=== PATIENT | male | born 1950 | race Two or more races ===

== ENCOUNTER 2023-08-20 10:35 | Outpatient (REF) | payer MEDICARE, SELFPAY | END 2023-08-20 10:36 | disposition home or self-care (01) | LOC: LAB 10:35 | PROVIDERS: PCP Family Medicine; Visit Provider Family Medicine | DX: K52.9 Noninfective gastroenteritis and colitis, unspecified (principal) | CPT/HCPCS: 87045; 87046; 87427; 87493 ==

== ENCOUNTER 2023-08-21 07:53 | Outpatient (RCR) | payer MEDICARE, SELFPAY | END 2023-09-04 13:17 | disposition home or self-care (01) | LOC: PT 07:53 | PROVIDERS: PCP Family Medicine; Visit Provider Family Medicine | DX: M25.569 Pain in unspecified knee (principal) | CPT/HCPCS: 97110; 97161 ==

== ENCOUNTER 2023-09-17 11:03 | Outpatient (OUT) | payer MEDICARE, SELFPAY ==
--- NOTE | 2023-09-17 11:17 | XR_ITS ---
[place] [id number] Patient Name: SEAN GREWAL MRN: [id number] date: 1950 Sex: M Assigned Patient Location: RAD Current Patient Location: RAD Accession/Order Number: [id number] Exam Date: 09/17/2023 11:21 Report Date: 09/17/2023 12:21 At the request of: BARAK ANTHONY Procedure: XR knee LT 3V PROCEDURE: XR knee LT 3V COMPARISON: None. HISTORY: Left Knee Pain M25.562 FINDINGS: BONES:No acute fracture or dislocation. Tricompartmental osteoarthritis with irregularity of the right medial femoral condyle. Chondrocalcinosis. SOFT TISSUES:Negative. No visible soft tissue swelling. EFFUSION:Suprapatellar joint effusion OTHER: Negative. XR/XR knee LT 3V IMPRESSION: Osteoarthritis, moderate to severe in the medial compartment Electronically authenticated by: ERIC PEPPER Date: 09/17/2023 12:21
== END 2023-09-17 11:04 | disposition home or self-care (01) ==
LOC: RAD 11:09
PROVIDERS: PCP Family Medicine; Visit Provider Family Medicine
DX: M25.562 Pain in left knee (principal); M17.12 Unilateral primary osteoarthritis, left knee
CPT/HCPCS: 73562

== ENCOUNTER 2023-10-10 13:18 | Outpatient (OUT) | payer MEDICARE, SELFPAY ==
--- NOTE | 2023-10-10 13:32 | MR_ITS ---
[place] [id number] Patient Name: SEAN GREWAL MRN: [id number] date: 1950 Sex: M Assigned Patient Location: MRI Current Patient Location: MRI Accession/Order Number: [id number] Exam Date: 10/10/2023 14:05 Report Date: 10/10/2023 21:55 At the request of: BARAK ANTHONY Procedure: MR knee LT wo con EXAM: MR knee LT wo con HISTORY: Left knee pain COMPARISON: Knee x-rays 09/17/2023 TECHNIQUE: Multiplanar, multi sequential MRI sequences were performed. FINDINGS: Large knee effusion. Fatty proliferation of the synovium most pronounced within the suprapatella pouch consistent with lipoma arborescens. Chondrocalcinosis pyrophosphate deposition is better visualized on the prior x-ray. Small multiloculated popliteal cyst. Osteophytes are present off all articular surfaces. Degenerative bone marrow edema and subchondral cysts of the medial femoral condyle, medial tibial plateau and the lateral aspect of the patella. The superficial extra-articular subcutaneous soft tissues are free of edema, hematoma, mass or cyst. No discrete muscle edema, hematoma, atrophy or fatty infiltration. Full-thickness cartilage loss of the medial femoral condyle and medial tibial plateau articular surfaces. Underlying subchondral remodeling. Global degenerative tearing of the medial meniscus. The meniscal root ligaments are intact. Multifocal full and partial thickness cartilage irregularities of the lateral femoral condyle and lateral tibial plateau. Global leading edge degenerative tearing of the lateral meniscus. The root ligaments are unremarkable. Full-thickness cartilage loss throughout the lateral patella facet with mild subchondral remodeling. Full and partial thickness cartilage loss of the patella apex, medial patella facet and trochlea. Edema of Hoffa's fat. The patella tendon and visualized extensor mechanism are unremarkable. The anterior cruciate, posterior cruciate, medial collateral and lateral complex ligaments exhibit no acute thickening, tear or edema. MR/MR knee LT wo con IMPRESSION: 1. Lipoma arborescens. 2. 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 3. Degenerative tearing of the medial and lateral menisci. 4. Large knee effusion. 5. Small multiloculated popliteal cyst. Electronically authenticated by: ERIC GOODSON Date: 10/10/2023 21:55
== END 2023-10-10 13:19 | disposition home or self-care (01) ==
LOC: MRI 13:22
PROVIDERS: PCP Family Medicine; Visit Provider Family Medicine
DX: M25.562 Pain in left knee (principal); M25.462 Effusion, left knee; M11.262 Other chondrocalcinosis, left knee; M17.12 Unilateral primary osteoarthritis, left knee; M71.22 Synovial cyst of popliteal space [Baker], left knee
CPT/HCPCS: 73721

== ENCOUNTER 2023-12-14 09:23 | Outpatient (OUT) | payer MEDICARE, SELFPAY ==
--- NOTE | 2023-12-14 | XR_ITS ---
The [address] [address] Patient Name: SEAN GREWAL MRN: [id number] date: 1950 Sex: M Assigned Patient Location: US Current Patient Location: US Accession/Order Number: [id number] Exam Date: 12/14/2023 10:15 Report Date: 12/14/2023 10:55 At the request of: PETEY LUJAN Procedure: XR abdomen 1V EXAM: XR abdomen 1V INDICATION: Left testicular pain. COMPARISON: None. TECHNIQUE: Supine AP view of the abdomen FINDINGS: Nonobstructive bowel gas pattern. Moderate colonic fecal burden. No evidence of free intra-abdominal air in provided supine views. No pneumatosis or portal venous gas. Unremarkable visceral margins. Pelvic phleboliths. No urinary tract stone identified. No acute osseous abnormality. Lumbar spine dextroscoliosis and multilevel degenerative changes. XR/XR abdomen 1V IMPRESSION: No evidence of acute abdominal process. Electronically authenticated by: MARY JANE WALLACE Date: 12/14/2023 10:55
--- NOTE | 2023-12-14 | US_ITS ---
The [address] [address] Patient Name: SEAN GREWAL MRN: [id number] date: 1950 Sex: M Assigned Patient Location: Current Patient Location: US Accession/Order Number: [id number] Exam Date: 12/14/2023 09:40 Report Date: 12/14/2023 10:27 At the request of: PETEY LUJAN Procedure: US renal BI PROCEDURE: US renal BI DATE: 12/14/2023 9:40 AM EST COMPARISONS: None. INDICATION FOR EXAMINATION: 73 years Male n50.819 testicular pain TECHNIQUE: Grayscale and color Doppler technique were utilized to evaluate the retroperitoneum. FINDINGS: KIDNEYS: The right kidney measures 10.8 x 5.9 x 5.8 cm. The left kidney measures 11.3 x 4.9 x 5.7 cm. There is no evidence of hydronephrosis. There is no ultrasonic evidence of solid focal renal masses or other significant renal parenchymal abnormalities. There are some cysts of the right kidney the largest measuring 1.9 x 1.8 x 1.7 cm mid lower, and lateral. The renal cortices show no evidence of thinning. URINARY BLADDER: There is no ultrasonic evidence of urinary bladder abnormalities. Urinary bladder volume is 116 cc of time of this exam. ASSESSMENT: The kidneys and urinary bladder show no ultrasonic evidence of significant abnormalities. Scattered renal cysts of the right kidney. Electronically authenticated by: DYLON OLIVEROS Date: 12/14/2023 10:27
--- NOTE | 2023-12-14 | US_ITS ---
The [address] [address] Patient Name: SEAN GREWAL MRN: [id number] date: 1950 Sex: M Assigned Patient Location: Current Patient Location: US Accession/Order Number: [id number] Exam Date: 12/14/2023 09:40 Report Date: 12/14/2023 10:33 At the request of: PETEY LUJAN Procedure: US scrotum PROCEDURE: US scrotum DATE: 12/14/2023 9:40 AM EST COMPARISONS: None. INDICATION FOR EXAMINATION: 73 years Male n50.819 testicular pain TECHNIQUE: Grayscale and color Doppler technique were utilized to evaluate the scrotum. 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 There is no evidence of intratesticular masses or other significant testicular parenchymal abnormalities. There is symmetric testicular arterial blood flow on color and pulsed wave Doppler imaging. The right testis measures 4.6 x 2.7 x 2.1 cm. The left testis measures 3.9 x 3.2 x 2.0 cm. EPIDIDYMIS: The epididymides are normal in size and show normal vascularity on color Doppler imaging. SCROTUM: There is small right hydrocele bilaterally. There is no ultrasonic evidence of varicocele. ASSESSMENT: There is no ultrasonic evidence of testicular abnormalities. 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 Small hydroceles are present, likely of no clinical significance. Electronically authenticated by: DYLON OLIVEROS Date: 12/14/2023 10:33
--- OUTSIDE RECORDS SUMMARY | 2023-12-14 09:27 | XMS_ITS | CCD ---
Author Name Unknown Address [address] [place] [address] Organization [facility] Care Team Providers Care Repair Operator Name Role Phone Barak Richard Primary Care Physician MD Jose MARCUM Attending Unavailable MD Jose MARCUM Attending Unavailable MD Jose MARCUM Attending Unavailable HOY ., DR CANCINO Admitting Unavailable HOY ., DR CANCINO Attending Unavailable HOY ., DR CANCINO Primary Care Unavailable HOY ., DR CANCINO Consulting Unavailable ZIEBER, DR ANYA Singleton Consulting Unavailable MARCUM ., DR EPSTEIN Admitting Unavailable MARCUM ., DR EPSTEIN Attending Unavailable HOY ., DR CANCINO Primary Care Unavailable MARCUM ., DR EPSTEIN Consulting Unavailable ZIEBER, DR ANYA Singleton Consulting Unavailable MARCUM ., DR EPSTEIN Admitting Unavailable MARCUM ., DR EPSTEIN Attending Unavailable HOY ., DR CANCINO Primary Care Unavailable MARCUM ., DR EPSTEIN Consulting Unavailable WEST, DR ERIC Carrillo Consulting Unavailable HOY ., DR CANCINO Admitting Unavailable HOY ., DR CANCINO Attending Unavailable HOY ., DR CANCINO Primary Care Unavailable MARCUM ., DR EPSTEIN Admitting Unavailable MARCUM ., DR EPSTEIN Attending Unavailable HOY ., DR CANCINO Primary Care Unavailable MARCUM ., DR EPSTEIN Consulting Unavailable HOY ., DR CANCINO Admitting Unavailable HOY ., DR CANCINO Attending Unavailable HOY ., DR CANCINO Primary Care Unavailable HOY ., DR CANCINO Consulting Unavailable EVGENY, DR ERIC Carrillo Consulting Unavailable MD Barak Richard Primary Care Provider [phone] MD Eliezer Venegas Attending Provider Eliezer Venegas Attending Unavailable Eliezer Venegas Admitting Unavailable Barak Richard Primary Care Unavailable Allergies Allergy Classification Reported Allergen(s) Allergy Type Date of Onset Reaction(s) Facility (1 source) No Known Medication Allergies; Translations: [No Known Medication Allergies] Propensity to adverse reactions (disorder) [facility] Repository Medications Current Medications Medication Drug Class(es) Dates Sig (Normalized) Sig (Original) 24 hr alfuzosin hydrochloride 10 mg extended release oral tablet (2 sources) alpha-Adrenergic Pedrito Start: 04-15-2023 take 1 tablet by mouth once daily alfuzosin 10 mg ER Tab 10 mg = 1 tab(s), Oral, Daily, # 90 tab(s), Refills(s) 3, Pharmacy: [facility] Mail [facility], 159, cm, 11/19/22 10:59:00 EST, Height/Length Dosing, 78, kg, 11/19/22 10:59:00 EST, Weight Dosing Start Date: 04/15/23 Status: Ordered Start: 02-12-2022 take 1 tablet by carolann th once daily alfuzosin 10 mg ER Tab 10 mg = 1 tab(s), Oral, Daily, # 90 tab(s), Refills(s) 3, Pharmacy: [facility] Mail [facility], 159, cm, 02/12/22 9:39:00 EDT, Height/Length Dosing, 78, kg, 02/12/22 9:39:00 EDT, Weight Dosing Start Date: 02/12/22 Status: Ordered Amlodipine (2 sources) Dihydropyridine Calcium Channel Pedrito Start: 12-18-2019 amlodipine Oral, Daily, Refills(s) 0 Start Date: 12/18/19 Status: Ordered cefdinir 300 mg oral capsule (1 source) Cephalosporin Antibacterial Start: 11-25-2023 cefdinir 300 mg Cap Refills(s) 0 Start Date: 11/25/23 Status: Ordered doxycycline hyclate 100 mg oral capsule (1 source) Tetracycline-class Drug Start: 11-25-2023 End: 12-16-2023 take 1 capsule by mouth twice daily doxycycline hyclate 100 mg Cap 100 mg = 1 cap(s), Oral, BID, X 3 week(s), # 42 cap(s), Refills(s) 0, Pharmacy: [facility]/pharmacy #[id number], 159, cm, 11/25/23 10:07:00 EST, Height/Length Dosing, 78, kg, 11/25/23 10:07:00 EST, Weight Dosing Start Date: 11/25/23 Stop Date: 12/16/23 Status: Ordered dutasteride 0.5 mg oral capsule (1 source) 5-alpha Reductase Inhibitor Start: 11-25-2023 End: 11-19-2024 take 1 capsule by mouth once daily dutasteride 0.5 mg Cap 0.5 mg = 1 cap(s), Oral, Daily, X 90 day(s), # 90 cap(s), Refills(s) 3, Pharmacy: [facility]/pharmacy #[id number], 159, cm, 11/25/23 10:07:00 EST, Height/Length Dosing, 78, kg, 11/25/23 10:07:00 EST, Weight Dosing Start Date: 11/25/23 Stop Date: 11/19/24 Status: Ordered lisinopril 5 mg oral tablet (2 sources) Angiotensin Converting Enzyme Inhibitor Start: 04-16-2019 take 1 tablet by mouth once daily lisinopril 5 mg Tab 5 mg = 1 tab(s), Oral, Daily Start Date: 04/16/19 Status: Ordered pantoprazole 40 mg delayed release oral tablet (2 sources) Proton Pump Inhibitor Start: 04-16-2019 take 1 tablet by mouth once daily Protonix 40 mg Tab-DR 40 mg = 1 tab(s), Oral, Daily Start Date: 04/16/19 Status: Ordered Completed/Discontinued Medications Medication Drug Class(es) Dates Sig (Normalized) Sig (Original) tadalafil 20 mg oral tablet (2 sources) Phosphodiesterase 5 Inhibitor Start: 04-15-2023 Cialis 20 mg Tab 20 mg = 1 tab(s), Oral, As Directed, Take 1 tab po 60 mins prior to sexual activity. Do not exceed 20mg/24 hrs., # 30 tab(s), Refills(s) 1, Pharmacy: [facility] [id number], 159, cm, 11/19/22 10:59:00 EST, Height/Length Dosing, 78, kg, 11/19/22 10:59:00 EST, Weight Dosing Start Date: 04/15/23 Status: Ordered Start: 05-17-2021 take 1 tablet by carolann th once daily Cialis 20 mg Tab 20 mg = 1 tab(s), Oral, Daily, # 30 tab(s), Refills(s) 1, Pharmacy: [place] [id number], 159, cm, 02/12/21 12:42:00 EST, Height/Length Dosing, 82, kg, 12/23/20 12:42:00 EST, Weight Dosing Start Date: 05/17/21 Status: Ordered Problems Active Problems Problem Classification Problem Date Documented Date Episodic/Chronic Abdominal pain (4 sources) Inguinal pain; Translations: [Pelvic and perineal pain] 04-16-2019 Episodic Disorders of lipid metabolism (2 sources) Hypertriglyceridemia 04-16-2019 Chronic Esophageal disorders (2 sources) Gastroesophageal reflux disease 04-16-2019 Chronic Hyperplasia of prostate (8 sources) Benign prostatic hypertrophy with outflow obstruction; Translations: [Benign prostatic hyperplasia with lower urinary tract symptoms] Onset: 11-17-19 Chronic Inflammatory conditions of male genital organs (6 sources) Epididymitis; Translations: [Epididymitis] Onset: 11-19-19 23 Episodic Osteoarthritis (2 sources) Osteoarthritis 04-16-2019 Chronic Other connective tissue disease (1 source) Abnormal posture; Translations: [ABNORMAL POSTURE] Onset: 03-01-20 Episodic Other diseases of kidney and ureters (1 source) Urinary tract obstruction; Translations: [Other obstructive and reflux uropathy] Onset: 11-19-19 Episodic Other diseases of kidney and ureters (2 sources) Cyst of kidney 10-02-2019 Episodic Other gastrointestinal disorders (2 sources) Scrotal mass 12-23-2020 Episodic Other liver diseases (4 sources) Liver disease, unspecified; Translations: [LIVER DISEASE UNSPECIFIED] Onset: 04-03-20 Chronic Other male genital disorders (2 sources) Male erectile dysfunction, unspecified; Translations: [Erectile dysfunction] Onset: 11-19-19 Chronic Other male genital disorders (2 sources) Impotence 12-23-2020 Chronic Other male genital disorders (2 sources) Cyst of epididymis 12-23-2020 Episodic Other male genital disorders (2 sources) Pain of left testicle 02-12-2022 Episodic Other non-traumatic joint disorders (1 source) Pain in unspecified joint; Translations: [Pain in unspecified joint] Onset: 10-24-20 Episodic Other screening for suspected conditions (not mental disorders or infectious disease) (2 sources) Radiology result abnormal 04-17-2019 Chroni c Residual codes; unclassified (2 sources) Family history of cancer of colon 04-16-2019 Episodic Screening and history of mental health and substance abuse codes (2 sources) Ex-smoker 03-18-2020 Episodic Spondylosis; intervertebral disc disorders; other back problems (5 sources) Other cervical disc degeneration, unspecified cervical region; Translations: [Spondylosis without myelopathy or radiculopathy, cervical region] Onset: 06-20-20 Chronic Spondylosis; intervertebral disc disorders; other back problems (4 sources) Cervicalgia; Translations: [CERVICALGIA] Onset: 02-29-20 23 Episodic Past or Other Problems Problem Classification Problem Date Documented Date Episodic/Chronic Biliary tract disease (1 source) Calculus of gallbladder without cholecystitis without obstruction; Translations: [CALCU GB W/O CHOLECYST W/O OBST] Onset: 04-05-2022 Episodic Other male genital disorders (4 sources) Testicular pain, unspecified; Translations: [TESTICULAR PAIN UNSPECIFIED] Onset: 03-27-2022 Episodic Results Test Name Value Interpretation Reference Range Facility [facility] Antinuclear Antibodieson 10-24-2023 Antinuclear Abs, IFA Negative Normal . [facility] Comment on above: Result Comment: Nega tive <1:80 Borderline 1:80 Positive >1:80 ICAP nomenclature: AC-0 For more information about Hep-2 cell patterns use ANApatterns.org, the official website for the International Consensus on Antinuclear Antibody (KEV) Patterns (ICAP). Performed at: [facility] [place] [id number] Billiard Table Mechanic: Arcenio Ballard PhD, Phone: [phone] PERFORMED BY: [place] [address] PATHOLOGIST ADJUNCT PHYSICAL EDUCATION INSTRUCTOR DANYELLE HERNANDEZ M.D. Performed By: #### U AARON, CBC, ESR, CMP, CRP #### [place] [address] [place] #### KEV #### [facility] , Alanine aminotransferase [En zymatic activity/volume] in Serum or PlasmaOrdered By: Eliezer Venegas on 10-24-2023 ALT [Catalytic activity/Vol] 19 U/L 7-52 [facility] Albumin [Mass/volume] in Ser um or Plasma by Bromocresol green (BCG) dye binding methoOrdered By: Eliezer Venegas on 10-24-2023 Albumin BCG dye [Mass/Vol] 4.5 g/dL 3.5-5.7 [facility] Alkaline phosphatase [Enzyma tic activity/volume] in Serum or PlasmaOrdered By: Eliezer Venegas on 10-24-2023 ALP [Catalytic activity/Vol] 69 U/L 34-104 [facility] Aspartate aminotransferase [ Enzymatic activity/volume] in Serum or PlasmaOrdered By: Eliezer Venegas on 10-24-2023 AST [Catalytic activity/Vol] 18 U/L 13-39 [facility] Basophils Auto (Bld) [#/Vol] Ordered By: Eliezer Venegas on 10-24-2023 Basophils (Bld) [#/Vol] 0.0 10*3/uL 0.0-0.2 [facility] Basophils/100 WBC Auto (Bld) Ordered By: Eliezer Venegas on 10-24-2023 Basophils/100 WBC (Bld) 0.6 % . [facility] Bilirubin.total [Mass/volume ] in Serum or PlasmaOrdered By: Eliezer Venegas on 10-24-2023 Bilirubin [Mass/Vol] 0.6 mg/dL 0.3-1.0 [facility] C reactive protein [Mass/vol ume] in Serum or PlasmaOrdered By: Eliezer Venegas on 10-24-2023 CRP [Mass/Vol] < 0.5 mg/dL 0.0-0.5 [facility] C-Reactive Proteinon 023 CRP [Mass/Vol] mg/L Normal 0.0-0.5 [facility] Comment on above: Result Comment: PERF ORMED BY: [place] [address] PATHOLOGIST ADJUNCT PHYSICAL EDUCATION INSTRUCTOR DANYELLE HERNANDEZ M.D. Performed By: #### U AARON, CBC, ESR, CMP, CRP #### [place] [address] [place] #### KEV #### [facility] , Calcium [Mass/volume] in Ser um or PlasmaOrdered By: Eliezer Venegas on 10-24-2023 Calcium [Mass/Vol] 9.4 mg/dL 8.6-10.3 [facility] Carbon dioxide, total [Moles /volume] in Serum or PlasmaOrdered By: Eliezer Venegas on 10-24-2023 CO2 [Moles/Vol] 27.8 mmol/L 21.0-31.0 [facility] Chloride [Moles/volume] in S precious or PlasmaOrdered By: Eliezer Venegas on 10-24-2023 Chloride [Moles/Vol] 101 mmol/L 98-107 [facility] Complete Blood Count Auto Di ffon 10-24-2023 Basophils (Bld) [#/Vol] 0.0 10*3/uL Normal 0.0-0.2 [facility] Comment on above: Performed By: #### U AARON, CBC, ESR, CMP, CRP #### [facility] [address] [place] [address] [place] #### KEV #### [facility] , Basophils/100 WBC (Bld) 0.6 % Normal . [facility] Comment on above: Performed By: #### U AARON, CBC, ESR, CMP, CRP #### [facility] [address] [place] [address] [place] #### KEV #### [facility] , Eosinophils (Bld) [#/Vol] 0.0 10*3/uL Normal 0.0-0.45 [facility] Comment on above: Performed By: #### U AARON, CBC, ESR, CMP, CRP #### [facility] [address] [place] [address] [place] #### KEV #### [facility] , Eosinophils/100 WBC (Bld) 0.7 % Normal . [facility] Comment on above: Performed By: #### U AARON, CBC, ESR, CMP, CRP #### [place] [address] [place] #### KEV #### [facility] , Erythrocyte distribution width (RBC) [Ratio] 12.4 % Normal 12.0-14.8 [facility] Comment on above: Performed By: #### U AARON, CBC, ESR, CMP, CRP #### [address] #### KEV #### [facility] , Hematocrit (Bld) [Volume fraction] 38.4 % Low 38.8-50.0 [facility] Comment on above: Performed By: #### U AARON, CBC, ESR, CMP, CRP #### [address] #### KEV #### [facility] , Hemoglobin (Bld) [Mass/Vol] 13.9 g/dL Normal 13.0-17.0 [facility] Comment on above: Performed By: #### U AARON, CBC, ESR, CMP, CRP #### [address] #### KEV #### [facility] , Lymphocytes (Bld) [#/Vol] 1.5 10*3/uL Normal 1.00-4.8 [facility] Comment on above: Performed By: #### U AARON, CBC, ESR, CMP, CRP #### [address] #### KEV #### [facility] , Lymphocytes/100 WBC (Bld) 34.3 % Normal . [facility] Comment on above: Performed By: #### U AARON, CBC, ESR, CMP, CRP #### [place] [address] [place] #### KEV #### [facility] , MCH (RBC) [Entitic mass] 36.0 pg High 27.5-35.2 [facility] Comment on above: Performed By: #### U AARON, CBC, ESR, CMP, CRP #### [place] [address] [place] #### KEV #### [facility] , MCV (RBC) [Entitic vol] 99.7 fL Normal 83.5-101 F [facility] Comment on above: Performed By: #### U AARON, CBC, ESR, CMP, CRP #### [facility] [address] [place] [address] #### KEV #### [facility] , Mean Corpuscular HGB Conc 36.1 g/dL High 32.5-35.6 [facility] Comment on above: Performed By: #### U AARON, CBC, ESR, CMP, CRP #### [facility] [address] [place] [address] [place] #### KEV #### [facility] , Monocytes (Bld) [#/Vol] 0.4 10*3/uL Normal 0.0-0.8 [facility] Comment on above: Performed By: #### U AARON, CBC, ESR, CMP, CRP #### [facility] [address] [place] [address] [place] #### KEV #### [facility] , Monocytes/100 WBC (Bld) 10.0 % Normal . [facility] Comment on above: Performed By: #### U AARON, CBC, ESR, CMP, CRP #### [facility] [address] [place] [address] [place] #### KEV #### [facility] , Neutrophils (Bld) [#/Vol] 2.4 10*3/uL Normal 1.8-7.7 [facility] Comment on above: Performed By: #### U AARON, CBC, ESR, CMP, CRP #### [facility] [address] [place] [address] [place] #### KEV #### [facility] , Neutrophils/100 WBC (Bld) 54.4 % Normal . [facility] Comment on above: Performed By: #### U AARON, CBC, ESR, CMP, CRP #### [facility] [address] [place] [address] #### KEV #### [facility] , NRBC% 0.1 /100{WBC} Normal 0-0.5 [facility] Comment on above: Performed By: #### U AARON, CBC, ESR, CMP, CRP #### [facility] [address] [place] [address] #### KEV #### [facility] , Platelet mean volume (Bld) [Entitic vol] 8.0 fL Normal 6.6-10.1 [facility] Comment on above: Performed By: #### U AARON, CBC, ESR, CMP, CRP #### [facility] [address] [place] [address] #### KEV #### [facility] , Platelets (Bld) [#/Vol] 206 10*3/uL Normal 150-450 [facility] Comment on above: Performed By: #### U AARON, CBC, ESR, CMP, CRP #### [address] #### KEV #### [facility] , RBC (Bld) [#/Vol] 3.85 10*6/uL Low 3.90-5.60 [facility] Comment on above: Performed By: #### U AARON, CBC, ESR, CMP, CRP #### [facility] [address] [place] [address] [place] #### KEV #### [facility] , WBC (Bld) [#/Vol] 4.4 10*3/uL Normal 4.1-10.5 [facility] Comment on above: Performed By: #### U AARON, CBC, ESR, CMP, CRP #### [place] [address] [place] #### KEV #### [facility] , Comprehensive Metabolic Pane bebo 10-24-2023 Albumin [Mass/Vol] 4.5 g/dL Normal 3.5-5.7 [facility] Comment on above: Performed By: #### U AARON, CBC, ESR, CMP, CRP #### [facility] [address] [place] [address] [place] #### KEV #### [facility] , Albumin/Globulin [Mass ratio] 1.9 {ratio} Normal [facility] Comment on above: Performed By: #### U AARON, CBC, ESR, CMP, CRP #### [address] #### KEV #### [facility] , ALP [Catalytic activity/Vol] 69 U/L Normal 34-104 [facility] Comment on above: Performed By: #### U AARON, CBC, ESR, CMP, CRP #### [address] #### KEV #### [facility] , ALT [Catalytic activity/Vol] 19 U/L Normal 7-52 [facility] Comment on above: Performed By: #### U AARON, CBC, ESR, CMP, CRP #### [facility] [address] [place] [address] [place] #### KEV #### [facility] , Anion gap [Moles/Vol] 11.8 mmol/L Normal 6.0-15.0 [facility] Comment on above: Performed By: #### U AARON, CBC, ESR, CMP, CRP #### [place] [address] [place] #### KEV #### [facility] , AST [Catalytic activity/Vol] 18 U/L Normal 13-39 [facility] Comment on above: Performed By: #### U AARON, CBC, ESR, CMP, CRP #### [facility] [address] [place] [address] [place] #### KEV #### [facility] , Bilirubin [Mass/Vol] 0.6 mg/dL Normal 0.3-1.0 [facility] Comment on above: Performed By: #### U AARON, CBC, ESR, CMP, CRP #### [facility] [address] [place] [address] [place] #### KEV #### [facility] , Calcium [Mass/Vol] 9.4 mg/dL Normal 8.6-10.3 [facility] Comment on above: Performed By: #### U AARON, CBC, ESR, CMP, CRP #### [facility] [address] [place] [address] #### KEV #### [facility] , Chloride [Moles/Vol] 101 mmol/L Normal 98-107 [facility] Comment on above: Performed By: #### U AARON, CBC, ESR, CMP, CRP #### [facility] [address] [place] [address] [place] #### KEV #### [facility] , CO2 [Moles/Vol] 27.8 mmol/L Normal 21.0-31.0 [facility] Comment on above: Performed By: #### U AARON, CBC, ESR, CMP, CRP #### [facility] [address] [place] [address] #### KEV #### [facility] , Creatinine [Mass/Vol] 0.74 mg/dL Normal 0.70-1.30 [facility] Comment on above: Performed By: #### U AARON, CBC, ESR, CMP, CRP #### [facility] [address] [place] [address] [place] #### KEV #### [facility] , GFR/1.73 sq M.predicted MDRD (S/P/Bld) [Vol rate/Area] mL/min/{1.73_m2} Normal [facility] Comment on above: Performed By: #### U AARON, CBC, ESR, CMP, CRP #### [place] [address] [place] #### KEV #### [facility] , Globulin (S) [Mass/Vol] 2.4 g/dL Normal [facility] Comment on above: Performed By: #### U AARON, CBC, ESR, CMP, CRP #### [place] [address] [place] #### KEV #### [facility] , Glucose [Mass/Vol] 95 mg/dL Normal 70-100 [facility] Comment on above: Result Comment: [facility] Glucose Reference Range is dependent on time and content of last meal. Glucose of more than 200 mg/dL in a nonstressed, ambulatory subject supports the diagnosis of Diabetes Mellitus. ADA recommended reference range Performed By: #### U AARON, CBC, ESR, CMP, CRP #### [address] #### KEV #### [facility] , Potassium [Moles/Vol] 4.6 mmol/L Normal 3.5-5.1 [facility] Comment on above: Performed By: #### U AARON, CBC, ESR, CMP, CRP #### [place] [address] [place] #### KEV #### [facility] , Protein [Mass/Vol] 6.9 g/dL Normal 6.4-8.9 [facility] Comment on above: Performed By: #### U AARON, CBC, ESR, CMP, CRP #### [place] [address] [place] #### KEV #### [facility] , Sodium [Moles/Vol] 136 mmol/L Normal 136-145 [facility] Comment on above: Performed By: #### U AARON, CBC, ESR, CMP, CRP #### [place] [address] [place] #### KEV #### [facility] , Urea nitrogen [Mass/Vol] 21 mg/dL Normal 7-25 [facility] Comment on above: Performed By: #### U AARON, CBC, ESR, CMP, CRP #### [facility] [address] [place] [address] #### KEV #### [facility] , Creatinine [Mass/volume] in Serum or PlasmaOrdered By: Eliezer Venegas on 10-24-2023 Creatinine [Mass/Vol] 0.74 mg/dL 0.70-1.30 [facility] Eosinophils Auto (Bld) [#/Vo l]Ordered By: Eliezer Venegas on 10-24-2023 Eosinophils (Bld) [#/Vol] 0.0 10*3/uL 0.0-0.45 [facility] Eosinophils/100 WBC Auto (Bl d)Ordered By: Eliezer Venegas on 10-24-2023 Eosinophils/100 WBC (Bld) 0.7 % . [facility] Erythrocyte Sedimentation Ra marie 10-24-2023 ESR (Bld) [Velocity] 11 mm/h Normal 0-19 [facility] Comment on above: Result Comment: PERF ORMED BY: [place] [address] PATHOLOGIST ADJUNCT PHYSICAL EDUCATION INSTRUCTOR DANYELLE HERNANDEZ M.D. Performed By: #### U AARON, CBC, ESR, CMP, CRP #### [facility] [address] [place] [address] #### KEV #### [facility] , Erythrocyte distribution wid th Auto (RBC) [Ratio]Ordered By: Eliezer Venegas on 10-24-2023 Erythrocyte distribution width (RBC) [Ratio] 12.4 % 12.0-14.8 [facility] Erythrocyte sedimentation ra te by Photometric methodOrdered By: Eliezer Venegas on 10-24-2023 ESR Photometric method (Bld) [Velocity] 11 mm/hr 0-19 [facility] Globulin Calc (S) [Mass/Vol] Ordered By: Eliezer Venegas on 10-24-2023 Globulin (S) [Mass/Vol] 2.4 g/dL F [facility] Glucose [Mass/volume] in Ser um or PlasmaOrdered By: Eliezer Venegas on 10-24-2023 Glucose [Mass/Vol] 95 mg/dL 70-100 [facility] Comment on above: ADA recommended refe rence rangeRandom Glucose Reference Range is dependent on time and content of last meal. Glucose of more than 200 mg/dL in a nonstressed, ambulatory subject supports the diagnosis of Diabetes Mellitus. Hematocrit Auto (Bld) [Volum e fraction]Ordered By: Eliezer Venegas on 10-24-2023 Hematocrit (Bld) [Volume fraction] 38.4 % 38.8-50.0 [facility] Hemoglobin [Mass/volume] in BloodOrdered By: Eliezer Venegas on 10-24-2023 Hemoglobin (Bld) [Mass/Vol] 13.9 g/dL 13.0-17.0 [facility] Leukocytes [#/volume] correc víctor for nucleated erythrocytes in Blood by Automated counOrdered By: Eliezer Venegas on 10-24-2023 WBC corrected for nucl RBC Auto (Bld) [#/Vol] 4.4 10*3/uL 4.1-10.5 [facility] Lymphocytes Auto (Bld) [#/Vo l]Ordered By: Eliezer Venegas on 10-24-2023 Lymphocytes (Bld) [#/Vol] 1.5 10*3/uL 1.00-4.8 [facility] Lymphocytes/100 WBC Auto (Bl d)Ordered By: Eliezer Venegas on 10-24-2023 Lymphocytes/100 WBC (Bld) 34.3 % . [facility] MCH Auto (RBC) [Entitic mass ]Ordered By: Eliezer Venegas on 10-24-2023 MCH (RBC) [Entitic mass] 36.0 pg 27.5-35.2 [facility] MCHC Auto (RBC) [Mass/Vol]Or dered By: Eliezer Venegas on 10-24-2023 MCHC (RBC) [Mass/Vol] 36.1 g/dL 32.5-35.6 [facility] MCV Auto (RBC) [Entitic vol] Ordered By: Eliezer Venegas on 10-24-2023 MCV (RBC) [Entitic vol] 99.7 fL 83.5-101 F [facility] Monocytes Auto (Bld) [#/Vol] Ordered By: Eliezer Venegas on 10-24-2023 Monocytes (Bld) [#/Vol] 0.4 10*3/uL 0.0-0.8 [facility] Monocytes/100 WBC Auto (Bld) Ordered By: Eliezer Venegas on 10-24-2023 Monocytes/100 WBC (Bld) 10.0 % . F [facility] Neutrophils Auto (Bld) [#/Vo l]Ordered By: Eliezer Venegas on 10-24-2023 Neutrophils (Bld) [#/Vol] 2.4 10*3/uL 1.8-7.7 [facility] Neutrophils/100 WBC Auto (Bl d)Ordered By: Eliezer Venegas on 10-24-2023 Neutrophils/100 WBC (Bld) 54.4 % . [facility] No Panel InformationOrdered By: Eliezer Venegas on 10-24-2023 Estimated GFR (CKD-EPI) > 60.0 mL/Min [facility] Pharmacy Creatinine Clearance (Chem N/A [facility] Nucleated erythrocytes [Pres ence] in Blood by Automated countOrdered By: Eliezer Venegas on 10-24-2023 Nucleated RBC Auto Ql (Bld) 0.1 /100{WBC} 0-0.5 [facility] Platelet mean volume Auto (B ld) [Entitic vol]Ordered By: Eliezer Venegas on 10-24-2023 Platelet mean volume (Bld) [Entitic vol] 8.0 fL 6.6-10.1 [facility] Platelets Auto (Bld) [#/Vol] Ordered By: Eliezer Venegas on 10-24-2023 Platelets (Bld) [#/Vol] 206 10*3/uL 150-450 [facility] Potassium [Moles/volume] in Serum or PlasmaOrdered By: Eliezer Venegas on 10-24-2023 Potassium [Moles/Vol] 4.6 mmol/L 3.5-5.1 [facility] Protein [Mass/volume] in Ser um or PlasmaOrdered By: Eliezer Venegas on 10-24-2023 Protein [Mass/Vol] 6.9 g/dL 6.4-8.9 [facility] RBC Auto (Bld) [#/Vol]Ordere d By: Eliezer Venegas on 10-24-2023 RBC (Bld) [#/Vol] 3.85 10*6/uL 3.90-5.60 [facility] Serum or plasma albumin/glob ulin mass ratioOrdered By: Eliezer Venegas on 10-24-2023 Albumin/Globulin [Mass ratio] 1.9 {ratio} [facility] Serum or plasma anion gap de terminationOrdered By: Eliezer Venegas on 10-24-2023 Anion gap [Moles/Vol] 11.8 mmol/L 6.0-15.0 [facility] Sodium [Moles/volume] in Ser um or PlasmaOrdered By: Eliezer Venegas on 10-24-2023 Sodium [Moles/Vol] 136 mmol/L 136-145 [facility] Urate [Mass/volume] in Serum or PlasmaOrdered By: Eliezer Venegas on 10-24-2023 Urate [Mass/Vol] 4.3 mg/dL 4.4-7.6 [facility] Urea nitrogen [Mass/volume] in Serum or PlasmaOrdered By: Eliezer Venegas on 10-24-2023 Urea nitrogen [Mass/Vol] 21 mg/dL 7-25 [facility] Uric Acidon 10-24-2023 Urate [Mass/Vol] 4.3 mg/dL Low 4.4-7.6 [facility] Comment on above: Performed By: #### U AARON, CBC, ESR, CMP, CRP #### [facility] [address] [place] [address] #### KEV #### [facility] , WBC Auto (Bld) [#/Vol]Ordere d By: Eliezer Venegas on 10-24-2023 WBC (Bld) [#/Vol] 4.4 10*3/uL 4.1-10.5 [facility] Lab Reportson 11-26-2022 Lab Reports [id number] 0CD:127 Normal [facility] Screenson 11-20-2022 Screens [id number] 0CD:127 [facility] Ambulatory Visit Summaryon 0 11-19-2022 Ambulatory Visit Summary YURIY GREWAL :1950 Visit Date:11/19/2022 Ambulatory Visit Instructions Your Diagnosis BPH with urinary obstruction Erectile dysfunction Epididymitis Other obstructive and reflux uropathy Tests Performed Urnls Dip Stick Auto w/o Microscopy POC 19179 Your Care Team Attending Physician - Jose MARCUM MD Primary Care Physician - Barak Richard MD This Is Your Medications List Contact prescribing physician if questions or concerns alfuzosin (alfuzosin 10 mg ER Tab) amlodipine lisinopril (lisinopril 5 mg Tab) pantoprazole (Protonix 40 mg Tab-DR) tadalafil (Cialis 20 mg Tab) Procedures Performed Colonoscopy (2011), Colonoscopy, flexible; diagnostic, including collection of specimen(s) by brushing or washing, when performed (separate procedure) (2008), Cataract surgery, Hernia repair. Discharge Vitals Heart Rate (Peripheral) 68 Respiratory Rate 16 Blood Pressure 132/70 Height 159 cm Height 63 in Weight 78 kg Weight 171.6 lb BMI 30.85 What to do next Scheduled Follow-Up Appointments Saturday 9:45 AM EST With: KITTY GLASS, Jose Singleton Where: [facility] Patient Educationon 11-19-19 23 Patient Education Urology Benign Prostatic Hyperplasia Benign prostatic hyperplasia (BPH) is an enlarged prostate gland that is caused by the normal aging process and not by cancer. The prostate is a walnut-sized gland that is involved in the production of semen. It is located in front of the rectum and below the bladder. The bladder stores urine and the urethra is the tube that carries the urine out of the body. The prostate may get bigger as a man gets older. An enlarged prostate can press on the urethra. This can make it harder to pass urine. The build-up of urine in the bladder can cause infection. Back pressure and infection may progress to bladder damage and kidney (renal) failure. What are the causes? This condition is part of a normal aging process. However, not all men develop problems from this condition. If the prostate enlarges away from the urethra, urine flow will not be blocked. If it enlarges toward the urethra and compresses it, there will be problems passing urine. What increases the risk? This condition is more likely to develop in men over the age of 50 years. What are the signs or symptoms? Symptoms of this condition include: ? Getting up often during the night to urinate. ? Needing to urinate frequently during the day. ? Difficulty starting urine flow. ? Decrease in size and strength of your urine stream. ? Leaking (dribbling) after urinating. ? Inability to pass urine. This needs immediate treatment. ? Inability to completely empty your bladder. ? Pain when you pass urine. This is more common if there is also an infection. ? Urinary tract infection (UTI). How is this diagnosed? This condition is diagnosed based on your medical history, a physical exam, and your symptoms. Tests will also be done, such as: ? A post-void bladder scan. This measures any amount of urine that may remain in your bladder after you finish urinating. ? A digital rectal exam. In a rectal exam, your health care provider checks your prostate by putting a lubricated, gloved finger into your rectum to feel the back of your prostate gland. This exam detects the size of your gland and any abnormal lumps or growths. ? An exam of your urine (urinalysis). ? A prostate specific antigen (PSA) screening. This is a blood test used to screen for prostate cancer. ? An ultrasound. This test uses sound waves to electronically produce a picture of your prostate gland. Your health care provider may refer you to a specialist in kidney and prostate diseases (urologist). How is this treated? Once symptoms begin, your health care provider will monitor your condition (active surveillance or watchful waiting). Treatment for this condition will depend on the severity of your condition. Treatment may include: ? Observation and yearly exams. This may be the only treatment needed if your condition and symptoms are mild. ? Medicines to relieve your symptoms, including: ? Medicines to shrink the prostate. ? Medicines to relax the muscle of the prostate. ? Surgery in severe cases. Surgery may include: ? Prostatectomy. In this procedure, the prostate tissue is removed completely through an open incision or with a laparoscope or robotics. ? Transurethral resection of the prostate (TURP). In this procedure, a tool is inserted through the opening at the tip of the penis (urethra). It is used to cut away tissue of the inner core of the prostate. The pieces are removed through the same opening of the penis. This removes the blockage. ? Transurethral incision (TUIP). In this procedure, small cuts are made in the prostate. This lessens the prostate's pressure on the urethra. ? Transurethral microwave thermotherapy (TUMT). This procedure uses microwaves to create heat. The heat destroys and removes a small amount of prostate tissue. ? Transurethral needle ablation (TUNA). This procedure uses radio frequencies to destroy and remove a small amount of prostate tissue. ? Interstitial laser coagulation (ILC). This procedure uses a laser to destroy and remove a small amount of prostate tissue. ? Transurethral electrovaporization (TUVP). This procedure uses electrodes to destroy and remove a small amount of prostate tissue. ? Prostatic urethral lift. This procedure inserts an implant to push the lobes of the prostate away from the urethra. Follow these instructions at home: ? Take zuyl-tdb-bvjybke and prescription medicines only as told by your health care provider. ? Monitor your symptoms for any changes. Contact your health care provider with any changes. ? Avoid drinking large amounts of liquid before going to bed or out in public. ? Avoid or reduce how much caffeine or alcohol you drink. ? Give yourself time when you urinate. ? Keep all follow-up visits as told by your health care provider. This is important. Contact a health care provider if: ? You have unexplained back pain. ? Your symptoms do not get better with treatment. ? You d (more content not included)... Normal [facility] Office/Clinic Noteon 11-19-2022 Urology Office/Clinic Note Chief Complaint 9m PSA HPI Staff 9m w/PSA. DX: BPH, ED & Epididymitis. *Alfuzosin 10mg & Cialis 20mg PRN therapy. PSA done 11/17/22- 0.50 Scrotal US done 03/07/22 due to Lt testicular pain... based on those results CT (stone protocol) was ordered, done 03/27/22. Lt testicular pain did come back in October. Received Cipro therapy from his PCP, took for 10 days. did not clear up, was given another 10 day supply. Is currently still taking, discomfort has slightly improved. Frequency during day and night (q2hrs), attributes to increased water intake. Denies any urinary complaints. History of Present Illness Tests reviewed: reviewed UA I have reviewed the previous health record information and history for this patient from Dr. Marcum. I have reviewed and verified the staff HPI to be accurate for this encounter. There have been no associated fever, chills, flank pain, or blood in the urine. Denies any urinary infections since last encounter. Review of Systems PHQ Score Initial Depression Screen Score: 0 ROS - Provider Constitutional: denies weight loss, denies hot flashes. Eyes: denies eye problems. Gastrointestinal: denies nausea, denies vomiting. Cardiovascular: denies chest pain or angina. Integumentary: no dryness Musculoskeletal: denies musculoskeletal symptoms. ENMT: denies otolaryngeal symptoms. Respiratory: no shortness of breath. Heme/Lymph: denies easy bleeding tendency, denies easy bruising tendency. Psychiatric: no confusion, no anxiety. Genitourinary: denies dysuria, denies hematuria, denies discharge, denies urinary frequency, denies urinary hesitancy, denies nocturia, denies incontinence, denies genital sores, denies decreased libido, and denies erectile dysfunction. Physical Exam Vitals & Measurements HR: 68(Peripheral) RR: 16 BP: 132/70 HT: 63 in HT: 159 cm WT: 78 kg WT: 171.6 lb BMI: 30.85 General Appearance: alert, no distress, well nourished, well developed male. Genitourinary: normal scrotum, normal testes, normal urethra, normal epididymis, normal vas deferens/spermatic cord. Flank Pain: none. Bladder: nonpalpable. Assessment/Plan 1. BPH with urinary obstruction (N40.1: Benign prostatic hyperplasia with lower urinary tract symptoms) Good stream. Most recent PSA 0.50 done 11/17/2022, previous PSA 0.72 done 07/05/21. Pt to continue Alfuzosin ER 10mg therapy. Pt states he drinks a lot of water and voids every 2hrs. Pt states Alfuzosin has helped w/ sxs. Pt will call for refills. Overall pt is voiding well. All questions/concerns were discussed. Pt to call our office if he encounters any issues prior. Pt understands and acknowledges. 2. Erectile dysfunction (N52.9: Male erectile dysfunction, unspecified) Cialis 20mg prn therapy. Continue medication as needed. 3. Epididymitis (N45.1: Epididymitis) CT AP done 03/27/2022 showed several rounded benign hypodensities within the right kidney. Scrotal US done 03/07/2022 showed no acute abnormality. Pt states discomfort in his left testicle began in October. Pt currently taking Cipro from PCP. his sxs are improving quite a bit. UA today is negative for blood and infection. Encouraged pt to wait for some time after void to ensure he is completely emptying. Will continue to monitor. Other obstructive and reflux uropathy (N13.8: Other obstructive and reflux uropathy) Follow-up With When Contact Information KITTY GLASS, Jose Singleton, ROSLYN In 1 year [facility] [address], [place] [address]- [phone] Additional Instructions: Patient Education Benign Prostatic Hyperplasia I, Tonya Calero, personally scribed for Dr. Marcum on 11/19/2022 11:39:22. . Documentation recorded by the scribe, Tonya Calero, accurately reflects the services(s) I performed and decisions made by me. Authenticated by Dr. Marcum on 11/19/2022 11:41:48. Problem List/Past Medical History Ongoing Abnormal findings on diagnostic imaging of other abdominal regions, including retroperitoneum BPH with urinary obstruction Cyst of kidney, acquired Epididymal cyst Epididymitis Erectile dysfunction Family history of colon cancer Former smoker GERD (gastroesophageal reflux disease) Hyperglyceridemia Left epididymitis Left inguinal pain Left testicular pain Osteoarthritis Pelvic and perineal pain Scrotal mass Historical No qualifying data Procedure/Surgical History Colonoscopy (2011), Colonoscopy, flexible; diagnostic, including collection of specimen(s) by brushing or washing, when performed (separate procedure) (2008), Cataract surgery, Hernia repair. Medications alfuzosin 10 mg ER Tab, 10 mg= 1 tab(s), Oral, Daily, 3 refills amlodipine, Oral, Daily Cialis 20 mg Tab, 20 mg= 1 tab(s), Oral, Daily, 1 refills lisinopril 5 mg Tab, 5 mg= 1 tab(s), Oral, Daily Protonix 40 mg Tab-DR, 40 mg= 1 tab(s), Oral, Daily Allergies No Known Medication Allergies Social History Alco (more content not included)... Normal [facility] Comment on above: Result Comment: Elec tronically Signed By: Jose MARCUM MD\.br\Date and Time Signed: 11/19/22 11:41 EST\.br\Electronically Co-Signed By: Tonya Calero\.br\Date and Time Co-Signed: 11/19/22 11:39 EST XR CSPINE MIN 4 VIEWSon 06-11 XR CSPINE MIN 4 VIEWS EXAMINATION: XR CS PINE MIN 4 VIEWS HISTORY: Degeneration of cervical intervertebral disc COMPARISON: No relevant comparison available. FINDINGS: BONES: Reversal of normal cervical lordosis. 1 mm anterolisthesis of C3 on C4. 2 mm retrolisthesis of C4 on C5 and C5 on C6. Mild to moderate degenerative spondylosis. Lyxg-ib-pvboryrg facet osteoarthropathy. DISC SPACES: Mild to severe disc space narrowing most significant at C4-C7 PARASPINOUS: Negative. No paraspinous abnormality is seen. OTHER: Negative. IMPRESSION: Moderate degenerative changes with reversal cervical lordosis Electronically authenticated by: REIC PEPPER Date: 2022-06-20 15:07 Normal [facility] RAD - CT Reporton 04-05-2022 RAD - CT Report [id number] 0CD:127 Normal [facility] CREATININEon 04-03-2022 Creatinine [Mass/Vol] 0.85 mg/dL Normal 0.70-1.30 [facility] Comment on above: Performed By: #### C IRENE #### [facility] [address] [place] [address] Dr. Charo Fuentes EGFR-AF TRINIDADIAN >60 Normal >=60 [facility] Comment on above: Performed By: #### C IRENE #### [facility] [address] [address] [address] Charo Fuentes EGFR-NON AF TRINIDADIAN >60 Normal >=60 [facility] Comment on above: Performed By: #### C IRENE #### [facility] [address] ABDOMEN WO/W CONon 2021 CT ABDOMEN WO/W CON EXAMINATION: CT ABDOMEN WO/W CON HISTORY: Lesion of liver , follow-up COMPARISON: CT abdomen pelvis without contrast 03/27/2022, CT abdomen with contrast 04/25/2019 TECHNIQUE: Axial, Coronal, and Sagittal images were created without and with non-ionic intravenous contrast material. Dose reduction techniques were achieved by using automated exposure control and/or adjustment of mA and/or kV according to patient size and/or use of iterative reconstruction technique. FINDINGS: LUNG BASES: No visible pulmonary or pleural disease. LIVER: Several heterogeneous hypodense areas within liver which demonstrate early peripheral enhancement and slow filling in of contrast most consistent with hemangiomas. BILIARY: Multiple tiny stones within the noninflamed gallbladder. PANCREAS: No lesion, fluid collection, ductal dilatation, or atrophy. SPLEEN: No enlargement or focal lesion. ADRENALS: No mass or enlargement. KIDNEYS: Stable benign-appearing right renal cysts. No mass, obstruction, or calcification. BOWEL/MESENTERY: No visible mass, obstruction, or bowel wall thickening. AORTA/VASCULAR: No aneurysm or dissection. RETROPERITONEUM: No mass or adenopathy. ABDOMINAL WALL: No mass or hernia. BONES: No bony lesion or fracture. OTHER: Negative. IMPRESSION: 1. Hepatic lesions are most consistent with benign hemangiomas. No additional follow-up recommended at this time. 2. Stable renal cysts favoring benign etiology. 3. Cholelithiasis. Electronically authenticated by: ANYA NUÑEZ Date: 2022-04-03 11:34 Normal [facility] CT ABD/PELVIS WO CONon 03-27 CT ABD/PELVIS WO CON EXAMINATION: CT ABD/PELVIS WO CON HISTORY: Pain in testicle ; left testicular pain for 4 weeks COMPARISON: Ultrasound scrotum 03/07/2022, CT abdomen 04/25/2019 TECHNIQUE: Axial, Coronal, and Sagittal images were created without IV contrast. Dose reduction techniques were achieved by using automated exposure control and/or adjustment of mA and/or kV according to patient size and/or use of iterative reconstruction technique. FINDINGS: LUNG BASES: No visible pulmonary or pleural disease. LIVER: Areas of hyperdensity and hypodensity within liver which appear to correspond to hemangiomas seen on prior CT study. BILIARY: Small stones within the noninflamed gallbladder. PANCREAS: No lesion, fluid collection, ductal dilatation, or atrophy. SPLEEN: No enlargement or focal lesion. ADRENALS: No mass or enlargement. KIDNEYS: Several rounded hypodensities within right kidney favoring benign cysts. Unremarkable left kidney and bilateral ureters. BOWEL/MESENTERY: Numerous diverticula throughout length of colon; no acute inflammatory changes. No visible mass, obstruction, or focal bowel wall thickening. AORTA/VASCULAR: No aneurysm or dissection. RETROPERITONEUM: No mass or adenopathy. LYMPH NODES: No adenopathy. URINARY BLADDER: No visible focal wall thickening, lesion, or calculus. PELVIC ORGANS: No visible mass. Pelvic organs appropriate for patient age. ABDOMINAL WALL: No mass or hernia. BONES: Multilevel moderate marked degenerative disc disease of the lumbar spine. OTHER: Negative. IMPRESSION: 1. No suspicious findings to account for patient's left testicular pain. 2. Several liver lesions suspected to correspond to previously seen hemangiomas. Consider follow-up multiphase CT imaging of the liver without and with IV contrast to exclude malignancy. 3. Cholelithiasis. 4. Colonic diverticulosis. 5. Multilevel moderate marked degenerative disc disease of the lumbar spine. Electronically authenticated by: ANYA NUÑEZ Date: 2022-03-27 10:06 Normal [facility] Reminderson 03-23-2022 Reminders - From: Toby Funes MA ([facility] - Clinical) To: EU - Clinical; Sent: 03/23/2022 11:52:30 EDT Show up: 03/26/2022 11:52:00 EDT Subject: CT Reminder/Recall Addendum by Mary Jean-Baptiste MA on March 15, 2022 10:24:43 EDT Spoke to pt. Order faxed to [facility]. Addendum by Jose MARCUM MD on March 14, 2022 17:24:30 EDT From: Jose MARCUM MD To: EU - Clinical; Lucinda Haque; Sent: 03/14/2022 17:24:30 EDT Subject: RE: Lt. epididymitis please get a ct stone protocol pw. Addendum by PETEY LUJAN PA-C on March 08, 2022 13:30:33 EDT Pt. saw you on 02/12/22 and was given Doxy 100mg bid x3wks for left epididymitis. Pt finished abx and called complaining of ongoing left sided testicular pain. Pain scale 7-8/10. He is currently taking Ibuprofen 600mg q5hrs. No other sxs. You recommended scrotal US. It is normal. Please advise. [place] Addendum by Mary Jean-Baptiste MA on March 08, 2022 11:29:36 EDT From: Mary Jean-Baptiste MA (EU - Clinical) To: Jose MARCUM MD; Sent: 03/08/2022 11:29:36 EDT Subject: RE: Lt. epididymitis Please review scrotal us in chart. Addendum by Mary Jean-Baptiste MA on March 06, 2022 10:47:20 EDT Pt scheduled for 03/07/22 @ 11:00am. Order faxed. Please show PRW results. Addendum by Mary Jean-Baptiste MA on March 06, 2022 10:21:55 EDT Pt. would like [facility]. [facility] with central scheduling to get that scheduled. Addendum by Jose MARCUM MD on March 05, 2022 16:54:34 EDT From: Jose MARCUM MD To: [facility] Clinical; Sent: 03/05/2022 16:54:34 EDT Subject: RE: Lt. epididymitis Addendum by Jose MARCUM MD on March 05, 2022 16:54:26 EDT Patient needs a scrotal US misael.pw Addendum by PETEY LUJAN PA-C on March 05, 2022 13:24:23 EDT From: PETEY LUJAN PA-C To: KITTY GLASS, Jose Singleton; Sent: 03/05/2022 13:24:23 EDT ! Subject: FW: Lt. epididymitis From: Jerilyn MIRANDA, Mary Beverly To: PETEY LUJAN PA-C; Sent: 03/05/2022 08:14:22 EDT Subject: Lt. epididymitis Pt. saw Dr. Marcum on 02/12/22 and was given Doxy 100mg bid x3wks for left epididymitis. Last abx taken yesterday. Pt. called complaining of ongoing left sided testicular pain. Pain scale 7-8/10. He is currently taking Ibuprofen 600mg q5hrs. No other sxs. Please advise. Pt's # [phone]. Normal [facility] Pre-Certification Formon Pre-Certification Form [id number] 0CD:127 Normal [facility] RAD - Ultrasound Reporton RAD - Ultrasound Report [id number] 0CD:127 Normal [facility] US SCROTUMon 03-07-2022 US SCROTUM EXAMINATION: US SCROTUM HISTORY: Pain in testicle COMPARISON: 08/18/2020 TECHNIQUE: High-resolution sonographic imaging of the scrotum and contents was performed. FINDINGS: The right testicle is normal in size, contour and homogeneous echotexture measuring 4.3 x 3.3 x 2.3 cm. 2 mm area of anechoic echogenicity possibly a intratesticular cyst. Normal color and Doppler flow. Incidentally prominent rete testes, bilaterally symmetric The right epididymis is heterogeneous in echotexture containing a 7 mm area of anechoic echogenicity, cyst versus spermatocele. The left testicle is normal in size, contour and homogeneous echotexture with no focal intratesticular mass. The testicle measures 4.0 x 3.2 x 2.4 cm. Normal color and Doppler flow. Incidentally prominent rete testes, bilaterally symmetric The left epididymis is heterogeneous in echotexture with no focal mass. No hydrocele or varicocele IMPRESSION: No acute abnormality to explain the patient's testicular pain Electronically authenticated by: ERIC PEPPER Date: 2022-03-07 11:34 Normal [facility] Ambulatory Visit Summaryon 0 02-12-2022 Ambulatory Visit Summary YURIY GREWAL :1950 Visit Date:02/12/2022 Ambulatory Visit Instructions Your Diagnosis BPH with urinary obstruction Erectile dysfunction Epididymitis Tests Performed Urnls Dip Stick Auto w/o Microscopy POC [id number] Your Care Team Attending Physician - Jose MARCUM MD Primary Care Physician - Barak Richard MD This Is Your Medications List alfuzosin (alfuzosin 10 mg ER Tab) doxycycline (doxycycline hyclate 100 mg Cap) tadalafil (Cialis 20 mg Tab) Contact prescribing physician if questions or concerns amlodipine lisinopril (lisinopril 5 mg Tab) pantoprazole (Protonix 40 mg Tab-DR) Procedures Performed Colonoscopy (2011), Colonoscopy, flexible; diagnostic, including collection of specimen(s) by brushing or washing, when performed (separate procedure) (2008), Cataract surgery, Hernia repair. Discharge Vitals Heart Rate (Peripheral) 77 Blood Pressure 134/82 Height 159 cm Height 159.0 cm Weight 78 kg Weight 78.0 kg BMI 30.85 What to do next Scheduled Follow-Up Appointments Saturday 11:15 AM EDT With: KITTY GLASS, Jose Singleton Where: [facility] Patient Educationon 02-13-20 Patient Education Urology Erectile Dysfunction Erectile dysfunction (ED) is the inability to get or keep an erection in order to have sexual intercourse. Erectile dysfunction may include: ? Inability to get an erection. ? Lack of enough hardness of the erection to allow penetration. ? Loss of the erection before sex is finished. What are the causes? This condition may be caused by: ? Certain medicines, such as: ? Pain relievers. ? Antihistamines. ? Antidepressants. ? Blood pressure medicines. ? Water pills (diuretics). ? Ulcer medicines. ? Muscle relaxants. ? Drugs. ? Excessive drinking. ? Psychological causes, such as: ? Anxiety. ? Depression. ? Sadness. ? Exhaustion. ? Performance fear. ? Stress. ? Physical causes, such as: ? Artery problems. This may include diabetes, smoking, liver disease, or atherosclerosis. ? High blood pressure. ? Hormonal problems, such as low testosterone. ? Obesity. ? Nerve problems. This may include back or pelvic injuries, diabetes mellitus, multiple sclerosis, or Parkinson disease. What are the signs or symptoms? Symptoms of this condition include: ? Inability to get an erection. ? Lack of enough hardness of the erection to allow penetration. ? Loss of the erection before sex is finished. ? Normal erections at some times, but with frequent unsatisfactory episodes. ? Low sexual satisfaction in either partner due to erection problems. ? A curved penis occurring with erection. The curve may cause pain or the penis may be too curved to allow for intercourse. ? Never having nighttime erections. How is this diagnosed? This condition is often diagnosed by: ? Performing a physical exam to find other diseases or specific problems with the penis. ? Asking you detailed questions about the problem. ? Performing blood tests to check for diabetes mellitus or to measure hormone levels. ? Performing other tests to check for underlying health conditions. ? Performing an ultrasound exam to check for scarring. ? Performing a test to check blood flow to the penis. ? Doing a sleep study at home to measure nighttime erections. How is this treated? This condition may be treated by: ? Medicine taken by mouth to help you achieve an erection (oral medicine). ? Hormone replacement therapy to replace low testosterone levels. ? Medicine that is injected into the penis. Your health care provider may instruct you how to give yourself these injections at home. ? Vacuum pump. This is a pump with a ring on it. The pump and ring are placed on the penis and used to create pressure that helps the penis become erect. ? Penile implant surgery. In this procedure, you may receive: ? An inflatable implant. This consists of cylinders, a pump, and a reservoir. The cylinders can be inflated with a fluid that helps to create an erection, and they can be deflated after intercourse. ? A semi-rigid implant. This consists of two silicone rubber rods. The rods provide some rigidity. They are also flexible, so the penis can both curve downward in its normal position and become straight for sexual intercourse. ? Blood vessel surgery, to improve blood flow to the penis. During this procedure, a blood vessel from a different part of the body is placed into the penis to allow blood to flow around (bypass) damaged or blocked blood vessels. ? Lifestyle changes, such as exercising more, losing weight, and quitting smoking. Follow these instructions at home: Medicines ? Take zswr-ubg-sddgnid and prescription medicines only as told by your health care provider. Do not increase the dosage without first discussing it with your health care provider. ? If you are using self-injections, perform injections as directed by your health care provider. Make sure to avoid any veins that are on the surface of the penis. After giving an injection, apply pressure to the injection site for 5 minutes. General instructions ? Exercise regularly, as directed by your health care provider. Work with your health care provider to lose weight, if needed. ? Do not use any products that contain nicotine or tobacco, such as cigarettes and e-cigarettes. If you need help quitting, ask your health care provider. ? Before using a vacuum pump, read the instructions that come with the pump and discuss any questions with your health care provider. ? Keep all follow-up visits as told by your health care provider. This is important. Contact a health care provider if: ? You feel nauseous. ? You vomit. Get help right away if: ? You are taking oral or injectable medicines and you have an erection that lasts longer than 4 hours. If your health care provider is unavailable, go to the nearest emergency room for evaluation. An erection that lasts much longer than 4 hours can result in permanent damage to your penis. ? You have severe pain in your groin or abdomen. ? You develop redness or severe swelling of your (more content not included)... Normal [facility] Urology Office/Clinic Noteon 02-12-2022 Urology Office/Clinic Note Chief Complaint Pt is here for left testicle pain HPI Staff uYriy is a 71 y.o. male here for 7 month follow up. Previous Dx: BPH w/ urinary obstruction, cyst of kidney, epididymal cyst, ED, left epididymitis, scrotal mass. No urological procedures. Pt states last Saturday his left testicle began to give him discomfort, he went to Dr. Richard and he prescribed levofloxacin 750mg qd. Refill Alfuzosin to [facility] pharmacy mail service. Dysuria: denies Incomplete bladder emptying: denies Hematuria: denies Frequency: Yes every 2 hours w/ water intake Urgency: denies Nocturia: every 2 hours Stream: steady stream Leaking: denies Post void dripping: denies Wearing pads/ Depends: denies Urge incontinence: denies Stress incontinence: denies Incontinence without Sensory Awareness: denies Abdominal pain: denies Flank pain: denies Sexual complaints: Left testicle pain dull History of Present Illness I have reviewed and verified the staff HPI to be accurate for this encounter. Review of Systems PHQ Score Initial Depression Screen Score: 0 ROS - Provider Constitutional: denies weight loss, denies hot flashes. Eyes: denies eye problems. Gastrointestinal: denies nausea, denies vomiting. Cardiovascular: denies chest pain or angina. Integumentary: no dryness Musculoskeletal: denies musculoskeletal symptoms. ENMT: denies otolaryngeal symptoms. Respiratory: no shortness of breath. Heme/Lymph: denies easy bleeding tendency, denies easy bruising tendency. Psychiatric: no confusion, no anxiety. Genitourinary: denies dysuria, denies hematuria, denies discharge, denies urinary frequency, denies urinary hesitancy, denies nocturia, denies incontinence, denies genital sores, denies decreased libido, and denies erectile dysfunction. Physical Exam Vitals & Measurements HR: 77(Peripheral) BP: 134/82 HT: 159 cm HT: 159.0 cm WT: 78 kg WT: 78.0 kg BMI: 30.85 General Appearance: alert, no distress, well nourished, well developed male. Genitourinary: normal scrotum, normal testes, normal urethra, abnormal L epididymis slightly hard and enlarged and tender, normal vas deferens/spermatic cord. Flank Pain: none. Bladder: nonpalpable. Assessment/Plan 1. BPH with urinary obstruction (N40.1: Benign prostatic hyperplasia with lower urinary tract symptoms) Good stream, Alfuzosin ER 10mg therapy.PSA was done 07/05/21 0.72. Patient to continue medication as prescribed. Overall pt states he has no urinary issues to complain of. Pt states he voids every 2 hours. If pt has any concerns before he sees us again he will call our office. Pt understands and acknowledges. 2. Erectile dysfunction (N52.9: Male erectile dysfunction, unspecified) Cialis 20mg prn therapy. Continue medication as needed. 3. Epididymitis (N45.1: Epididymitis) Pt states last Saturday his left testicle began to give him discomfort, he went to Dr. Richard and he prescribed levofloxacin 750mg qd. Overall pt states the pain has gotten better since starting the ABX, but he went for a walk and then started to have left testicular pain. Pt states it is an ache but the ache does not radiate anywhere. On today's exam epididymis is slightly hard and enlarged. Will send Doxy 100mg BID for 3 weeks. Pt will stop Levofloxacin to his fear of tendonitis. Pt understands and acknowledges. Follow-up With When Contact Information KITTY GLASS, Jose Singleton, ROSLYN In 6 months 08/14/2022 EDT [facility] [address], [place] [address] [phone] Additional Instructions: Patient Education Erectile Dysfunction I, Rosy New _, personally scribed for Dr. Marcum on 02/12/2022 09:59:55. . Documentation recorded by the scribe, Rosy New, accurately reflects the services(s) I performed and decisions made by me. Problem List/Past Medical History Ongoing Abnormal findings on diagnostic imaging of other abdominal regions, including retroperitoneum BPH with urinary obstruction Cyst of kidney, acquired Epididymal cyst Epididymitis Erectile dysfunction Family history of colon cancer Former smoker GERD (gastroesophageal reflux disease) Hyperglyceridemia Left epididymitis Left inguinal pain Left testicular pain Osteoarthritis Pelvic and perineal pain Scrotal mass Historical No qualifying data Procedure/Surgical History Colonoscopy (2011), Colonoscopy, flexible; diagnostic, including collection of specimen(s) by brushing or washing, when performed (separate procedure) (2008), Cataract surgery, Hernia repair. Medications alfuzosin 10 mg ER Tab, 10 mg= 1 tab(s), Oral, Daily, 3 refills amlodipine, Oral, Daily Cialis 20 mg Tab, 20 mg= 1 tab(s), Oral, Daily, 1 refills lisinopril 5 mg Tab, 5 mg= 1 tab(s), Oral, Daily Protonix 40 mg Tab-DR, 40 mg= 1 tab(s), Oral, Daily Allergies No Known Medication Allergies Social History Alcohol - Denies Alcohol Use, 04/16/2019 Substance Abuse (more content not included)... Normal [facility] Comment on above: Result Comment: Elec tronically Signed By: Jose MARCUM MD\.br\Date and Time Signed: 02/12/22 10:01 EDT\.br\Electronically Co-Signed By: Rosy New MA\.br\Date and Time Co-Signed: 02/12/22 10:00 EDT Vital Signs Date Time Vital Sign Value Performing Clinician Faci litbrai 11-25-2023 10:05-0500 Blood Pressure Location Jose MARCUM [facility] 11-25-2023 10:05-0500 Diastolic blood pressure 82 mm[Hg] Jose MARCUM [facility] 11-25-2023 10:05-0500 Systolic blood pressure 138 mm[Hg] Jose MARCUM [facility] 11-19-2022 10:58-0500 Blood Pressure Location Jose MARCUM [facility] 11-19-2022 10:58-0500 Diastolic blood pressure 70 mm[Hg] Jose MARCUM [facility] 11-19-2022 10:58-0500 Heart rate 68 /min Jose MARCUM [facility] 11-19-2022 10:58-0500 Respiratory rate 16 /min Jose MARCUM [facility] 11-19-2022 10:58-0500 Systolic blood pressure 132 mm[Hg] Jose MARCUM [facility] Encounters Encounter Date Encounter Type Care Provider Facility Start: 11-25-2023 ambulatory MD Jose MARCUM Fac ility:[facility] Start: 11-25-2023 End: 11-25-2023 Patient encounter procedure Jose MARCUM [facility] Start: 10-24-2023 End: 10-24-2023 ambulatory Eliezer Venegas Facility:[facility] Start: 10-24-2023 End: 10-24-2023 ambulatory MD Barak Richard Work Phone: [facility] Work Phone: Start: 10-24-2023 End: 10-24-2023 Patient encounter procedure MD Barak Richard Work Phone: [facility] [address] Work Phone: Start: 02-28-[address] BARAK RICHARD . Facili ty:[facility] Start: 11-19-2022 End: 11-20-2022 ambulatory MD Jose MARCUM Facility:[facility] Start: 11-19-2022 End: 11-19-2022 Patient encounter procedure Jose MARCUM [facility] Start: 11-17-2022 End: 11-18-[address] JOSE MARCUM . Facility:[facility] Start: 06-20-2022 End: 06-21-[address] BARAK RICHARD . Facility:[facility] Start: 04-03-2022 End: 04-04-[address] BARAK RICHARD . Facility:[facility] Start: 03-27-2022 End: 03-28-[address] JOSE MARCUM . Facility:[facility] Start: 03-07-2022 End: 03-08-[address] JOSE MARCUM . Facility:[facility] Start: 02-12-2022 End: 02-13-2022 ambulatory MD Jose MARCUM Facility:[facility] Procedures Date Procedure Procedure Detail Performing Clinician Start: 11-17-[address] BRANDON RICHARD . Comment on above: Performed By: #### P SAD #### [facility] [address] [address] [address] Charo Fuentes Start: 11-11-2011 Colonoscopy Jose YU Cataract surgery Jose COOK Hernia repair Jose MARCUM Plan of Treatment Date Care Activity Detail Author Start: 10-24-2023 [facility] Homogenous nuclear A b pattern [Titer] in Serum [facility] Nuclear Ab [Titer] in Serum [facility] Immunizations Immunization Date Immunization Notes Care Provider Fa husseinty 09-11-2023 influenza virus vacc ine, unspecified formulation Jose MARCUM [facility] 08-31-2022 SARS-CoV-2 (COVID-19 ) [id number] Jose MARCUM [facility] 08-27-2022 influenza virus vacc ine, unspecified formulation Jose MARCUM [facility] 04-21-2022 SARS-CoV-2 mRNA (fxjezeeagua-ehbg-kkzete e) vaccine Jose MARCUM [facility] 09-11-2021 influenza virus vacc ine, unspecified formulation Jose MARCUM [facility] 09-04-2021 SARS-CoV-2 (COVID-19 ) mRNA BNT-162b2 vax Jose MARCUM [facility] 08-11-2021 SARS-CoV-2 (COVID-19 ) Ad26 vaccine, recombinant Jose MARCUM [facility] 02-20-2021 SARS-CoV-2 (COVID-19 ) mRNA BNT-162b2 vax [facility] [facility] 02-09-2021 SARS-CoV-2 (COVID-19 ) Ad26 vaccine, recombinant [facility]arent [facility] 12-23-2020 SARS-CoV-2 (COVID-19 ) mRNA BNT-162b2 vax [facility] Comment on above: Result Comment: 2022: [id number] 12-12-2020 SARS-CoV-2 (COVID-19 ) Ad26 vaccine, recombinant [facility] 12-01-2020 zoster vaccine recombinant [facility] 09-29-2020 zoster vaccine recombinant [facility] 08-18-2020 influenza virus vacc ine, unspecified formulation [facility]arent [facility] 07-12-2019 influenza virus vacc ine, live, attenuated, for intranasal use [facility] 08-28-2017 influenza virus vacc ine, unspecified formulation [facility] 08-21-2017 pneumococcal conjuga te vaccine, 13 valent [facility] 08-30-2015 pneumococcal polysaccharide vaccine, 23 valent [employer] [facility] Payers Date Payer Category Payer Self-pay 1959 Private Health Insurance [id number] 1950 Unknown [id number] 1950 Unknown [id number] 1950 Unknown [id number] 1950 Unknown [id number] 1950 Unknown [id number] 1950 Unknown [id number] 1949 Unknown [id number] 1949 Unknown [id number] 1950 Unknown [id number] Unknown [employer] / [id number] Unknown [id number] Social History Date Type Detail Facility Start: 11-19-2022 End: 11-25-2023 Tobacco smoking status Ex-smoker (finding) [facility] Sex Assigned At Male [facility] Start: 1950 Sex Assigned At Male [facility] Functional Status Date Assessment Result Facility 11-25-2023 Functional Status N/A [facility] 11-19-2022 Functional Status N/A [facility] Hospital Discharge instructions 11-25-2023 Note Date & Type Note Facility 11-25-2023 Hospital Discharge instructions Patient Education 11/25/2023 10:50:43 Epididymitis Epididymitis Epididymitis is inflammation or swelling of the epididymis. This is caused by an infection. The epididymis is a cord-like structure that is located along the top and back part of the testicle. It collects and stores sperm from the testicle. This condition can also cause pain and swelling of the testicle and scrotum. Symptoms usually start suddenly (acute epididymitis). Sometimes epididymitis starts gradually and lasts for a while (chronic epididymitis). Chronic epididymitis may be harder to treat. What are the causes? In men ages 20 40, this condition is usually caused by a bacterial infection or a sexually transmitted infection (STI), such as gonorrhea or chlamydia. In men 40 and older, this condition is usually caused by bacteria from a urinary blockage or from abnormalities in the urinary system. These can result from: Having a tube placed into the bladder (urinary catheter). Having an enlarged or inflamed prostate gland. Having recently had urinary tract surgery. Having a problem with a backward flow of urine (retrograde). In men who have a condition that weakens the body's defense system (immune system), such as human immunodeficiency virus (HIV), this condition can be caused by: Other bacteria, including tuberculosis and syphilis. Viruses. Fungi. Sometimes this condition occurs without infection. This may happen because of trauma or repetitive activities such as sports. What increases the risk? You are more likely to develop this condition if you have: Unprotected sex with more than one partner. Anal sex. Had recent surgery. A urinary catheter. Urinary problems. A suppressed immune system. What are the signs or symptoms? This condition usually begins suddenly with chills, fever, and pain behind the scrotum and in the testicle. Other symptoms include: Swelling of the scrotum, testicle, or both. Pain when ejaculating or urinating. Pain in the back or abdomen. Nausea. Itching and discharge from the penis. A frequent need to pass urine. Redness, increased warmth, and tenderness of the scrotum. How is this diagnosed? Your health care provider can diagnose this condition based on your symptoms and medical history. Your health care provider will also do a physical exam to check your scrotum and testicle for swelling, pain, and redness. You may also have other tests, including: Testing of discharge from the penis. Testing your urine for infections, such as STIs. Ultrasound to check for blood flow and inflammation. Your health care provider may test you for other STIs, including HIV. How is this treated? Treatment for this condition depends on the cause. If your condition is caused by a bacterial infection, oral antibiotic medicine may be prescribed. If the bacterial infection has spread to your blood, you may need to receive IV antibiotics. For both bacterial and nonbacterial epididymitis, you may be treated with: Rest. Elevation of the scrotum. Pain medicines. Anti-inflammatory medicines. Surgery may be needed if: You have pus buildup in the scrotum (abscess). You have epididymitis that has not responded to other treatments. Follow these instructions at home: Medicines Take uadl-rmz-ggjjwgy and prescription medicines only as told by your health care provider. If you were prescribed an antibiotic medicine, take it as told by your health care provider. Do not stop taking the antibiotic even if your condition improves. Sexual activity If your epididymitis was caused by an STI, avoid sexual activity until your treatment is complete. Inform your sexual partner or partners if you test positive for an STI. They may need to be treated. Do not engage in sexual activity with your partner or partners until their treatment is completed. Managing pain and swelling If directed, raise (elevate) your scrotum and apply ice. To do this: ?Put ice in a plastic bag. ?Place a small towel or pillow between your legs. ?Rest your scrotum on the pillow or towel. ?Place another towel between your skin and the plastic bag. ?Leave the ice on for 20 minutes, 2 3 times a day. ?Remove the ice if your skin turns bright red. This is very important. If you cannot feel pain, heat, or cold, you have a greater risk of damage to the area. Keep your scrotum elevated and supported while resting. Ask your health care provider if you should wear a scrotal support, such as a jockstrap. Wear it as told by your health care provider. Try taking a sitz bath to help with discomfort. This is a warm water bath that is taken while you are sitting down. The water should come up to your hips and should cover your buttocks. Do this 3 4 times per day or as told by your health care provider. General instructions Drink enough fluid to keep your urine pale yellow. Return to your normal activities as told by your health care provider. Ask your health care provider what activities are safe for you. Keep all follow-up visits. This is important. Contact a health care provider if: You have a fever. Your pain medicine is not helping. Your pain is getting worse. Your symptoms do not improve within 3 days. Summary Epididymitis is inflammation or swelling of the epididymis. This is caused by an infection. This condition can also cause pain and swelling of the testicle and scrotum. Treatment for this condition depends on the cause. If your condition is caused by a bacterial infection, oral antibiotic medicine may be prescribed. Inform your sexual partner or partners if you test positive for an STI. They may need to be treated. Do not engage in sexual activity with your partner or partners until their treatment is completed. Contact a health care provider if your symptoms do not improve within 3 days. This information is not intended to replace advice given to you by your health care provider. Make sure you discuss any questions you have with your health care provider. Document Revised: 06/06/2022 Document Reviewed: 06/06/2022 [employer] Patient Education 2022 [employer]. Follow Up Care 11/19/2022 11:41:10 With:KITTY GLASS, Jose Singleton, URL Address: [facility] [address] [place] [address] [phone] When: Unknown Comments:4 mos (new med) [facility] Hospital Discharge instructions 11-19-2022 Note Date & Type Note Facility 11-19-2022 Hospital Discharge instructions Patient Education 11/19/2022 11:32:30 Benign Prostatic Hyperplasia Benign Prostatic Hyperplasia Benign prostatic hyperplasia (BPH) is an enlarged prostate gland that is caused by the normal aging process and not by cancer. The prostate is a walnut-sized gland that is involved in the production of semen. It is located in front of the rectum and below the bladder. The bladder stores urine and the urethra is the tube that carries the urine out of the body. The prostate may get bigger as a man gets older. An enlarged prostate can press on the urethra. This can make it harder to pass urine. The build-up of urine in the bladder can cause infection. Back pressure and infection may progress to bladder damage and kidney (renal) failure. What are the causes? This condition is part of a normal aging process. However, not all men develop problems from this condition. If the prostate enlarges away from the urethra, urine flow will not be blocked. If it enlarges toward the urethra and compresses it, there will be problems passing urine. What increases the risk? This condition is more likely to develop in men over the age of 50 years. What are the signs or symptoms? Symptoms of this condition include: Getting up often during the night to urinate. Needing to urinate frequently during the day. Difficulty starting urine flow. Decrease in size and strength of your urine stream. Leaking (dribbling) after urinating. Inability to pass urine. This needs immediate treatment. Inability to completely empty your bladder. Pain when you pass urine. This is more common if there is also an infection. Urinary tract infection (UTI). How is this diagnosed? This condition is diagnosed based on your medical history, a physical exam, and your symptoms. Tests will also be done, such as: A post-void bladder scan. This measures any amount of urine that may remain in your bladder after you finish urinating. A digital rectal exam. In a rectal exam, your health care provider checks your prostate by putting a lubricated, gloved finger into your rectum to feel the back of your prostate gland. This exam detects the size of your gland and any abnormal lumps or growths. An exam of your urine (urinalysis). A prostate specific antigen (PSA) screening. This is a blood test used to screen for prostate cancer. An ultrasound. This test uses sound waves to electronically produce a picture of your prostate gland. Your health care provider may refer you to a specialist in kidney and prostate diseases (urologist). How is this treated? Once symptoms begin, your health care provider will monitor your condition (active surveillance or watchful waiting). Treatment for this condition will depend on the severity of your condition. Treatment may include: Observation and yearly exams. This may be the only treatment needed if your condition and symptoms are mild. Medicines to relieve your symptoms, including: ?Medicines to shrink the prostate. ?Medicines to relax the muscle of the prostate. Surgery in severe cases. Surgery may include: ?Prostatectomy. In this procedure, the prostate tissue is removed completely through an open incision or with a laparoscope or robotics. ?Transurethral resection of the prostate (TURP). In this procedure, a tool is inserted through the opening at the tip of the penis (urethra). It is used to cut away tissue of the inner core of the prostate. The pieces are removed through the same opening of the penis. This removes the blockage. ?Transurethral incision (TUIP). In this procedure, small cuts are made in the prostate. This lessens the prostate's pressure on the urethra. ?Transurethral microwave thermotherapy (TUMT). This procedure uses microwaves to create heat. The heat destroys and removes a small amount of prostate tissue. ?Transurethral needle ablation (TUNA). This procedure uses radio frequencies to destroy and remove a small amount of prostate tissue. ?Interstitial laser coagulation (ILC). This procedure uses a laser to destroy and remove a small amount of prostate tissue. ?Transurethral electrovaporization (TUVP). This procedure uses electrodes to destroy and remove a small amount of prostate tissue. ?Prostatic urethral lift. This procedure inserts an implant to push the lobes of the prostate away from the urethra. Follow these instructions at home: Take [id number] and prescription medicines only as told by your health care provider. Monitor your symptoms for any changes. Contact your health care provider with any changes. Avoid drinking large amounts of liquid before going to bed or out in public. Avoid or reduce how much caffeine or alcohol you drink. Give yourself time when you urinate. Keep all follow-up visits as told by your health care provider. This is important. Contact a health care provider if: You have unexplained back pain. Your symptoms do not get better with treatment. You develop side effects from the medicine you are taking. Your urine becomes very dark or has a bad smell. Your lower abdomen becomes distended and you have trouble passing your urine. Get help right away if: You have a fever or chills. You suddenly cannot urinate. You feel lightheaded, or very dizzy, or you faint. There are large amounts of blood or clots in the urine. Your urinary problems become hard to manage. You develop moderate to severe low back or flank pain. The flank is the side of your body between the ribs and the hip. These symptoms may represent a serious problem that is an emergency. Do not wait to see if the symptoms will go away. Get medical help right away. Call your local emergency services (911 in the [place] Do not drive yourself to the hospital. Summary Benign prostatic hyperplasia (BPH) is an enlarged prostate that is caused by the normal aging process and not by cancer. An enlarged prostate can press on the urethra. This can make it hard to pass urine. This condition is part of a normal aging process and is more likely to develop in men over the age of 50 years. Get help right away if you suddenly cannot urinate. This information is not intended to replace advice given to you by your health care provider. Make sure you discuss any questions you have with your health care provider. Document Released: 10/28/2006 Document Revised: 09/22/2019 Document Reviewed: 12/02/2017 [employer] Patient Education 2020 [employer]. Follow Up Care 02/12/2022 10:03:54 With:Jose MARCUM MD, URL Address: [facility] [address] [place] [phone] When:Within 1 Year(s) [facility] Evaluation + Plan note Note Date & Type Note Facility Evaluation + Plan note Future Appointments Appointment Date:11/25/2023 09:45:00 AM Scheduled Provider:Jose MARCUM MD Location:[facility] Appointment Type:URO Office Visit [facility] Evaluation + Plan note Note Date & Type Note Facility Evaluation + Plan note Future Appointments Appointment Date:03/30/2024 09:45:00 AM Scheduled Provider:Jose MARCUM MD Location:[facility] Appointment Type:URO Office Visit [facility] Evaluation note Note Date & Type Note Facility Evaluation note No assessment information availa [facility] Work Phone: Hospital course Narrative Note Date & Type Note Facility Hospital course Narrative No data available for this section [facility] Progress note Note Date & Type Note Facility Progress note No data available for this section [facility] Summary Purpose Family History No Family History Records FoundNo Family History Records FoundNo Family History Records Found No data available for this section Advance Directives No Advanced Directives Records FoundNo Advanced Directives Records FoundNo Advanced Directives Records Found Additional Source Comments Patient Care team informatio n (unrecognized section and content) Personnel Name: Barak Richard MD Address: Address: [address] [place] [address] Team Status: Active Member Role Status Dates Barak Richard MD Primary Care Provider Active Team Status: Inactive Member Role Status Dates Barak Richard MD Primary Care Provider Active Eliezer Venegas MD Attending Provider Active (unrecognized sect ion and content) No Status Records FoundNo Status Records FoundNo Status Records Found INFORMATION SOURCE (unrecogn ized section and content) DATE CREATED AUTHOR 11/25/2022 [facility] DATE CREATED AUTHOR AUTHOR'S ORGANIZ ATION 03/02/2023 [facility] DATE CREATED AUTHOR AUTHOR'S ORGANIZ ATION 11/22/2023 [facility] Goals (unrecognized section and content) Goals may be documented in a n alternate section FOR RECORDS PERTAINING TO PATIENTS WHO ARE OR HAVE BEEN ENROLLED IN A CHEMICAL DEPENDENCY/SUBSTANCEABUSE PROGRAM, SOME INFORMATION MAY BE OMITTED. This clinical summary was aggregated from multiple sources. Caution should be exercised in using it in the provision of clinical care. This summary normalizes information from multiple sources, and as a consequence, information in this document may materially change the coding, format and clinical context of patient data. In addition, data may be omitted in some cases. CLINICAL DECISIONS SHOULD BE BASED ON THE PRIMARY CLINICAL RECORDS. [facility] provides no warranty or guarantee of the accuracy or completeness of information in this document.
== END 2023-12-14 09:24 | disposition home or self-care (01) ==
LOC: US 09:25
PROVIDERS: PCP Family Medicine; Visit Provider Physician Assistant
DX: N45.1 Epididymitis (principal); N50.819 Testicular pain, unspecified; N43.3 Hydrocele, unspecified; Q61.02 Congenital multiple renal cysts
CPT/HCPCS: 74018; 76775; 76870

== ENCOUNTER 2024-01-20 09:54 | Outpatient (RCR) | payer MEDICARE, SELFPAY | END 2024-01-21 15:28 | disposition home or self-care (01) | LOC: PT 09:54 | PROVIDERS: PCP Family Medicine; Visit Provider Orthopaedic Surgery | DX: Z01.818 Encounter for other preprocedural examination (principal) ==

== ENCOUNTER 2024-01-29 13:36 | Outpatient (RCR) | payer MEDICARE, SELFPAY | END 2024-03-26 12:23 | disposition home or self-care (01) | LOC: PT 13:36 | PROVIDERS: PCP Family Medicine; Visit Provider Orthopaedic Surgery | DX: Z96.652 Presence of left artificial knee joint (principal); M25.562 Pain in left knee; R26.89 Other abnormalities of gait and mobility; R26.9 Unspecified abnormalities of gait and mobility | CPT/HCPCS: 97110; 97140; 97161; 97530 ==

== ENCOUNTER 2024-07-07 11:21 | Outpatient (OUT) | payer MEDICARE, SELFPAY ==
--- OUTSIDE RECORDS SUMMARY | 2024-07-07 11:27 | XMS_ITS | CCD ---
Author Organization [facility] CliniSyms Care Team Providers Care Senior Director Name Role Phone Barak Richard Primary Care Physician RAJ ., DR CANCINO Admitting Unavailable HOY ., DR CANCINO Attending Unavailable HOY ., DR CANCINO Primary Care Unavailable HOY ., DR CANCINO Consulting Unavailable ZIEBER, DR JAUN Snigleton Consulting Unavailable MARCUM ., DR EPSTEIN Admitting Unavailable MARCUM ., DR EPSTEIN Attending Unavailable HOY ., DR CANCINO Primary Care Unavailable MARCUM ., DR EPSTEIN Consulting Unavailable ZIEBER, DR JAUN Singleton Consulting Unavailable MARCUM ., DR EPSTEIN [...] Unavailable HOY ., DR CANCINO Consulting Unavailable WEST, DR ERIC Carrillo Consulting Unavailable MD Barak Richard Primary Care Provider MD Eliezer Venegas Attending Provider Eliezer Veengas Attending Unavailable Eliezer Venegas Admitting Unavailable Barak Richard Primary Care Unavailable Unavailable Primary Care Provider Barak Hernandez MD Primary Care Provider ELBA DOWD Admitting Unavailable ELBA DOWD E Attending Unavailable ELBA DOWD Admitting Unavailable RAGHUELBA CLEVELAND Attending Unavailable MARISELA BOND Consulting Unavailable BARAK RICHARD Primary Care Unavailable Jose MARCUM Attending Unavailable Jose MARCUM Attending Unavailable Jose MARCUM Attending Unavailable TOMÁS BOWDEN Attending Unavailable Allergies Allergy Classification Reported Allergen(s) Allergy Type Date of Onset Reaction(s) Facility (1 source) No Known Medication Allergies; Translations: [No Known Medication Allergies] Propensity to adverse reactions (disorder) [facility] Repository Medications Current Medications Medication Drug Class(es) Dates Sig (Normalized) Sig (Original) acetaminophen 325 mg / HYDROcodone bitartrate 5 mg oral tablet (3 sources) Opioid Agonist Start: 01-27-2024 End: 02-04-2024 HYDROcodone-acetam inophen (NORCO) 5-325 MG per tablet Indications: S/P TKR (total knee replacement) using cement, left Take 1-2 tablets by mouth every 6 hours as needed for Pain for up to 7 days. Max Daily Amount: 8 tablets 30 tablet 0 01/28/2024 02/04/2024 Active Start: 01-27-2024 take 1 tablet by carolann th every six hours as needed 1 tablet, Oral, EVERY 6 HOURS PRN, Starting on 01/27/24 at 1710, Until Discontinued, Pain Mild (1-3) Maximum dose of acetaminophen is 4000 mg from all sources in 24 hours. 24 hr alfuzosin hydrochloride 10 mg extended release oral tablet (4 sources) alpha-Adrenergic Pedrito Start: 02-12-2022 take 1 tablet by mouth once daily alfuzosin 10 mg ER Tab 10 mg = 1 tab(s), Oral, Daily, # 90 tab(s), Refills(s) 3, Pharmacy: [facility], 159, cm, 11/19/22 10:59:00 EST, Height/Length Dosing, 78, kg, 11/19/22 10:59:00 EST, Weight Dosing Start Date: 04/15/23 Status: Ordered Boswellia-Glucosam ine-Vit D (OSTEO BI-FLEX ONE PER DAY) TABS (1 source) Boswellia-Glucos a mine-Vit D (OSTEO BI-FLEX ONE PER DAY) TABS Take by mouth daily 0 Active cefdinir 300 mg oral capsule (1 source) Cephalosporin Antibacterial Start: 01-15-2024 cefdinir 300 mg Cap Refills(s) 0 Start Date: 11/25/23 Status: Ordered doxycycline hyclate 100 mg oral capsule (1 source) Tetracycline-class Drug Start: 11-25-2023 End: 12-16-2023 take 1 capsule by mouth twice daily doxycycline hyclate 100 mg Cap 100 mg = 1 cap(s), Oral, BID, X 3 week(s), # 42 cap(s), Refills(s) 0, Pharmacy: [facility]/pharmacy #[id number], 159, cm, 11/25/23 10:07:00 EST, Height/Length Dosing, 78, kg, 11/25/23 10:07:00 EST, Weight Dosing Start Date: 11/25/23 Stop Date: 12/16/23 Status: Ordered dutasteride 0.5 mg oral capsule (3 sources) 5-alpha Reductase Inhibitor Start: 11-25-2023 End: 01-23-2025 take 1 capsule by mouth once daily dutasteride 0.5 mg Cap 0.5 mg = 1 cap(s), Oral, Daily, X 90 day(s), # 90 cap(s), Refills(s) 3, Pharmacy: [facility], 159, cm, 11/25/23 10:07:00 EST, Height/Length Dosing, 78, kg, 11/25/23 10:07:00 EST, Weight Dosing Start Date: 01/29/24 Stop Date: 01/23/25 Status: Ordered 0.5 ml HYDROmorphone hydrochloride 1 mg/ml prefilled syringe (1 source) Opioid Agonist Start: 01-27-2024 take 0.5 mg by mouth every three hours as needed 0.5 mg, IntraVENous, EVERY 3 HOURS PRN, Starting on Sat01/27/24 at 1710, Until Discontinued, Pain Severe (7-10) If oral and IV narcotics ordered, use oral first and only use IV if oral is ineffective or cannot take oral. Do Not give oral and IV within 1 hour of each other unless specifically ordered. Post-op ibuprofen 200 mg oral tablet (1 source) Nonsteroidal Anti-inflammatory Drug take 3 tablets by mouth every six hours as needed for pain ibuprofen (ADVIL;MOTRIN) 200 MG tablet Take 3 tablets by mouth every 6 hours as needed for Pain 0 Active rivaroxaban 10 mg oral tablet (1 source) Factor Xa Inhibitor Start: 01-28-2024 take 1 tablet by mouth once daily at breakfast rivaroxaban (XARELTO) 10 MG TABS tablet Take 1 tablet by mouth daily (with breakfast) 12 tablet 0 01/28/2024 Active Completed/Discontinued Medications Medication Drug Class(es) Dates Sig (Normalized) Sig (Original) acetaminophen 325 mg oral tablet (4 sources) Start: 01-27-2024 End: 01-27-2024 take 650 mg by mouth every six hours, then take 4000 mg by mouth every twenty-four hours 650 mg, Oral, EVERY 6 HOURS, First dose on Sat01/27/24 at 1730, Until Discontinued Maximum dose of acetaminophen is 4000 mg from all sources in 24 hours. Post-op take 1 tablet by carolann th every six hours as needed for pain acetaminophen (TYLENOL) 500 MG tablet Ta ke 1 tablet by mouth every 6 hours as needed for Pain 0 Active amLODIPine 5 mg oral tablet (5 sources) Dihydropyridine Calcium Channel Pedrito Start: 01-27-2024 take 5 mg by mouth once daily 5 mg, Oral, DAILY, First dose on Sat01/27/24 at 1800, Until Discontinued Start: 12-18-2019 amlodipine Ora l, Daily, Refills(s) 0 Start Date: 12/18/19 Status: Ordered take 1 tablet by carolann th once daily amLODIPine (NORVASC) 5 MG tablet Take 1 tablet by mouth daily 0 Active calcium chloride 0.0014 meq/ ml / potassium chloride 0.004 meq/ml / sodium chloride 0.103 meq/ml / sodium lactate 0.028 meq/ml injectable solution (2 sources) Start: 01-27-2024 End: 01-28-2024 IntraVENous, at 80 mL/hr, CONTINUOUS, Starting on Sat01/27/24 at 1730 [place]plock when taking fluids well Post-op Start: 01-27-2024 End: 01-27-2024 lactated ringers IV soln inf usion ceFAZolin 2000 mg injection (2 sources) Cephalosporin Antibacterial Start: 01-27-2024 End: 01-28-2024 2,000 mg, IntraVENous, EVERY 8 HOURS, 2 doses, First dose on Sat01/27/24 at 2100, Last dose on Sat01/28/24 at 0500 Antimicrobial Indications: Surgical Prophylaxis Post-op Start: 01-27-2024 End: 01-28-2024 ceFAZolin (ANCEF) 2000 mg in 0.9% sodium chloride 100 mL IVPB celecoxib 200 mg oral capsule (1 source) Nonsteroidal Anti-inflammatory Drug Start: 01-27-2024 End: 01-27-2024 celecoxib (CELEBREX) capsule 400 mg dimenhyDRINATE 50 mg oral tablet (1 source) Start: 01-27-2024 End: 01-27-2024 dimenhyDRINATE (DRAMAMINE) tablet 50 mg 0.3 ml enoxaparin sodium 100 mg/ml prefilled syringe (1 source) Low Molecular Weight Heparin Start: 01-28-2024 inject 30 mg by subcutaneous injection twice daily 30 mg, SubCUTAneous, 2 TIMES DAILY, First dose on Sat01/28/24 at 0900, Until Discontinued Indication of Use: Prophylaxis-DVT/P E, Other Other Enoxaparin Indication: post-op Administer by deep subCUTAneous injection with pt lying down. Alternate injection sites on abdominal wall. Do not rub site after injection. Check with provider prior to any invasive procedure. Post-op finasteride 5 mg oral tablet (1 source) 5-alpha Reductase Inhibitor Start: 01-27-2024 take 5 mg by mouth once daily 5 mg, Oral, DAILY, First dose on Sat01/27/24 at 1800, Until Discontinued Substituted for Dutasteride (AVODART). lisinopril 20 mg oral tablet (5 sources) Angiotensin Converting Enzyme Inhibitor Start: 01-27-2024 take 40 mg by mouth once daily 40 mg, Oral, DAILY, First dose on Sat01/27/24 at 1800, Until Discontinued Start: 04-16-2019 take 1 tablet by carolann th once daily lisinopril 5 mg Tab 5 mg = 1 tab(s), Oral, Daily Start Date: 04/16/19 Status: Ordered take 1 tablet by carolann th once daily lisinopril (PRINIVIL;ZESTRIL) 40 MG tablet Take 1 tablet by mouth daily 0 Active pantoprazole 40 mg delayed release oral tablet (5 sources) Proton Pump Inhibitor Start: 04-16-2019 take 40 mg by mouth once daily 40 mg, Oral, DAILY, First dose on Sat01/27/24 at 1800, Until Discontinued Do not crush or break. 5 ml sodium chloride 9 mg/ml injection (3 sources) Start: 01-27-2024 take 1 dose intravenously twice daily 5-40 mL, IntraVENous, EVERY 12 HOURS SCHEDULED (2 times per day), First dose on Sat01/27/24 at 2100, Until Discontinued For Line Patency: Peripheral IV = 5 mL; Midline or Central Line = 10 mL/lumen.&nbs p; If following IV push medication, administer flush at same rate as the IV push. Flush volume is determined by type of infusion therapy being given. &nbsp ;For non-viscous solutions use: Periphe ral IV = 5 mL Midline or Central Line = 10 mL/lumen &nb sp;For viscous solutions (i.e. blood components, parenteral nutrition, contrast media, or after obtaining blood sample) use: Periphe ral IV = 10 mL Midline or Central Line = 20 mL/lumen Post-op Start: 01-27-2024 IntraVENous, a t 5-250 mL/hr, PRN, if patient receiving piggyback infusions and maintenance fluids are not ordered OR KVO fluids to protect IV site / prevent frequent line interruptions/ long duration, Starting on Sat01/27/24 at 1710 For piggyback infusion, administer at same rate as piggyback for a total of 25 mL. Enter 25 mL into dose field and piggyback rate into rate field of order. If piggyback is infusing at a rate less than 100 mL/hr, enter 25 mL into dose field and 100 mL/hr into rate field of order. For KVO fluids, enter rate of 20 mL/hr or less into rate field of order. Post-op Start: 01-27-2024 take 5-40 mL intrave nously once as needed 5-40 mL, IntraVENous, PRN, Starting on Sat01/27/24 at 1710, Until Discontinued, Line Care, After every IV line use For Line Patency: Peripheral IV = 5 mL; Midline or Central Line = 10 mL/lumen. If following IV push medication, administer flush at same rate as the IV push. Flush volume is determined by type of infusion therapy being given. For non-viscous solutions use: Peripheral IV = 5 mL Midline or Central Line = 10 mL/lumen For viscous solutions (i.e. blood components, parenteral nutrition, contrast media, or after obtaining blood sample) use: Peripheral IV = 10 mL Midline or Central Line = 20 mL/lumen Post-op tadalafil 20 mg oral tablet (3 sources) Phosphodiesterase 5 Inhibitor Start: 03-30-2024 Cialis 20 mg Tab 20 mg = 1 tab(s), Oral, As Directed, Take 1 tab po 60 mins prior to sexual activity. Do not exceed 20mg/24 hrs., # 30 tab(s), Refills(s) 3, Pharmacy: [facility] [id number], 159, cm, 03/30/24 10:03:00 EDT, Height/Length Dosing, 76.2, kg, 03/30/24 10:03:00 EDT, Weight Dosing Start Date: 03/30/24 Status: Ordered Start: 04-15-2023 Cialis 20 mg T ab 20 mg = 1 tab(s), Oral, As Directed, Take 1 tab po 60 mins prior to sexual activity. Do not exceed 20mg/24 hrs., # 30 tab(s), Refills(s) 1, Pharmacy: [facility] [id number], 159, cm, 11/19/22 10:59:00 EST, Height/Length Dosing, 78, kg, 11/19/22 10:59:00 EST, Weight Dosing Start Date: 04/15/23 Status: Ordered Start: 05-17-2021 take 1 tablet by carolann th once daily Cialis 20 mg Tab 20 mg = 1 tab(s), Oral, Daily, # 30 tab(s), Refills(s) 1, Pharmacy: [id number], 159, cm, 12/23/20 12:42:00 EST, Height/Length Dosing, 82, kg, 12/23/20 12:42:00 EST, Weight Dosing Start Date: 05/17/21 Status: Ordered tamsulosin hydrochloride 0.4 mg oral capsule (1 source) alpha-Adrenergic Pedrito Start: 01-27-2024 take 0.4 mg by mouth once daily 0.4 mg, Oral, DAILY, First dose on 01/27/24 at 1800, Until Discontinued Do not crush or chew. Substituted for Alfuzosin ER (UROXATRAL). tranexamic acid 650 mg oral tablet (3 sources) Antifibrinolytic Agent Start: 01-27-2024 End: 01-27-2024 take 1 dose by mouth once 1,300 mg, Oral, ONCE, 1 dose, On Sat01/27/24 at 1730 Do not crush or break. Give dose 6 hours after initial pre-op dose Start: 01-27-2024 End: 01-27-2024 tranexamic acid (LYSTEDA) ta blet 1,300 mg Problems Active Problems Problem Classification Problem Date Documented Date Episodic/Chronic Abdominal pain (6 sources) Inguinal pain; Translations: [Pelvic and perineal pain] 04-16-2019 Episodic Disorders of lipid metabolism (3 sources) Hypertriglyceridemia 04-16-2019 Chronic Esophageal disorders (3 sources) Gastroesophageal reflux disease 04-16-2019 Chronic Essential hypertension (2 sources) Hypertensive disorder; Translations: [Essential (primary) hypertension] Onset: 01-27-2001-27-2024 Chronic Hyperplasia of prostate (10 sources) Benign prostatic hypertrophy with outflow obstruction; Translations: [Benign prostatic hyperplasia with lower urinary tract symptoms] Onset: 11-17-19 Chronic Inflammatory conditions of male genital organs (9 sources) Epididymitis; Translations: [Epididymitis] Onset: 11-19-19 Episodic Osteoarthritis (3 sources) Osteoarthritis 04-16-2019 Chronic Other connective tissue disease (3 sources) History of total knee arthroplasty; Translations: [Presence of left artificial knee joint] Onset: 01-27-2001-28-2024 Chronic Other connective tissue disease (1 source) Presence of left artificial knee joint; Translations: [Presence of left artificial knee joint] Onset: 01-27-20 Chronic Other connective tissue disease (1 source) Abnormal posture; Translations: [ABNORMAL POSTURE] Onset: 03-01-20 Episodic Other diseases of kidney and ureters (1 source) Urinary tract obstruction; Translations: [Other obstructive and reflux uropathy] Onset: 11-19-19 Episodic Other diseases of kidney and ureters (4 sources) Cyst of kidney 10-02-2019 Episodic Other diseases of kidney and ureters (1 source) Acquired renal cyst without neoplastic change; Translations: [Cyst of kidney, acquired] Onset: 03-30-20 Episodic Other gastrointestinal disorders (3 sources) Scrotal mass 12-23-2020 Episodic Other liver diseases (4 sources) Liver disease, unspecified; Translations: [LIVER DISEASE UNSPECIFIED] Onset: 04-03-20 Chronic Other male genital disorders (3 sources) Male erectile dysfunction, unspecified; Translations: [Erectile dysfunction] Onset: 11-19-19 Chronic Other male genital disorders (3 sources) Impotence 12-23-2020 Chronic Other male genital disorders (3 sources) Cyst of epididymis 12-23-2020 Episodic Other male genital disorders (3 sources) Pain of left testicle 02-12-2022 Episodic Other non-traumatic joint disorders (1 source) Pain in unspecified joint; Translations: [Pain in unspecified joint] Onset: 10-24-20 Episodic Other screening for suspected conditions (not mental disorders or infectious disease) (3 sources) Radiology result abnormal 04-17-2019 Chroni c Residual codes; unclassified (3 sources) Family history of cancer of colon 04-16-2019 Episodic Screening and history of mental health and substance abuse codes (3 sources) Ex-smoker 03-18-2020 Episodic Spondylosis; intervertebral disc disorders; other back problems (5 sources) Other cervical disc degeneration, unspecified cervical region; Translations: [Spondylosis without myelopathy or radiculopathy, cervical region] Onset: 06-20-20 Chronic Spondylosis; intervertebral disc disorders; other back problems (4 sources) Cervicalgia; Translations: [CERVICALGIA] Onset: 02-29-20 Episodic Past or Other Problems Problem Classification Problem Date Documented Date Episodic/Chronic Biliary tract disease (1 source) Calculus of gallbladder without cholecystitis without obstruction; Translations: [CALCU GB W/O CHOLECYST W/O OBST] Onset: 04-05-2022 Episodic Other male genital disorders (4 sources) Testicular pain, unspecified; Translations: [TESTICULAR PAIN UNSPECIFIED] Onset: 03-27-2022 Episodic Results Test Name Value Interpretation Reference Range Facility Ambulatory Visit Summaryon 0 03-30-2024 Ambulatory Visit Summary YURIY GREWAL :1950 Visit Date:03/30/2024 Ambulatory Visit Instructions Your Diagnosis Epididymitis BPH with urinary obstruction Erectile dysfunction Renal cyst Your Care Team Attending Physician - Jose MARCUM MD Primary Care Physician - Barak Richard MD This Is Your Medications List alfuzosin (alfuzosin 10 mg ER Tab) dutasteride (dutasteride 0.5 mg Cap) tadalafil (Cialis 20 mg Tab) Contact prescribing physician if questions or concerns amlodipine lisinopril (lisinopril 5 mg Tab) pantoprazole (Protonix 40 mg Tab-DR) Procedures Performed Arthroplasty of knee (2023), Colonoscopy (2011), Colonoscopy, flexible; diagnostic, including collection of specimen(s) by brushing or washing, when performed (separate procedure) (2008), Cataract surgery, Hernia repair. Discharge Vitals Temperature (Temporal Artery) 37 ?C Heart Rate (Peripheral) 96 Respiratory Rate 16 Blood Pressure 123/74 Height 159 cm Height 63 in Weight 76.2 kg Weight 167.64 lb BMI 30.14 What to do next You Need to Schedule the Following Appointments Follow Up with KITTY GLASS, Jose Singleton, URL When: Where: [facility] [address], [place] [phone]- [phone] Medications What How Much When Instructions Unchanged alfuzosin (alfuzosin 10 mg ER Tab) 1 Tablets By Mouth Every day Unchanged dutasteride (dutasteride 0.5 mg Cap) 1 Capsules By Mouth Every day Duration: 90 Days Unchanged tadalafil (Cialis 20 mg Tab) 1 Tablets By Mouth As Directed Take 1 tab po 60 mins prior to sexual activity. Do not exceed 20mg/ 24 hrs. Pickup at [facility] [id number] Unchanged amlodipine By Mouth Every day Contact prescribing physician if questions or concerns Unchanged lisinopril (lisinopril 5 mg Tab) 1 Tablets By Mouth Every day Contact prescribing physician if questions or concerns Unchanged pantoprazole (Protonix 40 mg Tab-DR) 1 Tablets By Mouth Every day Contact prescribing physician if questions or concerns Pharmacy Information [facility] [id number]: [address] [place], [place] [id number] [phone] Allergies No Known Medication Allergies Problems Ongoing - Any problem that you are currently receiving treatment for. Abnormal findings on diagnostic imaging of other abdominal regions, including retroperitoneum BPH with urinary obstruction Cyst of kidney, acquired Epididymal cyst Epididymitis Erectile dysfunction Family history of colon cancer Former smoker GERD (gastroesophageal reflux disease) Hyperglyceridemia Left epididymitis Left inguinal pain Left testicular pain Osteoarthritis Pelvic and perineal pain Renal cyst Scrotal mass Patient Survey You may receive a survey via text or e-mail asking about your office visit. Please share your experience with us by completing your survey. We appreciate your feedback and thank you for choosing us for your care. Normal [facility] Patient Educationon 03-30-20 Patient Education Urology Epididymitis Epididymitis is inflammation or swelling of [...] What are the causes? In men ages 20?40, this condition is usually caused by a bacterial infection or a sexually transmitted infection (STI), such as gonorrhea or chlamydia. In men 40 and older, this condition is usually caused by bacteria from a urinary blockage or from abnormalities in the urinary system. These can result from: ? Having a tube placed into the bladder (urinary catheter). ? Having an enlarged or inflamed prostate gland. ? Having recently had urinary tract surgery. ? Having a problem with a backward flow of urine (retrograde). In men who have a condition that weakens the body's defense system (immune system), such as human immunodeficiency virus (HIV), this condition can be caused by: ? Other bacteria, including tuberculosis and syphilis. ? Viruses. ? Fungi. Sometimes this condition occurs without infection. This may happen because of trauma or repetitive activities such as sports. What increases the risk? You are more likely to develop this condition if you have: ? Unprotected sex with more than one partner. ? Anal sex. ? Had recent surgery. ? A urinary catheter. ? Urinary problems. ? A suppressed immune system. What are the signs or symptoms? This condition usually begins suddenly with chills, fever, and pain behind the scrotum and in the testicle. Other symptoms include: ? Swelling of the scrotum, testicle, or both. ? Pain when ejaculating or urinating. ? Pain in the back or abdomen. ? Nausea. ? Itching and discharge from the penis. ? A frequent need to pass urine. ? Redness, increased warmth, and tenderness of the scrotum. How is this diagnosed? Your health care provider can diagnose this condition based on your symptoms and medical history. Your health care provider will also do a physical exam to check your scrotum and testicle for swelling, pain, and redness. You may also have other tests, including: ? Testing of discharge from the penis. ? Testing your urine for infections, such as STIs. ? Ultrasound to check for blood flow and [...] nonbacterial epididymitis, you may be treated with: ? Rest. ? Elevation of the scrotum. ? Pain medicines. ? Anti-inflammatory medicines. Surgery may be needed if: ? You have pus buildup in the scrotum (abscess). ? You have epididymitis that has not responded to other treatments. Follow these instructions at home: Medicines ? Take [id number] and prescription medicines only as told by your health care provider. ? If you were prescribed an antibiotic medicine, take it as told by your health care provider. Do not stop taking the antibiotic even if your condition improves. Sexual activity ? If your epididymitis was caused by an STI, avoid sexual activity until your treatment is complete. ? Inform your sexual partner or partners if you test positive for an STI. They may need to be treated. Do not engage in sexual activity with your partner or partners until their treatment is completed. Managing pain and swelling ? If directed, raise (elevate) your scrotum and apply ice. To do this: ? Put ice in a plastic bag. ? Place a small towel or pillow between your legs. ? Rest your scrotum on the pillow or towel. ? Place another towel between your skin and the plastic bag. ? Leave the ice on for 20 minutes, 2?3 times a day. ? Remove the ice if your skin turns bright red. This is very important. If you cannot feel pain, heat, or cold, you have a greater risk of damage to the area. ? Keep your scrotum elevated and supported while resting. Ask your health care provider if you should wear a scrotal support, such as a jockstrap. Wear it as told by your health care provider. ? Try taking a sitz bath to help with discomfort. This is a warm water bath that is taken while you are sitting down. The water should come up to your hips and should cover your buttocks. Do this 3?4 times per day or as told by your health care provider. General instructions ? Drink enough fluid to keep your urine pale yell (more content not included)... Normal [facility] Office/Clinic Noteon 03-30-2024 Urology Office/Clinic Note Chief Complaint BPH with urinary obstruction HPI Staff 4 month f/u Dx: BPH with urinary obstruction, epididymitis and ED PSA 07/05/21 - 0.72 11/17/22 - 0.50 Alfuzosin ER 10mg qd, Cialis 20mg prn and Dutasteride 0.5mg qd Dysuria: no Incomplete bladder emptying: no Hematuria: no Frequency: no Urgency: no Nocturia: 3x ongoing for a while Stream: no straining or hesitation Leaking: no Post void dripping: no Wearing pads/ Depends: no Urge incontinence: no Stress incontinence: no Incontinence without Sensory Awareness: no Abdominal pain: no Flank pain: no Sexual complaints: no History of Present Illness Tests reviewed: reviewed UA, scrotal US, KUB, ANNA I have reviewed the previous health record information and history for this patient from Dr. Marcum. I have reviewed and verified the staff HPI to be accurate for this encounter. Review of Systems PHQ Score Initial Depression Screen Score: 0 SCORE ROS - Provider Constitutional: denies weight loss, denies hot flashes. Eyes: denies eye problems. Gastrointestinal: denies nausea, denies vomiting. Cardiovascular: denies chest pain or angina. Integumentary: no dryness Musculoskeletal: denies musculoskeletal symptoms. ENMT: denies otolaryngeal symptoms. Respiratory: no shortness of breath. Heme/Lymph: denies easy bleeding tendency, denies easy bruising tendency. Psychiatric: no confusion, no anxiety. Genitourinary: See HPI. Physical Exam Vitals & Measurements T: 37 ?C(Temporal Artery) HR: 96(Peripheral) RR: 16 BP: 123/74 HT: 63 in HT: 159 cm WT: 76.2 kg WT: 167.64 lb BMI: 30.14 General Appearance: alert, no distress, well nourished, well developed male. Genitourinary: normal scrotum, normal testes, normal urethra, normal epididymis, normal vas deferens/spermatic cord. Flank Pain: none. Bladder: nonpalpable. Assessment/Plan 1. Epididymitis (N45.1: Epididymitis) CT AP 03/27/22 - several rounded benign hypodensities within the right kidney. Scrotal US 03/07/22 - no acute abnormality. ANNA 12/14/23 [facility] - no stones or hydro. Abd XR 12/14/23 [facility] - no acute abd process. 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 Small R hydrocele. Likely of no clinical significance. No evidence of testicular abnormalities. Took Cipro per PCP. Then cefdinir x10 days. Had 50% improvement. However pt had upcoming knee surgery at last encounter so wanted to ensure he was not infected. Was rx'd doxycycline 100mg bid x3 wks. Pt called our office 12/10/23 c/o burning with urination and L testicular tenderness. Was switched from doxycycline to Levaquin x21 days. Denies any bothersome sxs. [place] abx helped. UA today negative for blood and infection. 2. BPH with urinary obstruction (N40.1: Benign prostatic hyperplasia with lower urinary tract symptoms) Taking Alfuzosin ER 10mg qd. Started on Dutasteride 0.5mg qd at prior OV. Stream is stronger. Feels he empties well. Gets up to void 3x/night, ongoing. PSA 07/05/21 - 0.72 11/17/22 - 0.50 -Cont Alfuzosin and Dutasteride. Pt to call for refills. -PSA this Fall 3. Erectile dysfunction (N52.9: Male erectile dysfunction, unspecified) Cialis 20mg prn. No concerns. Refills sent to [facility]. 4. Renal cyst (N28.1: Cyst of kidney, acquired) ANNA 12/14/23 [facility] - Some R renal cysts, largest measuring 1.9 x 1.8 x 1.7 cm mid lower and lateral. -Simple cysts do not require monitoring Follow-up With When Contact Information KITTY GLASS, Jose Singleton, URL [facility] [address], [place] [phone] [phone] Additional Instructions: f/u this Fall w/ PSA Patient Education Epididymitis I, Tonya Calero, personally scribed for Dr. Marcum on 03/30/2024 10:35:33. . Documentation recorded by the scribe, Tonya Calero, accurately reflects the services(s) I performed and decisions made by me. Authenticated by Dr. Marcum on 03/30/2024 10:36:58. Problem List/Past Medical History Ongoing Abnormal findings on diagnostic imaging of other abdominal regions, including retroperitoneum BPH with urinary obstruction Cyst of kidney, acquired Epididymal cyst Epididymitis Erectile dysfunction Family history of colon cancer Former smoker GERD (gastroesophageal reflux disease) Hyperglyceridemia Left epididymitis Left inguinal pain Left testicular pain Osteoarthritis Pelvic and perineal pain Renal cyst Scrotal mass Historical No qualifying data Procedure/Surgical History Arthroplasty of knee (2023), Colonoscopy (2011), Colonoscopy, flexible; diagnostic, including collection of specimen(s) by brushing or washing, when performed (separate procedure) (2008), Cataract surgery, Hernia repair. Medications alfuzosin 10 mg ER Tab, 10 mg= 1 tab(s), Oral, Daily, 3 refills amlodipine, Oral, Daily Cialis 20 mg Tab, 20 mg= 1 tab(s), Oral, As Directed, 3 refills dutasteride 0.5 mg Cap, 0.5 mg= 1 cap( (more content not included)... Normal [facility] Comment on above: Result Comment: Elec tronically Signed By: Jose MARCUM MD\.br\Date and Time Signed: 03/30/24 10:37 EDT\.br\Electronically Co-Signed By: Tonya Calero\.br\Date and Time Co-Signed: 03/30/24 10:35 EDT Hemoglobin and hematocrit, michelle warren 01-28-2024 Hematocrit (Bld) [Volume fraction] 26.3 % Low 40.7 - 50.3 % [facility] Hemoglobin (Bld) [Mass/Vol] 9.4 g/dL Low 13.0 - 17.0 g/dL [facility] Interpretation and review of laboratory results Abnormal [facility] Hgb/Hcton 01-28-2024 Hematocrit (Bld) [Volume fraction] 26.3 % Low 40.7-50.3 [facility] Comment on above: Performed By: #### H H #### [facility] [address] [place], [place] [id number] Monitor Car Operator: Eric Clancy MD Hemoglobin (Bld) [Mass/Vol] 9.4 g/dL Low 13.0-17.0 [facility] Comment on above: Performed By: #### H H #### [facility] [address] [place], [place] [id number] Monitor Car Operator: Eric Clancy MD Comp Metabolic Profon 8 Albumin [Mass/Vol] 4.2 g/dL Normal 3.5-5.2 [facility] Comment on above: Performed By: #### C P #### [facility] [address] [place], [place] [id number] Monitor Car Operator: Eric Clancy MD Albumin/Glob Ratio 1.6 Normal 1.0-2.5 [facility] Comment on above: Performed By: #### C P #### [facility] [address] [place], [place] [id number] Monitor Car Operator: Eric Clancy MD Alkaline Phos 77 U/L Normal 40-129 [facility] Comment on above: Performed By: #### C P #### [facility] [address] [place], [place] [id number] Monitor Car Operator: Eric Clancy MD ALT [Catalytic activity/Vol] 17 U/L Normal 5-41 [facility] Comment on above: Performed By: #### C P #### [facility] [address] [place], [place] [id number] Monitor Car Operator: Eric Clancy MD Anion gap [Moles/Vol] 12 mmol/L Normal 9-17 [facility] Comment on above: Performed By: #### C P #### [facility] [address] [place], [place] [id number] Monitor Car Operator: Eric Clancy MD AST [Catalytic activity/Vol] 17 U/L Normal <40 [facility] Comment on above: Performed By: #### C P #### [facility] [address] [place], [place] [id number] Monitor Car Operator: Eric Clancy MD Bilirubin [Mass/Vol] 0.4 mg/dL Normal 0.3-1.2 [facility] Comment on above: Performed By: #### C P #### [facility] [address] [place], [place] [id number] Monitor Car Operator: Eric Clancy MD BUN/CRE Ratio 21 High 9-20 [facility] Comment on above: Performed By: #### C P #### [facility] [address] [place], [place] [id number] Monitor Car Operator: Eric Clancy MD Calcium [Mass/Vol] 9.0 mg/dL Normal 8.6-10.4 [facility] Comment on above: Performed By: #### C P #### [facility] [address] [place], [place] [id number] Monitor Car Operator: Eric Clancy MD Chloride [Moles/Vol] 101 mmol/L Normal 98-107 [facility] Comment on above: Performed By: #### C P #### [facility] [address] [place], [place] [id number] Monitor Car Operator: Eric Clancy MD CO2 [Moles/Vol] 22 mmol/L Normal 20-31 [facility] Comment on above: Performed By: #### C P #### [facility] [address] [place] [address] Monitor Car Operator: Eric Clancy MD Creatinine [Mass/Vol] 0.7 mg/dL Normal 0.7-1.2 [facility] Comment on above: Performed By: #### C P #### [facility] [address] [place] [address] Monitor Car Operator: Eric Clancy MD GFR/1.73 sq M.predicted among non-blacks MDRD (S/P/Bld) [Vol rate/Area] mL/min/{1.73_m2} Normal >60 [facility] Comment on above: Result Comment: These results are not intended for use in patients <18 years of age. eGFR results are calculated without a race factor using the 2020 CKD-EPI equation. Careful clinical correlation is recommended, particularly when comparing to results calculated using previous equations. The CKD-EPI equation is less accurate in patients with extremes of muscle mass, extra-renal metabolism of creatine, excessive creatine ingestion, or following therapy that affects renal tubular secretion. Performed By: #### C P #### [facility] [address] [place] [address] Monitor Car Operator: Eric Clancy MD Glucose [Mass/Vol] 119 mg/dL High 70-99 [facility] Comment on above: Performed By: #### C P #### [facility] [address] [place] [address] Monitor Car Operator: Eric Clancy MD Potassium [Moles/Vol] 4.2 mmol/L Normal 3.7-5.3 [facility] Comment on above: Performed By: #### C P #### [facility] [address] [place] [address] Monitor Car Operator: Eric Clancy MD Protein [Mass/Vol] 6.9 g/dL Normal 6.4-8.3 [facility] Comment on above: Performed By: #### C P #### [facility] [address] [place], [place] [id number] Monitor Car Operator: Eric Clancy MD Sodium [Moles/Vol] 135 mmol/L Normal 135-144 [facility] Comment on above: Performed By: #### C P #### [facility] [address] [place] [address] Monitor Car Operator: Eric Clancy MD Urea nitrogen [Mass/Vol] 15 mg/dL Normal 8-23 [facility] Comment on above: Performed By: #### C P #### [facility] [address] [place] [address] Monitor Car Operator: Eric Clancy MD Comprehensive Metabolic Pane [facility] 01-27-2024 Albumin [Mass/Vol] 4.2 g/dL 3.5 - 5.2 g/dL [facility] Albumin/Globulin [Mass ratio] 1.6 {ratio} 1.0 - 2.5 [facility] ALP [Catalytic activity/Vol] 77 U/L 40 - 129 U/L [facility] ALT [Catalytic activity/Vol] 17 U/L 5 - 41 U/L [facility] Anion gap [Moles/Vol] 12 mmol/L 9 - 17 mmol/L [facility] AST [Catalytic activity/Vol] 17 U/L NINF - 40 U/L [facility] Bilirubin [Mass/Vol] 0.4 mg/dL 0.3 - 1 .2 mg/dL [facility] Calcium [Mass/Vol] 9.0 mg/dL 8.6 - 10. 4 mg/dL [facility] Chloride [Moles/Vol] 101 mmol/L 98 - 10 7 mmol/L [facility] CO2 [Moles/Vol] 22 mmol/L 20 - 31 mmol/L [facility] Creatinine [Mass/Vol] 0.7 mg/dL 0.7 - 1.2 mg/dL [facility] GFR/1.73 sq M.predicted MDRD (S/P/Bld) [Vol rate/Area] - PINF [facility] Comment on above: These results are not intended for use in patients <18 years of age. eGFR results are calculated without a race factor using the 2020 CKD-EPI equation. Careful clinical correlation is recommended, particularly when comparing to results calculated using previous equations. The CKD-EPI equation is less accurate in patients with extremes of muscle mass, extra-renal metabolism of creatine, excessive creatine ingestion, or following therapy that affects renal tubular secretion. Glucose [Mass/Vol] 119 mg/dL High 70 - 99 mg/dL [facility] [id number] Interpretation and review of laboratory results Abnormal [facility] Potassium [Moles/Vol] 4.2 mmol/L 3.7 - 5.3 mmol/L [facility] Protein [Mass/Vol] 6.9 g/dL 6.4 - 8.3 g/dL [facility] [id number] Sodium [Moles/Vol] 135 mmol/L 135 - 144 mmol/L [facility] Urea nitrogen [Mass/Vol] 15 mg/dL 8 - 23 mg/d L [facility] Urea nitrogen/Creatinine [Mass ratio] 21 mg/mg High 9 - 20 [facility] E[facility] 12 LeadOrdered By: Inocente Freed on 01-07-2024 Atrial Rate 86 BPM [employer] Work Phone: P [place] 35 degrees [employer] Work Phone: P-R Interval 158 ms [employer] Work Phone: Q-T Interval 330 ms [facility] Work Phone: QRS Duration 88 ms [facility] Work Phone: QTc Calculation (Bazett) 394 ms [facility] Work Phone: R [place] 14 degrees [employer] Work Phone: T [place] 13 degrees [facility] Work Phone: Ventricular Rate 86 BPM [employer] Work Phone: [facility] Work Phone: EKG 12 Leadon 01-07-2024 Normal sinus rhythm Normal ECG No previous ECGs available Confirmed by JAUN FREED ([id number]) on 01/07/2024 5:29:49 PM [facility] Jaun Freed MD - 01/07/2024 Normal sinus rhythm Normal ECG No previous ECGs available Confirmed by JAUN FREED ([id number]) on 01/07/2024 5:29:49 PM [facility] MRSA DNA Probe, Nasalon 12-13 MRSA, DNA, Nasal Negative NEGATIVE [facility] Comment on above: NEGATIVE: MRSA DNA n ot detected by nucleic acid amplification. Results should be used as an adjunct to nosocomial control efforts to identify patients needing enhanced precautions. The test is not intended to identify patients with staphylococcal infections. Results should not be used to guide or monitor treatment for MRSA infections. Specimen Description .NASAL SWAB [facility] MRSA, DNA, Nasalon MRSA, DNA, Nasal Negative Normal [facility] Comment on above: Result Comment: NEGA TI: MRSA DNA not detected by nucleic acid amplification. Results should be used as an adjunct to nosocomial control efforts to identify patients needing enhanced precautions. The test is not intended to identify patients with staphylococcal infections. Results should not be used to guide or monitor treatment for MRSA infections. Performed By: #### M RSA #### [facility] [address] [place] [address] Monitor Car Operator: Jose Willett MD [facility] [address] [place] [address] [employer] Car Operator: Eric Clancy MD Basic Metabolic Panelon 12-13 Anion gap [Moles/Vol] 11 mmol/L 9 - 17 mmol/L [facility] Calcium [Mass/Vol] 8.7 mg/dL 8.6 - 10. 4 mg/dL [facility] Chloride [Moles/Vol] 89 mmol/L Low 98 - 10 7 mmol/L [facility] CO2 [Moles/Vol] 20 mmol/L 20 - 31 mmol/L [facility] Creatinine [Mass/Vol] 0.7 mg/dL 0.7 - 1.2 mg/dL [facility] GFR/1.73 sq M.predicted MDRD (S/P/Bld) [Vol rate/Area] - PINF [facility] Comment on above: These results are not intended for use in patients <18 years of age. eGFR results are calculated without a race factor using the 2020 CKD-EPI equation. Careful clinical correlation is recommended, particularly when comparing to results calculated using previous equations. The CKD-EPI equation is less accurate in patients with extremes of muscle mass, extra-renal metabolism of creatine, excessive creatine ingestion, or following therapy that affects renal tubular secretion. Glucose [Mass/Vol] 89 mg/dL 70 - 99 mg/dL [facility] Interpretation and review of laboratory results Abnormal [facility] Potassium [Moles/Vol] 4.8 mmol/L 3.7 - 5.3 mmol/L [facility] Sodium [Moles/Vol] 120 mmol/L Low 135 - 144 mmol/L [facility] Urea nitrogen [Mass/Vol] 14 mg/dL 8 - 23 mg/d L [facility] Urea nitrogen/Creatinine [Mass ratio] 20 mg/mg 9 - 20 [facility] Basic Metabolic Profon 01-06 Anion gap [Moles/Vol] 11 mmol/L Normal 9-17 [facility] Comment on above: Performed By: #### C DP, BMP #### [facility] [address] [place] [address] Monitor Car Operator: Eric Clancy MD BUN/CRE Ratio 20 Normal 9-20 [facility] Comment on above: Performed By: #### C DP, BMP #### [facility] [address] [place] [address] Monitor Car Operator: Eric Clancy MD Calcium [Mass/Vol] 8.7 mg/dL Normal 8.6-10.4 [facility] Comment on above: Performed By: #### C DP, BMP #### [facility] [address] [place], [place] [id number] Monitor Car Operator: Eric Clancy MD Chloride [Moles/Vol] 89 mmol/L Low 98-107 [facility] Comment on above: Performed By: #### C DP, BMP #### [facility] [address] [place], [place] [id number] Monitor Car Operator: Eric Clancy MD CO2 [Moles/Vol] 20 mmol/L Normal 20-31 [facility] Comment on above: Performed By: #### C DP, BMP #### [facility] [address] [place] [address] Monitor Car Operator: Eric Clancy MD Creatinine [Mass/Vol] 0.7 mg/dL Normal 0.7-1.2 [facility] Comment on above: Performed By: #### C DP, BMP #### [facility] [address] [place] [address] Monitor Car Operator: Eric Clancy MD GFR/1.73 sq M.predicted among non-blacks MDRD (S/P/Bld) [Vol rate/Area] mL/min/{1.73_m2} Normal >60 [facility] Comment on above: Result Comment: These results are not intended for use in patients <18 years of age. eGFR results are calculated without a race factor using the 2020 CKD-EPI equation. Careful clinical correlation is recommended, particularly when comparing to results calculated using previous equations. The CKD-EPI equation is less accurate in patients with extremes of muscle mass, extra-renal metabolism of creatine, excessive creatine ingestion, or following therapy that affects renal tubular secretion. Performed By: #### C DP, BMP #### [facility] [address] [place] [address] Monitor Car Operator: Eric Clancy MD Glucose [Mass/Vol] 89 mg/dL Normal 70-99 [facility] Comment on above: Performed By: #### C DP, BMP #### [facility] [address] [place], [place] [id number] Monitor Car Operator: Eric Clancy MD Potassium [Moles/Vol] 4.8 mmol/L Normal 3.7-5.3 [facility] Comment on above: Performed By: #### C DP, BMP #### [facility] [address] [place], [place] [id number] Monitor Car Operator: Eric Clancy MD Sodium [Moles/Vol] 120 mmol/L Low 135-144 [facility] Comment on above: Performed By: #### C DP, BMP #### [facility] [address] [place] [address] Monitor Car Operator: Eric Clancy MD Urea nitrogen [Mass/Vol] 14 mg/dL Normal 8-23 [facility] Comment on above: Performed By: #### C DP, BMP #### [facility] [address] [place] [id number] Monitor Car Operator: Eric Clancy MD CBC with Auto Differentialon 01-06-2024 Basophils (Bld) [#/Vol] 0.03 10*3/uL [facility] Basophils/100 WBC (Bld) 1 % 0 - 2 % [facility] Eosinophils (Bld) [#/Vol] [facility] Eosinophils/100 WBC (Bld) 0 % Low 1 - 4 % [facility] Erythrocyte distribution width (RBC) [Ratio] 11.4 % Low 11.8 - 14.4 % [facility] Hematocrit (Bld) [Volume fraction] 32.1 % Low 40.7 - 50.3 % [facility] Hemoglobin (Bld) [Mass/Vol] 12.0 g/dL Low 13.0 - 17.0 g/dL [facility] Immature granulocytes (Bld) [#/Vol] 0.03 10*3/uL [facility] Immature granulocytes/100 WBC (Bld) 1 % High 0 [facility] Interpretation and review of laboratory results Abnormal [facility] Lymphocytes/100 WBC (Bld) 23 % Low 24 - 43 % [facility] Lymphocytes/100 WBC (Bld) 1.29 % [facility] MCH (RBC) [Entitic mass] 35.9 pg High 25. 2 - 33.5 pg [facility] MCHC (RBC) [Mass/Vol] 37.4 g/dL High 28.4 - 34.8 g/dL [facility] MCV (RBC) [Entitic vol] 96.1 fL 82.6 - 102.9 fL [facility] Monocytes/100 WBC (Bld) 11 % 3 - 12 % [facility] Monocytes/100 WBC (Bld) 0.60 % [facility] Neutrophils/100 WBC (Bld) 64 % 36 - 65 % [facility] Nucleated RBC/100 WBC (Bld) [Ratio] 0.0 % 0.0 per 100 WBC [facility] Platelet mean volume (Bld) [Entitic vol] 8.6 fL 8.1 - 13.5 fL [facility] Platelets (Bld) [#/Vol] 222 10*3/uL [facility] RBC (Bld) [#/Vol] 3.34 10*6/uL Low 4.21 - 5.7 7 m/uL [facility] Segmented neutrophils/100 WBC (Bld) 3.65 % [facility] WBC other (Bld) [#/Vol] 5.6 [facility] CBC with Diffon 01-06-2024 Abs. Basophil 0.03 k/uL Normal 0.00-0.20 [facility] Comment on above: Performed By: #### C DP, BMP #### [facility] [address] [place] [address] Monitor Car Operator: Eric Clancy MD Abs. Eosinophil <0.03 Normal 0.00-0.44 [facility] Comment on above: Performed By: #### C DP, BMP #### [facility] [address] [place] [address] Monitor Car Operator: Eric Clancy MD Abs.Imm.Granulocyte 0.03 k/uL Normal 0.00-0.30 [facility] Comment on above: Performed By: #### C DP, BMP #### [address] [place], [facility] Monitor Car Operator: Eric Clancy MD Abs.Neutrophil (Seg) 3.65 k/uL Normal 1.50-8.10 [facility] Comment on above: Performed By: #### C DP, BMP #### [address] [place], [facility] Monitor Car Operator: Eric Clancy MD Basophils/100 WBC (Bld) 1 % Normal 0-2 [facility] Comment on above: Performed By: #### C DP, BMP #### [address] [place], [place] [address] Monitor Car Operator: Eric Clancy MD Eosinophils/100 WBC (Bld) 0 % Low 1-4 [facility] Comment on above: Performed By: #### C DP, BMP #### [address] [place], [facility] Monitor Car Operator: Eric Clancy MD Erythrocyte distribution width (RBC) [Ratio] 11.4 % Low 11.8-14.4 [facility] Comment on above: Performed By: #### C DP, BMP #### [address] [place], [facility] Monitor Car Operator: Eric Clancy MD Hematocrit (Bld) [Volume fraction] 32.1 % Low 40.7-50.3 [facility] Comment on above: Performed By: #### C DP, BMP #### [address] [place], [facility] Monitor Car Operator: Eric Clancy MD Hemoglobin (Bld) [Mass/Vol] 12.0 g/dL Low 13.0-17.0 [facility] Comment on above: Performed By: #### C DP, BMP #### [facility] [address] [place], [place] [id number] Monitor Car Operator: Eric Clancy MD Immature granulocytes/100 WBC (Bld) 1 % High 0 [facility] Comment on above: Performed By: #### C DP, BMP #### [facility] [address] [place], [place] [id number] Monitor Car Operator: Eric Clancy MD Lymphocytes (Bld) [#/Vol] 1.29 10*3/uL Normal 1.10-3.70 [facility] Comment on above: Performed By: #### C DP, BMP #### [address] [place], [place] [id number] Monitor Car Operator: Eric Clancy MD Lymphocytes/100 WBC (Bld) 23 % Low 24-43 [facility] Comment on above: Performed By: #### C DP, BMP #### [address] [place], [place] [id number] Monitor Car Operator: Eric Clancy MD MCH (RBC) [Entitic mass] 35.9 pg High 25.2-33.5 [facility] Comment on above: Performed By: #### C DP, BMP #### [address] [place], [place] [id number] Monitor Car Operator: Eric Clancy MD MCHC (RBC) [Mass/Vol] 37.4 g/dL High 28.4-34.8 [facility] Comment on above: Performed By: #### C DP, BMP #### [address] [place], [place] [id number] Monitor Car Operator: Eric Clancy MD MCV (RBC) [Entitic vol] 96.1 fL Normal 82.6-102.9 M [facility] Comment on above: Performed By: #### C DP, BMP #### [address] [place], [place] [id number] Monitor Car Operator: Eric Clancy MD Monocytes (Bld) [#/Vol] 0.60 10*3/uL Normal 0.10-1.20 [facility] Comment on above: Performed By: #### C DP, BMP #### [facility] [address] [place] [address] Monitor Car Operator: Eric Clancy MD Monocytes/100 WBC (Bld) 11 % Normal 3-12 M [facility] Comment on above: Performed By: #### C DP, BMP #### [facility] [address] [place], [facility] Monitor [employer] Operator: Eric Clancy MD Neutrophil (Seg) 64 % Normal 36-65 [facility] Comment on above: Performed By: #### C DP, BMP #### [facility] [address] [place], [place] [address] Monitor [employer] Operator: Eric Clancy MD NRBC Automated 0.0 per 100 WBC Normal 0.0 [facility] Comment on above: Performed By: #### C DP, BMP #### [address] [place] [address] Monitor Car Operator: Eric Clancy MD Platelet mean volume (Bld) [Entitic vol] 8.6 fL Normal 8.1-13.5 [facility] Comment on above: Performed By: #### C DP, BMP #### [facility] [address] [place], [facility] Monitor Car Operator: Eric Clancy MD Platelets (Bld) [#/Vol] 222 10*3/uL Normal 138-453 [facility] Comment on above: Performed By: #### C DP, BMP #### [facility] [address] [place] [address] Monitor Car Operator: Eric Clancy MD RBC (Bld) [#/Vol] 3.34 10*6/uL Low 4.21-5.77 [facility] Comment on above: Performed By: #### C DP, BMP #### [facility] [address] [place] [address] Monitor Car Operator: Eric Clancy MD WBC (Bld) [#/Vol] 5.6 10*3/uL Normal 3.5-11.3 [facility] Comment on above: Performed By: #### C DP, BMP #### [facility] [address] [place], [place] [id number] Monitor Car Operator: Eric Clancy MD MRSA, DNA, Nasalon Specimen Description .NASAL SWAB Normal [facility] Comment on above: Performed By: #### M RSANO #### [facility] [address] [place], [place] [id number] Monitor Car Operator: Jose Willett MD [address] [place], [place] [id number] Monitor Car Operator: Eric Clancy MD TYPE AND SCREENon 01-06-2024 ABO and Rh group Nom (Bld) Blood group O Rh(D) positive [facility] Arm Band Number [id number] [facility] Blood Bank Sample Expiration 01/30/2024,2359 [facility] Blood group antibodies identified Nom Negative [facility] Type + Screenon 01-06-2024 Type + Screen Sample Expiration 01/30/2024,2359 Arm Band Number [id number] ABO/Rh(D) O POSITIVE Antibody Screen NEGATIVE Normal [facility] Comment on above: Performed By: #### T YS #### [facility] [address] [place] [address] Monitor Car Operator: Eric Clancy MD RAD - MISCon 12-17-2023 RAD - MISC [id number] #1.00TIFF Normal [facility] RAD - Ultrasound Reporton RAD - Ultrasound Report [id number] 2402 [id number] 3#1.00TIFF Normal [facility] RAD - Ultrasound Report [id number] 2402 [id number] 0#1.00TIFF [facility] Patient Letter FTon 2023 Patient Letter [facility] December 06, 2023 YURIY GREWAL [address] [place] [address] : [address] Dowd, Yuriy Grewal is a current patient of [facility], who was seen recently on 11/25/23. He was evaluated and is cleared from a urology stand point for his total knee replacement surgery. Please feel free to reach out to me with any questions or concerns. Sincerely, Jose Marcum M.D., F.A.C.S. [facility] Formson 11-29-2023 Forms [id number] #1.00TIFF [facility] Ambulatory Visit Summaryon 0 11-25-2023 Ambulatory Visit Summary YURIY GREWAL :1950 Visit Date:11/25/2023 Ambulatory Visit Instructions Your Diagnosis BPH with urinary obstruction Epididymitis Erectile dysfunction Tests Performed Urnls Dip Stick Auto w/o Microscopy POC 09137 Your Care Team Attending Physician - KITTY GLASS, Jose Singleton Primary Care Physician - Barak Richard MD This Is Your Medications List doxycycline (doxycycline hyclate 100 mg Cap) dutasteride (dutasteride 0.5 mg Cap) tadalafil (Cialis 20 mg Tab) Contact prescribing physician if questions or concerns alfuzosin (alfuzosin 10 mg ER Tab) amlodipine cefdinir (cefdinir 300 mg Cap) lisinopril (lisinopril 5 mg Tab) pantoprazole (Protonix 40 mg Tab-DR) Procedures Performed Colonoscopy (2011), Colonoscopy, flexible; diagnostic, including collection of specimen(s) by brushing or washing, when performed (separate procedure) (2008), Cataract surgery, Hernia repair. Discharge Vitals Blood Pressure 138/82 Height 159 cm Height 63 in Weight 78 kg Weight 171.6 lb BMI 30.85 What to do next Scheduled Follow-Up Appointments Saturday. 2023 9:45 AM EDT With: KITTY GLASS, Jose Singleton Where: [facility] Renetta Cuello [facility] Patient Educationon 11-25-19 24 Patient Education Urology Epididymitis Epididymitis is inflammation or swelling of [...] What are the causes? In men ages 20?40, this condition is usually caused by a bacterial infection or a sexually transmitted infection (STI), such as gonorrhea or chlamydia. In men 40 and older, this condition is usually caused by bacteria from a urinary blockage or from abnormalities in the urinary system. These can result from: ? Having a tube placed into the bladder (urinary catheter). ? Having an enlarged or inflamed prostate gland. ? Having recently had urinary tract surgery. ? Having a problem with a backward flow of urine (retrograde). In men who have a condition that weakens the body's defense system (immune system), such as human immunodeficiency virus (HIV), this condition can be caused by: ? Other bacteria, including tuberculosis and syphilis. ? Viruses. ? Fungi. Sometimes this condition occurs without infection. This may happen because of trauma or repetitive activities such as sports. What increases the risk? You are more likely to develop this condition if you have: ? Unprotected sex with more than one partner. ? Anal sex. ? Had recent surgery. ? A urinary catheter. ? Urinary problems. ? A suppressed immune system. What are the signs or symptoms? This condition usually begins suddenly with chills, fever, and pain behind the scrotum and in the testicle. Other symptoms include: ? Swelling of the scrotum, testicle, or both. ? Pain when ejaculating or urinating. ? Pain in the back or abdomen. ? Nausea. ? Itching and discharge from the penis. ? A frequent need to pass urine. ? Redness, increased warmth, and tenderness of the scrotum. How is this diagnosed? Your health care provider can diagnose this condition based on your symptoms and medical history. Your health care provider will also do a physical exam to check your scrotum and testicle for swelling, pain, and redness. You may also have other tests, including: ? Testing of discharge from the penis. ? Testing your urine for infections, such as STIs. ? Ultrasound to check for blood flow and [...] nonbacterial epididymitis, you may be treated with: ? Rest. ? Elevation of the scrotum. ? Pain medicines. ? Anti-inflammatory medicines. Surgery may be needed if: ? You have pus buildup in the scrotum (abscess). ? You have epididymitis that has not responded to other treatments. Follow these instructions at home: Medicines ? Take prhn-hgl-embkoyn and prescription medicines only as told by your health care provider. ? If you were prescribed an antibiotic medicine, take it as told by your health care provider. Do not stop taking the antibiotic even if your condition improves. Sexual activity ? If your epididymitis was caused by an STI, avoid sexual activity until your treatment is complete. ? Inform your sexual partner or partners if you test positive for an STI. They may need to be treated. Do not engage in sexual activity with your partner or partners until their treatment is completed. Managing pain and swelling ? If directed, raise (elevate) your scrotum and apply ice. To do this: ? Put ice in a plastic bag. ? Place a small towel or pillow between your legs. ? Rest your scrotum on the pillow or towel. ? Place another towel between your skin and the plastic bag. ? Leave the ice on for 20 minutes, 2?3 times a day. ? Remove the ice if your skin turns bright red. This is very important. If you cannot feel pain, heat, or cold, you have a greater risk of damage to the area. ? Keep your scrotum elevated and supported while resting. Ask your health care provider if you should wear a scrotal support, such as a jockstrap. Wear it as told by your health care provider. ? Try taking a sitz bath to help with discomfort. This is a warm water bath that is taken while you are sitting down. The water should come up to your hips and should cover your buttocks. Do this 3?4 times per day or as told by your health care provider. General instructions ? Drink enough fluid to keep your urine pale yell (more content not included)... Normal [facility] Urology Office/Clinic Noteon 11-25-2023 Urology Office/Clinic Note Chief Complaint 1 year F/U HPI Staff 73 yo male here for 1 yr f/u. Previous Dx: BPH with obstruction, ED, epididymis. Taking Alfuzosin ER 10mg and Cialis 20mg prn. Is taking, no issues with these Most recent PSA 11/17/22 - 0.50. PVR 79 Dysuria: _denies Incomplete bladder emptying: he thinks he is Hematuria: denies visible blood Frequency: 3x daily Urgency: _denies Nocturia: 3x nightly Stream: denies hesitation, normal stream Leaking: denies Post void dripping: denies Wearing pads/ Depends: denies Urge incontinence: denies Stress incontinence: denies Incontinence without Sensory Awareness: denies Abdominal pain: denies Flank pain: denies Sexual complaints: denies History of Present Illness Tests reviewed: reviewed UA I have reviewed the previous health record information and history for this patient from Dr. Marcum. I have reviewed and verified the staff HPI to be accurate for this encounter. Review of Systems PHQ Score Initial Depression Screen Score: 0 SCORE ROS - Provider Constitutional: denies weight loss, denies hot flashes. Eyes: denies eye problems. Gastrointestinal: denies nausea, denies vomiting. Cardiovascular: denies chest pain or angina. Integumentary: no dryness Musculoskeletal: denies musculoskeletal symptoms. ENMT: denies otolaryngeal symptoms. Respiratory: no shortness of breath. Heme/Lymph: denies easy bleeding tendency, denies easy bruising tendency. Psychiatric: no confusion, no anxiety. Genitourinary: See HPI. Physical Exam Vitals & Measurements BP: 138/82 HT: 63 in HT: 159 cm WT: 78 kg WT: 171.6 lb BMI: 30.85 General Appearance: alert, no distress, well nourished, well developed male. Genitourinary: normal scrotum, normal testes, normal urethra, abnormal- indurated and tender on left epididymis, normal vas deferens/spermatic cord. Flank Pain: none. Bladder: nonpalpable. Assessment/Plan 1. BPH with urinary obstruction (N40.1: Benign prostatic hyperplasia with lower urinary tract symptoms) Taking Alfuzosin ER 10mg qd. PVR today 79cc. Reports he has a slow stream occasionally. Gets up to void 3x/night. States he has low volume voids after he wakes up but feels he empties. Denies any burning with urination. Denies ever seeing any visible blood. Discussed adding Dutasteride to help minimize infections and improve urinary stream. Pt would like to try this. PSA 07/05/21 - 0.72 11/17/22 - 0.50 -Begin Dutasteride 0.5mg qd. Discussed the medication side effects, and the patient will monitor closely for these, as well as for symptom improvement. If severe side effects occur, the medication should be stopped and the office notified. -Cont Alfuzosin wo changes 2. Epididymitis (N45.1: Epididymitis) CT AP 03/27/22 - several rounded benign hypodensities within the right kidney. Scrotal US 03/07/22 - no acute abnormality. Took Cipro per PCP. Was recommended to perform double void maneuvers. States he had some discomfort in his testicle recently. PCP gave him cefdinir x10 days, has 2 days left. [place] this has improved sxs 50%. States he has an upcoming surgery and wants to ensure he is not infected prior. UA today negative for blood and infection. PE: L epididymis indurated and tender -Take doxycycline 100mg bid x3wks. 3. Erectile dysfunction (N52.9: Male erectile dysfunction, unspecified) Cialis 20mg prn. Follow-up With When Contact Information KITTY GLASS, Jose Singleton, URL [facility] [address], [place] [phone] [phone] Additional Instructions: 4 mos (new med) Patient Education Epididymitis I, Tonya Calero, personally scribed for Dr. Marcum on 11/25/2023 10:51:03. . Documentation recorded by the scribe, Tonya Calero, accurately reflects the services(s) I performed and decisions made by me. Authenticated by Dr. Marcum on 11/25/2023 10:52:54. Problem List/Past Medical History Ongoing Abnormal findings [...] Oral, Daily, 3 refills amlodipine, Oral, Daily cefdinir 300 mg Cap Cialis 20 mg Tab, 20 mg= 1 tab(s), Oral, As Directed, 1 refills lisinopril 5 mg Tab, 5 mg= 1 tab(s), Oral, Daily Protonix 40 mg Tab-DR, 40 mg= 1 tab(s), Oral, Daily Allergies (more content not included)... Normal [facility] Comment on above: Result Comment: Elec tronically Signed By: Jose MARCUM MD\.br\Date and Time Signed: 11/25/23 10:53 EST\.br\Electronically Co-Signed By: Tonya Calero\.br\Date and Time Co-Signed: 11/25/23 10:51 EST K[facility] Antinuclear Antibodieson 10-24-2023 Antinuclear Abs, IFA Negative Normal . [facility] Comment on above: Result Comment: Nega tive <1:80 Borderline 1:80 Positive >1:80 ICAP nomenclature: AC-[id number] For more information about Hep-2 cell patterns use ANApatterns.org, the official website for the International Consensus on Antinuclear Antibody (KEV) Patterns (ICAP). Performed at: - [facility] [address], [place], [place] [id number] Monitor Car Operator: Arcenio Ballard PhD, Phone: [phone] PERFORMED BY: [place] [address] PATHOLOGIST [employer] DANYELLE HERNANDEZ M.D. Performed By: #### U AARON, CBC, ESR, CMP, CRP #### [address] #### KEV #### [facility] , Alanine aminotransferase [En zymatic activity/volume] in Serum or PlasmaOrdered By: Eliezer Venegas on 10-24-2023 ALT [Catalytic activity/Vol] 19 U/L 7-52 [facility] Albumin [Mass/volume] in Ser um or Plasma by Bromocresol green (BCG) dye binding methoOrdered By: Eliezer Venegas on 10-24-2023 Albumin BCG dye [Mass/Vol] 4.5 g/dL 3.5-5.7 [facility] Alkaline phosphatase [Enzyma tic activity/volume] in Serum or PlasmaOrdered By: Eliezer Venegas on 10-24-2023 ALP [Catalytic activity/Vol] 69 U/L 34-104 [facility] Aspartate aminotransferase [ Enzymatic activity/volume] in Serum or PlasmaOrdered By: Eliezer Venegas on 10-24-2023 AST [Catalytic activity/Vol] 18 U/L 13-39 [facility] Basophils Auto (Bld) [#/Vol] Ordered By: Eliezer Venegas on 10-24-2023 Basophils (Bld) [#/Vol] 0.0 10*3/uL 0.0-0.2 [facility] Basophils/100 WBC Auto (Bld) Ordered By: Eliezer Venegas on 10-24-2023 Basophils/100 WBC (Bld) 0.6 % . F [facility] Bilirubin.total [Mass/volume ] in Serum or PlasmaOrdered By: Eliezer Venegas on 10-24-2023 Bilirubin [Mass/Vol] 0.6 mg/dL 0.3-1.0 [facility] C reactive protein [Mass/vol ume] in Serum or PlasmaOrdered By: Eliezer Venegas on 10-24-2023 CRP [Mass/Vol] < 0.5 mg/dL 0.0-0.5 [facility] C-Reactive Proteinon 023 CRP [Mass/Vol] mg/L Normal 0.0-0.5 [facility] Comment on above: Result Comment: PERF ORMED BY: [place] [address] PATHOLOGIST [employer] INS[employer] AND P[employer] DANYELLE HERNANDEZ M.D. Performed By: #### U AARON, CBC, ESR, CMP, CRP #### [facility] [address] [place] [address] #### KEV #### [facility] , Calcium [Mass/volume] in Ser um or PlasmaOrdered By: Eliezer Venegas on 10-24-2023 Calcium [Mass/Vol] 9.4 mg/dL 8.6-10.3 [facility] Carbon dioxide, total [Moles /volume] in Serum or PlasmaOrdered By: Eliezer Venegas on 10-24-2023 CO2 [Moles/Vol] 27.8 mmol/L 21.0-31.0 [facility] Chloride [Moles/volume] in S precious or PlasmaOrdered By: Eliezer Venegas on 10-24-2023 Chloride [Moles/Vol] 101 mmol/L 98-107 [facility] Complete Blood Count Auto Di ffon 10-24-2023 Basophils (Bld) [#/Vol] 0.0 10*3/uL Normal 0.0-0.2 [facility] Comment on above: Performed By: #### U AARON, CBC, ESR, CMP, CRP #### [facility] [address] [place] [address] [place] #### KEV #### [facility] , Basophils/100 WBC (Bld) 0.6 % Normal . [facility] Comment on above: Performed By: #### U AARON, CBC, ESR, CMP, CRP #### [address] #### KEV #### [facility] , Eosinophils (Bld) [#/Vol] 0.0 10*3/uL Normal 0.0-0.45 [facility] Comment on above: Performed By: #### U AARON, CBC, ESR, CMP, CRP #### [address] #### KEV #### [facility] , Eosinophils/100 WBC (Bld) 0.7 % Normal . [facility] Comment on above: Performed By: #### U AARON, CBC, ESR, CMP, CRP #### [address] #### KEV #### [facility] , Erythrocyte distribution width (RBC) [Ratio] 12.4 % Normal 12.0-14.8 [facility] Comment on above: Performed By: #### U AARON, CBC, ESR, CMP, CRP #### [address] #### KEV #### [facility] , Hematocrit (Bld) [Volume fraction] 38.4 % Low 38.8-50.0 [facility] Comment on above: Performed By: #### U AARON, CBC, ESR, CMP, CRP #### [place] [address] [place] #### KEV #### [facility] , Hemoglobin (Bld) [Mass/Vol] 13.9 g/dL Normal 13.0-17.0 [facility] Comment on above: Performed By: #### U AARON, CBC, ESR, CMP, CRP #### [place] [address] [place] #### KEV #### [facility] , Lymphocytes (Bld) [#/Vol] 1.5 10*3/uL Normal 1.00-4.8 [facility] Comment on above: Performed By: #### U AARON, CBC, ESR, CMP, CRP #### [facility] [address] [place] [address] [place] #### KEV #### [facility] , Lymphocytes/100 WBC (Bld) 34.3 % Normal . [facility] Comment on above: Performed By: #### U AARON, CBC, ESR, CMP, CRP #### [facility] [address] [place] [address] [place] #### KEV #### [facility] , MCH (RBC) [Entitic mass] 36.0 pg High 27.5-35.2 [facility] Comment on above: Performed By: #### U AARON, CBC, ESR, CMP, CRP #### [address] #### KEV #### [facility] , MCV (RBC) [Entitic vol] 99.7 fL Normal 83.5-101 F [facility] Comment on above: Performed By: #### U AARON, CBC, ESR, CMP, CRP #### [address] #### KEV #### [facility] , Mean Corpuscular HGB Conc 36.1 g/dL High 32.5-35.6 [facility] Comment on above: Performed By: #### U AARON, CBC, ESR, CMP, CRP #### [place] [address] [place] #### KEV #### [facility] , Monocytes (Bld) [#/Vol] 0.4 10*3/uL Normal 0.0-0.8 [facility] Comment on above: Performed By: #### U AARON, CBC, ESR, CMP, CRP #### [place] [address] [place] #### KEV #### [facility] , Monocytes/100 WBC (Bld) 10.0 % Normal . F [facility] Comment on above: Performed By: #### U AARON, CBC, ESR, CMP, CRP #### [facility] [address] [place] [address] [place] #### KEV #### [facility] , Neutrophils (Bld) [#/Vol] 2.4 10*3/uL Normal 1.8-7.7 [facility] Comment on above: Performed By: #### U AARON, CBC, ESR, CMP, CRP #### [address] #### KEV #### [facility] , Neutrophils/100 WBC (Bld) 54.4 % Normal . [facility] Comment on above: Performed By: #### U AARON, CBC, ESR, CMP, CRP #### [place] [address] [place] #### KEV #### [facility] , NRBC% 0.1 /100{WBC} Normal 0-0.5 [facility] Comment on above: Performed By: #### U AARON, CBC, ESR, CMP, CRP #### [facility] [address] [place] [address] [place] #### KEV #### [facility] , Platelet mean volume (Bld) [Entitic vol] 8.0 fL Normal 6.6-10.1 [facility] Comment on above: Performed By: #### U AARON, CBC, ESR, CMP, CRP #### [facility] [address] [place] [address] [place] #### KEV #### [facility] , Platelets (Bld) [#/Vol] 206 10*3/uL Normal 150-450 [facility] Comment on above: Performed By: #### U AARON, CBC, ESR, CMP, CRP #### [facility] [address] [place] [address] [place] #### KEV #### [facility] , RBC (Bld) [#/Vol] 3.85 10*6/uL Low 3.90-5.60 [facility] Comment on above: Performed By: #### U AARON, CBC, ESR, CMP, CRP #### [facility] [address] [place] [address] #### KEV #### [facility] , WBC (Bld) [#/Vol] 4.4 10*3/uL Normal 4.1-10.5 [facility] Comment on above: Performed By: #### U AARON, CBC, ESR, CMP, CRP #### [facility] [address] [place] [address] #### KEV #### [facility] , Comprehensive Metabolic Pane bebo 10-24-2023 Albumin [Mass/Vol] 4.5 g/dL Normal 3.5-5.7 [facility] Comment on above: Performed By: #### U AARON, CBC, ESR, CMP, CRP #### [facility] [address] [place] [address] #### KEV #### [facility] , Albumin/Globulin [Mass ratio] 1.9 {ratio} Normal [facility] Comment on above: Performed By: #### U AARON, CBC, ESR, CMP, CRP #### [facility] [address] [place] [address] [place] #### KEV #### [facility] , ALP [Catalytic activity/Vol] 69 U/L Normal 34-104 [facility] Comment on above: Performed By: #### U AARON, CBC, ESR, CMP, CRP #### [facility] [address] [place] [address] [place] #### KEV #### [facility] , ALT [Catalytic activity/Vol] 19 U/L Normal 7-52 [facility] Comment on above: Performed By: #### U AARON, CBC, ESR, CMP, CRP #### [address] [place] [address] [place] #### KEV #### [facility] , Anion gap [Moles/Vol] 11.8 mmol/L Normal 6.0-15.0 [facility] Comment on above: Performed By: #### U AARON, CBC, ESR, CMP, CRP #### [facility] [address] [place] [address] #### KEV #### [facility] , AST [Catalytic activity/Vol] 18 U/L Normal 13-39 [facility] Comment on above: Performed By: #### U AARON, CBC, ESR, CMP, CRP #### [facility] [address] [place] [address] #### KEV #### [facility] , Bilirubin [Mass/Vol] 0.6 mg/dL Normal 0.3-1.0 [facility] Comment on above: Performed By: #### U AARON, CBC, ESR, CMP, CRP #### [facility] [address] [place] [address] #### KEV #### [facility] , Calcium [Mass/Vol] 9.4 mg/dL Normal 8.6-10.3 [facility] Comment on above: Performed By: #### U AARON, CBC, ESR, CMP, CRP #### [facility] [address] [place] [address] [place] #### KEV #### [facility] , Chloride [Moles/Vol] 101 mmol/L Normal 98-107 [facility] Comment on above: Performed By: #### U AARON, CBC, ESR, CMP, CRP #### [facility] [address] [place] [address] [place] #### KEV #### [facility] , CO2 [Moles/Vol] 27.8 mmol/L Normal 21.0-31.0 [facility] Comment on above: Performed By: #### U AARON, CBC, ESR, CMP, CRP #### [facility] [address] [place] [address] [place] #### KEV #### [facility] , Creatinine [Mass/Vol] 0.74 mg/dL Normal 0.70-1.[address] [facility] Comment on above: Performed By: #### U AARON, CBC, ESR, CMP, CRP #### [facility] [address] [place] [address] [place] #### KEV #### [facility] , GFR/1.73 sq M.predicted MDRD (S/P/Bld) [Vol rate/Area] mL/min/{1.73_m2} [facility] Comment on above: Performed By: #### U AARON, CBC, ESR, CMP, CRP #### [address] #### KEV #### [facility] , Globulin (S) [Mass/Vol] 2.4 g/dL Normal [facility] Comment on above: Performed By: #### U AARON, CBC, ESR, CMP, CRP #### [facility] [address] [place] [address] [place] #### KEV #### [facility] , Glucose [Mass/Vol] 95 mg/dL Normal 70-100 [facility] Comment on above: Result Comment: [facility] Glucose Reference Range is dependent on time and content of last meal. Glucose of more than 200 mg/dL in a nonstressed, ambulatory subject supports the diagnosis of Diabetes Mellitus. ADA recommended reference range Performed By: #### U AARON, CBC, ESR, CMP, CRP #### [facility] [address] [place] [address] [place] #### KEV #### [facility] , Potassium [Moles/Vol] 4.6 mmol/L Normal 3.5-5.[address] [facility] Comment on above: Performed By: #### U AARON, CBC, ESR, CMP, CRP #### [facility] [address] [place] [address] [place] #### KEV #### [facility] , Protein [Mass/Vol] 6.9 g/dL Normal 6.4-8.9 [facility] Comment on above: Performed By: #### U AARON, CBC, ESR, CMP, CRP #### [facility] [address] [place] [address] [place] #### KEV #### [facility] , Sodium [Moles/Vol] 136 mmol/L Normal 136-145 [facility] Comment on above: Performed By: #### U AARON, CBC, ESR, CMP, CRP #### [facility] [address] [place] [address] [place] #### KEV #### [facility] , Urea nitrogen [Mass/Vol] 21 mg/dL Normal 7-25 [facility] Comment on above: Performed By: #### U AARON, CBC, ESR, CMP, CRP #### [facility] [address] [place] [address] [place] #### KEV #### [facility] , Creatinine [Mass/volume] in Serum or PlasmaOrdered By: Eliezer Venegas on 10-24-2023 Creatinine [Mass/Vol] 0.74 mg/dL 0.70-1.[address] [facility] Eosinophils Auto (Bld) [#/Vo l]Ordered By: Eliezer Venegas on 10-24-2023 Eosinophils (Bld) [#/Vol] 0.0 10*3/uL 0.0-0.45 [facility] Eosinophils/100 WBC Auto (Bl d)Ordered By: Eliezer Venegas on 10-24-2023 Eosinophils/100 WBC (Bld) 0.7 % . [facility] Erythrocyte Sedimentation Ra marie 10-24-2023 ESR (Bld) [Velocity] 11 mm/h Normal 0-19 [facility] Comment on above: Result Comment: PERF ORMED BY: [place] [address] PATHOLOGIST [employer] DANYELLE HERNANDEZ M.D. Performed By: #### U AARON, CBC, ESR, CMP, CRP #### [facility] [address] #### KEV #### [facility] , Erythrocyte distribution wid th Auto (RBC) [Ratio]Ordered By: Eliezer Venegas on 10-24-2023 Erythrocyte distribution width (RBC) [Ratio] 12.4 % 12.0-14.8 [facility] Erythrocyte sedimentation ra te by Photometric methodOrdered By: Eliezer Venegas on 10-24-2023 ESR Photometric method (Bld) [Velocity] 11 mm/hr 0-19 [facility] Globulin Calc (S) [Mass/Vol] Ordered By: Eliezer Venegas on 10-24-2023 Globulin (S) [Mass/Vol] 2.4 g/dL F [facility] Glucose [Mass/volume] in Ser um or PlasmaOrdered By: Eliezer Venegas on 10-24-2023 Glucose [Mass/Vol] 95 mg/dL 70-100 [facility] Comment on above: ADA recommended refe rence rangeRandom Glucose Reference Range is dependent on time and content of last meal. Glucose of more than 200 mg/dL in a nonstressed, ambulatory subject supports the diagnosis of Diabetes Mellitus. Hematocrit Auto (Bld) [Volum e fraction]Ordered By: Eliezer Venegas on 10-24-2023 Hematocrit (Bld) [Volume fraction] 38.4 % 38.8-50.0 [facility] Hemoglobin [Mass/volume] in BloodOrdered By: Eliezer Venegas on 10-24-2023 Hemoglobin (Bld) [Mass/Vol] 13.9 g/dL 13.0-17.0 [facility] Leukocytes [#/volume] correc víctor for nucleated erythrocytes in Blood by Automated counOrdered By: Eliezer Venegas on 10-24-2023 WBC corrected for nucl RBC Auto (Bld) [#/Vol] 4.4 10*3/uL 4.1-10.5 [facility] Lymphocytes Auto (Bld) [#/Vo l]Ordered By: Eliezer Venegas on 10-24-2023 Lymphocytes (Bld) [#/Vol] 1.5 10*3/uL 1.00-4.8 [facility] Lymphocytes/100 WBC Auto (Bl d)Ordered By: Eliezer Venegas on 10-24-2023 Lymphocytes/100 WBC (Bld) 34.3 % . [facility] MCH Auto (RBC) [Entitic mass ]Ordered By: Eliezer Venegas on 10-24-2023 MCH (RBC) [Entitic mass] 36.0 pg 27.5-35.2 [facility] MCHC Auto (RBC) [Mass/Vol]Or dered By: Eliezer Venegas on 10-24-2023 MCHC (RBC) [Mass/Vol] 36.1 g/dL 32.5-35.[address] [facility] MCV Auto (RBC) [Entitic vol] Ordered By: Eliezer Venegas on 10-24-2023 MCV (RBC) [Entitic vol] 99.7 fL 83.5-101 F [facility] Monocytes Auto (Bld) [#/Vol] Ordered By: Eliezer Venegas on 10-24-2023 Monocytes (Bld) [#/Vol] 0.4 10*3/uL 0.0-0.8 [facility] Monocytes/100 WBC Auto (Bld) Ordered By: Eliezer Venegas on 10-24-2023 Monocytes/100 WBC (Bld) 10.0 % . F [facility] Neutrophils Auto (Bld) [#/Vo l]Ordered By: Eliezer Venegas on 10-24-2023 Neutrophils (Bld) [#/Vol] 2.4 10*3/uL 1.8-7.7 [facility] Neutrophils/100 WBC Auto (Bl d)Ordered By: Eliezer Venegas on 10-24-2023 Neutrophils/100 WBC (Bld) 54.4 % . [facility] No Panel InformationOrdered By: Eliezer Venegas on 10-24-2023 Estimated GFR (CKD-EPI) > 60.0 mL/Min [facility] Creatinine Clearance (Chem N/A [facility] Nucleated erythrocytes [Pres ence] in Blood by Automated countOrdered By: Eliezer Venegas on 10-24-2023 Nucleated RBC Auto Ql (Bld) 0.1 /100{WBC} 0-0.5 [facility] Platelet mean volume Auto (B ld) [Entitic vol]Ordered By: Eliezer Venegas on 10-24-2023 Platelet mean volume (Bld) [Entitic vol] 8.0 fL 6.6-10.1 [facility] Platelets Auto (Bld) [#/Vol] Ordered By: Eliezer Venegas on 10-24-2023 Platelets (Bld) [#/Vol] 206 10*3/uL 150-450 [facility] Potassium [Moles/volume] in Serum or PlasmaOrdered By: Eliezer Venegas on 10-24-2023 Potassium [Moles/Vol] 4.6 mmol/L 3.5-5.[address] [facility] Protein [Mass/volume] in Ser um or PlasmaOrdered By: Eliezer Venegas on 10-24-2023 Protein [Mass/Vol] 6.9 g/dL 6.4-8.9 [facility] RBC Auto (Bld) [#/Vol]Ordere d By: Eliezer Venegas on 10-24-2023 RBC (Bld) [#/Vol] 3.85 10*6/uL 3.90-5.60 [facility] Serum or plasma albumin/glob ulin mass ratioOrdered By: Eliezer Venegas on 10-24-2023 Albumin/Globulin [Mass ratio] 1.9 {ratio} [facility] Serum or plasma anion gap de terminationOrdered By: Eliezer Venegas on 10-24-2023 Anion gap [Moles/Vol] 11.8 mmol/L 6.0-15.0 [facility] Sodium [Moles/volume] in Ser um or PlasmaOrdered By: Eliezer Venegas on 10-24-2023 Sodium [Moles/Vol] 136 mmol/L 136-145 [facility] Urate [Mass/volume] in Serum or PlasmaOrdered By: Eliezer Venegas on 10-24-2023 Urate [Mass/Vol] 4.3 mg/dL 4.4-7.6 [facility] Urea nitrogen [Mass/volume] in Serum or PlasmaOrdered By: Eliezer Blumy on 10-24-2023 Urea nitrogen [Mass/Vol] 21 mg/dL 7 [facility] Uric Acidon 10-24-2023 Urate [Mass/Vol] 4.3 mg/dL Low 4.4-7.6 [facility] Comment on above: Performed By: #### U AARON, CBC, ESR, CMP,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 Complexity REQUIRES OT FOLLOW-UP: Yes Plan Occupational Therapy Plan Times Per Day: Once a day Days Per Week: 7 Days Current Treatment Recommendations: Strengthening, Functional mobility training, Balance training, Endurance training, Patient/Caregiver education & training, Safety education & training, Equipment evaluation, education, & procurement, Self-Care / ADL Restrictions Restrictions/Precautions Restrictions/Precautions: General Precautions, Fall Risk, Weight Bearing Lower Extremity Weight Bearing Restrictions Left Lower Extremity Weight Bearing: Weight Bearing As Tolerated Subjective Subjective Subjective: Patient states pain is minimal. Patient agreeable to OT evaluation. Social/Functional History Social/Functional History Lives With: Spouse Type of Home: House Home Layout: One level Home Access: Stairs to enter without rails Entrance Stairs - Number of Steps: 1+1 Bathroom Shower/Tub: Walk-in shower Bathroom Toilet: Handicap height Bathroom Equipment: Shower chair Home Equipment: Walker, rolling ADL Assistance: Independent Homemaking Assistance: Independent Ambulation Assistance: Independent Transfer Assistance: Independent Objective Safety Devices Type of Devices: All fall risk precautions in place;Call light within reach;Chair alarm in place;Nurse notified;Left in chair AROM: Within functional limits PROM: Within functional limits Strength: Generally decreased, functional Coordination: Generally decreased, functional Tone: Normal Sensation: Intact ADL Feeding: Independent Grooming: Stand by assistance Grooming Skilled Clinical Factors: seated UE Bathing: Stand by assistance UE Bathing Skilled Clinical Factors: seated LE Bathing: Moderate assistance UE Dressing: Stand by assistance LE Dressing: Moderate assistance Toileting: Minimal assistance Functional Mobility: Contact guard assistance Functional Mobility Skilled Clinical Factors: FWW Additional Comments: CGA ADL transfers Vision Vision: Impaired Vision Exceptions: Wears glasses at all times Hearing Hearing: Within functional limits Cognition Overall Cognitive Status: WFL Orientation Overall Orientation Status: Within Functional Limits Education Given To: Patient Education Provided: Role of Therapy;Plan of Care;Transfer Training Education Method: Verbal Barriers to Learning: None Education Outcome: Verbalized understanding;Demonstrated understanding [facility] - ADL [facility] Daily Activity - Inpatient How much help is needed for putting on and taking off regular lower body clothing?: A Little How much help is needed for bathing (which includes washing, rinsing, drying)?: A Little How much help is needed for toileting (which includes using toilet, bedpan, or urinal)?: A Little How much help is needed for putting on and taking off regular upper body clothing?: A Little How much help is needed for taking care of personal grooming?: A Little How much help for eating meals?: None [facility] Inpatient Daily Activity Raw Score: 19 AM-[facility] Inpatient ADL T-Scale Score : 40.22 ADL Inpatient CMS 0-100% Score: 42.8 ADL Inpatient [facility] G-Code Modifier : CK Goals Short Term Goals Time Frame for Short Term Goals: 21 visits Short Term Goal 1: Patient to be educated on d/c folder, AE/DME and home safety to ensure safe and indep return home. Short Term Goal 2: Patient to complete ADL routine c mod I c use of AE/DME as needed to ensure safe return home. Short Term Goal 3: Patient to engage in 15 minutes of ther ex/ther act to improve strength and activity tolerance for I/ADL upon return home. Therapy Time Individual Concurrent Group Co-treatment Time In 1720 Time Out 1733 Minutes 13 Palmira Bender OTR/L Iliana JESUS made aware of pt's admission for Dr. Bond. Pt arrived from surgery to [facility] room 330 at this time. Report received from CREMATOR at bedside. Pt is A&Ox4. Pt denies any pain. Admission assessment and vital signs completed at this time, see flow sheets for details. Left lower extremities has surgery dressing clean, dry and intact with drain present and open to gravity. Admission navigator completed with pt at this time. Pt updated on plan of care and oriented to use of call light. Pt denies further needs at this time. Call light in reach, Care ongoing. Discharge Criteria Inpatients must meet Criteria 1 through 7. All other patients are either YES or N/A. If a NO is chosen then Anesthesia or Surgeon must be notified. 1. Minimum 30 minutes after last dose of sedative medication. Yes 2. Systolic BP between 90 - 160. Diastolic BP between 60 - 90. Yes 3. Pulse between 60 - 120 Yes 4. Respirations between 8 - 25. Yes 5. SpO2 92% - 100%. Yes 6. Able to cough and swallow or return to baseline function. Yes 7. Alert and oriented or return to baseline mental status. Yes 8. Demonstrates controlled, coordinated movements, ambulates with steady gait, or return to baseline activity function. N/A 9. Minimal or no pain or nausea, or at a level tolerable and acceptable to patient. N/A 10. Takes and retains oral fluids as allowed. N/A 11. Procedural / perioperative site stable. Minimal or no bleeding. N/A 12. If GI endoscopy procedure, minimal or no abdominal distention or passing flatus. N/A 13. Written discharge instructions and emergency telephone number provided. N/A 14. Accompanied by a responsible adult. N/A ELVIN Tabares was ok with pt having clear liquids until 1100, pt made NPO at this time. Updated by Dr. Dowd that he is in route from [place] currently, planning to be here for a 1300 start time, updated pt and . Na level resulted at 135, notified ELVIN Tabares. documented in this encounter [facility] 01-28-2024 Hospital Discharge instructions Jadyn Saleh RN - 01/28/2024 12:53 PM EDT Report the following signs or any questions regarding your physical condition to your surgeon immediately: Dr. Dowd: [phone] Excessive swelling of, or around the wound area. Redness. Temperature of 100 degrees (F) or above. Excessive pain. May use Tylenol for mild pain. Do not exceed 4000 mg in 24 hour period. You currently are @ 3,250 mg as of 12:04 PM today May shower with use of CHG soap if waterproof dressing is intact. Do not remove dressing until follow up appointment with Dr. Dowd on 02/11/24 @ 11:00 AM Continue to wear víctor hose during the day. Remove víctor hose at night. Hand wash and towel dry. Hang to dry and place back on first thing in A.M. Jadyn Saleh RN - 01/28/2024 12:53 PM EDT As tolerated with use of walker as instructed per Physical Therapy No driving till cleared by Dr. Aranda's Jadyn Saleh RN - 01/28/2024 12:53 PM EDT Good nutrition is important when healing from an illness, injury, or surgery. Follow any nutrition recommendations given to you during your hospital stay. If you were given an oral nutrition supplement while in the hospital, continue to take this supplement at home. You can take it with meals, in-between meals, and/or before bedtime. These supplements can be purchased at most local grocery stores, pharmacies, and [employer]-stores. If you have any questions about your diet or nutrition, call the hospital and ask for the dietitian. Regular The following attachments cannot be sent through Care Everywhere.Surgical Site Infections: Prevention: General Info (Algerian)TKR (Total Knee Replacement): Post-op (Algerian)documented in this encounter [facility] 01-06-2024 History of Present illness Narrative Patient instructed on the pre-operative, intra-operative, and post-operative process. Patient instructed on NPO status. Medication instructions and pre operative instruction sheet reviewed with the patient. CHG skin prep instructions reviewed with patient. [facility] Preadmission Testing Name: Yuriy Grewal : 1950 Patient (home) Procedure LEFT TKA Date of Procedure: 01/27/24 Surgeon: Elba Dowd MD Ht: 157.5 cm (5' 2 ) Wt: 74.8 kg (165 lb) Wt method: Actual Allergies: No Known Allergies Peanut allergy: No Vitals: 01/06/24 1019 BP: 113/67 Pulse: (!) 103 Resp: 20 Temp: 97.5 F (36.4 C) SpO2: 96% No LMP for male patient. Do you take blood thinners? [x] Yes [] No Instructed to stop blood thinners prior to procedure? [x] Yes [] No [] N/A Do you have sleep apnea? [] Yes [x] No Instructed to bring CPAP machine? [] Yes [] No [x] N/A Do you have acid reflux ? [x] Yes [] No Do you have hiatal hernia? [] Yes [x] No Do you ever experience motion sickness? [] Yes [x] No Have you had a respiratory infection or sore throat in last 4 weeks before surgery? [] Yes [x] No Do you have poorly controlled asthma or COPD? [] Yes [x] No Do you have a history of angina in the last month or symptomatic arrhythmia? [] Yes [x] No Do you have significant central nervous system disease? [] Yes [x] No Have you had an EKG, labs, or chest xray in last 12 months? If yes provide copies to anesthesia [] Yes [x] No [] Lab [] EKG [] CXR Have you had a stress test? [x] Yes [] No When/where: DR. RICHARD > 10 YEARS AGO Was it normal? [x] Yes [] No Do you or your family have a history of Malignant Hyperthermia? [] Yes [x] No Patient instructed on: [x] NPO Status [x] Meds to Take Day of Surgery [x] Ride Home [x]No Jewelry/Contact Lenses/Dentures day of surgery [x] Chlorhexidene PAT Call/Visit Questions Person Interviewed: Yuriy Relationship to Patient: Patient Surgery Time Verified: Yes Surgery Location Verified: Yes NPO Status Reinforced: Yes Ride and Caregiver Arranged: Yes Ride Caregiver Provider: Kristine IVAN Bottle/Wipes provided with instructions for use: Yes Patient instructed on the pre-operative, intra-operative, and post-operative process? Yes Medication instructions reviewed with patient? Yes Pre operative instruction sheet reviewed and given to patient in PAT? Yes Labs and EKG faxed to Dr. Richard for review and medical clearance. documented in this encounter [facility] 11-25-2023 Hospital Discharge instructions Patient Education 11/25/2023 [...] Follow these instructions at home: Medicines Take [id number] and prescription medicines only as told by [...] provider. Document Revised: 06/06/2022 Document Reviewed: 06/06/2022 [employer] Patient Education 2022 [employer] Follow Up Care 11/19/2022 11:41:10 With:KITTY GLASS, Jose Singleton, URL Address: [facility] [address] [place] [address]- [phone] When: Unknown Comments:4 mos (new med) [facility] [place] 11-19-2022 Hospital Discharge instructions Patient Education 11/19/2022 [...] urethra. Follow these instructions at home: Take [id number] and prescription medicines only as told by [...] 10/28/2006 Document Revised: 09/22/2019 Document Reviewed: 12/02/2017 [employer] Patient Education 2020 [employer] Follow Up Care 02/12/2022 10:03:54 With:Jose MARCUM MD, URL Address: [facility] [address], [place] [address]- [phone] When:Within 1 Year(s) [facility] Evaluation + Plan note Future Appointments Appointment Date:11/25/2023 09:45:00 AM Scheduled Provider:Jose MARCUM MD Location:[facility] Appointment Type:URO Office Visit [facility] Evaluation + Plan note Future Appointments Appointment Date:03/30/2024 09:45:00 AM Scheduled Provider:Jose MARCUM MD Location:[facility] Appointment Type:URO Office Visit [facility] Evaluation + Plan note Future Appointments Appointment Date:07/20/2024 09:45:00 AM Scheduled Provider:Jose MARCUM MD Location:[facility] Appointment Type:URO Office Visit Diagnostic Tests PendingPSA Total 03/30/24 [facility] Evaluation note No assessment inform ation available [facility] Work Phone: Evaluation note Diagnosis S/P TKR (total knee replacement) using cement, left- Primary S/P TKR (total knee replacement) using cement, left Hypertension Unspecified essential hypertension documented in this encounter [facility] course Narrative No data available for this section [facility] progress note No data available for this section [facility] Summary Purpose Family History No Family History Records FoundNo Family History Records Found No data available for this section No Family History Records Found No data available for this section No Family History Records FoundNo Family History Records Found Advance Directives No Advanced Directives Records FoundLatest Code Status on File Code Status Date Activated Date Inactivated Comments Full Code 01/27/2024 5:10 PM Healthcare Agents on File Name Relationship Healthcare Agent Relationshi p Communication Hansa Grewal Spouse Primary Decision Maker Additional Source Comments Patient Care team informatio n (unrecognized section and content) Team Status: Active Member Role Status Dates Barak Richard MD Primary Care Provider Active Team Status: Inactive Member Role Status Dates Barak Richard MD Primary Care Provider Active Eliezer Venegas MD Attending Provider Active Senior Director Relationship Specialty Start Date End Date Barak Richard MD [address] [place] [address] PCP - General Family Medicine 01/28/24 (unrecognized sect ion and content) No Status Records FoundNo Status Records FoundNo Status Records FoundNo Status Records FoundNo Status Records Found INFORMATION SOURCE (unrecogn ized section and content) DATE CREATED AUTHOR 03/02/2023 [facility] DATE CREATED AUTHOR AUTHOR'S ORGANIZ ATION 11/22/2023 [facility] DATE CREATED AUTHOR AUTHOR'S ORGANIZ ATION 02/11/2024 [facility] DATE CREATED AUTHOR AUTHOR'S ORGANIZ ATION 04/02/2024 [facility] DATE CREATED AUTHOR AUTHOR'S ORGANIZ ATION 05/01/2024 [facility] d[facility] Specialists EPIC Goals (unrecognized section and content) Goals may be documented in a n alternate section Reason for Visit (unrecogniz ed section and content) Specialty Diagnoses / Procedures Referred By Contac t Referred To Contact Diagnoses Primary osteoarthritis of left knee Primary osteoarthritis of left knee [M17.12] Procedures [place] ARTHRP KNE CONDYLE&PLATU MEDIAL&LAT COMPARTMENTS KNEE TOTAL ARTHROPLASTY Elba Dowd MD [address] [place] [address] [facility] [address] [place] [address] Referral ID Status Reason Start Date Expiration Date Visits Re quested Visits Authorized [id number] 1 1 Ordered Prescriptions (unrec ognized section and content) Prescription Sig Dispensed Refills Start Date End Da te rivaroxaban (XARELTO) 10 MG TABS tablet Take 1 tablet by mouth daily (with breakfast) 12 tablet 0 01/28/2024 HYDROcodone-acetaminophe n (NORCO) 5-325 MG per tabletIndications:S/P TKR (total knee replacement) using cement, left Take 1-2 tablets by mouth every 6 hours as needed for Pain for up to 7 days. Max Daily Amount: 8 tablets 30 tablet 0 01/28/2024 02/04/2024 Scheduled Active and Recently Administ ered Medications (unrecognized section and content) Medication Order 01/26/2024 01/27/2024 01/28/2024 acetaminophen (TYLENOL) tablet 650 mg (COMPLETED) 650 mg, Oral, ONCE, 1 dose, On Sat01/27/24 at 0645, Maximum dose of acetaminophen is 4000 mg from all sources in 24 hours. 2 hours prior to surgery, Pre-op (day of surgery) 1204 (Given - Provider: Jennifer Mak RN) acetaminophen (TYLENOL) tablet 650 mg 650 mg, Oral, EVERY 6 HOURS, First dose on Sat01/27/24 at 1730, Until Discontinued, Maximum dose of acetaminophen is 4000 mg from all sources in 24 hours., Post-op 1750 (Given - Provider: Kenia Zaman RN)2316 (Given - Provider: Malorie Arroyo RN) 0504 (Given - Provider: Malorie Arroyo, TOÑA)1121 (Given - Provider: Conchis Bailon, TOÑA)1730 (Due)2330 (Due) amLODIPine (NORVASC) tablet 5 mg 5 mg, Oral, DAILY, First dose on Sat01/27/24 at 1800, Until Discontinued 1745 (Not Given - Provider: Kenia Zaman RN - Reason: Patient took at home) 0755 (Given - Provider: Conchis Bailon, TOÑA) ceFAZolin (ANCEF) 1,000 mg in sodium chloride 0.9 % 50 mL IVPB ([id number]) (COMPLETED) 1,000 mg, IntraVENous, ONCE, 1 dose, On Sat01/27/24 at 0645, Antimicrobial Indications: Surgical Prophylaxis, Send to OR, Pre-op (day of surgery) 1522 (New Bag - Provider: Ranjan Santos APRN - DATA EXAMINATION CLERK) 1259 (Stopped - Provider: Conchis Bailon, TOÑA) ceFAZolin (ANCEF) 2000 mg in 0.9% sodium chloride 100 mL IVPB (COMPLETED) 2,000 mg, IntraVENous, ONCE, 1 dose, On Sat01/27/24 at 0645, Antimicrobial Indications: Surgical Prophylaxis, Pre-op (day of surgery) 1251 (New Bag - Provider: Moni Dubois RN) 1300 (Stopped - Provider: Conchis Bailon RN) ceFAZolin (ANCEF) 2000 mg in 0.9% sodium chloride 100 mL IVPB (COMPLETED) 2,000 mg, IntraVENous, EVERY 8 HOURS, 2 doses, First dose on Sat01/27/24 at 2100, Last dose on Sat01/28/24 at 0500, Antimicrobial Indications: Surgical Prophylaxis, Post-op 2104 (New Bag - Provider: Malorie Arroyo RN)2134 (Stopped - Provider: Malorie Arroyo RN) 0506 (New Bag - Provider: Malorie Arroyo RN)0536 (Stopped - Provider: Malorie Arroyo RN)1301 (Stopped - Provider: Conchis Bailon RN) celecoxib (CELEBREX) capsule 400 mg (COMPLETED) 400 mg, Oral, ONCE, 1 dose, On Sat01/27/24 at 0645, 2 hours prior to surgery, Pre-op (day of surgery) 1205 (Given - Provider: Jennifer Mak RN) dimenhyDRINATE (DRAMAMINE) tablet 50 mg (COMPLETED) 50 mg, Oral, ONCE, 1 dose, On Sat01/27/24 at 0645, Pre-op (day of surgery) 1205 (Given - Provider: Jennifer Mak RN) enoxaparin Sodium (LOVENOX) injection 30 mg 30 mg, SubCUTAneous, 2 TIMES DAILY, First dose on Sat01/28/24 at 0900, Until Discontinued, Indication of Use: Prophylaxis-DVT/PE, Other, Other Enoxaparin Indication: post-op, Administer by deep subCUTAneous injection with pt lying down. Alternate injection sites on abdominal wall. Do not rub site after injection. Check with provider prior to any invasive procedure., Post-op 0755 (Given - Provid er: Conchis Bailon RN)2099 (Due) finasteride (PROSCAR) tablet 5 mg 5 mg, Oral, DAILY, First dose on Sat01/27/24 at 1800, Until Discontinued, Substituted for Dutasteride (AVODART). 175 (Given - Provider: Kenia Zaman RN) 075 (Given - Provider: Conchis Bailon RN) lisinopril (PRINIVIL;ZESTRIL) tablet 40 mg 40 mg, Oral, DAILY, First dose on Sat01/27/24 at 1800, Until Discontinued 1744 (Not Given - Provider: Kenia Zaman RN - Reason: Patient took at home) 075 (Given - Provider: Conchis Bailon RN) pantoprazole (PROTONIX) tablet 40 mg 40 mg, Oral, DAILY, First dose on Sat01/27/24 at 1800, Until Discontinued, Do not crush or break. 175 (Given - Provider: Kenia Zaman RN) 075 (Given - Provider: Conchis Bailon RN) sodium chloride flush 0.9 % injection 5-40 mL 5-40 mL, IntraVENous, EVERY 12 HOURS SCHEDULED (2 times per day), First dose on Sat01/27/24 at 2100, Until Discontinued, For Line Patency: Peripheral IV = 5 mL; Midline or Central Line = 10 mL/lumen. If following IV push medication, administer flush at same rate as the IV push. Flush volume is determined by type of infusion therapy being given. For non-viscous solutions use: Peripheral IV = 5 mL Midline or Central Line = 10 mL/lumen For viscous solutions (i.e. blood components, parenteral nutrition, contrast media, or after obtaining blood sample) use: Peripheral IV = 10 mL Midline or Central Line = 20 mL/lumen, Post-op 2053 (Not Given - Provider: Malorie Arroyo RN - Reason: IV Fluid Infusing) 075 (Given - Provider: Conchsi Bailon RN)2099 (Due) tamsulosin (FLOMAX) capsule 0.4 mg 0.4 mg, Oral, DAILY, First dose on Sat01/27/24 at 1800, Until Discontinued, Do not crush or chew. Substituted for Alfuzosin ER (UROXATRAL). 1750 (Given - Provider: Kenia Zaman RN) 0755 (Given - Provider: Conchis Bailon, TOÑA) tranexamic acid (LYSTEDA) tablet 1,300 mg (COMPLETED) 1,300 mg, Oral, ONCE, 1 dose, On Sat01/27/24 at 0645, Do not crush or break. Give 2 hours prior to surgery, Pre-op (day of surgery) 1205 (Given - Provider: Jennifer Mak RN) tranexamic acid (LYSTEDA) tablet 1,300 mg (COMPLETED) 1,300 mg, Oral, ONCE, 1 dose, On Sat01/27/24 at 1730, Do not crush or break. to be given 12 hours after initial pre-op dose 1750 (Given - Provider: Kenia Zaman RN) tranexamic acid (LYSTEDA) tablet 1,300 mg (COMPLETED) 1,300 mg, Oral, ONCE, 1 dose, On Sat01/27/24 at 1730, Do not crush or break. Give dose 6 hours after initial pre-op dose 2102 (Given - Provider: Malorie Arroyo RN) Continuous Medication Order 01/26/2024 01/27/2024 01/28/2024 lactated ringers IV soln infusion (CANCELED) IntraVENous, at 100 mL/hr, CONTINUOUS, Starting on Sat01/27/24 at 0645, Pre-op (day of surgery) 0732 (New Bag - Provider: Jennifer Mak RN)1256 (NoRateChange - Provider: FORTUNATO Pedroza CRNA)1256 (Paused - Provider: FORTUNATO Pedroza CRNA - Comment: Switch to gravity)1257 (Restarted - Provider: FORTUNATO Pedroza CRNA)1350 (New Bag - Provider: FORTUNATO Pedroza CRNA)1548 (Anesthesia Volume Adjustment - Provider: FORTUNATO Pedroza CRNA) 0753 (Stopped - Provider: Conchis Bailon RN) lactated ringers IV soln infusion (CANCELED) IntraVENous, at 80 mL/hr, CONTINUOUS, Starting on Sat01/27/24 at 1730, Heplock when taking fluids well, Post-op 1742 (New Bag - Provider: Kenia Zaman RN) 0753 (Stopped - Provider: Conchis Bailon RN) PRN Medication Order 01/26/2024 01/27/2024 01/28/2024 0.9 % sodium chloride infusion IntraVENous, at 5-250 mL/hr, PRN, if patient receiving piggyback infusions and maintenance fluids are not ordered OR KVO fluids to protect IV site / prevent frequent line interruptions/ long duration, Starting on Sat01/27/24 at 1710, For piggyback infusion, administer at same rate as piggyback for a total of 25 mL. Enter 25 mL into dose field and piggyback rate into rate field of order. If piggyback is infusing at a rate less than 100 mL/hr, enter 25 mL into dose field and 100 mL/hr into rate field of order. For KVO fluids, enter rate of 20 mL/hr or less into rate field of order., Post-op acetaminophen (TYLENOL) tablet 650 mg 650 mg, Oral, EVERY 6 HOURS PRN, Starting on Sat01/27/24 at 1710, Until Discontinued, Pain Mild (1-3), Maximum dose of acetaminophen is 4000 mg from all sources in 24 hours. HYDROcodone-acetaminophen (NORCO) 5-325 MG per tablet 1 tablet 1 tablet, Oral, EVERY 6 HOURS PRN, Starting on Sat01/27/24 at 1710, Until Discontinued, Pain Mild (1-3), Maximum dose of acetaminophen is 4000 mg from all sources in 24 hours. HYDROcodone-acetaminophen (NORCO) 5-325 MG per tablet 2 tablet 2 tablet, Oral, EVERY 6 HOURS PRN, Starting on Sat01/27/24 at 1710, Until Discontinued, Pain Moderate (4-6), Maximum dose of acetaminophen is 4000 mg from all sources in 24 hours. HYDROmorphone HCl PF (DILAUDID) injection 0.5 mg 0.5 mg, IntraVENous, EVERY 3 HOURS PRN, Starting on Sat01/27/24 at 1710, Until Discontinued, Pain Severe (7-10), If oral and IV narcotics ordered, use oral first and only use IV if oral is ineffective or cannot take oral. Do Not give oral and IV within 1 hour of each other unless specifically ordered., Post-op [id number] 60-150-60 MG/50ML injection (CANCELED) PRN, Starting on Sat01/27/24 at 1333, Until Sat01/27/24 at 1554, Intra-op 1333 (Given - Provider: Cyril Dowd MD - Comment: mixed with normal saline 50 ml) sod chloride IRR soln 0.9 % 1,000 mL with gentamicin (GARAMYCIN) 80 mg (CANCELED) PRN, Starting on Sat01/27/24 at 1518, Intra-op 1518 (Given - Provider: Cyril Dowd MD) sod chloride IRR soln 0.9 % 3,000 mL with gentamicin (GARAMYCIN) 80 mg (CANCELED) PRN, Starting on Sat01/27/24 at 1333, Intra-op 1333 (Given - Provider: Cyril Dowd MD) sodium chloride flush 0.9 % injection 5-40 mL 5-40 mL, IntraVENous, PRN, Starting on Sat01/27/24 at 1710, Until Discontinued, Line Care, After every IV line use, For Line Patency: Peripheral IV = 5 mL; Midline or Central Line = 10 mL/lumen. If following IV push medication, administer flush at same rate as the IV push. Flush volume is determined by type of infusion therapy being given. For non-viscous solutions use: Peripheral IV = 5 mL Midline or Central Line = 10 mL/lumen For viscous solutions (i.e. blood components, parenteral nutrition, contrast media, or after obtaining blood sample) use: Peripheral IV = 10 mL Midline or Central Line = 20 mL/lumen, Post-op vancomycin (VANCOCIN) injection (CANCELED) PRN, Starting on Sat01/27/24 at 1334, Until Sat01/27/24 at 1554, Intra-op 1334 (Given - Provider: Cyril Dowd MD) FOR RECORDS PERTAINING TO PATIENTS WHO ARE [...] BE BASED ON THE PRIMARY CLINICAL RECORDS. [employer] provides no warranty or guarantee of the accuracy or completeness of information in this document.
[2024-07-07 12:22] LABS: Prostate Specific Antigen Dx 0.28 ng/mL (<=4.00)
== END 2024-07-07 11:22 | disposition home or self-care (01) ==
LOC: LAB 11:21
PROVIDERS: PCP Family Medicine; Visit Provider Urology
DX: N40.1 Benign prostatic hyperplasia with lower urinary tract symptoms (principal)
CPT/HCPCS: 36415; 84153

== ENCOUNTER 2024-07-07 11:29 | Outpatient (OUT) | payer MEDICARE, SELFPAY ==
--- OUTSIDE RECORDS SUMMARY | 2024-07-07 11:37 | XMS_ITS | CCD ---
Author Organization [facility] [employer]ini[employer] Care Team Providers Care Contract Administration Coordinator Name Role Phone Barak Richard Primary Care Physician RAJ ., DR CANCINO Admitting Unavailable HOY ., DR CANCINO Attending Unavailable HOY ., DR CANCINO Primary Care Unavailable HOY ., DR CANCINO Consulting Unavailable ZIEBER, DR JAUN Singleton Consulting [...] DR CANCINO Admitting Unavailable HOY ., DR CANCION Attending Unavailable HOY ., DR CANCINO Primary [...] Provider MD Eliezer Venegas Attending Provider Eliezer Venegas [...] Medication Allergies] Propensity to adverse reactions (disorder) [facility] Repository Medications Current Medications Medication Drug Class(es) [...] Daily, # 90 tab(s), Refills(s) 3, Pharmacy: [facility], 159, cm, 11/19/22 10:59:00 [...] week(s), # 42 cap(s), Refills(s) 0, Pharmacy: [facility]/pharmacy #[id number], 159, cm, 11/25/23 10:07:00 EST, [...] day(s), # 90 cap(s), Refills(s) 3, Pharmacy: [facility], 159, cm, 11/25/23 10:07:00 [...] hrs., # 30 tab(s), Refills(s) 3, Pharmacy: [facility] [id number], 159, cm, 03/30/24 10:03:00 EDT, Height/Length Dosing, 76.2, kg, 03/30/24 10:03:00 EDT, Weight Dosing Start Date: 03/30/24 Status: Ordered Start: 04-15-2023 Cialis 20 mg T ab 20 mg = 1 tab(s), Oral, As Directed, Take 1 tab po 60 mins prior to sexual activity. Do not exceed 20mg/24 hrs., # 30 tab(s), Refills(s) 1, Pharmacy: [facility] [id number], 159, cm, 11/19/22 10:59:00 EST, Height/Length Dosing, 78, kg, 11/19/22 10:59:00 EST, Weight Dosing Start Date: 04/15/23 Status: Ordered Start: 05-17-2021 take 1 tablet by carolann th once daily Cialis 20 mg Tab 20 mg = 1 tab(s), Oral, Daily, # 30 tab(s), Refills(s) 1, Pharmacy: [facility] [id number], 159, cm, 12/23/20 12:42:00 EST, Height/Length [...] When: Where: [facility] [address], [place] [address] [phone] Medications What How Much When Instructions Unchanged [...] not exceed 20mg/ 24 hrs. Pickup at [facility] [id number] Unchanged amlodipine By Mouth Every day Contact prescribing physician if questions or concerns Unchanged lisinopril (lisinopril 5 mg Tab) 1 Tablets By Mouth Every day Contact prescribing physician if questions or concerns Unchanged pantoprazole (Protonix 40 mg Tab-DR) 1 Tablets By Mouth Every day Contact prescribing physician if questions or concerns Pharmacy Information [facility] [id number]: [address], [place] [id number] [phone] Allergies No Known Medication Allergies Problems Ongoing [...] choosing us for your care. Normal Lal [facility] Patient Educationon 03-30-20 Patient Education Urology [...] these instructions at home: Medicines ? Take uvrv-wol-exghauk and prescription medicines only as told by [...] pale yell (more content not included)... Normal [facility] Urology Office/Clinic Noteon 03-30-2024 Urology Office/Clinic Note [...] Levaquin x21 days. Denies any bothersome sxs. Walker abx helped. UA today negative for blood [...] Urology [address], [place] [address] [phone] Additional Instructions: f/u this Fall w/ PSA [...] 1 cap( (more content not included)... Normal [facility] Comment on above: Result Comment: Elec tronically Signed By: Jose MARCUM MD\.br\Date and Time Signed: 03/30/24 10:37 EDT\.br\Electronically Co-Signed By: Tonya Calero\.br\Date and Time Co-Signed: 03/30/24 10:35 EDT Hemoglobin and hematocrit, michelle warren 01-28-2024 Hematocrit (Bld) [Volume fraction] 26.3 % Low 40.7 - 50.3 % [facility] Hemoglobin (Bld) [Mass/Vol] 9.4 g/dL Low 13.0 - 17.0 g/dL [facility] Interpretation and review of laboratory results Abnormal [facility] Hgb/Hcton 01-28-2024 Hematocrit (Bld) [Volume fraction] 26.3 % Low 40.7-50.3 [facility] Comment on above: Performed By: #### H H #### [facility] [address] [place], [place] [id number] [employer]: Eric Clancy MD Hemoglobin (Bld) [Mass/Vol] 9.4 g/dL Low 13.0-17.0 [facility] Comment on above: Performed By: #### H H #### [facility] [address] [place], [place] [id number] [employer]: Eric Clancy MD Comp Metabolic Profon 5 Albumin [Mass/Vol] 4.2 g/dL Normal 3.5-5.2 [facility] Comment on above: Performed By: #### C P #### [facility] [address] [place], [place] [id number] [employer]: Eric Clancy MD Albumin/Glob Ratio 1.6 Normal 1.0-2.5 [facility] Comment on above: Performed By: #### C P #### [facility] [address] [place], [place] [id number] [employer]: Eric Clancy MD Alkaline Phos 77 U/L Normal 40-129 [facility] Comment on above: Performed By: #### C P #### [facility] [address] [place], [place] [id number] [employer]: Eric Clancy MD ALT [Catalytic activity/Vol] 17 U/L Normal 5-41 [facility] Comment on above: Performed By: #### C P #### [facility] [address] [place], [place] [id number] [employer]: Eric Clancy MD Anion gap [Moles/Vol] 12 mmol/L Normal 9-17 [facility] Comment on above: Performed By: #### C P #### [facility] [address] [place], [place] [phone] [employer]: Eric Clancy MD AST [Catalytic activity/Vol] 17 U/L Normal <40 [facility] Comment on above: Performed By: #### C P #### [facility] [address] [place], [place] [address] [employer]: Eric Clancy MD Bilirubin [Mass/Vol] 0.4 mg/dL Normal 0.3-1.2 [facility] Comment on above: Performed By: #### C P #### [facility] [address] [place], [place] [id number] [employer]: Eric Clancy MD BUN/CRE Ratio 21 High 9-20 [facility] Comment on above: Performed By: #### C P #### [facility] [address] [place], [place] [id number] [employer]: Eric Clancy MD Calcium [Mass/Vol] 9.0 mg/dL Normal 8.6-10.4 [facility] Comment on above: Performed By: #### C P #### [facility] [address] [place], [place] [phone] [employer]: Eric Clancy MD Chloride [Moles/Vol] 101 mmol/L Normal 98-107 [facility] Comment on above: Performed By: #### C P #### [facility] [address] [place], [place] [phone] [employer]: Eric Clancy MD CO2 [Moles/Vol] 22 mmol/L Normal 20-31 [facility] Comment on above: Performed By: #### C P #### [facility] [address] [place] [address] [employer]: Eric Clancy MD Creatinine [Mass/Vol] 0.7 mg/dL Normal 0.7-1.2 [facility] Comment on above: Performed By: #### C P #### [facility] [address] [place] [address] [employer]: Eric Clancy MD GFR/1.73 sq M.predicted among non-blacks MDRD (S/P/Bld) [Vol rate/Area] mL/min/{1.73_m2} Normal >60 [facility] Comment on above: Result Comment: These [...] secretion. Performed By: #### C P #### [facility] [address] [place] [address] [employer]: Eric Clancy MD Glucose [Mass/Vol] 119 mg/dL High 70-99 [facility] Comment on above: Performed By: #### C P #### [facility] [address] [place] [address] [employer]: Eric Clancy MD Potassium [Moles/Vol] 4.2 mmol/L Normal 3.7-5.3 [facility] Comment on above: Performed By: #### C P #### [facility] [address] [place] [address] [employer]: Eric Clancy MD Protein [Mass/Vol] 6.9 g/dL Normal 6.4-8.3 [facility] Comment on above: Performed By: #### C P #### [facility] [address] [place], [place] [phone] [employer]: Eric Clancy MD Sodium [Moles/Vol] 135 mmol/L Normal 135-144 [facility] Comment on above: Performed By: #### C P #### [facility] [address] [place] [address] [employer]: Eric Clancy MD Urea nitrogen [Mass/Vol] 15 mg/dL Normal 8-23 [facility] Comment on above: Performed By: #### C P #### [facility] [address] [place] [address] [employer]: Eric Clancy MD Comprehensive Metabolic Pane [facility] 01-27-2024 Albumin [Mass/Vol] 4.2 g/dL 3.5 - 5.2 g/dL [facility] Albumin/Globulin [Mass ratio] 1.6 {ratio} 1.0 - 2.5 [facility] ALP [Catalytic activity/Vol] 77 U/L 40 - 129 U/L [facility] ALT [Catalytic activity/Vol] 17 U/L 5 - 41 U/L [facility] Anion gap [Moles/Vol] 12 mmol/L 9 - 17 mmol/L [facility] AST [Catalytic activity/Vol] 17 U/L NINF - 40 U/L [facility] Bilirubin [Mass/Vol] 0.4 mg/dL 0.3 - 1 .2 mg/dL [facility] Calcium [Mass/Vol] 9.0 mg/dL 8.6 - 10. 4 mg/dL [facility] Chloride [Moles/Vol] 101 mmol/L 98 - 10 7 mmol/L [facility] CO2 [Moles/Vol] 22 mmol/L 20 - 31 mmol/L [facility] Creatinine [Mass/Vol] 0.7 mg/dL 0.7 - 1.2 mg/dL [facility] GFR/1.73 sq M.predicted MDRD (S/P/Bld) [Vol rate/Area] - PINF [facility] Comment on above: These results are [...] mg/dL High 70 - 99 mg/dL [facility] Interpretation and review of laboratory results Abnormal [employer] [facility] Potassium [Moles/Vol] 4.2 mmol/L 3.7 - 5.3 mmol/L [facility] Protein [Mass/Vol] 6.9 g/dL 6.4 - 8.3 g/dL [facility] Sodium [Moles/Vol] 135 mmol/L 135 - 144 mmol/L [facility] Urea nitrogen [Mass/Vol] 15 mg/dL 8 - 23 mg/d L [facility] Urea nitrogen/Creatinine [Mass ratio] 21 mg/mg High 9 - 20 [facility] EKG 12 LeadOrdered By: Inocente Freed on 01-07-2024 Atrial Rate 86 BPM [employer] Work Phone: P Orange 35 degrees [employer] Work Phone: P-R Interval 158 ms [employer] [facility] Work Phone: Q-T Interval 330 ms [employer] [facility] Work Phone: QRS Duration 88 ms [employer] [facility] Work Phone: QTc Calculation (Bazett) 394 ms [employer] [facility] Work Phone: R Orange 14 degrees [employer] [facility] Work Phone: T Orange 13 degrees [employer] [facility] Work Phone: Ventricular Rate 86 BPM [employer] Work Phone: [employer] [facility] Work Phone: EKG 12 Leadon 01-07-2024 Normal sinus rhythm Normal ECG No previous ECGs available Confirmed by JAUN FREED ([id number]) on 01/07/2024 5:29:49 PM [facility] Jaun Freed MD - 01/07/2024 Normal sinus rhythm Normal ECG No previous ECGs available Confirmed by JAUN FREED ([id number]) on 01/07/2024 5:29:49 PM [facility] MRSA DNA Probe, Nasalon 12-13 MRSA, DNA, Nasal Negative [facility] Comment on above: NEGATIVE: MRSA DNA n ot detected by nucleic acid amplification. Results should be used as an adjunct to nosocomial control efforts to identify patients needing enhanced precautions. The test is not intended to identify patients with staphylococcal infections. Results should not be used to guide or monitor treatment for MRSA infections. Specimen Description .NASAL SWAB [facility] MRSA, DNA, Nasalon MRSA, DNA, Nasal Negative Normal [facility] Comment on above: Result Comment: NEGA TI: MRSA DNA not detected by nucleic acid amplification. Results should be used as an adjunct to nosocomial control efforts to identify patients needing enhanced precautions. The test is not intended to identify patients with staphylococcal infections. Results should not be used to guide or monitor treatment for MRSA infections. Performed By: #### M RSA #### [facility] [address] [place] [address] [employer]: Jose Willett MD [facility] [address] [place] [address] [employer]: Eric Clancy MD Basic Metabolic Panelon 12-13 Anion gap [Moles/Vol] 11 mmol/L 9 - 17 mmol/L [facility] Calcium [Mass/Vol] 8.7 mg/dL 8.6 - 10. 4 mg/dL [facility] Chloride [Moles/Vol] 89 mmol/L Low 98 - 10 7 mmol/L [facility] CO2 [Moles/Vol] 20 mmol/L 20 - 31 mmol/L [facility] Creatinine [Mass/Vol] 0.7 mg/dL 0.7 - 1.2 mg/dL [facility] GFR/1.73 sq M.predicted MDRD (S/P/Bld) [Vol rate/Area] - PINF [facility] Comment on above: These results are [...] [Mass/Vol] 89 mg/dL 70 - 99 mg/dL [facility] Interpretation and review of laboratory results Abnormal [facility] Potassium [Moles/Vol] 4.8 mmol/L 3.7 - 5.3 mmol/L [facility] Sodium [Moles/Vol] 120 mmol/L Low 135 - 144 mmol/L [facility] Urea nitrogen [Mass/Vol] 14 mg/dL 8 - 23 mg/d L [facility] Urea nitrogen/Creatinine [Mass ratio] 20 mg/mg 9 - 20 [facility] Basic Metabolic Profon 01-06 Anion gap [Moles/Vol] 11 mmol/L Normal 9-17 [facility] Comment on above: Performed By: #### C DP, BMP #### [facility] [address] [place] [address] [employer]: Eric Clancy MD BUN/CRE Ratio 20 Normal 9-20 [facility] Comment on above: Performed By: #### C DP, BMP #### [facility] [address] [place] [address] [employer]: Eric Clancy MD Calcium [Mass/Vol] 8.7 mg/dL Normal 8.6-10.4 [facility] Comment on above: Performed By: #### C DP, BMP #### [facility] [address] [place], [place] [phone] [employer]: Eric Clancy MD Chloride [Moles/Vol] 89 mmol/L Low 98-107 [facility] Comment on above: Performed By: #### C DP, BMP #### [facility] [address] [place], [place] [phone] [employer]: Eric Clancy MD CO2 [Moles/Vol] 20 mmol/L Normal 20-31 [facility] Comment on above: Performed By: #### C DP, BMP #### [facility] [address] [place] [address] [employer]: Eric Clancy MD Creatinine [Mass/Vol] 0.7 mg/dL Normal 0.7-1.2 [facility] Comment on above: Performed By: #### C DP, BMP #### [facility] [address] [place] [address] [employer]: Eric Clancy MD GFR/1.73 sq M.predicted among non-blacks MDRD (S/P/Bld) [Vol rate/Area] mL/min/{1.73_m2} Normal >60 [facility] Comment on above: Result Comment: These [...] Performed By: #### C DP, BMP #### [facility] [address] [place] [address] [employer]: Eric Clancy MD Glucose [Mass/Vol] 89 mg/dL Normal 70-99 [facility] Comment on above: Performed By: #### C DP, BMP #### [facility] [address] [place], [place] [phone] [employer]: Eric Clancy MD Potassium [Moles/Vol] 4.8 mmol/L Normal 3.7-5.3 [facility] Comment on above: Performed By: #### C DP, BMP #### [facility] [address] [place], [place] [phone] [employer]: Eric Clancy MD Sodium [Moles/Vol] 120 mmol/L Low 135-144 [facility] Comment on above: Performed By: #### C DP, BMP #### [facility] [address] [place] [address] [employer]: Eric Clancy MD Urea nitrogen [Mass/Vol] 14 mg/dL Normal 8-23 [facility] Comment on above: Performed By: #### C DP, BMP #### [facility] [address] [place] [phone] [employer]: Eric Clancy MD CBC with Auto Differentialon 01-06-2024 Basophils (Bld) [#/Vol] 0.03 10*3/uL [facility] Basophils/100 WBC (Bld) 1 % 0 - 2 % B ON [facility] Eosinophils (Bld) [#/Vol] [facility] Eosinophils/100 WBC (Bld) 0 % Low 1 - 4 % [facility] Erythrocyte distribution width (RBC) [Ratio] 11.4 % Low 11.8 - 14.4 % [facility] Hematocrit (Bld) [Volume fraction] 32.1 % Low 40.7 - 50.3 % [facility] Hemoglobin (Bld) [Mass/Vol] 12.0 g/dL Low 13.0 - 17.0 g/dL [facility] Immature granulocytes (Bld) [#/Vol] 0.03 10*3/uL [facility] Immature granulocytes/100 WBC (Bld) 1 % High 0 [facility] Interpretation and review of laboratory results Abnormal [facility] Lymphocytes/100 WBC (Bld) 23 % Low 24 - 43 % [facility] Lymphocytes/100 WBC (Bld) 1.29 % [facility] MCH (RBC) [Entitic mass] 35.9 pg High 25. 2 - 33.5 pg [facility] MCHC (RBC) [Mass/Vol] 37.4 g/dL High 28.4 - 34.8 g/dL [facility] MCV (RBC) [Entitic vol] 96.1 fL 82.6 - 102.9 fL [facility] Monocytes/100 WBC (Bld) 11 % 3 - 12 % B ON [facility] Monocytes/100 WBC (Bld) 0.60 % B ON [facility] Neutrophils/100 WBC (Bld) 64 % 36 - 65 % [facility] Nucleated RBC/100 WBC (Bld) [Ratio] 0.0 % 0.0 per 100 WBC [facility] Platelet mean volume (Bld) [Entitic vol] 8.6 fL 8.1 - 13.5 fL [facility] Platelets (Bld) [#/Vol] 222 10*3/uL [facility] RBC (Bld) [#/Vol] 3.34 10*6/uL Low 4.21 - 5.7 7 m/uL [facility] Segmented neutrophils/100 WBC (Bld) 3.65 % [facility] WBC other (Bld) [#/Vol] 5.6 B ON [facility] CBC with Diffon 01-06-2024 Abs. Basophil 0.03 k/uL Normal 0.00-0.20 [facility] Comment on above: Performed By: #### C DP, BMP #### [facility] [address] [place] [address] [employer]: Eric Clancy MD Abs. Eosinophil <0.03 Normal 0.00-0.44 [facility] Comment on above: Performed By: #### C DP, BMP #### [facility] [address] [place] [address] [employer]: Eric Clancy MD Abs.Imm.Granulocyte 0.03 k/uL Normal 0.00-0.30 [facility] Comment on above: Performed By: #### C DP, BMP #### [address] [place], [facility]83 [employer]: Eric Clancy MD Abs.Neutrophil (Seg) 3.65 k/uL Normal 1.50-8.10 [facility] Comment on above: Performed By: #### C DP, BMP #### [address] [place], [facility]83 [employer]: Eric Clancy MD Basophils/100 WBC (Bld) 1 % Normal 0-2 [facility] Comment on above: Performed By: #### C DP, BMP #### [address] [place], [place] [address] [employer]: Eric Clancy MD Eosinophils/100 WBC (Bld) 0 % Low 1-4 [facility] Comment on above: Performed By: #### C DP, BMP #### [address] [place], [facility]83 [employer]: Eric Clancy MD Erythrocyte distribution width (RBC) [Ratio] 11.4 % Low 11.8-14.4 [facility] Comment on above: Performed By: #### C DP, BMP #### [address] [place], [facility]83 [employer]: Eric Clancy MD Hematocrit (Bld) [Volume fraction] 32.1 % Low 40.7-50.3 [facility] Comment on above: Performed By: #### C DP, BMP #### [address] [place], [facility]83 [employer]: Eric Clancy MD Hemoglobin (Bld) [Mass/Vol] 12.0 g/dL Low 13.0-17.0 [facility] Comment on above: Performed By: #### C DP, BMP #### [facility] [address] [place], [place] [phone] [employer]: Eric lCancy MD Immature granulocytes/100 WBC (Bld) 1 % High 0 [facility] Comment on above: Performed By: #### C DP, BMP #### [facility] [address] [place], [place] [phone] [employer]: Eric Clancy MD Lymphocytes (Bld) [#/Vol] 1.29 10*3/uL Normal 1.10-3.70 [facility] Comment on above: Performed By: #### C DP, BMP #### [address] [place], [place] [phone] [employer]: Eric Clancy MD Lymphocytes/100 WBC (Bld) 23 % Low 24-43 [facility] Comment on above: Performed By: #### C DP, BMP #### [address] [place], [place] [phone] [employer]: Eric Clancy MD MCH (RBC) [Entitic mass] 35.9 pg High 25.2-33.5 [facility] Comment on above: Performed By: #### C DP, BMP #### [address] [place], [place] [phone] [employer]: Eric Clancy MD MCHC (RBC) [Mass/Vol] 37.4 g/dL High 28.4-34.8 [facility] Comment on above: Performed By: #### C DP, BMP #### [address] [place], [place] [phone] [employer]: Eric Clancy MD MCV (RBC) [Entitic vol] 96.1 fL Normal 82.6-102.9 [facility] Comment on above: Performed By: #### C DP, BMP #### [address] [place], [place] [address] [employer]: Eric Clancy MD Monocytes (Bld) [#/Vol] 0.60 10*3/uL Normal 0.10-1.20 [facility] Comment on above: Performed By: #### C DP, BMP #### [facility] [address] [place] [address] [employer]: Eric Clancy MD Monocytes/100 WBC (Bld) 11 % Normal 3-12 [facility] Comment on above: Performed By: #### C DP, BMP #### [facility] [address] [place], [facility]83 [employer]: Eric Clancy MD Neutrophil (Seg) 64 % Normal 36-65 [facility] Comment on above: Performed By: #### C DP, BMP #### [facility] [address] [place], [place] [address] [employer]: Eric Clancy MD NRBC Automated 0.0 per 100 WBC Normal 0.0 [facility] Comment on above: Performed By: #### C DP, BMP #### [address] [place] [address] [employer]: Eric Clancy MD Platelet mean volume (Bld) [Entitic vol] 8.6 fL Normal 8.1-13.5 [facility] Comment on above: Performed By: #### C DP, BMP #### [facility] [address] [place], [facility]83 [employer]: Eric Clancy MD Platelets (Bld) [#/Vol] 222 10*3/uL Normal 138-453 [facility] Comment on above: Performed By: #### C DP, BMP #### [facility] [address] [place] [address] [employer]: Eric Clancy MD RBC (Bld) [#/Vol] 3.34 10*6/uL Low 4.21-5.77 [facility] Comment on above: Performed By: #### C DP, BMP #### [facility] [address] [place] [address] [employer]: Eric Clancy MD WBC (Bld) [#/Vol] 5.6 10*3/uL Normal 3.5-11.3 [facility] Comment on above: Performed By: #### C DP, BMP #### [facility] [address] [place], [place] [phone] [employer]: Eric Clancy MD MRSA, DNA, Nasalon Specimen Description .NASAL SWAB Normal [facility] Comment on above: Performed By: #### M RSANO #### [facility] [address] [place], [place] [phone] [employer]: Jose Willett MD [address] [place], [place] [phone] [employer]: Eric Clancy MD TYPE AND SCREENon 01-06-2024 ABO and Rh group Nom (Bld) Blood group O Rh(D) positive [facility] Arm Band Number [id number] [facility] Blood Bank Sample Expiration 01/30/2024,2359 [facility] Blood group antibodies identified Nom Negative [facility] Type + Screenon 01-06-2024 Type + Screen Sample Expiration 01/30/2024,2359 Arm Band Number [id number] ABO/Rh(D) O POSITIVE Antibody Screen NEGATIVE Normal [facility] Comment on above: Performed By: #### T YS #### [facility] [address] [place] [address] Manager Food Beverage: Eric Clancy MD RAD - MISCon 12-17-2023 RAD - MISC [id number] #1.00TIFF Normal [facility] RAD - Ultrasound Reporton RAD - Ultrasound Report [id number] 3#1.00TIFF Normal [facility] RAD - Ultrasound Report [id number] [id number] 0#1.00TIFF [facility] Patient Letter FTon 2023 Patient [place] [facility] 06, 2023 YURIY GREWAL [address] [place] [address] : [address] Dowd, Yuriy Grewal is a current patient of [facility], who was seen recently on 11/25/23. He was evaluated and is cleared from a urology stand point for his total knee replacement surgery. Please feel free to reach out to me with any questions or concerns. Sincerely, Jose Marcum M.D., F.A.C.S. [facility] Formson 11-29-2023 Forms [id number] #1.00TIFF [facility] Ambulatory Visit Summaryon 0 11-25-2023 Ambulatory Visit Summary YURIY GREWAL :1950 Visit Date:11/25/2023 Ambulatory Visit Instructions Your Diagnosis BPH with urinary obstruction Epididymitis Erectile dysfunction Tests Performed Urnls Dip Stick Auto w/o Microscopy POC 59642 Your Care Team Attending Physician - KITTY [...] GLASS, Jose Singleton Where: [facility] Renetta Cuello [facility] Patient Educationon 11-25-19 24 Patient Education Urology [...] these instructions at home: Medicines ? Take [id number] and prescription medicines only as told by [...] pale yell (more content not included)... Normal [facility] Urology Office/Clinic Noteon 11-25-2023 Urology Office/Clinic Note [...] cefdinir x10 days, has 2 days left. Walker this has improved sxs 50%. States he [...] [facility] [address], [place] [phone] Additional Instructions: 4 mos (new med) Patient [...] Daily Allergies (more content not included)... Normal [facility] Comment on above: Result Comment: Elec tronically Signed By: Jose MARCUM MD\.br\Date and Time Signed: 11/25/23 10:53 EST\.br\Electronically Co-Signed By: Tonya Calero\.br\Date and Time Co-Signed: 11/25/23 10:51 EST KEV Antinuclear Antibodieson 10-24-2023 Antinuclear Abs, IFA Negative Normal . [facility] Comment on above: Result Comment: Nega tive <1:80 Borderline 1:80 Positive >1:80 ICAP nomenclature: AC-0 For more information about Hep-2 cell patterns use ANApatterns.org, the official website for the International Consensus on Antinuclear Antibody (KEV) Patterns (ICAP). Performed at: - [facility] [address], [place], [place] [id number] Manager Food Beverage: Arcenio Ballard PhD, Phone: [phone] PERFORMED BY: [place] [address] PATHOLOGIST CHANNEL OPENER DANYELLE HERNANDEZ M.D. Performed By: #### U AARON, CBC, ESR, CMP, CRP #### [address] #### KEV #### [facility] , Alanine aminotransferase [En zymatic activity/volume] in Serum or PlasmaOrdered By: Eliezer Venegas on 10-24-2023 ALT [Catalytic activity/Vol] 19 U/L 7-52 [facility] Albumin [Mass/volume] in Ser um or Plasma by Bromocresol green (BCG) dye binding methoOrdered By: Eliezer Venegas on 10-24-2023 Albumin BCG dye [Mass/Vol] 4.5 g/dL 3.5-5.7 [facility] Alkaline phosphatase [Enzyma tic activity/volume] in Serum or PlasmaOrdered By: Eliezer Venegas on 10-24-2023 ALP [Catalytic activity/Vol] 69 U/L 34-104 [facility] Aspartate aminotransferase [ Enzymatic activity/volume] in Serum or PlasmaOrdered By: Eliezer Venegas on 10-24-2023 AST [Catalytic activity/Vol] 18 U/L 13-39 [facility] Basophils Auto (Bld) [#/Vol] Ordered By: Eliezer Venegas on 10-24-2023 Basophils (Bld) [#/Vol] 0.0 10*3/uL 0.0-0.2 [facility] Basophils/100 WBC Auto (Bld) Ordered By: Eliezer Venegas on 10-24-2023 Basophils/100 WBC (Bld) 0.6 % . [facility] Bilirubin.total [Mass/volume ] in Serum or PlasmaOrdered By: Eliezer Venegas on 10-24-2023 Bilirubin [Mass/Vol] 0.6 mg/dL 0.3-1.0 [facility] C reactive protein [Mass/vol ume] in Serum or PlasmaOrdered By: Eliezer Venegas on 10-24-2023 CRP [Mass/Vol] < 0.5 mg/dL 0.0-0.5 [facility] C-Reactive Proteinon 023 CRP [Mass/Vol] mg/L Normal 0.0-0.5 [facility] Comment on above: Result Comment: PERF ORMED BY: [place] [address] PATHOLOGIST CHANNEL OPENER DANYELLE HERNANDEZ M.D. Performed By: #### U AARON, CBC, ESR, CMP, CRP #### [facility] [address] [place] [address] #### KEV #### [facility] , Calcium [Mass/volume] in Ser um or PlasmaOrdered By: Eliezer Venegas on 10-24-2023 Calcium [Mass/Vol] 9.4 mg/dL 8.6-10.3 [facility] Carbon dioxide, total [Moles /volume] in Serum or PlasmaOrdered By: Eliezer Venegas on 10-24-2023 CO2 [Moles/Vol] 27.8 mmol/L 21.0-31.0 [facility] Chloride [Moles/volume] in S precious or PlasmaOrdered By: Eliezer Venegas on 10-24-2023 Chloride [Moles/Vol] 101 mmol/L 98-107 [facility] Complete Blood Count Auto Di ffon 10-24-2023 Basophils (Bld) [#/Vol] 0.0 10*3/uL Normal 0.0-0.2 [facility] Comment on above: Performed By: #### U AARON, CBC, ESR, CMP, CRP #### [facility] [address] [place] [address] [place] #### KEV #### [facility] , Basophils/100 WBC (Bld) 0.6 % Normal . [facility] Comment on above: Performed By: #### U AARON, CBC, ESR, CMP, CRP #### [address] #### KEV #### [facility] , Eosinophils (Bld) [#/Vol] 0.0 10*3/uL Normal 0.0-0.45 [facility] Comment on above: Performed By: #### U AARON, CBC, ESR, CMP, CRP #### [address] #### KEV #### [facility] , Eosinophils/100 WBC (Bld) 0.7 % Normal . [facility] Comment on above: Performed By: #### U AARON, CBC, ESR, CMP, CRP #### [address] #### KEV #### [facility] , Erythrocyte distribution width (RBC) [Ratio] 12.4 % Normal 12.0-14.8 [facility] Comment on above: Performed By: #### U AARON, CBC, ESR, CMP, CRP #### [address] #### KEV #### [facility] , Hematocrit (Bld) [Volume fraction] 38.4 % Low 38.8-50.0 [facility] Comment on above: Performed By: #### U AARON, CBC, ESR, CMP, CRP #### [place] [address] [place] #### KEV #### [facility] , Hemoglobin (Bld) [Mass/Vol] 13.9 g/dL Normal 13.0-17.0 [facility] Comment on above: Performed By: #### U AARON, CBC, ESR, CMP, CRP #### [place] [address] [place] #### KEV #### [facility] , Lymphocytes (Bld) [#/Vol] 1.5 10*3/uL Normal 1.00-4.8 [facility] Comment on above: Performed By: #### U AARON, CBC, ESR, CMP, CRP #### [facility] [address] [place] [address] [place] #### KEV #### [facility] , Lymphocytes/100 WBC (Bld) 34.3 % Normal . [facility] Comment on above: Performed By: #### U AARON, CBC, ESR, CMP, CRP #### [facility] [address] [place] [address] [place] #### KEV #### [facility] , MCH (RBC) [Entitic mass] 36.0 pg High 27.5-35.2 [facility] Comment on above: Performed By: #### U AARON, CBC, ESR, CMP, CRP #### [address] #### KEV #### [facility] , MCV (RBC) [Entitic vol] 99.7 fL Normal 83.5-101 [facility] Comment on above: Performed By: #### U AARON, CBC, ESR, CMP, CRP #### [address] #### KEV #### [facility] , Mean Corpuscular HGB Conc 36.1 g/dL High 32.5-35.6 [facility] Comment on above: Performed By: #### U AARON, CBC, ESR, CMP, CRP #### [place] [address] [place] #### KEV #### [facility] , Monocytes (Bld) [#/Vol] 0.4 10*3/uL Normal 0.0-0.8 [facility] Comment on above: Performed By: #### U AARON, CBC, ESR, CMP, CRP #### [place] [address] [place] #### KEV #### [facility] , Monocytes/100 WBC (Bld) 10.0 % Normal . [facility] Comment on above: Performed By: #### U AARON, CBC, ESR, CMP, CRP #### [facility] [address] [place] [address] [place] #### KEV #### [facility] , Neutrophils (Bld) [#/Vol] 2.4 10*3/uL Normal 1.8-7.7 [facility] Comment on above: Performed By: #### U AARON, CBC, ESR, CMP, CRP #### [address] #### KEV #### [facility] , Neutrophils/100 WBC (Bld) 54.4 % Normal . [facility] Comment on above: Performed By: #### U AARON, CBC, ESR, CMP, CRP #### [place] [address] [place] #### KEV #### [facility] , NRBC% 0.1 /100{WBC} Normal 0-0.5 [facility] Comment on above: Performed By: #### U AARON, CBC, ESR, CMP, CRP #### [facility] [address] [place] [address] [place] #### KEV #### [facility] , Platelet mean volume (Bld) [Entitic vol] 8.0 fL Normal 6.6-10.1 [facility] Comment on above: Performed By: #### U AARON, CBC, ESR, CMP, CRP #### [facility] [address] [place] [address] [place] #### KEV #### [facility] , Platelets (Bld) [#/Vol] 206 10*3/uL Normal 150-450 [facility] Comment on above: Performed By: #### U AARON, CBC, ESR, CMP, CRP #### [facility] [address] [place] [address] [place] #### KEV #### [facility] , RBC (Bld) [#/Vol] 3.85 10*6/uL Low 3.90-5.60 [facility] Comment on above: Performed By: #### U AARON, CBC, ESR, CMP, CRP #### [facility] [address] [place] [address] #### KEV #### [facility] , WBC (Bld) [#/Vol] 4.4 10*3/uL Normal 4.1-10.5 [facility] Comment on above: Performed By: #### U AARON, CBC, ESR, CMP, CRP #### [facility] [address] [place] [address] #### KEV #### [facility] , Comprehensive Metabolic Pane bebo 10-24-2023 Albumin [Mass/Vol] 4.5 g/dL Normal 3.5-5.7 [facility] Comment on above: Performed By: #### U AARON, CBC, ESR, CMP, CRP #### [facility] [address] [place] [address] #### KEV #### [facility] , Albumin/Globulin [Mass ratio] 1.9 {ratio} Normal [facility] Comment on above: Performed By: #### U AARON, CBC, ESR, CMP, CRP #### [facility] [address] [place] [address] [place] #### KEV #### [facility] , ALP [Catalytic activity/Vol] 69 U/L Normal 34-104 [facility] Comment on above: Performed By: #### U AARON, CBC, ESR, CMP, CRP #### [facility] [address] [place] [address] [place] #### KEV #### [facility] , ALT [Catalytic activity/Vol] 19 U/L Normal 7-52 [facility] Comment on above: Performed By: #### U AARON, CBC, ESR, CMP, CRP #### [address] [place] [address] [place] #### KEV #### [facility] , Anion gap [Moles/Vol] 11.8 mmol/L Normal 6.0-15.0 [facility] Comment on above: Performed By: #### U AARON, CBC, ESR, CMP, CRP #### [facility] [address] [place] [address] #### KEV #### [facility] , AST [Catalytic activity/Vol] 18 U/L Normal 13-39 [facility] Comment on above: Performed By: #### U AARON, CBC, ESR, CMP, CRP #### [facility] [address] [place] [address] #### KEV #### [facility] , Bilirubin [Mass/Vol] 0.6 mg/dL Normal 0.3-1.0 [facility] Comment on above: Performed By: #### U AARON, CBC, ESR, CMP, CRP #### [facility] [address] [place] [address] #### KEV #### [facility] , Calcium [Mass/Vol] 9.4 mg/dL Normal 8.6-10.3 [facility] Comment on above: Performed By: #### U AARON, CBC, ESR, CMP, CRP #### [facility] [address] [place] [address] [place] #### KEV #### [facility] , Chloride [Moles/Vol] 101 mmol/L Normal 98-107 [facility] Comment on above: Performed By: #### U AARON, CBC, ESR, CMP, CRP #### [facility] [address] [place] [address] [place] #### KEV #### [facility] , CO2 [Moles/Vol] 27.8 mmol/L Normal 21.0-31.0 [facility] Comment on above: Performed By: #### U AARON, CBC, ESR, CMP, CRP #### [facility] [address] [place] [address] [place] #### KEV #### [facility] , Creatinine [Mass/Vol] 0.74 mg/dL Normal 0.70-1.30 [facility] Comment on above: Performed By: #### U AARON, CBC, ESR, CMP, CRP #### [facility] [address] [place] [address] [place] #### KEV #### [facility] , GFR/1.73 sq M.predicted MDRD (S/P/Bld) [Vol rate/Area] mL/min/{1.73_m2} [facility] Comment on above: Performed By: #### U AARON, CBC, ESR, CMP, CRP #### [address] #### KEV #### [facility] , Globulin (S) [Mass/Vol] 2.4 g/dL Normal [facility] Comment on above: Performed By: #### U AARON, CBC, ESR, CMP, CRP #### [facility] [address] [place] [address] [place] #### KEV #### [facility] , Glucose [Mass/Vol] 95 mg/dL Normal 70-100 [facility] Comment on above: Result Comment: Dodge Glucose Reference Range is dependent on time and content of last meal. Glucose of more than 200 mg/dL in a nonstressed, ambulatory subject supports the diagnosis of Diabetes Mellitus. ADA recommended reference range Performed By: #### U AARON, CBC, ESR, CMP, CRP #### [facility] [address] [place] [address] [place] #### KEV #### [facility] , Potassium [Moles/Vol] 4.6 mmol/L Normal 3.5-5.1 [facility] Comment on above: Performed By: #### U AARON, CBC, ESR, CMP, CRP #### [facility] [address] [place] [address] [place] #### KEV #### [facility] , Protein [Mass/Vol] 6.9 g/dL Normal 6.4-8.9 [facility] Comment on above: Performed By: #### U AARON, CBC, ESR, CMP, CRP #### [facility] [address] [place] [address] [place] #### KEV #### [facility] , Sodium [Moles/Vol] 136 mmol/L Normal 136-145 [facility] Comment on above: Performed By: #### U AARON, CBC, ESR, CMP, CRP #### [facility] [address] [place] [address] [place] #### KEV #### [facility] , Urea nitrogen [Mass/Vol] 21 mg/dL Normal 7-25 [facility] Comment on above: Performed By: #### U AARON, CBC, ESR, CMP, CRP #### [facility] [address] [place] [address] [place] #### KEV #### [facility] , Creatinine [Mass/volume] in Serum or PlasmaOrdered By: Eliezer Venegas on 10-24-2023 Creatinine [Mass/Vol] 0.74 mg/dL 0.70-1.30 [facility] Eosinophils Auto (Bld) [#/Vo l]Ordered By: Eliezer Venegas on 10-24-2023 Eosinophils (Bld) [#/Vol] 0.0 10*3/uL 0.0-0.45 [facility] Eosinophils/100 WBC Auto (Bl d)Ordered By: Eliezer Venegas on 10-24-2023 Eosinophils/100 WBC (Bld) 0.7 % . [facility] Erythrocyte Sedimentation Ra marie 10-24-2023 ESR (Bld) [Velocity] 11 mm/h Normal 0-19 [facility] Comment on above: Result Comment: PERF ORMED BY: [place] [address] PATHOLOGIST CHANNEL OPENER DANYELLE HERNANDEZ M.D. Performed By: #### U AARON, CBC, ESR, CMP, CRP #### [facility] [address] #### KEV #### [facility] , Erythrocyte distribution wid th Auto (RBC) [Ratio]Ordered By: Eliezer Venegas on 10-24-2023 Erythrocyte distribution width (RBC) [Ratio] 12.4 % 12.0-14.8 [facility] Erythrocyte sedimentation ra te by Photometric methodOrdered By: Eliezer Venegas on 10-24-2023 ESR Photometric method (Bld) [Velocity] 11 mm/hr 0-19 [facility] Globulin Calc (S) [Mass/Vol] Ordered By: Eliezer Venegas on 10-24-2023 Globulin (S) [Mass/Vol] 2.4 g/dL [facility] Glucose [Mass/volume] in Ser um or PlasmaOrdered By: Eliezer Venegas on 10-24-2023 Glucose [Mass/Vol] 95 mg/dL 70-100 [facility] Comment on above: ADA recommended refe rence rangeRandom Glucose Reference Range is dependent on time and content of last meal. Glucose of more than 200 mg/dL in a nonstressed, ambulatory subject supports the diagnosis of Diabetes Mellitus. Hematocrit Auto (Bld) [Volum e fraction]Ordered By: Eliezer Venegas on 10-24-2023 Hematocrit (Bld) [Volume fraction] 38.4 % 38.8-50.0 [facility] Hemoglobin [Mass/volume] in BloodOrdered By: Eliezer Venegas on 10-24-2023 Hemoglobin (Bld) [Mass/Vol] 13.9 g/dL 13.0-17.0 [facility] Leukocytes [#/volume] correc víctor for nucleated erythrocytes in Blood by Automated counOrdered By: Eliezer Venegas on 10-24-2023 WBC corrected for nucl RBC Auto (Bld) [#/Vol] 4.4 10*3/uL 4.1-10.5 [facility] Lymphocytes Auto (Bld) [#/Vo l]Ordered By: Eliezer Venegas on 10-24-2023 Lymphocytes (Bld) [#/Vol] 1.5 10*3/uL 1.00-4.8 [facility] Lymphocytes/100 WBC Auto (Bl d)Ordered By: Eliezer Venegas on 10-24-2023 Lymphocytes/100 WBC (Bld) 34.3 % . [facility] MCH Auto (RBC) [Entitic mass ]Ordered By: Eliezer Venegas on 10-24-2023 MCH (RBC) [Entitic mass] 36.0 pg 27.5-35.2 [facility] MCHC Auto (RBC) [Mass/Vol]Or dered By: Eliezer Venegas on 10-24-2023 MCHC (RBC) [Mass/Vol] 36.1 g/dL 32.5-35.6 [facility] MCV Auto (RBC) [Entitic vol] Ordered By: Eliezer Venegas on 10-24-2023 MCV (RBC) [Entitic vol] 99.7 fL 83.5-101 [facility] Monocytes Auto (Bld) [#/Vol] Ordered By: Eliezer Venegas on 10-24-2023 Monocytes (Bld) [#/Vol] 0.4 10*3/uL 0.0-0.8 [facility] Monocytes/100 WBC Auto (Bld) Ordered By: Eliezer Venegas on 10-24-2023 Monocytes/100 WBC (Bld) 10.0 % . [facility] Neutrophils Auto (Bld) [#/Vo l]Ordered By: Eliezer Venegas on 10-24-2023 Neutrophils (Bld) [#/Vol] 2.4 10*3/uL 1.8-7.7 [facility] Neutrophils/100 WBC Auto (Bl d)Ordered By: Eliezer Venegas on 10-24-2023 Neutrophils/100 WBC (Bld) 54.4 % . [facility] No Panel InformationOrdered By: Eliezer Venegas on 10-24-2023 Estimated GFR (CKD-EPI) > 60.0 mL/Min [facility] Pharmacy Creatinine Clearance (Chem N/A [facility] Nucleated erythrocytes [Pres ence] in Blood by Automated countOrdered By: Eliezer Venegas on 10-24-2023 Nucleated RBC Auto Ql (Bld) 0.1 /100{WBC} 0-0.5 [facility] Platelet mean volume Auto (B ld) [Entitic vol]Ordered By: Eliezer Venegas on 10-24-2023 Platelet mean volume (Bld) [Entitic vol] 8.0 fL 6.6-10.1 [facility] Platelets Auto (Bld) [#/Vol] Ordered By: Eliezer Venegas on 10-24-2023 Platelets (Bld) [#/Vol] 206 10*3/uL 150-450 [facility] Potassium [Moles/volume] in Serum or PlasmaOrdered By: Eliezer Venegas on 10-24-2023 Potassium [Moles/Vol] 4.6 mmol/L 3.5-5.1 [facility] Protein [Mass/volume] in Ser um or PlasmaOrdered By: Eliezer Venegas on 10-24-2023 Protein [Mass/Vol] 6.9 g/dL 6.4-8.9 [facility] RBC Auto (Bld) [#/Vol]Ordere d By: Eliezer Venegas on 10-24-2023 RBC (Bld) [#/Vol] 3.85 10*6/uL 3.90-5.60 [facility] Serum or plasma albumin/glob ulin mass ratioOrdered By: Eliezer Venegas on 10-24-2023 Albumin/Globulin [Mass ratio] 1.9 {ratio} [facility] Serum or plasma anion gap de terminationOrdered By: Eliezer Venegas on 10-24-2023 Anion gap [Moles/Vol] 11.8 mmol/L 6.0-15.0 [facility] Sodium [Moles/volume] in Ser um or PlasmaOrdered By: Eliezer Venegas on 10-24-2023 Sodium [Moles/Vol] 136 mmol/L 136-145 [facility] Urate [Mass/volume] in Serum or PlasmaOrdered By: Eliezer Venegas on 10-24-2023 Urate [Mass/Vol] 4.3 mg/dL 4.4-7.6 [facility] Urea nitrogen [Mass/volume] in Serum or PlasmaOrdered By: Eliezer Blumy on 10-24-2023 Urea nitrogen [Mass/Vol] 21 mg/dL 7 [facility] Uric Acidon 10-24-2023 Urate [Mass/Vol] 4.3 mg/dL Low 4.4-7.6 [facility] Comment on above: Performed By: #### U AARON, CBC, ESR, CMP, CRP #### [facility] [address] #### KEV #### [facility] , WBC Auto (Bld) [#/Vol]Ordere d By: Eliezer Saxenapaulette on 10-24-2023 WBC (Bld) [#/Vol] 4.4 10*3/uL 4.1-10.5 [facility] XR CSPINE MIN 4 VIEWSon 06-11 XR CSPINE MIN 4 VIEWS EXAMINATION: XR CSPINE MIN 4 VIEWS HISTORY: Degeneration of cervical intervertebral disc COMPARISON: No relevant comparison available. FINDINGS: BONES: Reversal of normal cervical lordosis. 1 mm anterolisthesis of C3 on C4. 2 mm retrolisthesis of C4 on C5 and C5 on C6. Mild to moderate degenerative spondylosis. Ctqh-[id number]-efibcnqh facet osteoarthropathy. DISC SPACES: Mild to severe disc space narrowing most significant at C4-C7 PARASPINOUS: Negative. No paraspinous abnormality is seen. OTHER: Negative. IMPRESSION: Moderate degenerative changes with reversal cervical lordosis Electronically authenticated by: ERIC PEPPER Date: 2022-06-20 15:07 Normal [facility] CREATININEon 04-03-2022 Creatinine [Mass/Vol] 0.85 mg/dL Normal 0.70-1.30 [facility] Comment on above: Performed By: #### C IRENE #### [facility] [address] [address] [address] Charo Fuentes EGFR-AF SINGAPOREAN >60 Normal >=60 [facility] Comment on above: Performed By: #### C IRENE #### [facility] [address] [address] [address] Charo Fuentes EGFR-NON AF SINGAPOREAN >60 Normal >=60 [facility] Comment on above: Performed By: #### C IRENE #### [facility] [address] ABDOMEN WO/W CONon [...] JAUN NUÑEZ Date: 2022-04-03 11:34 Normal [facility] CT ABD/PELVIS WO CONon 03-27 CT ABD/PELVIS [...] by: JAUN NUÑEZ Date: 2022-03-27 10:06 Normal [facility] US SCROTUMon 03-07-2022 US SCROTUM EXAMINATION: US [...] by: ERIC PEPPER Date: 2022-03-07 11:34 Normal [facility] Vital Signs Date Time Vital Sign Value Performing Clinician Facility 03-30-2024 09:45-0400 Blood Pressure Location Jose MARCUM [facility] 03-30-2024 09:45-0400 Body temperature 98.6 [degF] Jose MARCUM [facility] 03-30-2024 09:45-0400 Diastolic blood pressure 74 mm[Hg] Joseshefali MARCUM [facility] 03-30-2024 09:45-0400 Heart rate 96 /min Joseshefali MARCUM [facility] 03-30-2024 09:45-0400 Respiratory rate 16 /min Jose MARCUM [facility] 03-30-2024 09:45-0400 Systolic blood pressure 123 mm[Hg] Jose MARCUM [facility] 01-28-2024 07:30-0400 Body temperature 97.81 [degF] Elba Dowd MD Work Phone: [facility] 01-28-2024 07:30-0400 Diastolic blood pressure 61 mm[Hg] Elba Dowd MD Work Phone: [facility] 01-28-2024 07:30-0400 Heart rate 72 /min Elba Dowd MD Work Phone: [facility] 01-28-2024 07:30-0400 Respiratory rate 18 /min Elba Dowd MD Work Phone: [facility] 01-28-2024 07:30-0400 SaO2% (BldA) [Mass fraction] 97 % Elba Dowd MD Work Phone: [employer] 01-28-2024 07:30-0400 Systolic blood pressure 123 mm[Hg] Elba Dowd MD Work Phone: [employer] 01-28-2024 05:00-0400 Body mass index (BMI) [Ratio] 29.89 kg/m2 Elba Dowd MD Work Phone: [facility] 01-28-2024 05:00-0400 Body weight 74.12 kg Elba Dowd MD Work Phone: [employer] Comment on above: bed was re-zeroed 01-27-2024 06:38-0400 Body height 157.5 cm Elba Dowd MD Work Phone: [facility] 01-06-2024 10:19-0500 Body height 157.5 cm Elba Dowd MD Work Phone: [facility] 01-06-2024 10:19-0500 Body mass index (BMI) [Ratio] 30.18 kg/m2 Elba Dowd MD Work Phone: [facility] 01-06-2024 10:19-0500 Body temperature 97.5 [degF] Elba Dowd MD Work Phone: [facility] 01-06-2024 10:19-0500 Body weight 74.84 kg Elba Dowd MD Work Phone: [facility] 01-06-2024 10:19-0500 Diastolic blood pressure 67 mm[Hg] Elba Dowd MD Work Phone: [facility] 01-06-2024 10:19-0500 Heart rate 103 /min Elba Dowd MD Work Phone: [employer] 01-06-2024 10:19-0500 Respiratory rate 20 /min Elba Dowd MD Work Phone: [facility] 01-06-2024 10:19-0500 SaO2% (BldA) [Mass fraction] 96 % Elba Dowd MD Work Phone: [facility] 01-06-2024 10:19-0500 Systolic blood pressure 113 mm[Hg] Elba Dowd MD Work Phone: [facility] 11-25-2023 10:05-0500 Blood Pressure Location Jose MARCUM [facility] 11-25-2023 10:05-0500 Diastolic blood pressure 82 mm[Hg] Jose MARCUM [facility] 11-25-2023 10:05-0500 Systolic blood pressure 138 mm[Hg] Jose MARCUM [facility] 11-19-2022 10:58-0500 Blood Pressure Location Jose MARCUM [facility] 11-19-2022 10:58-0500 Diastolic blood pressure 70 mm[Hg] Jose MARCUM [facility] 11-19-2022 10:58-0500 Heart rate 68 /min Jose MARCUM [facility] 11-19-2022 10:58-0500 Respiratory rate 16 /min Jose MARCUM [facility] 11-19-2022 10:58-0500 Systolic blood pressure 132 mm[Hg] Jose MARCUM [facility] Encounters Encounter Date Encounter Type Care Provider Facility Start: 07-20-2024 ambulatory Jose Maoi ty:[facility] Start: 04-30-2024 End: 04-30-2024 ambulatory TOMÁS BOWDEN Not Available Start: 03-30-2024 End: 03-31-2024 ambulatory Jose R KITTY Facility:[facility] Start: 03-30-2024 End: 03-30-2024 Patient encounter procedure Jose R KITTY [facility] Start: 01-27-2024 End: 01-28-2024 ambulatory ELBA Hyatt RAGHU [facility] Start: 01-27-2024 End: 01-28-2024 Subsequent hospital visit by physician Elba Dowd MD Work Phone: [email or web address] Comment on above: S/P TKR (total knee replacement) using cement, left (Primary Dx) Start: 01-06-2024 End: 01-11-2024 ambulatory ELBA DOWD [facility] Start: 01-06-2024 End: 01-10-2024 Subsequent hospital visit by physician Elba Dowd MD Work Phone: [facility] Start: 11-25-2023 End: 11-26-2023 ambulatory Jose R KITTY Facility:[facility] Start: 11-25-2023 End: 11-25-2023 Patient encounter procedure Jose Singleton KITTY [facility] Start: 10-24-2023 End: 10-24-2023 ambulatory Eliezer Venegas Facility:[facility] Start: 10-24-2023 End: 10-24-2023 ambulatory MD Barak Richard Work Phone: [facility] Work Phone: Start: 10-24-2023 End: 10-24-2023 Patient encounter procedure MD Barak Richard Work Phone: [facility] [address] Work Phone: Start: 02-28-[address] BARAK RICHARD . Facili ty:[facility] Start: 11-19-2022 End: 11-19-2022 Patient encounter procedure Jose MARCUM [facility] Start: 11-17-2022 End: 11-18-[address] JOSE MARCUM . Facility:[facility] Start: 06-20-2022 End: 06-21-[address] BARAK RICHARD . Facility:[facility] Start: 04-03-2022 End: 04-04-[address] BARAK RICHARD . Facility:[facility] Start: 03-27-2022 End: 03-28-[address] JOSE MARCUM . Facility:[facility] Start: 03-07-2022 End: 03-08-[address] JOSE MARUCM . Facility: Procedures Date Procedure Procedure Detail [...] above: Performed By: #### P SAD #### [facility] [address] [address] [address] Charo Fuentes Start: 11-11-2011 Colonoscopy Jose YU Cataract surgery Jose ZOE COOK Hernia repair Jose MARCUM Plan of Treatment Date Care Activity Detail Author Start: 01-27-2024 End: 01-27-2024 Admission to same day surgery center 01/27/2024 1:00 PM EDT - 01/27/2024 4:00 PM EDT Surgery [facility] [address] [place] [address] Elba Dowd MD [address] [place] [address] KNEE TOTAL ARTHROPLASTY [facility] Comment on above: KNEE TOTAL ARTHROPLA [facility] Start: 01-27-2024 End: 01-27-2024 Arthrp kne condyle&platu medial&lat compartments KNEE TOTAL ARTHROPLASTY Primary osteoarthritis of left knee 01/27/2024 1:00 PM EDT [facility] Start: 01-27-2024 Subsequent hospital visit by physician 01/27/2024 1:00 PM EDT Hospital Encounter [facility] [address] [place] [address] Elba Dowd MD [address] [place] [address] [facility] Start: 10-24-2023 [facility] Start: 07-12-2023 COVID-19 Vaccine ( season) COVID-19 Vaccine ( season) [facility] Start: 2014 Abdominal aortic aneurysm screening AAA screen [facility] Start: 2009 Respiratory Syncytia l Virus (RSV) or age 60 yrs+ (1 - 1-dose 60+ series) Respiratory Syncytial Virus (RSV) or age 60 yrs+ (1 - 1-dose 60+ series) [facility] Start: 1994 Screening for malign ant neoplasm of colon [facility] Start: 1989 Lipid panel Lipids [facility] Start: 1968 DTaP/Tdap/Td vaccine (1 - Tdap) DTaP/Tdap/Td vaccine (1 - Tdap) [facility] Start: 1967 Hepatitis C screening Hepatitis C sc reen [facility] Start: 1961 Depression Screen Depression Screen [facility] Homogenous nuclear A b pattern [Titer] in Serum [facility] Nuclear Ab [Titer] i n Serum [facility] Oxygen therapy [[facility] Data Set] Initiate Oxygen Therapy Protocol Respiratory Care Routine As Needed until discontinued starting 01/27/2024 [facility] Comment on above: As Needed until disc ontinued starting 01/27/2024 Immunizations Immunization Date Immunization Notes Care Provider [employer] cristina 09-11-2023 influenza virus vacc ine, unspecified formulation Jose MARCUM [facility] 08-31-2022 SARS-CoV-2 (COVID-19 ) [id number] Jose MARCUM [facility] 08-27-2022 influenza virus vacc ine, unspecified formulation Jose MARCUM [facility] 04-21-2022 SARS-CoV-2 mRNA (fgujivehkgq-phiq-gepqlf e) vaccine Jose MARCUM [facility] 09-11-2021 influenza virus vacc ine, unspecified formulation Jose MARCUM [facility] 09-04-2021 SARS-CoV-2 (COVID-19 ) mRNA BNT-162b2 vax Jose MARCUM [facility] 08-11-2021 SARS-CoV-2 (COVID-19 ) Ad26 vaccine, recombinant Jose MARCUM [facility] 02-20-2021 SARS-CoV-2 (COVID-19 ) mRNA BNT-162b2 vax [employer] [facility] 02-09-2021 SARS-CoV-2 (COVID-19 ) Ad26 vaccine, recombinant [employer] [facility] 12-23-2020 SARS-CoV-2 (COVID-19 ) mRNA BNT-162b2 vax [employer] [facility] Comment on above: Result Comment: 2022: [id number] 12-12-2020 SARS-CoV-2 (COVID-19 ) Ad26 vaccine, recombinant [employer] [facility] 12-01-2020 zoster vaccine recombinant [employer] [facility] 09-29-2020 zoster vaccine recombinant [employer] [facility] 08-18-2020 influenza virus vacc ine, unspecified formulation [employer] [facility] 07-12-2019 influenza virus vacc ine, live, attenuated, for intranasal use [employer] [facility] 08-28-2017 influenza virus vacc ine, unspecified formulation [employer] [facility] 08-21-2017 pneumococcal conjuga te vaccine, 13 valent Jose MARCUM [facility] 08-30-2015 pneumococcal polysaccharide vaccine, 23 valent Jose MARCUM [facility] Payers Date Payer Category Payer Self-pay 1960 Medicare [id number] 1950 Unknown [id number] 2.16.84 [id number] 1950 Unknown [id number] 2.16.84 [id number] 1950 Unknown [id number] 2.16.84 [id number] 1950 Unknown [id number] 2.16.84 [id number] 1950 Unknown [id number] 2.16.84 0.1.590125.3.579.2.593 1950 Unknown [id number] 2.16.84 0.1.482237.3.579.2.593 1950 Unknown [id number] 2.16.8 40.1.747287.3.579.2.173 1950 Unknown [id number] 2.16.8 40.1.436766.3.579.2.173 1950 Unknown [id number] 2.16.8 40.1.945768.3.579.2.727 1950 Unknown [id number] 2.16.8 40.1.461511.3.579.2.727 1950 Unknown [id number] 2.16.8 40.1.949407.3.579.2.727 1950 Unknown [id number] 2.16.84 [id number] Unknown [employer] 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 Start: 1950 Sex Assigned At Male [facility] Tobacco smoking stat NHIS Tobacco smoking consumption unknown [employer] Start: 1950 Sex Assigned At Not on file [employer] History of tobacco use Current smoker [employer] History of tobacco use Cigarette Smoker B ON [facility] Start: 01-27-2024 Tobacco use and exposure Smokeless tobacco non-user [employer] Start: 01-28-2024 Alcohol intake Current drinker of alcohol (finding) [employer] Start: 01-27-2024 End: 01-28-2024 Alcohol intake [employer] Has the fl3ur, [employer], or water [employer] threatened to shut off services in your home in past 12Mo No [employer] (I/We) worried [facility] (my/our) food would run out before (I/we) got money to buy more. Never true [employer] In the past 12 month s, has lack of transportation kept you from medical appointments or from getting medications? No [employer] Start: 01-27-2024 Alcohol Comment occasional beer [employer] Medical Equipment Procedure Code Equipment Code Equipment Origin al Text Equipment Identifier Dates Impl Knee Psn Fe m Cr Cmt Ccr Std Sz8 L - [id number] Start: 01-27-2024 Cement Bne 40gm Hi Visc Radpq For Rev Surg - [id number] Start: 01-27-2024 Component Pat Di a35mm Thk9mm Knee Poly Ángel Conventional - [id number] Start: 01-27-2024 Psn Tib Stm 5 De g Sz F L - [id number] Start: 01-27-2024 Psn Mc Ve Asf L 14mm 8-11 Ef - [id number] Start: 01-27-2024 Functional Status Date Assessment Result Facility 03-30-2024 Functional Status N/A [facility] 11-25-2023 Functional Status N/A [facility] 11-19-2022 Functional Status N/A [facility] Clinical Notes 11-19-2022 to 03-30-2024 Conchis [...] Follow these instructions at home: Medicines Take rfnm-coe-xrbbndu and prescription medicines only as told by [...] provider. Document Revised: 06/06/2022 Document Reviewed: 06/06/2022 [employer] Patient Education 2022 [employer] ([employer] Follow Up Care 11/25/2023 10:54:02 With:KITTY GLASS, Jose Singleton, URL Address: [facility] [address] , [place] [address]- [phone] When: Unknown [facility] History of Present illness Narrative Pt taken down to personal vehicle at this time. Reviewed discharge instructions with patient and spouse. 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 Reviewed new medications and side effects [...] is a little nervous about showering despite web content writer reassurance. in room when leaving, she will assist him to get dressed and Park DING will do D/C instructions with them both. [place] script in chart Progress Note Subjective: Post-Operative [...] 4: Continue Pain Control Physical Therapy Facility/Department: [facility] Physical Therapy Initial [...] Ambulation Assistance: Independent Transfer Assistance: Independent Active Cylinder Devalver: Yes Mode of Transportation: Car Vision/Hearing Vision [...] will perform transfers and bed mobility with CO. Short Term Goal 3: Patient will tolerate [...] light in reach, will continue to monitor. Nurse Quality assisted pt into the bathroom and then into the bed. The patient was not able to void at this time. Pt will try again later, will continue to monitor. Pt sitting up in the chair when web content writer entered the room. Pt is A&O x4. Vitals and assessment as charted. Pt denies pain. LLE MARCO A wrap noted. 2+ pedal pulses. Pt denies tingling but is still having numbness. Pt denies any further needs at this time. Call light within reach. Occupational Therapy Facility/Department: [facility] Occupational Therapy Initial [...] Learning: None Education Outcome: Verbalized understanding;Demonstrated understanding [facility] - ADL [facility] Daily Activity - Inpatient How much [...] How much help for eating meals?: None [facility] Inpatient Daily Activity Raw Score: 19 [facility] Inpatient ADL T-Scale Score : 40.22 ADL Inpatient CMS 0-100% Score: 42.8 ADL Inpatient [facility] G-Code Modifier : CK Goals Short Term [...] 330 at this time. Report received from MOTION PICTURE CRITIC at bedside. Pt is A&Ox4. Pt denies [...] Dowd that he is in route from [place] currently, planning to be here for a 1300 start time, updated pt and . Na level resulted at 135, notified ELVIN Tabares. documented in this encounter [facility] 01-28-2024 Hospital Discharge instructions Jadyn Saleh RN - 01/28/2024 12:53 PM EDT Report the following signs or any questions regarding your physical condition to your surgeon immediately: Dr. Dowd: [phone] Excessive swelling of, or around the wound [...] at most local grocery stores, pharmacies, and Myze-stores. If you have any questions about your diet or nutrition, call the hospital and ask for the dietitian. Regular The following attachments cannot be sent through Care Everywhere.Surgical Site Infections: Prevention: General Info (Palauan)TKR (Total Knee Replacement): Post-op (Palauan)documented in this encounter [facility] 01-06-2024 History of Present illness Narrative Patient instructed on the pre-operative, intra-operative, and post-operative process. Patient instructed on NPO status. Medication instructions and pre operative instruction sheet reviewed with the patient. CHG skin prep instructions reviewed with patient. [facility] Preadmission Testing Name: Yuriy Grewal : [...] and medical clearance. documented in this encounter [facility] 11-25-2023 Hospital Discharge instructions Patient Education [...] Follow these instructions at home: Medicines Take ljyf-mbo-puofgpx and prescription medicines only as told by [...] provider. Document Revised: 06/06/2022 Document Reviewed: 06/06/2022 [employer] (?) Patient Education 2022 [employer]. Follow Up Care 11/19/2022 11:41:10 With:KITTY GLASS, Jose Singleton, URL Address: [facility] [address] , [place] [address]- [phone] When: Unknown Comments:4 mos (new med) [facility] [place] 11-19-2022 Hospital Discharge instructions [...] urethra. Follow these instructions at home: Take jauw-mct-riwvilj and prescription medicines only as told by [...] 10/28/2006 Document Revised: 09/22/2019 Document Reviewed: 12/02/2017 [employer] (?) Patient Education 2020 [employer] (?) Inc[employer] Follow Up Care 02/12/2022 10:03:54 With:Jose MARCUM MD, URL Address: [facility] [address], [place] [phone] When:Within 1 Year(s) [facility] Evaluation + Plan note Future Appointments Appointment Date:11/25/2023 09:45:00 AM Scheduled Provider:Jose MARCUM MD Location:[facility] Appointment Type:URO Office Visit [facility] Evaluation + Plan note Future Appointments Appointment Date:03/30/2024 09:45:00 AM Scheduled Provider:Jose MARCUM MD Location:[facility] Appointment Type:URO Office Visit [facility] Evaluation + Plan note Future Appointments Appointment Date:07/20/2024 09:45:00 AM Scheduled Provider:Jose MARCUM MD Location:[facility] Appointment Type:URO Office Visit Diagnostic Tests PendingPSA Total 03/30/24 [facility] Evaluation note No assessment inform ation available [facility] Work Phone: Evaluation note Diagnosis S/P TKR (total knee replacement) using cement, left- Primary S/P TKR (total knee replacement) using cement, left Hypertension Unspecified essential hypertension documented in this encounter [facility] course Narrative No data available for this section [facility] progress note No data available for this section [facility] Summary Purpose Family History No [...] Active Eliezer Venegas MD Attending Provider Active Contract Administration Coordinator Relationship Specialty Start Date End Date Barak Richard MD [address] [place] [address] PCP - General Family Medicine 01/28/24 (unrecognized sect ion and content) No Status Records FoundNo Status Records FoundNo Status Records FoundNo Status Records FoundNo Status Records Found INFORMATION SOURCE (unrecogn ized section and content) DATE CREATED AUTHOR 03/02/2023 [facility] [place] [facility] DATE CREATED AUTHOR AUTHOR'S ORGANIZ ATION 11/22/2023 [facility] DATE CREATED AUTHOR AUTHOR'S ORGANIZ ATION 02/11/2024 [facility] DATE CREATED AUTHOR AUTHOR'S ORGANIZ ATION 04/02/2024 [facility] DATE CREATED AUTHOR AUTHOR'S ORGANIZ ATION 05/01/2024 [facility] Special[facility] EPIC Goals (unrecognized section and content) Goals may be documented in a n alternate section Reason for Visit (unrecogniz ed section and content) Specialty Diagnoses / Procedures Referred By Contac t Referred To Contact Diagnoses Primary osteoarthritis of left knee Primary osteoarthritis of left knee [M17.12] Procedures TX ARTHRP KNE CONDYLE&PLATU MEDIAL&LAT COMPARTMENTS KNEE TOTAL ARTHROPLASTY Elba Dowd MD [address] [place] [address] [facility] [address] [place] [address] Referral ID Status Reason Start Date Expiration Date Visits Re quested Visits Authorized [id number] 1 1 Ordered Prescriptions (unrec ognized section [...] sodium chloride 0.9 % 50 mL IVPB ([id number]) (COMPLETED) 1,000 mg, IntraVENous, ONCE, 1 dose, On Sat01/27/24 at 0645, Antimicrobial Indications: Surgical Prophylaxis, Send to OR, Pre-op (day of surgery) 1522 (New Bag - Provider: Ranjan Santos APRN - CARDIOPULMONARY TECHNICIAN AND EEG TECH) 1259 (Stopped - Provider: Conchis Bailon, TOÑA) [...] IV Fluid Infusing) 075 (Given - Provider: Conchis Bailon RN)2099 (Due) tamsulosin (FLOMAX) capsule 0.4 [...] of each other unless specifically ordered., Post-op ihmsmcese-OOYquwgljhd-hhybnfnl 60-150-60 MG/50ML injection (CANCELED) PRN, Starting on [...] BE BASED ON THE PRIMARY CLINICAL RECORDS. [employer] provides no warranty or guarantee of the accuracy or completeness of information in this document.
--- NOTE | 2024-07-07 11:52 | XR_ITS ---
The [address] [address] Patient Name: SEAN GREWAL MRN: [id number] date: 1950 Sex: M Assigned Patient Location: [facility] Current Patient Location: Accession/Order Number: [id number] Exam Date: 07/07/2024 11:45 Report Date: 07/08/2024 06:55 At the request of: BARAK ANTHONY Procedure: XR hip RT 2V w/ pelvis PROCEDURE: XR hip RT 2V w/ pelvis HISTORY: Right Hip Pain COMPARISON: None. FINDINGS: BONES:Moderate narrowing of the hip joint spaces bilaterally, left greater than right. Small periarticular degenerative osteophytes. No fracture, dislocation, bone lesion. Unremarkable sacroiliac joints. 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 SOFT TISSUES:No visible soft tissue swelling. EFFUSION:None visible. OTHER: Negative. XR/XR hip RT 2V w/ pelvis IMPRESSION: 1. No acute bone abnormality. 2. Moderate degenerative changes of the hip joints. Electronically authenticated by: ANYA NUÑEZ Date: 07/08/2024 06:55
== END 2024-07-07 11:30 | disposition home or self-care (01) ==
LOC: RAD 11:30
PROVIDERS: PCP Family Medicine; Visit Provider Family Medicine
DX: M25.551 Pain in right hip (principal)
CPT/HCPCS: 73502

== ENCOUNTER 2024-08-04 11:49 | Emergency (ER) | payer MEDICARE, SELFPAY ==
[2024-08-04] VITALS (95 sets, daily range): BP systolic 63–148; BP diastolic 40–87; PULSE 91–116; TEMP 36.6; O2SAT 62–100
--- NOTE | 2024-08-04 12:00 | ECG_ITS ---
The [facility] Test Date: 2024-08-04 Pat Name: SEAN GREWAL Department: Room: - Gender: Male Surgical Attendant: : 1950 Requested By: BARAK ANTHONY Order Number: [id number] Reading MD: DARWIN STEWART Measurements Intervals Morris Rate: 106 P: 58 ME: 164 QRS: 36 QRSD: 84 T: 34 QT: 328 QTc: 390 Interpretive Statements 1120 Sinus tachycardia 9140 abnormal rhythm ECG Compared to ECG 11/10/2021 16:34:24 Myocardial infarct finding no longer present Electronically Signed On 08-04-2024 22:34:06 EDT by DARWIN STEWART
--- NOTE | 2024-08-04 12:01 | XR_ITS ---
The [address] [address] Patient Name: SEAN GREWAL MRN: [id number] date: 1950 Sex: M Assigned Patient Location: ER Current Patient Location: ER Accession/Order Number: [id number] Exam Date: 08/04/2024 12:35 Report Date: 08/04/2024 13:00 At the request of: MARVIN GUTIERREZ Procedure: XR chest 1V EXAMINATION: XR chest 1V HISTORY: sob COMPARISON: XR chest 12/27/2021 FINDINGS: LUNGS: No significant pulmonary parenchymal abnormalities. VASCULATURE: No increased pulmonary vasculature. PLEURA: No pneumothorax, effusion, or pleural thickening. CARDIAC: No cardiomegaly or cardiac silhouette abnormality. MEDIASTINUM: No visible mass or adenopathy. BONES: No fracture or visible bone lesion. OTHER: Negative. XR/XR chest 1V IMPRESSION: 1. Low lung volume examination. 2. No acute cardiopulmonary process. Electronically authenticated by: ANYA NUÑEZ Date: 08/04/2024 13:00
--- NOTE | 2024-08-04 12:08 | ED.SOB1 ---
HPI - SOB/Dyspnea General Chief Complaint: Shortness of Breath/Dyspnea Stated Complaint: DIFFICULTY BREATHING Time Seen by Provider: 08/04/24 12:00 Source: patient Mode of arrival: walk-in History of Present Illness HPI Narrative: The patient is coming to us with a generalized weakness as main complaints as well as cough, decreased her intake over the last few days as well, the patient was seen by his primary care doctor and started on Augmentin Upon arrival the patient was sleepy he had low pulse ox as well as the low blood pressure He denies any chest pain any dizziness any abdominal pain History was obtained from the as well that she mentioned that he has been feeling weak and tired for the last few days, sleepy and not eating not drinking The patient did not have any abdominal pain at any time did not have any chest pain at any time Related Data Home Medications ?Medication ?Instructions ?Recorded ?Confirmed alfuzosin 10 mg tablet,extended 10 mg PO DAILY 08/04/24 08/04/24 release 24 hr amlodipine 5 mg tablet 5 mg PO DAILY 08/04/24 08/04/24 amoxicillin 875 mg-potassium 1 tab PO BID 08/04/24 08/04/24 clavulanate 125 mg tablet diclofenac sodium 75 mg 75 mg PO BID PRN pain 08/04/24 08/04/24 tablet,delayed release dutasteride 0.5 mg capsule 0.5 mg PO DAILY 08/04/24 08/04/24 lisinopril 40 mg tablet 40 mg PO DAILY 08/04/24 08/04/24 pantoprazole 40 mg tablet,delayed 40 mg PO DAILY 08/04/24 08/04/24 release Allergies Allergy/AdvReac Type Severity Reaction Status Date / Time No Known Drug Allergies Allergy Verified 08/04/24 12:00 Review of Systems ROS Status of ROS 10 or more systems reviewed and unremarkable except as noted in history and below PFSH PFSH Social History Little interest or pleasure in doing things: not at all Feeling down, depressed, or hopeless: not at all Exam Narrative Exam Narrative: Nurses notes and vital signs reviewed and patient is not hypoxic. General: Well-appearing and in no apparent distress. Skin: Dry skin in addition to jaundice No rash. Head: Normocephalic, atraumatic. Neck: Supple, non-tender. Eye: Pupils are equal, round and jaundiced Ears, Nose, Mouth, and Throat: TM are clear, no nasal mucosal hypertrophy. Oral mucosa is moist, no posterior oropharynx erythema, uvula is mid-line Cardiovascular: Regular Rate and Rhythm without murmur, gallop or rub. Respiratory: No accessory muscle use or respiratory distress. Lungs rhonchi heard in both lung damon Chest Wall: no tenderness Back: No midline thoracic or lumbar vertebral tenderness. No CVA tenderness Musculoskeletal: normal ROM, no calf or popliteal tenderness, no lower extremity edema/swelling GI: Abdomen is soft, distended. Normal bowel sounds. No masses appreciated. No tenderness to palpation. No rebound, guarding, or rigidity noted. Neurological: A&O x4. No cranial nerve dysfunction observed. No truncal ataxia. Moves all extremities. Sensation intact. Psychiatric: Cooperative and interactive. Normal mood and affect. Constitutional Vital Signs, click to edit/add: Last Vital Signs Temp 97.8 F 08/04/24 12:00 Pulse 97 H 08/04/24 19:20 Resp 20 08/04/24 16:51 BP 105/61 08/04/24 19:20 Pulse Ox 96 08/04/24 19:20 O2 Del Method Room Air 08/04/24 12:00 O2 Flow Rate 2 08/04/24 16:51 Course Vital Signs Vital signs: Vital Signs Pulse Rate 106 H 08/04/24 11:55 Respiratory Rate 17 08/04/24 11:55 Blood Pressure 64/46 L 08/04/24 11:55 Temperature 97.8 F 08/04/24 12:00 Pulse Rate 97 H 08/04/24 19:20 Respiratory Rate 20 08/04/24 16:51 Blood Pressure 105/61 08/04/24 19:20 Pulse Oximetry 96 08/04/24 19:20 Oxygen Delivery Method Room Air 08/04/24 12:00 Oxygen Delivery Flow Rate 2 08/04/24 16:51 MDM - SOB/Dyspnea MDM Narrative Medical decision making narrative: EKG shows sinus rhythm with a heart rate of [address] elevation or depression The patient was in septic shock he was started on Levophed after starting minute flow with upon presentation he received at least 3 L of fluid in the ER with the start of the fourth liter after that The patient also was covered after getting a blood culture with levofloxacin as well as ceftriaxone The patient case was discussed with the [facility] initially for possible transfer but because possibility of acute cholangitis and the patient had to be transferred to a tertiary center CT of the chest confirm a small infiltrate and a CT of the head showed no acute pathology Ultrasound of the biliary shows no acute cholecystitis signs and the patient CT abdomen pelvis obtained after the transfer was started was pending initially I spoke with the [facility] critical care doctor and Dr. Noguera accepted the patient at ICU The patient CAT scan result was transferred Lab Data Labs: Lab Results 08/04/24 08/04/24 08/04/24 Range/Units 12:00 12:10 12:15 WBC 9.6 (4.0-11.0) 10^3/uL RBC 2.86 L (4.70-6.10) 10^6/uL Hgb 8.8 L (14.0-18.0) g/dL Hct 25.2 L (42.0-54.0) % MCV 88.1 (80.0-94.0) fL MCH 30.8 (25.9-34.0) pg MCHC 34.9 (29.9-35.2) g/dL RDW 13.7 (11.0-15.0) % Plt Count 103 L (150-450) 10^3/uL MPV 10.7 (9.5-13.5) fL Seg Neuts % (Manual) 62.0 (43.0-75.0) Band Neutrophils % 8.0 H (0-5) % Lymphocytes % (Manual) 11.0 L (20.5-60.0) % Monocytes % (Manual) 18.0 H (1.7-12.0) % Eosinophils % (Manual) 0.0 L (0.9-7.0) % Basophils % (Manual) 0.0 L (0.2-2.0) % Metamyelocytes % 1.0 Neutrophils # (Manual) 5.95 (1.4-6.5) 10^3/uL Band Neutrophils # 0.8 H (0.0-0.3) 10^3/uL Lymphocytes # (Manual) 1.05 L (1.20-3.80) 10^3/uL Monocytes # (Manual) 1.72 H (0.30-0.80) 10^3/uL Eosinophils # (Manual) 0.00 (0.00-0.70) 10^3/uL Basophils # (Manual) 0.00 (0.00-0.10) 10^3/uL Metamyelocytes # 0.09 Poikilocytosis 1+ [place] Cells 1+ PT 16.2 H (9.0-11.6) sec INR 1.60 Puncture Site Lr ABG pH 7.398 (7.350-7.450) ABG pCO2 24.4 L (35.0-45.0) mmHg ABG pO2 154.0 H (80.0-100.0) mmHg ABG HCO3 15.1 L (22.0-26.0) mmol/L ABG O2 Saturation 99.4 % ABG Base Excess -9.8 L (-2.0-2.0) mmol/L Vasu Test Positive (POSITIVE) O2 Liters/Min 10l Sodium 120 L* (136-145) mmol/L Potassium 3.5 (3.5-5.1) mmol/L Chloride 89 L (98-107) mmol/L Carbon Dioxide 17.0 L (21.0-32.0) mmol/L Anion Gap 17.5 BUN 20.0 H (7.0-18.0) mg/dL Creatinine 2.62 H (0.70-1.30) mg/dL Est GFR ( Amer) 29 L (>=60) Est GFR (Non-Af Amer) 24 L (>=60) BUN/Creatinine Ratio 7.6 Glucose 91 (74-106) mg/dL Lactate 6.0 H* (0.4-2.0) mmol/L Calcium 7.1 L (8.5-10.1) mg/dL Total Bilirubin 4.6 H (0.2-1.0) mg/dL AST 305 H (15-37) U/L ALT 289 H (16-63) U/L Alkaline Phosphatase 154 H (46-116) U/L Ammonia (11-32) umol/L Troponin I High Sens 72.8 (4.0-76.1) pg/mL Total Protein 4.9 L (6.4-8.2) g/dL Albumin 2.1 L (3.4-5.0) g/dL Globulin 2.8 g/dL Albumin/Globulin Ratio 0.8 Lipase (16.0-77.0) U/L Urine Color (YELLOW) Urine Clarity (CLEAR) Urine pH (5.0-9.0) Ur Specific [place] (1.005-1.025) Urine Protein (NEG/TRACE) mg/dL Urine Glucose (UA) (NEGATIVE) mg/dL Urine Ketones (NEGATIVE) mg/dL Urine Occult Blood (NEGATIVE) Urine Nitrite (NEGATIVE) Urine Bilirubin (NEGATIVE) Urine Urobilinogen (0.2-1.0) EU/dL Ur Leukocyte Esterase (NEGATIVE) Urine RBC (0-2) #/HPF Urine WBC (NONE SEEN) #/HPF Ur Squamous Epith Cells (NONE/RARE) #/LPF Urine Crystals (None Seen) #/HPF Urine Bacteria (NONE SEEN) #/HPF Urine Casts (NONE SEEN) #/LPF Urine Mucus (NONE SEEN) Ur Culture Indicated? Ethanol Quant <3 mg/dL Influenza Type A Ag Negative Influenza Type B Ag Negative SARS-CoV-2 Ag (CV2AG) Negative (NEGATIVE) Blood Type O Positive Antibody Screen Negative 08/04/24 08/04/24 08/04/24 Range/Units 12:22 13:06 15:10 WBC (4.0-11.0) 10^3/uL RBC (4.70-6.10) 10^6/uL Hgb (14.0-18.0) g/dL Hct (42.0-54.0) % MCV (80.0-94.0) fL MCH (25.9-34.0) pg MCHC (29.9-35.2) g/dL RDW (11.0-15.0) % Plt Count (150-450) 10^3/uL MPV (9.5-13.5) fL Seg Neuts % (Manual) (43.0-75.0) Band Neutrophils % (0-5) % Lymphocytes % (Manual) (20.5-60.0) % Monocytes % (Manual) (1.7-12.0) % Eosinophils % (Manual) (0.9-7.0) % Basophils % (Manual) (0.2-2.0) % Metamyelocytes % Neutrophils # (Manual) (1.4-6.5) 10^3/uL Band Neutrophils # (0.0-0.3) 10^3/uL Lymphocytes # (Manual) (1.20-3.80) 10^3/uL Monocytes # (Manual) (0.30-0.80) 10^3/uL Eosinophils # (Manual) (0.00-0.70) 10^3/uL Basophils # (Manual) (0.00-0.10) 10^3/uL Metamyelocytes # Poikilocytosis [place] Cells PT (9.0-11.6) sec INR Puncture Site ABG pH (7.350-7.450) ABG pCO2 (35.0-45.0) mmHg ABG pO2 (80.0-100.0) mmHg ABG HCO3 (22.0-26.0) mmol/L ABG O2 Saturation % ABG Base Excess (-2.0-2.0) mmol/L Vasu Test (POSITIVE) O2 Liters/Min Sodium 121 L* (136-145) mmol/L Potassium 3.7 (3.5-5.1) mmol/L Chloride 91 L (98-107) mmol/L Carbon Dioxide 15.9 L (21.0-32.0) mmol/L Anion Gap 17.8 BUN 20.0 H (7.0-18.0) mg/dL Creatinine 2.41 H (0.70-1.30) mg/dL Est GFR ( Amer) 32 L (>=60) Est GFR (Non-Af Amer) 26 L (>=60) BUN/Creatinine Ratio 8.3 Glucose 145 H (74-106) mg/dL Lactate 5.0 H* (0.4-2.0) mmol/L Calcium 6.7 L (8.5-10.1) mg/dL Total Bilirubin (0.2-1.0) mg/dL AST (15-37) U/L ALT (16-63) U/L Alkaline Phosphatase (46-116) U/L Ammonia 17 (11-32) umol/L Troponin I High Sens 65.4 60.6 (4.0-76.1) pg/mL Total Protein (6.4-8.2) g/dL Albumin (3.4-5.0) g/dL Globulin g/dL Albumin/Globulin Ratio Lipase 876.0 H (16.0-77.0) U/L Urine Color (YELLOW) Urine Clarity (CLEAR) Urine pH (5.0-9.0) Ur Specific Byron (1.005-1.025) Urine Protein (NEG/TRACE) mg/dL Urine Glucose (UA) (NEGATIVE) mg/dL Urine Ketones (NEGATIVE) mg/dL Urine Occult Blood (NEGATIVE) Urine Nitrite (NEGATIVE) Urine Bilirubin (NEGATIVE) Urine Urobilinogen (0.2-1.0) EU/dL Ur Leukocyte Esterase (NEGATIVE) Urine RBC (0-2) #/HPF Urine WBC (NONE SEEN) #/HPF Ur Squamous Epith Cells (NONE/RARE) #/LPF Urine Crystals (None Seen) #/HPF Urine Bacteria (NONE SEEN) #/HPF Urine Casts (NONE SEEN) #/LPF Urine Mucus (NONE SEEN) Ur Culture Indicated? Ethanol Quant mg/dL Influenza Type A Ag Influenza Type B Ag SARS-CoV-2 Ag (CV2AG) (NEGATIVE) Blood Type Antibody Screen 08/04/24 Range/Units 16:13 WBC (4.0-11.0) 10^3/uL RBC (4.70-6.10) 10^6/uL Hgb (14.0-18.0) g/dL Hct (42.0-54.0) % MCV (80.0-94.0) fL MCH (25.9-34.0) pg MCHC (29.9-35.2) g/dL RDW (11.0-15.0) % Plt Count (150-450) 10^3/uL MPV (9.5-13.5) fL Seg Neuts % (Manual) (43.0-75.0) Band Neutrophils % (0-5) % Lymphocytes % (Manual) (20.5-60.0) % Monocytes % (Manual) (1.7-12.0) % Eosinophils % (Manual) (0.9-7.0) % Basophils % (Manual) (0.2-2.0) % Metamyelocytes % Neutrophils # (Manual) (1.4-6.5) 10^3/uL Band Neutrophils # (0.0-0.3) 10^3/uL Lymphocytes # (Manual) (1.20-3.80) 10^3/uL Monocytes # (Manual) (0.30-0.80) 10^3/uL Eosinophils # (Manual) (0.00-0.70) 10^3/uL Basophils # (Manual) (0.00-0.10) 10^3/uL Metamyelocytes # Poikilocytosis [place] Cells PT (9.0-11.6) sec INR Puncture Site ABG pH (7.350-7.450) ABG pCO2 (35.0-45.0) mmHg ABG pO2 (80.0-100.0) mmHg ABG HCO3 (22.0-26.0) mmol/L ABG O2 Saturation % ABG Base Excess (-2.0-2.0) mmol/L Vasu Test (POSITIVE) O2 Liters/Min Sodium (136-145) mmol/L Potassium (3.5-5.1) mmol/L Chloride (98-107) mmol/L Carbon Dioxide (21.0-32.0) mmol/L Anion Gap BUN (7.0-18.0) mg/dL Creatinine (0.70-1.30) mg/dL Est GFR ( Amer) (>=60) Est GFR (Non-Af Amer) (>=60) BUN/Creatinine Ratio Glucose (74-106) mg/dL Lactate (0.4-2.0) mmol/L Calcium (8.5-10.1) mg/dL Total Bilirubin (0.2-1.0) mg/dL AST (15-37) U/L ALT (16-63) U/L Alkaline Phosphatase (46-116) U/L Ammonia (11-32) umol/L Troponin I High Sens (4.0-76.1) pg/mL Total Protein (6.4-8.2) g/dL Albumin (3.4-5.0) g/dL Globulin g/dL Albumin/Globulin Ratio Lipase (16.0-77.0) U/L Urine Color Dk. yellow (YELLOW) Urine Clarity Clear (CLEAR) Urine pH 6.0 (5.0-9.0) Ur Specific Byron 1.015 (1.005-1.025) Urine Protein 30 A (NEG/TRACE) mg/dL Urine Glucose (UA) Negative (NEGATIVE) mg/dL Urine Ketones Negative (NEGATIVE) mg/dL Urine Occult Blood Large A (NEGATIVE) Urine Nitrite Negative (NEGATIVE) Urine Bilirubin Moderate A (NEGATIVE) Urine Urobilinogen 1.0 (0.2-1.0) EU/dL Ur Leukocyte Esterase Negative (NEGATIVE) Urine RBC 5-10 A (0-2) #/HPF Urine WBC None seen (NONE SEEN) #/HPF Ur Squamous Epith Cells Rare (NONE/RARE) #/LPF Urine Crystals None seen (None Seen) #/HPF Urine Bacteria Trace A (NONE SEEN) #/HPF Urine Casts None seen (NONE SEEN) #/LPF Urine Mucus Trace A (NONE SEEN) Ur Culture Indicated? No Ethanol Quant mg/dL Influenza Type A Ag Influenza Type B Ag SARS-CoV-2 Ag (CV2AG) (NEGATIVE) Blood Type Antibody Screen Discharge Plan Discharge Chief Complaint: Shortness of Breath/Dyspnea Clinical Impression: Septic shock, JULIANNA (acute kidney injury), Acute pancreatitis Patient Disposition: [facility] Time of Disposition Decision: 19:55 Discharge location: [facility]
[2024-08-04] MEDS: 0.9 % SODIUM CHLORIDE 1,000 ML 1000 ML IV ×3 (12:16→16:45)
[2024-08-04] MEDS: NOREPINEPHRINE BITARTRATE/D5W 4 MG/250 ML PREMIX 30 MG IV (12:17)
[2024-08-04 12:22] LABS: pH ABG 7.398 (7.350-7.450)
[2024-08-04 12:23] LABS: ABG PCO2 24.4 mmHg (35.0-45.0); Base Excess ABG -9.8 mmol/L (-2.0-2.0); HCO3 ABG 15.1 mmol/L (22.0-26.0)
[2024-08-04 12:24] LABS: Allen Test POSITIVE (POSITIVE); Liters per Minute 10L; Oxygen Saturation ABG 99.4 %
[2024-08-04 12:25] LABS: Puncture Site LR
[2024-08-04 12:34] LABS: Hematocrit 25.2 % (42.0-54.0); Hemoglobin 8.8 g/dL (14.0-18.0); Mean Corpuscular HGB Conc 34.9 g/dL (29.9-35.2); Mean Corpuscular Hemoglobin 30.8 pg (25.9-34.0); Mean Corpuscular Volume 88.1 fL (80.0-94.0); Mean Platelet Volume 10.7 fL (9.5-13.5); Platelet Count 103 10^3/uL (150-450); Red Blood Count 2.86 10^6/uL (4.70-6.10); Red Cell Distribution Width 13.7 % (11.0-15.0); White Blood Count 9.6 10^3/uL (4.0-11.0)
[2024-08-04 12:48] LABS: Influenza Virus A Antigen Negative; Influenza Virus B Antigen Negative; Internal Control Within Normal Limits; SARS-CoV-2 Ag NEGATIVE (NEGATIVE)
[2024-08-04 12:48] LABS: Ammonia 17 umol/L (11-32)
--- NOTE | 2024-08-04 12:54 | ECG_ITS ---
The [facility] Test Date: 2024-08-04 Pat Name: SEAN GREWAL Department: Room: - Gender: Male Neurourologist: : 1950 Requested By: BARAK ANTHONY Order Number: [id number] Reading MD: DARWIN STEWART Measurements Intervals [place] Rate: 108 P: 58 MD: 164 QRS: 16 QRSD: 88 T: 41 QT: 330 QTc: 393 Interpretive Statements 1120 Sinus tachycardia 9140 abnormal rhythm ECG Electronically Signed On 08-04-2024 22:34:38 EDT by DARWIN STEWART
[2024-08-04 12:55] LABS: Alanine Aminotransferase 289 U/L (16-63); Albumin Globulin Ratio 0.8; Albumin Level 2.1 g/dL (3.4-5.0); Alkaline Phosphatase 154 U/L (46-116); Anion Gap 17.5; Aspartate Amino Transferase 305 U/L (15-37); BUN Creatinine Ratio 7.6; Bilirubin Total 4.6 mg/dL (0.2-1.0); Calcium 7.1 mg/dL (8.5-10.1); Chloride 89 mmol/L (98-107); Estimated GFR (African America 29 (>=60); Estimated GFR (Non-African Ame 24 (>=60); Globulin 2.8 g/dL; Glucose 91 mg/dL (74-106); Potassium 3.5 mmol/L (3.5-5.1); Total Protein 4.9 g/dL (6.4-8.2); Troponin I High Sensitivity 72.8 pg/mL (4.0-76.1)
[2024-08-04] MEDS: IPRATROPIUM/ALBUTEROL SULFATE 3 ML AMPUL.NEB IH ×2 (12:58→13:05)
[2024-08-04 13:00] LABS: Prothrombin Time 16.2 sec (9.0-11.6)
[2024-08-04 13:02] LABS: Band Neutrophils Absolute 0.8 10^3/uL (0.0-0.3); Lymphocytes Absolute Manual 1.05 10^3/uL (1.20-3.80); Monocytes Absolute Manual 1.72 10^3/uL (0.30-0.80); Segmented Neut Absolute Manual 5.95 10^3/uL (1.4-6.5)
[2024-08-04 13:03] LABS: Burr Cells 1+; Metamyelocytes Absolute Manual 0.09; Poikilocytosis 1+
[2024-08-04 13:14] LABS: Sodium 120 mmol/L (136-145)
[2024-08-04 13:17] LABS: Ethanol <3 mg/dL
[2024-08-04 13:31] LABS: Troponin I High Sensitivity 65.4 pg/mL (4.0-76.1)
[2024-08-04] MEDS: CEFTRIAXONE 2,000 MG in 0.9 % SODIUM CHLORIDE 100 ML 200 MG IV (13:47)
--- NOTE | 2024-08-04 14:45 | CT_ITS ---
The [place] [id number] Patient Name: SEAN GREWAL MRN: [id number] date: 1950 Sex: M Assigned Patient Location: ER Current Patient Location: ER Accession/Order Number: [id number] Exam Date: 08/04/2024 14:26 Report Date: 08/04/2024 15:36 At the request of: MARVIN GUTIERREZ Procedure: CT chest wo con EXAMINATION: CT chest wo con, 08/04/2024 2:26 PM EDT HISTORY: infection COMPARISON: XR chest 1V Study Date: 08/04/2024 TECHNIQUE: CT scan of the chest was performed without IV contrast. CT dose reduction technique was used, including Automated Exposure Control. FINDINGS: Mild cardiomegaly is seen. There is no evidence for pericardial effusion. Mild coronary arterial calcification is seen. The thoracic aorta is normal in course and caliber. There is no evidence for thoracic aortic aneurysm. Mild thoracic aortic calcification is seen. No significant pleural effusion is seen. There is no evidence for pneumothorax. Mild peribronchial thickening is seen in the bilateral lower lobes, suggestive of mild bronchitic changes. Small right basilar infiltrate is seen. Multiple paratracheal and prevascular space lymph nodes, as well as likely bilateral axillary lymph nodes are seen measuring up to 1 cm in short axis. Although the lymph nodes are not significantly enlarged by CT size criteria, the increased number of lymph nodes is significant. The visualized chest wall appears unremarkable. No acute abnormality seen in the visualized upper abdomen. Mild multilevel degenerative changes of the thoracic spine is seen. CT/CT chest wo con IMPRESSION: Small right lung base infiltrate. Multiple mediastinal or axillary lymph nodes. Mild peribronchial thickening is seen in the bilateral lower lobes, suggestive of mild bronchitic changes. Electronically authenticated by: NELSON PEREZ Date: 08/04/2024 15:36
--- NOTE | 2024-08-04 14:45 | CT_ITS ---
The [address] [address] Patient Name: SEAN GREWAL MRN: [id number] date: 1950 Sex: M Assigned Patient Location: ER Current Patient Location: ER Accession/Order Number: [id number] Exam Date: 08/04/2024 14:26 Report Date: 08/04/2024 15:10 At the request of: MARVIN GUTIERREZ Procedure: CT head/brain wo con EXAM: CT head/brain wo con HISTORY: Shortness of breath and generalized weakness x2 days, ams COMPARISON: None. TECHNIQUE: Axial noncontrast CT imaging of the brain was performed with coronal and sagittal reformats. This CT exam was performed using one or more of the following dose reduction techniques: Automated exposure control, adjustment of the MA and/or kV according to patient size, or use of iterative reconstruction technique. FINDINGS: Calvarium/skull base: No evidence of acute fracture or destructive lesion. Bilateral [place] ocular lens replacements. Mastoid air cells are well aerated. Paranasal sinuses: No air fluid levels. Brain: No acute intracranial hemorrhage. No acute large vascular territory infarct. No mass lesion or mass effect. No hydrocephalus. CT/CT head/brain wo con IMPRESSION: No acute intracranial process. Electronically authenticated by: JULI FERREIRA Date: 08/04/2024 15:10
--- NOTE | 2024-08-04 14:55 | US_ITS ---
The [address] [address] Patient Name: SEAN GREWAL MRN: [id number] date: 1950 Sex: M Assigned Patient Location: ER Current Patient Location: ER Accession/Order Number: [id number] Exam Date: 08/04/2024 15:30 Report Date: 08/04/2024 16:22 At the request of: MARVIN GUTIERREZ Procedure: US right upper quadrant EXAMINATION: US right upper quadrant HISTORY: Rule out cholangitis COMPARISON: CT abdomen pelvis 04/03/2022, 04/25/2019 TECHNIQUE: Transabdominal evaluation of the right upper quadrant. FINDINGS: LIVER: Several small hyperechoic areas which correspond to findings on prior CT study and favor hemangiomas. PORTAL VEIN: Duplex Doppler demonstrates normal hepatopetal flow pattern with flow velocity averaging 33 cm/s. GALLBLADDER: Several 6 mm stones within gallbladder. Gallbladder wall thickness is upper limits of normal, 3 mm. No free fluid. Negative sonographic Phelps's sign. BILIARY: Common bile duct was not imaged. PANCREAS: No visible mass, abnormal atrophy, or duct dilation. KIDNEY: 1.9 cm benign-appearing cyst. No stones or hydronephrosis. Size: 11.2 x 5.6 x 5.0 cm US/US right upper quadrant IMPRESSION: 1. Cholelithiasis and wall thickness at upper limits of normal. Negative sonographic Phelps's sign during imaging. Electronically authenticated by: ANYA NUÑEZ Date: 08/04/2024 16:22
[2024-08-04] MEDS: LEVOFLOXACIN IN DEXTROSE 5 % 750 MG/150 ML PREMIX 100 MG IV (15:04)
[2024-08-04 15:35] LABS: Anion Gap 17.8; BUN Creatinine Ratio 8.3; Calcium 6.7 mg/dL (8.5-10.1); Carbon Dioxide 15.9 mmol/L (21.0-32.0); Chloride 91 mmol/L (98-107); Estimated GFR (African America 32 (>=60); Estimated GFR (Non-African Ame 26 (>=60); Glucose 145 mg/dL (74-106); Potassium 3.7 mmol/L (3.5-5.1)
[2024-08-04 15:37] LABS: Troponin I High Sensitivity 60.6 pg/mL (4.0-76.1)
[2024-08-04 15:39] LABS: Sodium 121 mmol/L (136-145)
[2024-08-04] MEDS: NOREPINEPHRINE BITARTRATE/D5W 4 MG/250 ML PREMIX 45 MG IV (16:48)
[2024-08-04 16:52] LABS: Bilirubin Urine MODERATE (NEGATIVE); Blood Urine LARGE (NEGATIVE); Clarity Urine CLEAR (CLEAR); Color Urine DK. YELLOW (YELLOW); Glucose Urine UA NEGATIVE (NEGATIVE); Ketones Urine NEGATIVE (NEGATIVE); Leukocyte Esterase Urine NEGATIVE (NEGATIVE); Nitrite Urine NEGATIVE (NEGATIVE); Protein Urine 30 mg/dL (NEG/TRACE); Specific Gravity Urine 1.015 (1.005-1.025)
[2024-08-04 16:58] LABS: Urine Microscopic Indicated YES
[2024-08-04 17:11] LABS: Bacteria Urine TRACE #/HPF (NONE SEEN); Cast Seen? NONE SEEN #/LPF (NONE SEEN); Crystals Seen? None Seen #/HPF (None Seen); Mucus Urine TRACE (NONE SEEN); Squamous Epithelial Cell Urine RARE #/LPF (NONE/RARE); Urine Culture Indicated NO; WBC Urine NONE SEEN #/HPF (NONE SEEN)
--- NOTE | 2024-08-04 17:44 | CT_ITS ---
The [place] [id number] Patient Name: SEAN GREWAL MRN: [id number] date: 1950 Sex: M Assigned Patient Location: ER Current Patient Location: ER Accession/Order Number: [id number] Exam Date: 08/04/2024 17:38 Report Date: 08/04/2024 18:33 At the request of: MARVIN GUTIERREZ Procedure: CT abdomen pelvis wo con EXAM: CT scan of the abdomen and pelvis without contrast. Dose reduction technique used: Automated exposure control and/or adjustment of the mA and/or kV according to patient size and/or use of iterative reconstruction technique. REASON FOR EXAM: elevated liver enzymes and sepsis COMPARISON: CT scan dated 04/03/2022 FINDINGS: Cholelithiasis including a stone at the gallbladder neck mild retroperitoneal fat stranding/fat stranding along the pancreatic tail. Moderate gallbladder distention. Hay[place] catheter in the bladder. Small right renal cysts. Colonic diverticulosis. Hepatomegaly measuring up to 22.1 cm. Mild lumbar scoliosis. Tiny bilateral pleural effusions. No renal, ureteral or bladder calculi. No hydronephrosis. Normal appendix. No free fluid in the abdomen or pelvis. No free intraperitoneal air. No dilated or thickened loops of small bowel or colon. Liver, pancreas, spleen, bilateral kidneys, and bilateral adrenal glands are otherwise unremarkable within the limitations of noncontrast CT. No lymphadenopathy in the abdomen or pelvis. Remainder unremarkable. CT/CT abdomen pelvis wo con IMPRESSION: 1. Findings could be due to acute interstitial pancreatitis and/or acute calculus cholecystitis. 2. Hepatomegaly. Electronically authenticated by: VIRGINIA BERRY Date: 08/04/2024 18:33
[2024-08-04] MEDS: ONDANSETRON PF 4 MG/2 ML VIAL IV (20:53)
[2024-08-05 02:00] LABS: A. calcoaceticus-baumannii Cpx NOT DETECTED (NOT DETECTE); Bacteroides fragilis NOT DETECTED (NOT DETECTE); Candida albicans NOT DETECTED (NOT DETECTE); Candida auris NOT DETECTED (NOT DETECTE); Candida glabrata NOT DETECTED (NOT DETECTE); Candida krusei NOT DETECTED (NOT DETECTE); Candida parapsilosis NOT DETECTED (NOT DETECTE); Candida tropicalis NOT DETECTED (NOT DETECTE); Cryptococcus neoformans/gattii NOT DETECTED (NOT DETECTE); Enterobacter cloacae complex NOT DETECTED (NOT DETECTE); Enterococcus faecalis NOT DETECTED (NOT DETECTE); Enterococcus faecium NOT DETECTED (NOT DETECTE); Haemophilus influenzae NOT DETECTED (NOT DETECTE); Klebsiella aerogenes NOT DETECTED (NOT DETECTE); Klebsiella pneumoniae group NOT DETECTED (NOT DETECTE); Listeria monocytogenes NOT DETECTED (NOT DETECTE); Neisseria meningitidis NOT DETECTED (NOT DETECTE); Proteus spp. NOT DETECTED (NOT DETECTE); Pseudomonas aeruginosa NOT DETECTED (NOT DETECTE); Salmonella spp. NOT DETECTED (NOT DETECTE); Serratia marcescens NOT DETECTED (NOT DETECTE); Staphylococcus epidermidis NOT DETECTED (NOT DETECTE); Staphylococcus lugdunensis NOT DETECTED (NOT DETECTE); Staphylococcus spp. NOT DETECTED (NOT DETECTE); Stenotrophomonas maltophilia NOT DETECTED (NOT DETECTE); Streptococcus agalactiae NOT DETECTED (NOT DETECTE); Streptococcus pneumoniae NOT DETECTED (NOT DETECTE); Streptococcus pyogenes NOT DETECTED (NOT DETECTE); Streptococcus spp. NOT DETECTED (NOT DETECTE)
[2024-08-05 03:18] LABS: CTX-M NOT DETECTED (NOT DETECTE); IMP NOT DETECTED (NOT DETECTE); KPC NOT DETECTED (NOT DETECTE); NDM NOT DETECTED (NOT DETECTE); OXA-48-like NOT DETECTED (NOT DETECTE); Source BLOOD; VIM NOT DETECTED (NOT DETECTE); mcr-1 NOT DETECTED (NOT DETECTE)
[2024-08-05 03:20] LABS: Enterobacterales DETECTED (NOT DETECTE)
== END 2024-08-04 23:22 | disposition short-term general hospital (02) ==
PROVIDERS: Emergency Provider Emergency Medicine; PCP Family Medicine
DX: A41.9 Sepsis, unspecified organism (principal); R65.21 Severe sepsis with septic shock; N17.9 Acute kidney failure, unspecified; K85.90 Acute pancreatitis without necrosis or infection, unspecified; Z20.822 Contact with and (suspected) exposure to COVID-19
CPT/HCPCS: 36415; 36600; 51702; 70450; 71045; 71250; 74176; 76705; 80048; 80053; 80320; 81001; 82140; 82805; 83605; 83690; 84484; 85007; 85027; 85610; 86850; 86900; 86901; 87040; 87150; 87804; 87811; 93005; 94640; 96365; 96366; 96368; 96375; 99285; J0696; J2405

== ENCOUNTER 2024-11-24 09:29 | Outpatient (OUT) | payer MEDICARE, SELFPAY | END 2024-11-24 09:30 | disposition home or self-care (01) | LOC: LAB 09:33 | PROVIDERS: PCP Family Medicine; Visit Provider Family Medicine | DX: E61.1 Iron deficiency (principal) | CPT/HCPCS: 36415; 83540 ==

== ENCOUNTER 2025-06-30 09:44 | Outpatient (OUT) | payer MEDICARE, SELFPAY ==
--- OUTSIDE RECORDS SUMMARY | 2025-06-30 09:49 | XMS_ITS | Clinical Summary ---
Author Organization [facility] Address [address] [place] [address] Care Team Providers Care Technical Internship Name Role Phone Nilson Richard MD Primary Care Provider [phone] Social History Tobacco Use Types Packs/Day Years Used Date Smoking Tobacco: Never Assessed Sex and Gender Information Value Date Recorded Sex Assigned at Not on file Legal Sex Male 7:07 PM EDT Gender Identity Not on file Sexual Orientation Not on file Last Filed Vital Signs Vital Sign Reading Time Taken Comments Blood Pressure 155/86 03/24/2019 12:00 PM EDT Pulse - - Temperature - - Respiratory Rate - - Oxygen Saturation - - Inhaled Oxygen Concentration - - Weight 74.8 kg (165 lb) 03/24/2019 12:00 PM EDT Height 165.1 cm (5' 5 ) 03/24/2019 12:00 PM EDT Body Mass Index 27.46 03/24/2019 12:00 PM EDT Plan of Treatment Health Maintenance Due Date Last Done Comments Influenza Vaccine (#1) 2025 3, 08/27/2022, 08/18/2020, Additional history exists Pneumococcal Vaccine: 65+ Years Completed 7, 08/30/2015 Insurance [facility] MEDICARE ADVANTAGE Care Teams Technical Internship Relationship Specialty Start Date End Date Nilson Richard MD PCP - General Family Medicine 04/30/24
--- OUTSIDE RECORDS SUMMARY | 2025-06-30 09:49 | XMS_ITS | Clinical Summary ---
Author Organization [facility] tem Address [facility] [id number] [address] [place] [address] Care Team Providers Care Handkerchief Cutter Name Role Phone Nilson Richard MD Primary Care Provider [phone] Allergies No known active allergies Medications amLODIPine (NORVASC) 5 mg tablet Take 1 tablet (5 mg total) by mouth in the morning. Active dutasteride (AVODART) 0.5 mg capsule Take 1 capsule (0.5 mg total) by mouth in the morning. Active lisinopriL (PRINIVIL,ZESTR IL) 40 mg tablet Take 1 tablet (40 mg total) by mouth in the morning. Active pantoprazole (PROTONIX) 40 mg EC tablet Take 1 tablet (40 mg total) by mouth in the morning. Active alfuzosin (UROXATRAL) 10 mg 24 hr tablet Take 1 tablet (10 mg total) by mouth in the morning. Active glucosamine/cho ndr oneal A sod (OSTEO BI-FLEX ORAL) Take 1 tablet by mouth in the morning. Active acetaminophen (TYLENOL EXTRA STRENGTH) 500 mg tablet Take 2 tablets (1,000 mg total) by mouth every 6 (six) hours as needed for pain. 30 tablet 4 Active sennosides-docu sate sodium (SENOKOT-S) 8.6-50 mg Take 2 tablets by mouth in the morning. Take as instructed until you have a bowel movement. 20 tablet 4 Active Active Problems Problem Noted Date Diagnosed Date Bacteremia 08/08/2024 Cholangitis due to bile duct calculus with obstr uction 08/08/2024 Acute biliary pancreatitis without infection or necrosis 08/08/2024 Pneumonia of right lower lobe due to infectious organism 08/08/2024 Acute kidney injury 08/08/2024 Septic shock 08/05/2024 Immunizations Immunization Administration Dates Next Due COVID-19, mRNA, LNP-S, PF, 30mcg/0.3mL Dose 08/12,02/20/2021,12/23/2020 Covid-19, Mrna, Lnp-s, Bival ent, Pf, 30mcg/0.3 ml 08/31/2022 Covid-19, Mrna, Lnp-s, Pf, 3 0 Mcg/0.3 Ml Dose, Vic-sucrose 04/21/2022 Influenza, High-dose, Quadrivalent 09/11/2023, Influenza, Injectable, quadrivalent (PF) 017 Influenza, Trivalent, Adjuvanted 08/18/2020 Pneumococcal Conjugate 13-Valent 08/21/2017 Pneumococcal Polysaccharide 08/30/2015 Unknown Vaccine Or Immune Globulin 08/29/2021 Zoster Vaccine Recombinant 12/01/2020,09/29/2020 Family History Medical History Relation Name Comments Hypertension Father Diabetes Mother Hypertension Mother Relation Name Status Comments Father Mother Social History Tobacco Use Types Packs/Day Years Used Date Smoking Tobacco: Former Cigars Smokeless Tobacco: Never Tobacco Cessation:Counseling Given: Not Answered Alcohol Use Standard Drinks/Week Comments Yes 0 (1 standard drink = 0.6 oz pur e alcohol) [employer] Answer Date Recorded In the past 12 months has [employer], [employer], oil, or water [employer] threatened to shut off services in your home? No 08/05/2024 AUDIT-C Answer Date Recorded Q1: How often do you have a drink containing alc ohol? 2-4 times a month 08/05/2024 Q2: How many drinks containi ng alcohol do you have on a typical day when you are drinking? 1 or 2 08/05/2024 Q3: How often do you have si x or more drinks on one occasion? Less than monthly 08/05/2024 PHQ-2 Answer Date Recorded Total Score 1 08/05/2024 PRAPARE - Transportation Answer Date Re corded In the past 12 months, has l ack of transportation kept you from medical appointments or from getting medications? No 07/13 In the past 12 months, has l ack of transportation kept you from meetings, work, or from getting things needed for daily living? No 08/05/2024 Housing Instability Answer Date Recorde d Are you worried or concerned that in the next two months you may not have stable housing that you own, rent or stay in as a part of a household? No 08/05/2024 Hunger Screening Answer Date Recorded Within the past 12 months we worried whether our food would run out before we got money to buy more. Never True 08/05/2024 Within the past 12 months th e food we bought just didn't last and we didn't have money to get more. Never True 08/05/2024 Sex and Gender Information Value Date Recorded Sex Assigned at Not on file Legal Sex Male 5:34 PM EDT Gender Identity Not on file Sexual Orientation Not on file Last Filed Vital Signs Vital Sign Reading Time Taken Comments Blood Pressure 147/69 08/09/2024 11:21 AM EDT Pulse 81 08/09/2024 11:21 AM EDT Temperature 36.8 C (98.2 F) 08/09/2024 11:21 AM EDT Respiratory Rate 19 08/09/2024 11:21 AM EDT Oxygen Saturation 97% 08/09/2024 11:21 AM EDT Inhaled Oxygen Concentration - - Weight 84.8 kg (187 lb) 08/19/2024 2:08 PM EDT Height 154.9 cm (5' 1 ) 08/19/2024 2:08 PM EDT Body Mass Index 35.33 08/19/2024 2:08 PM EDT Plan of Treatment Health Maintenance Due Date Last Done Comments DTaP,Tdap and Td Vaccines (1 - Tdap) 1968 Fall Risk Screening 2014 COVID-19 Vaccine (2023-2 5 season) 2024 08/31/2022, 04/21/2022, 09/04/2021, Additional history exists Influenza Vaccine 07/12/2025 09/11/2023, , 08/18/2020, Additional history exists Depression Screening 08/05/2025 08/05/2024 Tobacco Screening 08/19/2025 08/19/2024 Zoster (Shingles) Vaccine Completed 12/01/2020, Goals Goal Patient Goal Type Associated Problems Recent Progress Patient-Stated? 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
--- NOTE | 2025-06-30 09:53 | US_ITS ---
[facility] [place] [id number] Patient Name: SEAN GREWAL MRN: [id number] date: 1950 Sex: M Assigned Patient Location: US Current Patient Location: US Accession/Order Number: [id number] Exam Date: 06/30/2025 13:17 Report Date: 06/30/2025 13:25 At the request of: BARAK ANTHONY MD Procedure: US scrotum Scrotal ultrasound HISTORY: Intermittent left scrotal pain for years COMPARISON: None RIGHT testicle measures 4.4 x 2.0 x 3.0 cm. LEFT testicle measures 4.4 x 2.0 x 3.2 cm. Scattered microlithiasis of both testicles. Multiple tubular regions of left testicles redemonstrated. Normal color flow of both testicles identified. RIGHT epididymal head measures 1.2 cm.. LEFT epididymal head measures 0.6 cm.. . No hydroceles identified. No scrotal wall abnormality identified. US/US scrotum IMPRESSION: Unremarkable testicles with tubular ectasia of the left testes and similar scattered benign bilateral microcalcifications. No new findings. The right and left epididymis unchanged. Impression dictated by: Olvin Infante M.D. 06/30/2025 1:25 PM Dictation Location: [place] [address] Electronically authenticated by: [id number] Y Date: 06/30/2025 13:25
== END 2025-06-30 09:45 | disposition home or self-care (01) ==
LOC: US 09:47
PROVIDERS: PCP Family Medicine; Visit Provider Family Medicine
DX: N45.1 Epididymitis (principal)
CPT/HCPCS: 76870

== ENCOUNTER 2025-07-08 09:30 | Outpatient (OUT) | payer MEDICARE, SELFPAY ==
--- OUTSIDE RECORDS SUMMARY | 2025-07-08 09:32 | XMS_ITS | Clinical Summary ---
Author Organization [employer] tem Address [id number] [address] [place] [address] Care Team Providers Care Radiocommunications Technician Name Role Phone Nilson Richadr MD Primary Care Provider [phone] Allergies No known active allergies Medications amLODIPine [...] drink = 0.6 oz pur e alcohol) [employer] Answer Date Recorded In the past 12 months has [employer], [employer], oil, or water [employer] threatened to shut off services in your [...] Documents on File Type Date Recorded Patient Councilman Expl anation DNR Physician Order 08/18/2024 7:10 AM * DNR Comfort Care Arrest (DNR-CCA) [place] (Latest Code Status on File) Date Activated Date Inactivated Comments 08/05/2024 1:27 AM 08/09/2024 6:30 PM Care Teams Radiocommunications Technician Relationship Specialty Start Date End Date Nilson Richard MD [address] [place] [address] PCP - General Family Medicine 08/05/24
--- OUTSIDE RECORDS SUMMARY | 2025-07-08 09:32 | XMS_ITS | Clinical Summary ---
Author Organization [facility] Address [address] [place] [address] Care Team Providers Care Burn Crew Member Name Role Phone Nilson Richard MD Primary Care Provider [phone] Social History Tobacco Use Types Packs/Day Years [...] Years Completed 7, 08/30/[address] [facility] MEDICARE ADVANTAGE Care Teams Burn Crew Member Relationship Specialty Start Date End Date Nilson Richard MD PCP - General Family Medicine 04/30/24
--- OUTSIDE RECORDS SUMMARY | 2025-07-08 09:32 | XMS_ITS | Clinical Summary ---
Author Organization [facility] Address [address], [address] [place] [address] Care Team Providers Care Security Ambassador Name Role Phone Nilson Richard MD Primary Care Provider [phone] Allergies No known active allergies Medications amLODIPine (NORVASC) 5 MG tablet Take 1 tablet by mouth daily Active lisinopril (PRINIVIL;ZESTR IL) 40 MG tablet Take 1 tablet by mouth daily Active pantoprazole (PROTONIX) 40 MG tablet Take 1 tablet by mouth daily Active alfuzosin (UROXATRAL) 10 MG extended release tablet Take 1 tablet by mouth nightly Active Boswellia-Gluco samine-Vit D (OSTEO BI-FLEX ONE PER DAY) TABS Take by mouth daily Active dutasteride (AVODART) 0.5 MG capsule Take 1 capsule by mouth daily Active acetaminophen (TYLENOL) 500 MG tablet Take 1 tablet by mouth every 6 hours as needed for Pain Active rivaroxaban (XARELTO) 10 MG TABS tablet Take 1 tablet by mouth daily (with breakfast) 12 tablet 01/28/2024 Active Active Problems Problem Noted Date Diagnosed Date S/P TKR (total knee replacement) using cement, l eft 01/27/2024 Hypertension 01/27/2024 Social History Tobacco Use Types Packs/Day Years Used Date Smoking Tobacco: Former Cigarettes Smokeless Tobacco: Never Alcohol Use Standard Drinks/Week Comments Yes 2 (1 standard drink = 0.6 oz pur e alcohol) occasional beer [employer] Util[employer] Answer Date Recorded In the past 12 months has [employer], [employer], oil, or water [employer] threatened to shut off services in your home? No 01/27/2024 Hunger Vital Sign Answer Date Recorded Within the past 12 months, y ou worried that your food would run out before you got the money to buy more. Never true 01/27/20 24 Within the past 12 months, t he food you bought just didn't last and you didn't have money to get more. Never true 01/27/2024 PRAPARE - Transportation Answer Date Re corded In the past 12 months, has l ack of transportation kept you from medical appointments or from getting medications? No 01/09 In the past 12 months, has l ack of transportation kept you from meetings, work, or from getting things needed for daily living? No 01/27/2024 Housing Stability Vital Sign Answer Nicholas e Recorded In the last 12 months, was t here a time when you were not able to pay the mortgage or rent on time? No 01/27/2024 In the last 12 months, how many places have you lived? 1 01/27/2024 In the last 12 months, was t here a time when you did not have a steady place to sleep or slept in a penitentiary (including now)? No 01/27/2024 Interpersonal Safety ([facility] HRSN) Answer Date Recorded How often does anyone, tom hewitt family and friends, physically hurt you? Never 01/27/2024 How often does anyone, tom hewitt family and friends, scream or curse at you? Not on file 01/27/2024 How often does anyone, tom hewitt family and friends, insult or talk down to you? Not on file 01/27/2024 How often does anyone, tom hewitt family and friends, threaten you with harm? Not on file 01/27/2024 Food Insecurity Answer Date Recorded Within the past 12 months, y ou worried that your food would run out before you got the money to buy more. 1 01/27/2024 Within the past 12 months, t he food you bought just didn't last and you didn't have money to get more. 1 01/27/2024 Interpersonal Safety Domain Source: IP Abuse Scr eening Answer Date Recorded Read-Only, Retired: Physical Abuse Denies 01/27/2024 Read-Only, Retired: Verbal Abuse Denies 01/27/2024 Read-Only, Retired: Emotional abuse Denies 01/27/2024 Read-Only, Retired: Financial Abuse Denies 01/27/2024 Read-Only, Retired: Sexual abuse Denies 01/27/2024 Sex and Gender Information Value Date Recorded Sex Assigned at Not on file Legal Sex Male 9:59 AM EST Gender Identity Not on file Sexual Orientation Not on file Last Filed Vital Signs Vital Sign Reading Time Taken Comments Blood Pressure 123/61 01/28/2024 7:30 AM EDT Pulse 72 01/28/2024 7:30 AM EDT Temperature 36.6 C (97.8 F) 01/28/2024 7:30 AM EDT Respiratory Rate 18 01/28/2024 7:30 AM EDT Oxygen Saturation 97% 01/28/2024 7:3 0 AM EDT Inhaled Oxygen Concentration - - Weight 74.1 kg (163 lb 6.4 oz) 01/28/2024 5:00 AM EDT bed was re-zeroed Height 157.5 cm (5' 2 ) 01/27/2024 6:38 AM EDT Body Mass Index 29.89 01/27/2024 6:38 AM EDT Plan of Treatment Health Maintenance Due Date Last Done Comments Depression Screen 1961 Hepatitis C screen 1967 DTaP/Tdap/Td vaccine (1 - Tdap) 1968 Respiratory Syncytial Virus (RSV) or age 60 yrs+ (1 - 1-dose 75+ series) 2024 COVID-19 Vaccine ( season) 2024 08/31/2022, 04/21/2022, 09/04/2021, Additional history exists Annual Wellness Visit (Medicare Advantage) 11/11/2024 Flu vaccine (#1) 06/11/2025 09/11/2023, , 08/18/2020, Additional history exists Pneumococcal 50+ years Vaccine Completed 08/21/2017, 08/30/2015 Shingles vaccine Completed 12/01/2020, 09/29/2020 Hepatitis A vaccine Aged Out No longe r eligible based on patient's age to complete this topic Hepatitis B vaccine Aged Out No longe r eligible based on patient's age to complete this topic Hib vaccine Aged Out No longer eligi ble based on patient's age to complete this topic Meningococcal (ACWY) vaccine Aged Out No longer eligible based on patient's age to complete this topic Meningococcal B vaccine Aged Out No l onger eligible based on patient's age to complete this topic Polio vaccine Aged Out No longer elig ible based on patient's age to complete this topic Medical Devices Implanted Type Area Hydraulic Dredge Operator Device Identifier Shelf Expiration Date Model / Serial / Lot Impl Knee Psn Fem Cr Cmt Ccr Std Sz8 L - [id number] Implanted:Qty: 1 on 01/27/2024 by Kalin Dowd MD at [facility] Knee Left: Knee [employer]-PMM 09/22/2033 [id number] / / [id number] Cement Bne 40gm Hi Visc Radpq For Rev Surg - [id number] Implanted:Qty: 2 on 01/27/2024 by Kalin Dowd MD at [facility] Left: Knee [employer]- 06/10/2026 [id number] / / [id number] Component Pat Bdy14un Thk9mm Knee Poly Ángel Conventional - [id number] Implanted:Qty: 1 on 01/27/2024 by Kalin Dowd MD at [facility] Left: Knee [employer]- 07/24/2028 [id number] / / [id number] Psn Tib Stm 5 Deg Sz F L - [id number] Implanted:Qty: 1 on 01/27/2024 by Kalin Dowd MD at [facility] Left: Knee [employer]- 09/25/2033 [id number] / / [id number] Psn Mc Ve Asf L 14mm 8-11 Ef - [id number] Implanted:Qty: 1 on 01/27/2024 by Kalin Dowd MD at [facility] Left: Knee [employer]- 10/03/2025 [id number] / / [id number] Explanted Type Area Hydraulic Dredge Operator Device Identifier Shelf Expiration Date Model / Serial / Lot Screw Bne L48mm Constrn Cndyl Knee Hex Hd Stem For Leg Nxgn - [id number] Explanted:Qty : 1 on 01/27/2024 by Kailn Dowd MD at [facility] Left: Knee [employer]-WD 09/15/2033 [id number] / / [id number] Screw Bne L48mm Constrn Cndyl Knee Hex Hd Stem For Leg Nxgn - [id number] Explanted:Qty : 1 on 01/27/2024 by Kalin Dowd MD at [facility] Left: Knee [employer]-WD 12/07/2032 [id number] / / [id number] Insurance HUMANA [facility] MEDICARE Advance Directives * Full Code (Latest Code Status on File) Date Activated Date Inactivated Comments 01/27/2024 5:10 PM 01/28/2024 4:26 PM Healthcare Agents on File Name Relationship Healthcare Agent Relationshi p Communication Hansa Post Spouse Primary Decision Maker Care Teams Security Ambassador Relationship Specialty Start Date End Date Nilson Richard MD [address] [place] [address] PCP - General Family Medicine 3/19/24
--- OUTSIDE RECORDS SUMMARY | 2025-07-08 09:32 | XMS_ITS | Encounter Summary ---
Author Organization [employer] [facility] Address [id number] [address] [place] [address] Care Team Providers Care White Washer Name Role Phone Nilson Richard MD Primary Care Provider [phone] Encounter Details Date Type Department Care Team (Late st Contact Info) Description 08/05/2024 Orders Only [facility] External Film Storage [facility] [place] [address] Transcribe, Orders Support User Pain (Primary Dx) Social History Tobacco Use Types Packs/Day Years Used Date Smoking Tobacco: Former Cigars Smokeless Tobacco: Never Alcohol Use Standard Drinks/Week Comments Yes 0 (1 standard drink = 0.6 oz pur e alcohol) [facility] Utilities Answer Date Recorded In the past 12 months has e electric, gas, oil, or water company threatened to shut off services in your [...] on file Sexual Orientation Not on file documented as of this encounter Functional Status * Question Answer Date of Assessment Author Functional Status Independent 08/06/2024 1:08 PM EDT Irena Mead RN * Audit-C Score Answer Date of Assessment Author 3 08/05/2024 11:06 AM EDT Romelia Emmanuel RN * Question Answer Date of Assessment Author Q1: How often do you have a drink containing alcohol? 2-4 times a month 08/05/2024 11:06 AM [place]BLE[facility] Joni Emmanuel RN Q2: How many drinks containing alcohol do you have on a typical day when you are drinking? 1 or 2 08/05/2024 11:06 AM Joni Maravilla RN Q3: How often do you have six or more drinks on one occasion? Less than monthly 08/05/2024 11:06 AM [place]BLE[place] Joni Emmanuel RN documented as of this encounter Plan of Treatment Not on file documented as of this encounter Goals Goal Patient Goal Type Associated Problems Recent Progress Patient-Stated? Author home General Yes Irena Mead RN Note: Evaluation of progress towards goal: patient anticipates discharge home with self care documented as of this encounter Results * Ultrasound abdomen limited with duplex (08/04/2024 3:40 PM EDT) us Scanning Provider External IMG US ORDERABLES Fin al Result documented in this encounter Visit Diagnoses Diagnosis Pain- Primary Generalized pain documented in this encounter Additional Health Concerns Assessment Noted Time PHQ-9 Depression Total Score: 1 08/05/20 11:09 AM EDT documented as of this encounter Care Teams White Washer Relationship Specialty Start Date End Date Nilson iRchard MD [address] [place] [address] PCP - General Family Medicine 08/05/24 documented as of this encounter
--- OUTSIDE RECORDS SUMMARY | 2025-07-08 09:40 | XMS_ITS | CCD ---
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 Name Role Phone Barak Richard Primary [...] Unavailable MD Barak Richard Primary Care Provider [phone] MD Eliezer Venegas Attending Provider Eliezer Venegas Attending Unavailable Eliezer Venegas Admitting Unavailable Barak Richard Primary Care Unavailable Unavailable Primary Care Provider Barak Hernandez MD Primary Care Provider [phone] MATTHEW DOWDIP E Admitting Unavailable RAGHU, KALIN E Attending Unavailable KALIN DOWD Admitting Unavailable RAGHU, KALIN E Attending Unavailable MARISELA BOND Consulting Unavailable BARAK RICHARD Primary Care Unavailable TOMÁS BOWDEN Attending Unavailable Barak Richard MD Primary Care Provider [phone] Tete MARCUM Attending Unavailable Tete MARCUM Attending Unavailable William CAST Attending Unavailable Allergies Allergy Classification Reported Allergen(s) Allergy Type Date of Onset Reaction(s) Facility (1 source) No Known Medication Allergies; Translations: [No Known Medication Allergies] Propensity to adverse reactions (disorder) [facility] Repository Medications Current Medications Medication Drug Class(es) Dates Sig (Normalized) Sig (Original) acetaminophen 500 mg oral tablet (5 sources) Start: 08-09-2024 take 2 tablets by mouth every six hours as needed for pain acetaminophen (TYLENOL EXTRA STRENGTH) 500 mg tablet Take 2 tablets (1,000 mg total) by mouth every 6 (six) hours as needed for pain. 30 tablet 08/09/2024 Active Start: 01-27-2024 End: 01-27-2024 take 650 mg [...] for pain acetaminophen (TYLENOL) 500 MG tablet Take 1 tablet by mouth every 6 hours as needed for Pain 0 Active acetaminophen 325 mg / HYDROcodone bitartrate 5 mg oral tablet (3 sources) Opioid Agonist Start: 01-27-2024 End: 02-04-2024 HYDROcodone-acetaminophen (NORCO) 5-325 MG per tablet Indications: S/P [...] Sat01/27/24 at 1710, Until Discontinued, Pain Mild (1-3) Maximum dose of acetaminophen is 4000 mg from all sources in 24 hours. 24 hr alfuzosin hydrochloride 10 mg extended release oral tablet (6 sources) alpha-Adrenergic Pedrito Start: 06-01-2024 take 1 tablet by mouth once daily alfuzosin 10 mg ER Tab 10 mg = 1 tab(s), Oral, Daily, # 90 tab(s), Refills(s) 3, Pharmacy: [facility], 159, cm, 03/30/24 10:03:00 EDT, Height/Length Dosing, 76.2, kg, 03/30/24 10:03:00 EDT, Weight Dosing Start Date: 06/01/24 Status: Ordered Start: 02-12-2022 take 1 tablet by carolann th once daily alfuzosin 10 mg ER Tab 10 mg = 1 tab(s), Oral, Daily, # 90 tab(s), Refills(s) 3, Pharmacy: [facility], 159, cm, 11/19/22 10:59:00 EST, Height/Length Dosing, 78, kg, 11/19/22 10:59:00 EST, Weight Dosing Start Date: 04/15/23 Status: Ordered take 1 tablet by carolann th every twenty-four hours in the morning alfuzosin (UROXATRAL) 10 mg 24 hr tablet Take 1 tablet (10 mg total) by mouth in the morning. Active Zsprkkmaz-Shakrflabzr-Ati D (OSTEO BI-FLEX ONE PER DAY) TABS (1 source) Boswellia-Glucos amine-Vit D (OSTEO BI-FLEX ONE PER DAY) TABS Take by mouth daily 0 Active cefdinir 300 mg oral capsule (1 source) Cephalosporin Antibacterial Sta rt: 4 cefdinir 300 mg Cap Refills(s) 0 Start Date: 11/25/23 Status: Ordered docusate sodium 50 mg / sennosides, correction 8.6 mg oral tablet (1 source) Sta rt: 4 take 2 tablets by mouth in the morning sennosides-docusate sodium (SENOKOT-S) 8.6-50 mg Take 2 tablets by mouth in the morning. Take as instructed until you have a bowel movement. 20 tablet 08/10/2024 Active doxycycline hyclate 100 mg oral capsule (1 source) Tetracycline-cla ss Drug Sta rt: 4 End : 4 take 1 capsule by mouth twice daily doxycycline hyclate 100 mg Cap 100 mg = 1 cap(s), Oral, BID, X 3 week(s), # 42 cap(s), Refills(s) 0, Pharmacy: [facility]/pharmacy #[id number], 159, cm, 11/25/23 10:07:00 EST, Height/Length Dosing, 78, kg, 11/25/23 10:07:00 EST, Weight Dosing Start Date: 11/25/23 Stop Date: 12/16/23 Status: Ordered dutasteride 0.5 mg oral capsule (5 sources) 5-alpha Reductase Inhibitor Sta rt: 4 End : 5 take 1 capsule by mouth once daily dutasteride 0.5 mg Cap 0.5 mg = 1 cap(s), Oral, Daily, X 90 day(s), # 90 cap(s), Refills(s) 3, Pharmacy: [facility], 159, cm, 11/25/23 10:07:00 EST, Height/Length Dosing, 78, kg, 11/25/23 10:07:00 EST, Weight Dosing Start Date: 01/29/24 Stop Date: 01/23/25 Status: Ordered ferrous sulfate 325 mg oral tablet (1 source) Sta rt: 4 End : 4 take 1 tablet by mouth once daily at breakfast ferrous sulfate 325 (65 FE) mg tablet Take 1 tablet (325 mg total) by mouth daily with breakfast for 30 days. Take with orange juice for best absorption 30 tablet 08/10/2024 09/09/2024 Active folic acid 1 mg oral tablet (1 source) Sta rt: 4 End : 4 take 1 tablet by mouth in the morning folic acid (FOLVITE) 1 mg tablet Indications: folate deficiency Take 1 tablet (1 mg total) by mouth in the morning for 30 days. Indications: inadequate folic acid. 30 tablet 08/10/2024 09/09/2024 Active glucosamine/chondr oneal A sod (OSTEO BI-FLEX ORAL) (1 source) take 1 tablet by mouth in the morning glucosamine/chondr oneal A sod (OSTEO BI-FLEX ORAL) Take 1 tablet by mouth in the morning. Active 0.5 ml HYDROmorphone hydrochloride 1 mg/ml prefilled syringe (1 source) Opioid Agonist Sta rt: 4 take 0.5 mg by mouth every three [...] 200 mg oral tablet (1 source) Nonsteroidal Anti-inflammator y Drug take 3 tablets by mouth every six hours as needed for pain ibuprofen (ADVIL;MOTRIN) 200 MG tablet Take 3 tablets by mouth every 6 hours as needed for Pain 0 Active pantoprazole 40 mg delayed release oral tablet (7 sources) Proton Pump Inhibitor Sta rt: 9 take 1 tablet by mouth once daily Protonix 40 mg Tab-DR 40 mg = 1 tab(s), Oral, Daily Start Date: 04/16/19 Status: Ordered rivaroxaban 10 mg oral tablet (1 source) Factor Xa Inhibitor Sta rt: 4 take 1 tablet by mouth once daily at breakfast rivaroxaban (XARELTO) 10 MG TABS tablet Take 1 tablet by mouth daily (with breakfast) 12 tablet 0 01/28/2024 Active Completed/Discontinued Medications Medication Drug Class(es) Dates Sig (Normalized) Sig (Original) amLODIPine 5 mg oral tablet (7 sources) Dihydropyridine Calcium Channel Pedrito Start: 01-27-2024 take 5 mg by mouth once daily 5 mg, Oral, DAILY, First dose on Sat01/27/24 at 1800, Until Discontinued Start: 12-18-2019 amlodipine Ora l, Daily, Refills(s) 0 Start Date: 12/18/19 Status: Ordered calcium chloride 0.0014 meq/ ml / potassium [...] Dutasteride (AVODART). lisinopril 20 mg oral tablet (7 sources) Angiotensin Converting Enzyme Inhibitor Start: 01-27-2024 take 40 mg by mouth once daily 40 mg, Oral, DAILY, First dose on Sat01/27/24 at 1800, Until Discontinued Start: 04-16-2019 take 1 tablet by carolann th once daily lisinopril 5 mg Tab 5 mg = 1 tab(s), Oral, Daily Start Date: 04/16/19 Status: Ordered take 1 tablet by carolann th in the morning lisinopriL (PRINIVIL,ZESTRIL) 40 mg tablet Take 1 tablet (40 mg total) by mouth in the morning. Active 5 ml sodium chloride 9 mg/ml injection [...] mL/lumen Post-op tadalafil 20 mg oral tablet (4 sources) Phosphodiesterase 5 Inhibitor Start: 03-30-2024 Cialis 20 mg Tab 20 mg = 1 tab(s), Oral, As Directed, Take 1 tab po 60 mins prior to sexual activity. Do not exceed 20mg/24 hrs., # 30 tab(s), Refills(s) 3, Pharmacy: [facility] [id number], 159, cm, 03/30/24 10:03:00 EDT, Height/Length Dosing, 76.2, kg, 03/30/24 10:03:00 EDT, Weight Dosing Start Date: 03/30/24 Status: Ordered Start: 04-15-2023 Cialis 20 mg T ab 20 mg = 1 tab(s), Oral, As Directed, Take 1 tab po 60 mins prior to sexual activity. Do not exceed 20mg/24 hrs., # 30 tab(s), Refills(s) 1, Pharmacy: [facility] [id number], 159, cm, 11/19/22 10:59:00 EST, Height/Length Dosing, 78, kg, 11/19/22 10:59:00 EST, Weight Dosing Start Date: 04/15/23 Status: Ordered Start: 05-17-2021 take 1 tablet by carolann th once daily Cialis 20 mg Tab 20 mg = 1 tab(s), Oral, Daily, # 30 tab(s), Refills(s) 1, [id number], 159, cm, 12/23/20 12:42:00 EST, Height/Length [...] Problem Date Documented Date Episodic/Chronic Abdominal pain (8 sources) Inguinal pain; Translations: [Pelvic and perineal pain] 04-16-2019 Episodic Biliary tract disease (1 source) Cholangitis due to bile duct calculus with obstruction; Translations: [Calculus of bile duct with cholangitis, unspecified, with obstruction] Onset: 08-08-2008-08-2024 Chronic Disorders of lipid metabolism (4 sources) Hypertriglyceridemia 04-16-2019 Chronic Esophageal disorders (4 sources) Gastroesophageal reflux disease 04-16-2019 Chronic Essential hypertension (2 sources) Hypertensive disorder; Translations: [Essential (primary) hypertension] Onset: 01-27-2001-27-2024 Chronic Hyperplasia of prostate (12 sources) Benign prostatic hypertrophy with outflow obstruction; Translations: [Benign prostatic hyperplasia with lower urinary tract symptoms] Onset: 11-17-19 Chronic Inflammatory conditions of male genital organs (11 sources) Epididymitis; Translations: [Epididymitis] Onset: 11-19-19 Episodic Osteoarthritis (4 sources) Osteoarthritis 04-16-2019 Chronic Other connective tissue disease (3 sources) History of total knee arthroplasty; Translations: [Presence of left artificial knee joint] Onset: 01-27-20 24 01-28-2024 Chronic Other connective tissue disease (1 source) Presence of left artificial knee joint; Translations: [Presence of left artificial knee joint] Onset: 01-27-20 Chronic Other connective tissue disease (1 source) Abnormal posture; Translations: [ABNORMAL POSTURE] Onset: 03-01-20 Episodic Other diseases of kidney and ureters (1 source) Urinary tract obstruction; Translations: [Other obstructive and reflux uropathy] Onset: 11-19-19 Episodic Other diseases of kidney and ureters (6 sources) Cyst of kidney 10-02-2019 Episodic Other diseases of kidney and ureters (1 source) Acquired renal cyst without neoplastic change; Translations: [Cyst of kidney, acquired] Onset: 03-30-20 Episodic Other gastrointestinal disorders (4 sources) Scrotal mass 12-23-2020 Episodic Other liver diseases (4 sources) Liver disease, unspecified; Translations: [LIVER DISEASE UNSPECIFIED] Onset: 04-03-20 Chronic Other male genital disorders (4 sources) Male erectile dysfunction, unspecified; Translations: [Erectile dysfunction] Onset: 11-19-19 Chronic Other male genital disorders (4 sources) Impotence 12-23-2020 Chronic Other male genital disorders (4 sources) Cyst of epididymis 12-23-2020 Episodic Other male genital disorders (4 sources) Pain of left testicle 02-12-2022 Episodic Other male genital disorders (2 sources) H/O: male genital disorder; Translations: [Personal history of other diseases of male genital organs] Onset: 07-20-20 Episodic Other non-traumatic joint disorders (1 source) Pain in unspecified joint; Translations: [Pain in unspecified joint] Onset: 10-24-20 Episodic Other non-traumatic joint disorders (2 sources) Hip pain; Translations: [Pain in unspecified hip] Onset: 07-20-20 Episodic Other screening for suspected conditions (not mental disorders or infectious disease) (4 sources) Radiology result abnormal 04-17-2019 Chroni c Residual codes; unclassified (4 sources) Family history of cancer of colon 04-16-2019 Episodic Screening and history of mental health and substance abuse codes (4 sources) Ex-smoker 03-18-2020 Episodic Spondylosis; intervertebral disc disorders; other back problems (5 sources) Other cervical disc degeneration, unspecified cervical region; Translations: [Spondylosis without myelopathy or radiculopathy, cervical region] Onset: 06-20-20 Chronic Spondylosis; intervertebral disc disorders; other back problems (4 sources) Cervicalgia; Translations: [CERVICALGIA] Onset: 02-29-20 Episodic Past or Other Problems Problem Classification Problem Date Documented Date Episodic/Chronic Acute and unspecified renal failure (1 source) Acute renal failure syndrome; Translations: [Acute kidney failure, unspecified] Onset: 08-08-2024 08-08-2024 Episodic Bacterial infection; unspecified site (1 source) Bacteremia; Translations: [Bacteremia] Onset: 08-08-2024 08-08-2024 Episodic Biliary tract disease (1 source) Calculus of gallbladder without cholecystitis without obstruction; Translations: [CALCU GB W/O CHOLECYST W/O OBST] Onset: 04-05-2022 Episodic Mood disorders (1 source) Mood disorders Onset: 08-05-2024 08-05-2024 Other male genital disorders (4 sources) Testicular pain, unspecified; Translations: [TESTICULAR PAIN UNSPECIFIED] Onset: 03-27-2022 Episodic Pancreatic disorders (not diabetes) (2 sources) Gallstone pancreatitis; Translations: [Biliary acute pancreatitis without necrosis or infection] Onset: 08-08-2024 08-19-2024 Episodic Pneumonia (except that caused by tuberculosis or sexually transmitted disease) (1 source) Right lower zone pneumonia; Translations: [Pneumonia, unspecified organism] Onset: 08-08-2024 08-08-2024 Episodic Septicemia (except in labor) (1 source) Septic shock; Translations: [Sepsis, unspecified organism] Onset: 08-05-2024 08-05-2024 Episodic Results Test Name Value Interpretation Reference Range Facility Ambulatory Visit Summaryon 0 07-20-2024 Ambulatory Visit Summary Ambulatory Visi t Summary SEAN GREWAL :1950 Visit Date:07/20/2024 Ambulatory Visit Instructions Your Diagnosis BPH with urinary obstruction Erectile dysfunction History of epididymitis Hip pain Your Care Team Attending Physician - KITTY GLASS, Tete Singleton Primary Care Physician - Barak Richard [...] Hernia repair. Discharge Vitals Heart Rate (Peripheral) 88 Blood Pressure 132/76 Height 159 cm Height 63 in Weight 76.2 kg Weight 167.64 lb BMI 30.14 What to do next Scheduled Follow-Up Appointments Saturday 9:45 AM EDT With: KITTY GLASS, Tete Singleton Where: [facility] [address] [place] [address]- You Need to Schedule the Following Appointments Follow Up with Tete MARCUM MD, URL When: Where: [facility] [address], [place] [address]- Medications What How Much When Instructions Unchanged alfuzosin (alfuzosin 10 mg ER Tab) 1 Tablets By Mouth Every day Unchanged dutasteride (dutasteride 0.5 mg Cap) 1 Capsules By Mouth Every day Duration: 90 Days Unchanged tadalafil (Cialis 20 mg Tab) 1 Tablets By Mouth As Directed Take 1 tab po 60 mins prior to sexual activity. Do not exceed 20mg/ 24 hrs. Unchanged amlodipine By Mouth Every day Contact prescribing physician if questions or concerns Unchanged lisinopril (lisinopril 5 mg Tab) 1 Tablets By Mouth Every day Contact prescribing physician if questions or concerns Unchanged pantoprazole (Protonix 40 mg Tab-DR) 1 Tablets By Mouth Every day Contact prescribing physician if questions or concerns Allergies No Known Medication Allergies Problems Ongoing - Any problem that you are currently receiving treatment for. Abnormal findings on diagnostic imaging of other abdominal regions, including retroperitoneum BPH with urinary obstruction Cyst of kidney, acquired Epididymal cyst Erectile dysfunction Family history of colon cancer Former smoker GERD (gastroesophageal reflux disease) Hip pain History of epididymitis Hyperglyceridemia Left epididymitis Left inguinal pain Left testicular pain Osteoarthritis Pelvic and perineal pain Renal cyst Scrotal mass Historical - Any problem that you are no longer receiving treatment for. Epididymitis Patient Survey You may receive a survey via text or e-mail asking about your office visit. Please share your experience with us by completing your survey. We appreciate your feedback and thank you for choosing us for your care. Education Materials Benign Prostatic Hyperplasia Benign prostatic hyperplasia (BPH) is an enlarged prostate gland that is caused by the normal aging process. The prostate may get bigger as a man gets older. The condition is not caused by cancer. The prostate is a walnut-sized gland that is involved in the production of semen. It is located in front of the rectum and below the bladder. The bladder stores urine. The urethra carries stored urine out of the body. An enlarged prostate can press on the urethra. This can make it harder to pass urine. The buildup of urine in the bladder can cause infection. Back pressure and infection may progress to bladder damage and kidney (renal) failure. What are the causes? This condition is part of the normal aging process. However, not all men develop problems from this condition. If the prostate enlarges away from the urethra, urine flow will not be blocked. If it enlarges toward the urethra and compresses it, there will be problems passing urine. What increases the risk? This condition is more likely to develop in men older than 50 years. What are the signs or [...] as: ? A post-void bladder scan. This me (more content not included)... Normal [facility] Urology Office/Clinic Noteon 07-20-2024 Urology Office/Clinic Note Urology Office/Clinic Note Chief Complaint f/u PSA HPI Staff 74 year old male patient presents today for a 3 month follow up with PSA. 07/07/24: 0.8 PSA. Previous Dx: epididymitis, BPH with urinary obstruction, ED, renal cyst. Alfuzosin ER 10 mg qd, Cialis 20 mg prn, Dutasteride 0.5mg qd Dysuria: denies Incomplete bladder emptying: denies Hematuria: denies Frequency: 2-3x daily Urgency: denies Nocturia: 2x Stream: normal Leaking: denies Post void dripping: denies Wearing pads/ Depends: no Urge incontinence: denies Stress incontinence: denies Incontinence without Sensory Awareness: denies Abdominal pain: desnies Flank pain: denies Sexual complaints: History of Present Illness Tests reviewed: reviewed UA, PSA I have reviewed the previous health record [...] See HPI. Physical Exam Vitals & Measurements HR: 88(Peripheral) BP: 132/76 HT: 63 in HT: 159 cm WT: 76.2 kg WT: 167.64 lb BMI: 30.14 General Appearance: alert, no distress, well nourished, well developed male. Assessment/Plan 1. BPH with urinary obstruction (N40.1: Benign prostatic hyperplasia with lower urinary tract symptoms) PSA: 07/05/21 - 0.72 11/17/22 - 0.50 11/25/23 - started Dutasteride 07/07/24 - 0.80 (1.6 Dutasteride) UA today negative for blood and infection. Taking Alfuzosin ER 10 mg qd and Dutasteride 0.5 mg qd. Wakes two times per night. Good stream in the morning. Sometimes dribble stream at night. PSA slightly increased but remains low for pt's age. Can d/c PSA monitoring due to advanced age and low levels. Will order one more PSA and if it is stable, can d/c monitoring at next OV. Voiding habits are satisfactory for pt. Voids at least q2-3hr during the day. Denies incontinence. Follow up 1 yr with PSA or sooner if needed. Pt understands and agrees with plan. Pt knows to call for refills. 2. Erectile dysfunction (N52.9: Male erectile dysfunction, unspecified) [place] 20 mg prn. No sexual complaints voiced. 3. History of epididymitis (Z87.438: Personal history of other diseases of male genital organs) Had some testicular pain a few weeks ago which resolved with ice pack. 4. Hip pain (M25.559: Pain in unspecified hip) Having hip pain in the morning. Dr. Richard ordered xray which was neg per pt. Recommended yoga. Follow-up With When Contact Information KITTY GLASS, Tete Singleton, URL [facility] [address], [place] [phone] Additional Instructions: 1 yr with PSA Patient Education Benign Prostatic Hyperplasia I, Venus Salazar, personally scribed for Dr. Marcum on 07/20/2024 10:23:02. . Documentation recorded by the scribe, Venus Salazar, accurately reflects the services(s) I performed and decisions made by me. Authenticated by Dr. Marcum on 07/20/2024 10:24:21. Problem List/Past Medical History Ongoing Abnormal findings on diagnostic imaging of other abdominal regions, including retroperitoneum BPH with urinary obstruction Cyst of kidney, acquired Epididymal cyst Erectile dysfunction Family history of colon cancer Former smoker GERD (gastroesophageal reflux disease) Hip pain History of epididymitis Hyperglyceridemia Left epididymitis Left inguinal pain Left testicular pain Osteoarthritis Pelvic and perineal pain Renal cyst Scrotal mass Historical Epididymitis Procedure/Surgical History Arthroplasty of knee (2023), Colonoscopy [...] dutasteride 0.5 mg Cap, 0.5 mg= 1 cap(s), Oral, Daily, 3 refills lisinopril 5 mg Tab, 5 mg= 1 tab(s), Oral, Daily Protonix 40 mg Tab-DR, 40 mg= 1 tab(s), Oral, Daily Allergies No Known Medication Allergies Social History Alcohol - Denies Alcohol Use, 04/16/2019 Substance Abuse - Denies Substance Abuse, 04/16/2019 Tobacco Former smoker, quit more than 30 days ago Tobacco Use:. Cigarettes, Household tobacco concerns: No. Yes, 07/20/2024 Family Histo (more content not included)... Normal [facility] Comment on above: Result Comment: Elec tronically Signed By: Tete MARCUM MD\.br\Date and Time Signed: 07/20/24 10:24 EDT\.br\Electronically Co-Signed By: Venus Salazar\.br\Date and Time Co-Signed: 07/20/24 10:23 EDT Hemoglobin and hematocrit, b loodon 01-28-2024 Hematocrit (Bld) [Volume fraction] 26.3 % Low 40.7 - 50.3 % [facility] Hemoglobin (Bld) [Mass/Vol] 9.4 g/dL Low 13.0 - 17.0 g/dL [facility] Interpretation and review of laboratory results Abnormal [facility] Hgb/Hcton 01-28-2024 Hematocrit (Bld) [Volume fraction] 26.3 % Low 40.7-50.3 [facility] Comment on above: Performed By: #### H H #### [facility] [address] [place] [address] [place] [id number] State Appellate Clerk: Eric Clancy MD Hemoglobin (Bld) [Mass/Vol] 9.4 g/dL Low 13.0-17.0 [facility] Comment on above: Performed By: #### H H #### [facility] [address] [place] [id number] State Appellate Clerk: Eric Clancy MD Comp Metabolic Profon 2023 Albumin [Mass/Vol] 4.2 g/dL Normal 3.5-5.2 [facility] Comment on above: Performed By: #### C P #### [facility] [address] [place] [id number] State Appellate Clerk: Eric Clancy MD Albumin/Glob Ratio 1.6 Normal 1.0-2.5 [facility] Comment on above: Performed By: #### C P #### [facility] [address] [place], [place] [phone] State Appellate Clerk: Eric Clancy MD Alkaline Phos 77 U/L Normal 40-129 [facility] Comment on above: Performed By: #### C P #### [facility] [address] [place], [place] [id number] State Appellate Clerk: Eric Clancy MD ALT [Catalytic activity/Vol] 17 U/L Normal 5-41 [facility] Comment on above: Performed By: #### C P #### [facility] [address] [place], [place] [id number] State Appellate Clerk: Eric Clancy MD Anion gap [Moles/Vol] 12 mmol/L Normal 9-17 [facility] Comment on above: Performed By: #### C P #### [facility] [address] [place], [place] [id number] State Appellate Clerk: Eric Clancy MD AST [Catalytic activity/Vol] 17 U/L Normal <40 [facility] Comment on above: Performed By: #### C P #### [facility] [address] [place], [place] [id number] State Appellate Clerk: Eric Clancy MD Bilirubin [Mass/Vol] 0.4 mg/dL Normal 0.3-1.2 [facility] Comment on above: Performed By: #### C P #### [facility] [address] [place], [place] [id number] State Appellate Clerk: Eric Clancy MD BUN/CRE Ratio 21 High 9-20 [facility] Comment on above: Performed By: #### C P #### [facility] [address] [place], [place] [id number] State Appellate Clerk: Eric Clancy MD Calcium [Mass/Vol] 9.0 mg/dL Normal 8.6-10.4 [facility] Comment on above: Performed By: #### C P #### [facility] [address] [place] [id number] State Appellate Clerk: Eric Clancy MD Chloride [Moles/Vol] 101 mmol/L Normal 98-107 [facility] Comment on above: Performed By: #### C P #### [facility] [address] [place] [address] State Appellate Clerk: Eric Clancy MD CO2 [Moles/Vol] 22 mmol/L Normal 20-31 [facility] Comment on above: Performed By: #### C P #### [facility] [address] [place] [address] State Appellate Clerk: Eric Clancy MD Creatinine [Mass/Vol] 0.7 mg/dL Normal 0.7-1.2 [facility] Comment on above: Performed By: #### C P #### [facility] [address] [place] [address] State Appellate Clerk: Eric Clancy MD GFR/1.73 sq M.predicted among non-blacks MDRD (S/P/Bld) [Vol rate/Area] mL/min/{1.73_m2} Normal >60 [facility] Comment on above: Result Comment: These results [...] secretion. Performed By: #### C P #### [facility] [address] [place] [address] State Appellate Clerk: Eric Clancy MD Glucose [Mass/Vol] 119 mg/dL High 70-99 [facility] Comment on above: Performed By: #### C P #### [facility] [address] [place] [address] State Appellate Clerk: Eric Clancy MD Potassium [Moles/Vol] 4.2 mmol/L Normal 3.7-5.3 [facility] Comment on above: Performed By: #### C P #### [facility] [address] [place], [place] [phone] State Appellate Clerk: Eric Clancy MD Protein [Mass/Vol] 6.9 g/dL Normal 6.4-8.3 [facility] Comment on above: Performed By: #### C P #### [facility] [address] [place], [place] [phone] State Appellate Clerk: Eric Clancy MD Sodium [Moles/Vol] 135 mmol/L Normal 135-144 [facility] Comment on above: Performed By: #### C P #### [facility] [address] [place], [place] [phone] State Appellate Clerk: Eric Clancy MD Urea nitrogen [Mass/Vol] 15 mg/dL Normal 8-23 [facility] Comment on above: Performed By: #### C P #### [facility] [address] [place], [place] [phone] State Appellate Clerk: Eric Clancy MD Comprehensive Metabolic Pane [facility] 01-27-2024 Albumin [Mass/Vol] 4.2 g/dL 3.5 - 5.2 g/dL [facility] Albumin/Globulin [Mass ratio] 1.6 {ratio} 1.0 - 2.5 [facility] ALP [Catalytic activity/Vol] 77 U/L 40 - 129 U/L [facility] ALT [Catalytic activity/Vol] 17 U/L 5 - 41 U/L [facility] Anion gap [Moles/Vol] 12 mmol/L 9 - 17 mmol/L [facility] AST [Catalytic activity/Vol] 17 U/L NINF - 40 U/L [facility] Bilirubin [Mass/Vol] 0.4 mg/dL 0.3 - 1 .2 mg/dL [facility] Calcium [Mass/Vol] 9.0 mg/dL 8.6 - 10. 4 mg/dL [facility] Chloride [Moles/Vol] 101 mmol/L 98 - 10 7 mmol/L [facility] CO2 [Moles/Vol] 22 mmol/L 20 - 31 mmol/L [facility] Creatinine [Mass/Vol] 0.7 mg/dL 0.7 - 1.2 mg/dL [facility] GFR/1.73 sq M.predicted MDRD (S/P/Bld) [Vol rate/Area] - PINF [facility] Comment on above: These results are not [...] 119 mg/dL High 70 - 99 mg/dL [facility] Interpretation and review of laboratory results Abnormal [facility] Potassium [Moles/Vol] 4.2 mmol/L 3.7 - 5.3 mmol/L [facility] Protein [Mass/Vol] 6.9 g/dL 6.4 - 8.3 g/dL [facility] Sodium [Moles/Vol] 135 mmol/L 135 - 144 mmol/L [facility] Urea nitrogen [Mass/Vol] 15 mg/dL 8 - 23 mg/d L [facility] Urea nitrogen/Creatinine [Mass ratio] 21 mg/mg High 9 - 20 [facility] EKG 12 LeadOrdered By: Inocente Freed on 01-07-2024 Atrial Rate 86 BPM [facility] Work Phone: P [place] 35 degrees [facility] [employer] Work Phone: P-R Interval 158 ms [employer] Work Phone: Q-T Interval 330 ms [employer] Work Phone: QRS Duration 88 ms [employer] Work Phone: QTc Calculation (Bazett) 394 ms [employer] Work Phone: R [place] 14 degrees [employer] Work Phone: T [place] 13 degrees [employer] Work Phone: Ventricular Rate 86 BPM [employer] Work Phone: [employer] Work Phone: EKG 12 Leadon 01-07-2024 Normal sinus rhythm Normal ECG No previous ECGs available Confirmed by ANYA FREED ([id number]) on 01/07/2024 5:29:49 PM [facility] RADIOLOGY Anya Freed MD - 01/07/2024 Normal sinus rhythm Normal ECG No previous ECGs available Confirmed by ANYA FREED ([id number]) on 01/07/2024 5:29:49 PM [employer] MRSA DNA Probe, Nasalon 12-13 MRSA, DNA, Nasal Negative NEGATIVE [employer] Comment on above: NEGATIVE: MRSA DNA n ot detected by nucleic acid amplification. Results should be used as an adjunct to nosocomial control efforts to identify patients needing enhanced precautions. The test is not intended to identify patients with staphylococcal infections. Results should not be used to guide or monitor treatment for MRSA infections. Specimen Description .NASAL SWAB [employer] [facility] Bench MRSA, DNA, Nasalon MRSA, DNA, Nasal Negative Normal [facility] Comment on above: Result Comment: [facility]: MRSA DNA not detected by nucleic acid amplification. Results should be used as an adjunct to nosocomial control efforts to identify patients needing enhanced precautions. The test is not intended to identify patients with staphylococcal infections. Results should not be used to guide or monitor treatment for MRSA infections. Performed By: #### M RSANO #### [facility] [address] [place] [address] State Appellate Clerk: Jose Willett MD [facility] [address] [place] [address] State Appellate Clerk: Eric Clancy MD Basic Metabolic Panelon 12-13 Anion gap [Moles/Vol] 11 mmol/L 9 - 17 mmol/L [facility] Calcium [Mass/Vol] 8.7 mg/dL 8.6 - 10. 4 mg/dL [facility] Chloride [Moles/Vol] 89 mmol/L Low 98 - 10 7 mmol/L [facility] CO2 [Moles/Vol] 20 mmol/L 20 - 31 mmol/L [facility] Creatinine [Mass/Vol] 0.7 mg/dL 0.7 - 1.2 mg/dL [facility] GFR/1.73 sq M.predicted MDRD (S/P/Bld) [Vol rate/Area] - PINF [facility] Comment on above: These results are not [...] [Mass/Vol] 89 mg/dL 70 - 99 mg/dL [facility] Interpretation and review of laboratory results Abnormal [facility] Potassium [Moles/Vol] 4.8 mmol/L 3.7 - 5.3 mmol/L [facility] Sodium [Moles/Vol] 120 mmol/L Low 135 - 144 mmol/L [facility] Urea nitrogen [Mass/Vol] 14 mg/dL 8 - 23 mg/d L [facility] Urea nitrogen/Creatinine [Mass ratio] 20 mg/mg 9 - 20 [facility] Basic Metabolic Profon 01-06 Anion gap [Moles/Vol] 11 mmol/L Normal 9-17 [facility] Comment on above: Performed By: #### C DP, BMP #### [facility] [address] [place] [address] State Appellate Clerk: Eric Clancy MD BUN/CRE Ratio 20 Normal 9-20 [facility] Comment on above: Performed By: #### C DP, BMP #### [facility] [address] [place], [place] [phone] State Appellate Clerk: Eric Clancy MD Calcium [Mass/Vol] 8.7 mg/dL Normal 8.6-10.4 [facility] Comment on above: Performed By: #### C DP, BMP #### [facility] [address] [place], [place] [phone] State Appellate Clerk: Eric Clancy MD Chloride [Moles/Vol] 89 mmol/L Low 98-107 [facility] Comment on above: Performed By: #### C DP, BMP #### [facility] [address] [place], [place] [phone] State Appellate Clerk: Eric Clancy MD CO2 [Moles/Vol] 20 mmol/L Normal 20-31 [facility] Comment on above: Performed By: #### C DP, BMP #### [facility] [address] [place], [place] [phone] State Appellate Clerk: Eric Clancy MD Creatinine [Mass/Vol] 0.7 mg/dL Normal 0.7-1.2 [facility] Comment on above: Performed By: #### C DP, BMP #### [facility] [address] [place] [address] State Appellate Clerk: Eric Clancy MD GFR/1.73 sq M.predicted among non-blacks MDRD (S/P/Bld) [Vol rate/Area] mL/min/{1.73_m2} Normal >60 [facility] Comment on above: Result Comment: These results [...] Performed By: #### C DP, BMP #### [facility] [address] [place] [address] [place] [place], [place] [phone] State Appellate Clerk: Eric Clancy MD Glucose [Mass/Vol] 89 mg/dL Normal 70-99 [facility] Comment on above: Performed By: #### C DP, BMP #### [address] [place], [place] [phone] State Appellate Clerk: Eric Clancy MD Potassium [Moles/Vol] 4.8 mmol/L Normal 3.7-5.3 [facility] Comment on above: Performed By: #### C DP, BMP #### [address] [place], [place] [phone] State Appellate Clerk: Eric Clancy MD Sodium [Moles/Vol] 120 mmol/L Low 135-144 [facility] Comment on above: Performed By: #### C DP, BMP #### [address] [place], [place] [phone] State Appellate Clerk: Eric Clancy MD Urea nitrogen [Mass/Vol] 14 mg/dL Normal 8-23 [facility] Comment on above: Performed By: #### C DP, BMP #### [facility] [address] [place] [address] Dr. [place], [place] [phone] State Appellate Clerk: Eric Clancy MD CBC with Auto Differentialon 01-06-2024 Basophils (Bld) [#/Vol] 0.03 10*3/uL [facility] Basophils/100 WBC (Bld) 1 % 0 - 2 % [facility] Eosinophils (Bld) [#/Vol] [facility] Eosinophils/100 WBC (Bld) 0 % Low 1 - 4 % [facility] Erythrocyte distribution width (RBC) [Ratio] 11.4 % Low 11.8 - 14.4 % [facility] Hematocrit (Bld) [Volume fraction] 32.1 % Low 40.7 - 50.3 % [facility] Hemoglobin (Bld) [Mass/Vol] 12.0 g/dL Low 13.0 - 17.0 g/dL [facility] Immature granulocytes (Bld) [#/Vol] 0.03 10*3/uL [facility] Immature granulocytes/100 WBC (Bld) 1 % High 0 [facility] Interpretation and review of laboratory results Abnormal [facility] Lymphocytes/100 WBC (Bld) 23 % Low 24 - 43 % [facility] Lymphocytes/100 WBC (Bld) 1.29 % [facility] MCH (RBC) [Entitic mass] 35.9 pg High 25. 2 - 33.5 pg [facility] MCHC (RBC) [Mass/Vol] 37.4 g/dL High 28.4 - 34.8 g/dL [facility] MCV (RBC) [Entitic vol] 96.1 fL 82.6 - 102.9 fL [facility] Monocytes/100 WBC (Bld) 11 % 3 - 12 % [facility] Monocytes/100 WBC (Bld) 0.60 % [facility] Neutrophils/100 WBC (Bld) 64 % 36 - 65 % [facility] Nucleated RBC/100 WBC (Bld) [Ratio] 0.0 % 0.0 per 100 WBC [facility] Platelet mean volume (Bld) [Entitic vol] 8.6 fL 8.1 - 13.5 fL [facility] Platelets (Bld) [#/Vol] 222 10*3/uL [facility] RBC (Bld) [#/Vol] 3.34 10*6/uL Low 4.21 - 5.7 7 m/uL [facility] Segmented neutrophils/100 WBC (Bld) 3.65 % [facility] WBC other (Bld) [#/Vol] 5.6 [facility] CBC with Diffon 01-06-2024 Abs. Basophil 0.03 k/uL Normal 0.00-0.20 [facility] Comment on above: Performed By: #### C DP, BMP #### [facility] [address] [place], [place] [phone] State Appellate Clerk: Eric Clancy MD Abs. Eosinophil <0.03 Normal 0.00-0.44 [facility] Comment on above: Performed By: #### C DP, BMP #### [facility] [address] [place], [place] [phone] State Appellate Clerk: Eric Clancy MD Abs.Imm.Granulocyte 0.03 k/uL Normal 0.00-0.30 [facility] Comment on above: Performed By: #### C DP, BMP #### [facility] [address] [place], [place] [phone] State Appellate Clerk: Eric Clancy MD Abs.Neutrophil (Seg) 3.65 k/uL Normal 1.50-8.10 [facility] Comment on above: Performed By: #### C DP, BMP #### [facility] [address] [place] [address] Dr. [place], [place] [phone] State Appellate Clerk: Eric Clancy MD Basophils/100 WBC (Bld) 1 % Normal 0-2 [facility] Comment on above: Performed By: #### C DP, BMP #### [facility] [address] [place] [address] Dr. [place], [place] [phone] State Appellate Clerk: Eric Clancy MD Eosinophils/100 WBC (Bld) 0 % Low 1-4 [facility] Comment on above: Performed By: #### C DP, BMP #### [facility] [address] [place], [place] [phone] State Appellate Clerk: Eric Clancy MD Erythrocyte distribution width (RBC) [Ratio] 11.4 % Low 11.8-14.4 [facility] Comment on above: Performed By: #### C DP, BMP #### [facility] [address] [place], [place] [phone] State Appellate Clerk: Eric Clancy MD Hematocrit (Bld) [Volume fraction] 32.1 % Low 40.7-50.3 [facility] Comment on above: Performed By: #### C DP, BMP #### [address] [place], [facility]83 State Appellate Clerk: rEic Clancy MD Hemoglobin (Bld) [Mass/Vol] 12.0 g/dL Low 13.0-17.0 [facility] Comment on above: Performed By: #### C DP, BMP #### [address] [place], [facility]83 State Appellate Clerk: Eric Clancy MD Immature granulocytes/100 WBC (Bld) 1 % High 0 [facility] Comment on above: Performed By: #### C DP, BMP #### [address] [place], [facility]83 State Appellate Clerk: Eric Clancy MD Lymphocytes (Bld) [#/Vol] 1.29 10*3/uL Normal 1.10-3.7 0 [facility] Comment on above: Performed By: #### C DP, BMP #### [address] [place], [place] [address] State Appellate Clerk: Eric Clancy MD Lymphocytes/100 WBC (Bld) 23 % Low 24-43 [facility] Comment on above: Performed By: #### C DP, BMP #### [address] [place], [place] [phone] State Appellate Clerk: Eric Clancy MD MCH (RBC) [Entitic mass] 35.9 pg High 25.2-33.5 [facility] Comment on above: Performed By: #### C DP, BMP #### [facility] [address] [place] [phone] State Appellate Clerk: Eric Clancy MD MCHC (RBC) [Mass/Vol] 37.4 g/dL High 28.4-34.8 [facility] Comment on above: Performed By: #### C DP, BMP #### [address] [place], [place] [phone] State Appellate Clerk: Eric Clancy MD MCV (RBC) [Entitic vol] 96.1 fL Normal 82.6-102.9 [facility] Comment on above: Performed By: #### C DP, BMP #### [address] [place] [address] State Appellate Clerk: Eric Clancy MD Monocytes (Bld) [#/Vol] 0.60 10*3/uL Normal 0.10-1.20 [facility] Comment on above: Performed By: #### C DP, BMP #### [address] [place], [place] [phone] State Appellate Clerk: Eric Clancy MD Monocytes/100 WBC (Bld) 11 % Normal 3-12 [facility] Comment on above: Performed By: #### C DP, BMP #### [address] [place], [place] [phone] State Appellate Clerk: Eric Clancy MD Neutrophil (Seg) 64 % Normal 36-65 [facility] Comment on above: Performed By: #### C DP, BMP #### [address] [place], [place] [phone] State Appellate Clerk: Eric Clancy MD NRBC Automated 0.0 per 100 WBC Normal 0.0 [facility] Comment on above: Performed By: #### C DP, BMP #### [address] [place] [address] State Appellate Clerk: Eric Clancy MD Platelet mean volume (Bld) [Entitic vol] 8.6 fL Normal 8.1-13.5 [facility] Comment on above: Performed By: #### C DP, BMP #### [facility] [address] [place], [place] [phone] State Appellate Clerk: Eric Clancy MD Platelets (Bld) [#/Vol] 222 10*3/uL Normal 138-453 [facility] Comment on above: Performed By: #### C DP, BMP #### [facility] [address] [place], [place] [phone] State Appellate Clerk: Eric Clancy MD RBC (Bld) [#/Vol] 3.34 10*6/uL Low 4.21-5.77 [facility] Comment on above: Performed By: #### C KEVIN, BMP #### [facility] [address] [place], [place] [phone] State Appellate Clerk: Eric Clancy MD WBC (Bld) [#/Vol] 5.6 10*3/uL Normal 3.5-11.3 [facility] Comment on above: Performed By: #### C DP, BMP #### [address] [place], [place] [phone] State Appellate Clerk: Eric Clancy MD MRSA, DNA, Nasalon Specimen Description .NASAL SWAB Normal [facility] Comment on above: Performed By: #### M RSANO #### [facility] [address] [place] [address] State Appellate Clerk: Jose Willett MD [facility] [address] [place] [address] State Appellate Clerk: Eric Clancy MD TYPE AND SCREENon 01-06-2024 ABO and Rh group Nom (Bld) Blood group O Rh(D) positive [facility] Arm Band Number [id number] [facility] Blood Bank Sample Expiration 01/30/2024,2359 [facility] Blood group antibodies identified Nom Negative [facility] Type + Screenon 01-06-2024 Type + Screen Sample Expiration 01/30/2024,2359 Arm Band Number [id number] ABO/Rh(D) O POSITIVE Antibody Screen NEGATIVE Normal [facility] Comment on above: Performed By: #### T YS #### [facility] [address] [place] [address] [place] [address] State Appellate Clerk: Eric Clancy MD KEV Antinuclear Antibodieson 10-24-2023 Antinuclear Abs, IFA Negative Normal . [facility] Comment on above: Result Comment: Nega tive <1:80 Borderline 1:80 Positive >1:80 ICAP nomenclature: AC-0 For more information about Hep-2 cell patterns use ANApatterns.org, the official website for the International Consensus on Antinuclear Antibody (KEV) Patterns (ICAP). Performed at: - [facility] [place] [id number] State Appellate Clerk: Arcenio Ballard PhD, Phone: [phone] PERFORMED BY: [place] [address] PATHOLOGIST [employer] DANYELLE HERNANDEZ M.D. Performed By: #### U AARON, CBC, ESR, CMP, CRP #### [address] #### KEV #### [facility] , Alanine aminotransferase [En zymatic activity/volume] in Serum or PlasmaOrdered By: Eliezer Venegas on 10-24-2023 ALT [Catalytic activity/Vol] 19 U/L 7-52 [facility] Albumin [Mass/volume] in Ser um or Plasma by Bromocresol green (BCG) dye binding methoOrdered By: Eliezer Venegas on 10-24-2023 Albumin BCG dye [Mass/Vol] 4.5 g/dL 3.5-5.7 [facility] Alkaline phosphatase [Enzyma tic activity/volume] in Serum or PlasmaOrdered By: Eliezer Venegas on 10-24-2023 ALP [Catalytic activity/Vol] 69 U/L 34-104 [facility] Aspartate aminotransferase [ Enzymatic activity/volume] in Serum or PlasmaOrdered By: Eliezre Venegas on 10-24-2023 AST [Catalytic activity/Vol] 18 U/L 13-39 [facility] Basophils Auto (Bld) [#/Vol] Ordered By: Eliezer Venegas on 10-24-2023 Basophils (Bld) [#/Vol] 0.0 10*3/uL 0.0-0.2 [facility] Basophils/100 WBC Auto (Bld) Ordered By: Eliezer Venegas on 10-24-2023 Basophils/100 WBC (Bld) 0.6 % . [facility] Bilirubin.total [Mass/volume ] in Serum or PlasmaOrdered By: Eliezer Venegas on 10-24-2023 Bilirubin [Mass/Vol] 0.6 mg/dL 0.3-1.0 [facility] C reactive protein [Mass/vol ume] in Serum or PlasmaOrdered By: Eliezer Venegas on 10-24-2023 CRP [Mass/Vol] < 0.5 mg/dL 0.0-0.5 [facility] C-Reactive Proteinon 023 CRP [Mass/Vol] mg/L Normal 0.0-0.5 [facility] Comment on above: Result Comment: PERF ORMED BY: [place] [address] PATHOLOGIST [employer] DANYELLE HERNANDEZ M.D. Performed By: #### U AARON, CBC, ESR, CMP, CRP #### [facility] [address] [place] [address] #### KEV #### [facility] , Calcium [Mass/volume] in Ser um or PlasmaOrdered By: Eliezer Venegas on 10-24-2023 Calcium [Mass/Vol] 9.4 mg/dL 8.6-10.3 [facility] Carbon dioxide, total [Moles /volume] in Serum or PlasmaOrdered By: Eliezer Venegas on 10-24-2023 CO2 [Moles/Vol] 27.8 mmol/L 21.0-31.0 [facility] Chloride [Moles/volume] in S precious or PlasmaOrdered By: Eliezer Venegas on 10-24-2023 Chloride [Moles/Vol] 101 mmol/L 98-107 [facility] Complete Blood Count Auto Di ffon 10-24-2023 Basophils (Bld) [#/Vol] 0.0 10*3/uL Normal 0.0-0.2 [facility] Comment on above: Performed By: #### U AARON, CBC, ESR, CMP, CRP #### [facility] [address] [place] [address] [place] #### KEV #### [facility] , Basophils/100 WBC (Bld) 0.6 % Normal . [facility] Comment on above: Performed By: #### U AARON, CBC, ESR, CMP, CRP #### [facility] [address] [place] [address] #### KEV #### [facility] , Eosinophils (Bld) [#/Vol] 0.0 10*3/uL Normal 0.0-0.45 [facility] Comment on above: Performed By: #### U AARON, CBC, ESR, CMP, CRP #### [facility] [address] [place] [address] [place] #### KEV #### [facility] , Eosinophils/100 WBC (Bld) 0.7 % Normal . [facility] Comment on above: Performed By: #### U AARON, CBC, ESR, CMP, CRP #### [facility] [address] [place] [address] [place] #### KEV #### [facility] , Erythrocyte distribution width (RBC) [Ratio] 12.4 % Normal 12.0-14.8 [facility] Comment on above: Performed By: #### U AARON, CBC, ESR, CMP, CRP #### [facility] [address] [place] [address] [place] #### KEV #### [facility] , Hematocrit (Bld) [Volume fraction] 38.4 % Low 38.8-50.0 [facility] Comment on above: Performed By: #### U AARON, CBC, ESR, CMP, CRP #### [address] #### KEV #### [facility] , Hemoglobin (Bld) [Mass/Vol] 13.9 g/dL Normal 13.0-17.0 [facility] Comment on above: Performed By: #### U AARON, CBC, ESR, CMP, CRP #### [address] #### KEV #### [facility] , Lymphocytes (Bld) [#/Vol] 1.5 10*3/uL Normal 1.00-4.8 [facility] Comment on above: Performed By: #### U AARON, CBC, ESR, CMP, CRP #### [address] #### KEV #### [facility] , Lymphocytes/100 WBC (Bld) 34.3 % Normal . [facility] Comment on above: Performed By: #### U AARON, CBC, ESR, CMP, CRP #### [address] #### KEV #### [facility] , MCH (RBC) [Entitic mass] 36.0 pg High 27.5-35.2 [facility] Comment on above: Performed By: #### U AARON, CBC, ESR, CMP, CRP #### [place] [address] [place] #### KEV #### [facility] , MCV (RBC) [Entitic vol] 99.7 fL Normal 83.5-101 [facility] Comment on above: Performed By: #### U AARON, CBC, ESR, CMP, CRP #### [place] [address] [place] #### KEV #### [facility] , Mean Corpuscular HGB Conc 36.1 g/dL High 32.5-35.6 [facility] Comment on above: Performed By: #### U AARON, CBC, ESR, CMP, CRP #### [facility] [address] [place] [address] #### KEV #### [facility] , Monocytes (Bld) [#/Vol] 0.4 10*3/uL Normal 0.0-0.8 [facility] Comment on above: Performed By: #### U AARON, CBC, ESR, CMP, CRP #### [facility] [address] [place] [address] #### KEV #### [facility] , Monocytes/100 WBC (Bld) 10.0 % Normal . [facility] Comment on above: Performed By: #### U AARON, CBC, ESR, CMP, CRP #### [address] #### KEV #### [facility] , Neutrophils (Bld) [#/Vol] 2.4 10*3/uL Normal 1.8-7.7 [facility] Comment on above: Performed By: #### U AARON, CBC, ESR, CMP, CRP #### [place] [address] [place] #### KEV #### [facility] , Neutrophils/100 WBC (Bld) 54.4 % Normal . [facility] [place] Comment on above: Performed By: #### U AARON, CBC, ESR, CMP, CRP #### [facility] [address] [place] [address] [place] #### KEV #### [facility] , NRBC% 0.1 /100{WBC} Normal 0-0.5 [facility] Comment on above: Performed By: #### U AARON, CBC, ESR, CMP, CRP #### [facility] [address] [place] [address] #### KEV #### [facility] , Platelet mean volume (Bld) [Entitic vol] 8.0 fL Normal 6.6-10.1 [facility] Comment on above: Performed By: #### U AARON, CBC, ESR, CMP, CRP #### [facility] [address] [place] [address] [place] #### KEV #### [facility] , Platelets (Bld) [#/Vol] 206 10*3/uL Normal 150-450 [facility] Comment on above: Performed By: #### U AARON, CBC, ESR, CMP, CRP #### [address] #### KEV #### [facility] , RBC (Bld) [#/Vol] 3.85 10*6/uL Low 3.90-5.60 [facility] Comment on above: Performed By: #### U AARON, CBC, ESR, CMP, CRP #### [address] #### KEV #### [facility] , WBC (Bld) [#/Vol] 4.4 10*3/uL Normal 4.1-10.5 [facility] Comment on above: Performed By: #### U AARON, CBC, ESR, CMP, CRP #### [facility] [address] [place] [address] [place] #### KEV #### [facility] , Comprehensive Metabolic Pane bebo 10-24-2023 Albumin [Mass/Vol] 4.5 g/dL Normal 3.5-5.7 [facility] Comment on above: Performed By: #### U AARON, CBC, ESR, CMP, CRP #### [place] [address] [place] #### KEV #### [facility] , Albumin/Globulin [Mass ratio] 1.9 {ratio} Normal [facility] Comment on above: Performed By: #### U AARON, CBC, ESR, CMP, CRP #### [facility] [address] [place] [address] [place] #### KEV #### [facility] , ALP [Catalytic activity/Vol] 69 U/L Normal 34-104 [facility] Comment on above: Performed By: #### U AARON, CBC, ESR, CMP, CRP #### [facility] [address] [place] [address] #### KEV #### [facility] , ALT [Catalytic activity/Vol] 19 U/L Normal 7-52 [facility] Comment on above: Performed By: #### U AARON, CBC, ESR, CMP, CRP #### [address] #### KEV #### [facility] , Anion gap [Moles/Vol] 11.8 mmol/L Normal 6.0-15.0 [facility] Comment on above: Performed By: #### U AARON, CBC, ESR, CMP, CRP #### [facility] [address] [place] [address] [place] #### KEV #### [facility] , AST [Catalytic activity/Vol] 18 U/L Normal 13-39 [facility] Comment on above: Performed By: #### U AARON, CBC, ESR, CMP, CRP #### [facility] [address] [place] [address] [place] #### KEV #### [facility] , Bilirubin [Mass/Vol] 0.6 mg/dL Normal 0.3-1.0 [facility] Comment on above: Performed By: #### U AARON, CBC, ESR, CMP, CRP #### [facility] [address] [place] [address] [place] #### KEV #### [facility] , Calcium [Mass/Vol] 9.4 mg/dL Normal 8.6-10.3 [facility] Comment on above: Performed By: #### U AARON, CBC, ESR, CMP, CRP #### [facility] [address] [place] [address] [place] #### KEV #### [facility] , Chloride [Moles/Vol] 101 mmol/L Normal 98-107 [facility] Comment on above: Performed By: #### U AARON, CBC, ESR, CMP, CRP #### [address] #### KEV #### [facility] , CO2 [Moles/Vol] 27.8 mmol/L Normal 21.0-31.0 [facility] Comment on above: Performed By: #### U AARON, CBC, ESR, CMP, CRP #### [facility] [address] [place] [address] [place] #### KEV #### [facility] , Creatinine [Mass/Vol] 0.74 mg/dL Normal 0.70-1.30 [facility] Comment on above: Performed By: #### U AARON, CBC, ESR, CMP, CRP #### [address] #### KEV #### [facility] , GFR/1.73 sq M.predicted MDRD (S/P/Bld) [Vol rate/Area] mL/min/{1.73_m2} [facility] Comment on above: Performed By: #### U AARON, CBC, ESR, CMP, CRP #### [facility] [address] [place] [address] [place] #### KEV #### [facility] , Globulin (S) [Mass/Vol] 2.4 g/dL Normal [facility] Comment on above: Performed By: #### U AARON, CBC, ESR, CMP, CRP #### [place] [id number] [place] #### KEV #### [facility] , Glucose [Mass/Vol] 95 mg/dL Normal 70-100 [facility] Comment on above: Result Comment: [facility] Glucose Reference Range is dependent on time and content of last meal. Glucose of more than 200 mg/dL in a nonstressed, ambulatory subject supports the diagnosis of Diabetes Mellitus. ADA recommended reference range Performed By: #### U AARON, CBC, ESR, CMP, CRP #### [facility] [address] [place] [address] #### KEV #### [facility] , Potassium [Moles/Vol] 4.6 mmol/L Normal 3.5-5.1 [facility] Comment on above: Performed By: #### U AARON, CBC, ESR, CMP, CRP #### [address] #### KEV #### [facility] , Protein [Mass/Vol] 6.9 g/dL Normal 6.4-8.9 [facility] Comment on above: Performed By: #### U AARON, CBC, ESR, CMP, CRP #### [place] [address] [place] #### KEV #### [facility] , Sodium [Moles/Vol] 136 mmol/L Normal 136-145 [facility] Comment on above: Performed By: #### U AARON, CBC, ESR, CMP, CRP #### [place] [address] [place] #### KEV #### [facility] , Urea nitrogen [Mass/Vol] 21 mg/dL Normal 7-25 [facility] Comment on above: Performed By: #### U AARON, CBC, ESR, CMP, CRP #### [address] #### KEV #### [facility] , Creatinine [Mass/volume] in Serum or PlasmaOrdered By: Eliezer Venegas on 10-24-2023 Creatinine [Mass/Vol] 0.74 mg/dL 0.70-1.30 [facility] Eosinophils Auto (Bld) [#/Vo l]Ordered By: Eliezer Venegas on 10-24-2023 Eosinophils (Bld) [#/Vol] 0.0 10*3/uL 0.0-0.45 [facility] Eosinophils/100 WBC Auto (Bl d)Ordered By: Eliezer Venegas on 10-24-2023 Eosinophils/100 WBC (Bld) 0.7 % . [facility] Erythrocyte Sedimentation Ra marie 10-24-2023 ESR (Bld) [Velocity] 11 mm/h Normal 0-19 [facility] Comment on above: Result Comment: PERF ORMED BY: [place] [address] PATHOLOGIST [employer] DANYELLE HERNANDEZ M.D. Performed By: #### U AARON, CBC, ESR, CMP, CRP #### [facility] [address] [place] [address] [place] #### KEV #### [facility] , Erythrocyte distribution wid th Auto (RBC) [Ratio]Ordered By: Eliezer Venegas on 10-24-2023 Erythrocyte distribution width (RBC) [Ratio] 12.4 % 12.0-14.8 [facility] Erythrocyte sedimentation ra te by Photometric methodOrdered By: Eliezer Venegas on 10-24-2023 ESR Photometric method (Bld) [Velocity] 11 mm/hr 0-19 [facility] Globulin Calc (S) [Mass/Vol] Ordered By: Eliezer Venegas on 10-24-2023 Globulin (S) [Mass/Vol] 2.4 g/dL [facility] Glucose [Mass/volume] in Ser um or PlasmaOrdered By: Eliezer Venegas on 10-24-2023 Glucose [Mass/Vol] 95 mg/dL 70-100 [facility] Comment on above: ADA recommended refe rence rangeRandom Glucose Reference Range is dependent on time and content of last meal. Glucose of more than 200 mg/dL in a nonstressed, ambulatory subject supports the diagnosis of Diabetes Mellitus. Hematocrit Auto (Bld) [Volum e fraction]Ordered By: Eliezer Venegas on 10-24-2023 Hematocrit (Bld) [Volume fraction] 38.4 % 38.8-50.0 [facility] Hemoglobin [Mass/volume] in BloodOrdered By: Eliezer Venegas on 10-24-2023 Hemoglobin (Bld) [Mass/Vol] 13.9 g/dL 13.0-17.0 [facility] Leukocytes [#/volume] correc víctor for nucleated erythrocytes in Blood by Automated counOrdered By: Eliezer Venegas on 10-24-2023 WBC corrected for nucl RBC Auto (Bld) [#/Vol] 4.4 10*3/uL 4.1-10.5 [facility] Lymphocytes Auto (Bld) [#/Vo l]Ordered By: Eliezer Venegas on 10-24-2023 Lymphocytes (Bld) [#/Vol] 1.5 10*3/uL 1.00-4.8 [facility] Lymphocytes/100 WBC Auto (Bl d)Ordered By: Eliezer Venegas on 10-24-2023 Lymphocytes/100 WBC (Bld) 34.3 % . [facility] MCH Auto (RBC) [Entitic mass ]Ordered By: Eliezer Venegas on 10-24-2023 MCH (RBC) [Entitic mass] 36.0 pg 27.5-35.2 [facility] MCHC Auto (RBC) [Mass/Vol]Or dered By: Eliezer Venegas on 10-24-2023 MCHC (RBC) [Mass/Vol] 36.1 g/dL 32.5-35.6 [facility] MCV Auto (RBC) [Entitic vol] Ordered By: Eliezer Venegas on 10-24-2023 MCV (RBC) [Entitic vol] 99.7 fL 83.5-101 [facility] Monocytes Auto (Bld) [#/Vol] Ordered By: Eliezer Venegas on 10-24-2023 Monocytes (Bld) [#/Vol] 0.4 10*3/uL 0.0-0.8 [facility] Monocytes/100 WBC Auto (Bld) Ordered By: Eliezer Venegas on 10-24-2023 Monocytes/100 WBC (Bld) 10.0 % . [facility] Neutrophils Auto (Bld) [#/Vo l]Ordered By: Eliezer Venegas on 10-24-2023 Neutrophils (Bld) [#/Vol] 2.4 10*3/uL 1.8-7.7 [facility] Neutrophils/100 WBC Auto (Bl d)Ordered By: Eliezer Venegas on 10-24-2023 Neutrophils/100 WBC (Bld) 54.4 % . [facility] No Panel InformationOrdered By: Eliezer Venegas on 10-24-2023 Estimated GFR (CKD-EPI) > 60.0 mL/Min [facility] Creatinine Clearance (Chem N/A [facility] Nucleated erythrocytes [Pres ence] in Blood by Automated countOrdered By: Eliezer Venegas on 10-24-2023 Nucleated RBC Auto Ql (Bld) 0.1 /100{WBC} 0-0.5 [facility] Platelet mean volume Auto (B ld) [Entitic vol]Ordered By: Eliezer Venegas on 10-24-2023 Platelet mean volume (Bld) [Entitic vol] 8.0 fL 6.6-10.1 [facility] Platelets Auto (Bld) [#/Vol] Ordered By: Eliezer Venegas on 10-24-2023 Platelets (Bld) [#/Vol] 206 10*3/uL 150-450 [facility] Potassium [Moles/volume] in Serum or PlasmaOrdered By: Eliezer Venegas on 10-24-2023 Potassium [Moles/Vol] 4.6 mmol/L 3.5-5.1 [facility] Protein [Mass/volume] in Ser um or PlasmaOrdered By: Eliezer Venegas on 10-24-2023 Protein [Mass/Vol] 6.9 g/dL 6.4-8.9 [facility] RBC Auto (Bld) [#/Vol]Ordere d By: Eliezer Venegas on 10-24-2023 RBC (Bld) [#/Vol] 3.85 10*6/uL 3.90-5.60 [facility] Serum or plasma albumin/glob ulin mass ratioOrdered By: Eliezer Venegas on 10-24-2023 Albumin/Globulin [Mass ratio] 1.9 {ratio} [facility] Serum or plasma anion gap de terminationOrdered By: Eliezer Venegas on 10-24-2023 Anion gap [Moles/Vol] 11.8 mmol/L 6.0-15.0 [facility] Sodium [Moles/volume] in Ser um or PlasmaOrdered By: Eliezer Venegas on 10-24-2023 Sodium [Moles/Vol] 136 mmol/L 136-145 [facility] Urate [Mass/volume] in Serum or PlasmaOrdered By: Eliezer Venegas on 10-24-2023 Urate [Mass/Vol] 4.3 mg/dL 4.4-7.6 [facility] Urea nitrogen [Mass/volume] in Serum or PlasmaOrdered By: Eliezer Venegas on 10-24-2023 Urea nitrogen [Mass/Vol] 21 mg/dL 7-25 [facility] Uric Acidon 10-24-2023 Urate [Mass/Vol] 4.3 mg/dL Low 4.4-7.6 [facility] Comment on above: Performed By: #### U AARON, CBC, ESR, CMP, CRP #### [address] #### KEV #### [facility] , WBC Auto (Bld) [#/Vol]Ordere d By: Eliezer Venegas on 10-24-2023 WBC (Bld) [#/Vol] 4.4 10*3/uL 4.1-10.5 [facility] XR CSPINE MIN 4 VIEWSon 06-11 XR CSPINE MIN 4 VIEWS EXAMINATION: XR CSPINE MIN 4 VIEWS HISTORY: Degeneration of cervical intervertebral disc COMPARISON: No relevant comparison available. FINDINGS: BONES: Reversal of normal cervical lordosis. 1 mm anterolisthesis of C3 on C4. 2 mm retrolisthesis of C4 on C5 and C5 on C6. Mild to moderate degenerative spondylosis. [id number] facet osteoarthropathy. DISC SPACES: Mild to severe disc space narrowing most significant at C4-C7 PARASPINOUS: Negative. No paraspinous abnormality is seen. OTHER: Negative. IMPRESSION: Moderate degenerative changes with reversal cervical lordosis Electronically authenticated by: ERIC PEPPER Date: 2022-06-20 15:07 Normal [facility] CREATININEon 04-03-2022 Creatinine [Mass/Vol] 0.85 mg/dL Normal 0.70-1.30 [facility] Comment on above: Performed By: #### C IRENE #### [facility] [address] [place] [address] Dr. Charo Fuentes EGFR-AF MOSOTHO >60 Normal >=60 [facility] Comment on above: Performed By: #### C IRENE #### [facility] [address] [place] [address] Dr. Charo Fuentes EGFR-NON AF MOSOTHO >60 Normal >=60 [facility] Comment on above: Performed By: #### C IRENE #### [facility] [address] [place] [address] ABDOMEN WO/W CONon [...] by: ANYA NUÑEZ Date: 2022-04-03 11:[address] [facility] [address] ABD/PELVIS WO CONon 03-27 CT [...] by: ANYA NUÑEZ Date: 2022-03-27 10:06 Normal [facility] US SCROTUMon 03-07-2022 US SCROTUM EXAMINATION: [...] by: ERIC PEPPER Date: 2022-03-07 11:34 Normal [facility] Vital Signs Date Time Vital Sign Value Performing Clinician Facility 08-19-2024 14:08-0400 Body height 154.9 cm [facility] [employer] Work Phone: [facility] 08-19-2024 14:08-0400 Body mass index (BMI) [Ratio] 35.33 kg/m2 [facility] [employer] Work Phone: [facility] [employer] [facility] 08-19-2024 14:08-0400 Body weight 84.82 kg [facility] [employer] Work Phone: [facility] 07-20-2024 09:44-0400 Blood Pressure Location Tete MARCUM [facility] 07-20-2024 09:44-0400 Diastolic blood pressure 76 mm[Hg] Tete MARCUM [facility] 07-20-2024 09:44-0400 Heart rate 88 /min Tete MARCUM [facility] 07-20-2024 09:44-0400 Systolic blood pressure 132 mm[Hg] Tete MARCUM [facility] 03-30-2024 09:45-0400 Blood Pressure Location Teteshefali MARCUM [facility] 03-30-2024 09:45-0400 Body temperature 98.6 [degF] Teteshefali MARCUM [facility] 03-30-2024 09:45-0400 Diastolic blood pressure 74 mm[Hg] Tete MARCUM [facility] 03-30-2024 09:45-0400 Heart rate 96 /min Tete MARCUM [facility] 03-30-2024 09:45-0400 Respiratory rate 16 /min Teteshefali MARCUM [facility] 03-30-2024 09:45-0400 Systolic blood pressure 123 mm[Hg] Tete MARCUM [facility] 01-28-2024 07:30-0400 Body temperature 97.81 [degF] Kalin Dowd MD Work Phone: [facility] 01-28-2024 07:30-0400 Diastolic blood pressure 61 mm[Hg] Kalin Dowd MD Work Phone: [facility] 01-28-2024 07:30-0400 Heart rate 72 /min Kalin Dowd MD Work Phone: [facility] 01-28-2024 07:30-0400 Respiratory rate 18 /min Kalin Dowd MD Work Phone: [employer] 01-28-2024 07:30-0400 SaO2% (BldA) [Mass fraction] 97 % Kalin Dowd MD Work Phone: [employer] 01-28-2024 07:30-0400 Systolic blood pressure 123 mm[Hg] Kalin Dowd MD Work Phone: [employer] 01-28-2024 05:00-0400 Body mass index (BMI) [Ratio] 29.89 kg/m2 Kalin Dowd MD Work Phone: [employer] 01-28-2024 05:00-0400 Body weight 74.12 kg Kalin Dowd MD Work Phone: [employer] Comment on above: bed was re-zeroed 01-27-2024 06:38-0400 Body height 157.5 cm Kalin Dowd MD Work Phone: [employer] 01-06-2024 10:19-0500 Body height 157.5 cm Kalin Dowd MD Work Phone: [employer] 01-06-2024 10:19-0500 Body mass index (BMI) [Ratio] 30.18 kg/m2 Kalin Dowd MD Work Phone: [employer] 01-06-2024 10:19-0500 Body temperature 97.5 [degF] Kalin Dowd MD Work Phone: [employer] 01-06-2024 10:19-0500 Body weight 74.84 kg Kalin Dowd MD Work Phone: [employer] 01-06-2024 10:19-0500 Diastolic blood pressure 67 mm[Hg] Kalin Dowd MD Work Phone: [employer] 01-06-2024 10:19-0500 Heart rate 103 /min Kalin Dowd MD Work Phone: [employer] 01-06-2024 10:19-0500 Respiratory rate 20 /min Kalin Dowd MD Work Phone: [facility] 01-06-2024 10:19-0500 SaO2% (BldA) [Mass fraction] 96 % Kalin Dowd MD Work Phone: [facility] 01-06-2024 10:19-0500 Systolic blood pressure 113 mm[Hg] Kalin Dowd MD Work Phone: [facility] 11-25-2023 10:05-0500 Blood Pressure Location Tete MARCUM [facility] 11-25-2023 10:05-0500 Diastolic blood pressure 82 mm[Hg] Tete MRACUM [facility] 11-25-2023 10:05-0500 Systolic blood pressure 138 mm[Hg] Tete MARCUM [facility] 11-19-2022 10:58-0500 Blood Pressure Location Teteshefali MARCUM [facility] 11-19-2022 10:58-0500 Diastolic blood pressure 70 mm[Hg] Tete MARCUM [facility] 11-19-2022 10:58-0500 Heart rate 68 /min Tete MARCUM [facility] 11-19-2022 10:58-0500 Respiratory rate 16 /min Tete MARCUM [facility] 11-19-2022 10:58-0500 Systolic blood pressure 132 mm[Hg] Tete MARCUM [facility] Encounters Encounter Date Encounter Type Care Provider Facility Start: 07-28-2025 ambulatory William CAST Facility :[facility] Start: 07-23-2025 ambulatory Tete MARCUM Facili ty: [facility] Start: 06-28-2025 ambulatory Tete MARCUM Facility :[facility] Start: 08-19-2024 End: 08-19-2024 Postop follow up visit related to original px Basel Diane PA [facility]: [facility] Comment on above: 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) Start: 07-20-2024 End: 07-20-2024 ambulatory Tete MARCUM Facility:[facility] Start: 07-20-2024 End: 07-20-2024 Patient encounter procedure Tete MARCUM [facility] Start: 04-30-2024 End: 04-30-2024 ambulatory TOMÁS BOWDEN Not Available Start: 03-30-2024 End: 03-30-2024 Patient encounter procedure Tete Singleton MARCUM [facility] Start: 01-27-2024 End: 01-28-2024 ambulatory KALIN DOWD [facility] Start: 01-27-2024 End: 01-28-2024 Subsequent hospital visit by physician Kalin Dowd MD Work Phone: [email or web address] Comment on above: S/P TKR (total knee replacement) using cement, left (Primary Dx) Start: 01-06-2024 End: 01-11-2024 ambulatory KALIN DOWD [facility] Start: 01-06-2024 End: 01-10-2024 Subsequent hospital visit by physician Kalin Dowd MD Work Phone: [email or web address] Start: 11-25-2023 End: 11-25-2023 Patient encounter procedure Tete MARCUM [facility] Start: 10-24-2023 End: 10-24-2023 ambulatory Eliezer Venegas Facility:[facility] Start: 10-24-2023 End: 10-24-2023 ambulatory MD Barak Richard Work Phone: [facility] Work Phone: Start: 10-24-2023 End: 10-24-2023 Patient encounter procedure MD Barak Richard Work Phone: [facility] [address] Work Phone: Start: 02-28-[address] BARAK RICHARD . Facili ty:[facility] Start: 11-19-2022 End: 11-19-2022 Patient encounter procedure Tete MARCUM [facility] Start: 11-17-2022 End: 11-18-[address] TETE MARCUM . Facility:[facility] Start: 06-20-2022 End: 06-21-[address] BARAK RICHARD . Facility:[facility] Start: 04-03-2022 End: 04-04-[address] BARAK RICHARD . Facility:[facility] Start: 03-27-2022 End: 03-28-[address] TETE MARCUM . Facility:[facility] Start: 03-07-2022 End: 03-08-[address] TETE MARCUM . Facility: Procedures Date Procedure Procedure Detail Performing Clinician Start: 08-05-2024 Adult depression scr eening assessment Basel Diane PA Work Phone: Start: 01-28-2024 Blood count hemoglobin Kalin Dowd MD Work Phone: Start: 01-27-2024 End: 01-27-2024 Arthrp kne condyle&platu medial&lat compartments Kalin Dowd MD Work Phone: Start: 01-27-2024 Comprehensive metabo lic panel Rayshawn Kingsley [employer] - [employer]OLOGIST Start: 01-06-2024 Ecg routine ecg w/le ast 12 lds i&r only Kalin Dowd MD Work Phone: Start: 01-06-2024 Iadna s aureus methi cillin resist amp probe tq Kalin Dowd MD Work Phone: Start: 01-06-2024 Basic metabolic pane l calcium total Kalin Dowd MD Work Phone: Start: 01-06-2024 Blood typing serologic abo Kalin Dowd MD Work Phone: Start: 11-11-2023 Arthroplasty of knee Pa jr MARCUM Start: 11-17-[address] BRANDON RICHARD . Comment on above: Performed By: #### P SAD #### [facility] [address] [place] [address] Dr. Charo Fuentes Start: 11-11-2011 Colonoscopy Tete YU Cataract surgery Tete COOK Hernia repair Tete MARCUM Plan of Treatment Date Care Activity Detail Author Start: 08-19-2025 Adult BMI Screening Adult BMI Screen ing [facility] Start: 08-19-2025 Tobacco Screening Tobacco Screening [facility] Start: 08-05-2025 Depression Screening Depression Scre ening [facility] Start: 07-12-2024 COVID-19 Vaccine ( season) COVID-19 Vaccine ( season) [facility] Start: 07-12-2024 Influenza vaccination Influenza Vacc ine [facility] Start: 01-27-2024 End: 01-27-2024 Admission to same day surgery center 01/27/2024 1:00 PM EDT - 01/27/2024 4:00 PM EDT Surgery [facility] [place] [address] [place] [address] Kalin Dowd MD [address] [place] [address] KNEE TOTAL ARTHROPLASTY [facility] OR Comment on above: KNEE TOTAL ARTHROPLA STY Start: 01-27-2024 End: 01-27-2024 Arthrp kne condyle&platu medial&lat compartments KNEE TOTAL ARTHROPLASTY Primary osteoarthritis of left knee 01/27/2024 1:00 PM EDT [facility] Start: 01-27-2024 Subsequent hospital visit by physician 01/27/2024 1:00 PM EDT Hospital Encounter [facility] [address] [place] [address] Kalin Dowd MD [address] [place] [address] [facility] Start: 10-24-2023 [facility] Start: 07-12-2023 COVID-19 Vaccine ( season) COVID-19 Vaccine ( season) [facility] Start: 2014 Abdominal aortic aneurysm screening AAA screen [facility] Start: 2014 Fall Risk Screening Fall Risk Screen [facility] [employer] [facility] Start: 2009 Respiratory Syncytia l Virus (RSV) or age 60 yrs+ (1 - 1-dose 60+ series) Respiratory Syncytial Virus (RSV) or age 60 yrs+ (1 - 1-dose 60+ series) [facility] [employer] [facility] Start: 1994 Screening for malign ant neoplasm of colon [facility] Start: 1989 Lipid panel Lipids [facility] Start: 1968 DTaP,Tdap and Td Vaccines (1 - Tdap) DTaP,Tdap and Td Vaccines (1 - Tdap) [facility] [employer] [facility] Start: 1968 DTaP/Tdap/Td vaccine (1 - Tdap) DTaP/Tdap/Td vaccine (1 - Tdap) [facility] [employer] [facility] Start: 1967 Hepatitis C screening Hepatitis C sc reen [facility] Start: 1961 Depression Screen Depression Screen [facility] Start: 1949 Medicare Annual Wellness Visit Medicare Annual Wellness Visit [facility] [employer] [facility] Homogenous nuclear A b pattern [Titer] in Serum [facility] Nuclear Ab [Titer] i n Serum [facility] Oxygen therapy [Mini mum Data Set] Initiate Oxygen Therapy Protocol Respiratory Care Routine As Needed until discontinued starting 01/27/2024 [facility] Comment on above: As Needed until disc ontinued starting 01/27/2024 Immunizations Immunization Date Immunization Notes Care Provider [facility] 09-11-2023 influenza virus vacc ine, unspecified formulation Tete MARCUM [facility] 09-11-2023 Influenza, High-dose , Quadrivalent Israel ROBLES Work Phone: [facility] 08-31-2022 SARS-CoV-2 (COVID-19 ) mRNAMUL.ORD![id number] Tete MARCUM [facility] 08-27-2022 influenza virus vacc ine, unspecified formulation Tete MARCUM [facility] 08-27-2022 Influenza, High-dose , Quadrivalent Israel ROBLES Work Phone: [facility] [employer] [facility] 04-21-2022 Covid-19, Mrna, Lnp- s, Pf, 30 Mcg/0.3 Ml Dose, Vic-sucrose Israel ROBLES Work Phone: [facility] [employer] [facility] 04-21-2022 SARS-CoV-2 mRNA (jipevmnmyon-tpgy-khbhfb e) vaccine Tete MARCUM [facility] 09-11-2021 influenza virus vacc ine, unspecified formulation Tete MARCUM [facility] 09-04-2021 SARS-CoV-2 (COVID-19 ) mRNA BNT-162b2 vax Tete MARCUM [facility] 08-29-2021 unknown vaccine or immune globulin Israel ROBLES Work Phone: [facility] 08-11-2021 SARS-CoV-2 (COVID-19 ) Ad26 vaccine, recombinant Tete MARCUM [facility] 02-20-2021 SARS-CoV-2 (COVID-19 ) mRNA BNT-162b2 vax TetePEPperPRINT [facility] 02-09-2021 SARS-CoV-2 (COVID-19 ) Ad26 vaccine, recombinant [employer] [facility] 12-23-2020 SARS-CoV-2 (COVID-19 ) mRNA BNT-162b2 vax TetePEPperPRINT [facility] Comment on above: Result Comment: 2022: [id number] 12-12-2020 SARS-CoV-2 (COVID-19 ) Ad26 vaccine, recombinant [employer] [facility] 12-01-2020 zoster vaccine recombinant [employer] [facility] 09-29-2020 zoster vaccine recombinant [employer] [facility] 08-18-2020 influenza virus vacc ine, unspecified formulation [employer] [facility] 08-18-2020 Seasonal trivalent influenza vaccine, adjuvanted, preservative free Basel Diane PA Work Phone: [employer] [facility] 07-12-2019 influenza virus vacc ine, live, attenuated, for intranasal use [employer] [facility] 08-28-2017 influenza virus vacc ine, unspecified formulation [employer] [facility] 08-28-2017 influenza, injectabl e, quadrivalent, preservative free Basel Diane PA Work Phone: [employer] 08-21-2017 pneumococcal conjuga te vaccine, 13 valent Tete MARCUM [facility] 08-30-2015 pneumococcal polysaccharide vaccine, 23 valent Tete MARCUM [facility] Payers Date Payer Category Payer Self-pay 2019 Medicare HUMANA MEDICARE HUMANA MEDICARE - [place] RESIDENT [id number] 2019-Present [phone] [address] [address] [place] [address] [id number] 1960 Medicare [id number] 1950 Unknown [id number] 1950 Unknown [id number] 1950 Unknown [id number] [id number] 1949 Unknown [id number] [id number] 1949 Unknown [id number] [id number] 1949 Unknown [id number] [id number] 1949 Unknown [id number] [id number] 1949 Unknown [id number] [id number] 1949 Unknown [id number] [id number] 9 1950 Unknown [id number] [id number] 1950 Unknown [id number] [id number] 1950 Unknown [id number] [id number] Unknown [employer] SHEIKH/HARPER [id number] Unknown [id number] Social History Date Type Detail Facility Start: 11-19-2022 End: 08-05-2024 Tobacco smoking status Ex-smoker (finding) [facility] Start: 01-27-2024 End: 08-05-2024 Sex Assigned At Male [facility] Start: 1950 Sex Assigned At Male [facility] smoking consumption unknown [employer] Start: 1950 Sex Assigned At Not on file [employer] History of tobacco use Current smoker [employer] History of tobacco use Cigarette Smoker [facility] Start: 01-27-2024 End: 08-05-2024 Tobacco use and exposure Smokeless tobacco non-user [employer] Start: 01-28-2024 End: 08-19-2024 Alcohol intake Current drinker of alcohol (finding) [employer] Start: 01-28-2024 End: 08-05-2024 Alcohol intake [employer] Has the [employer], [employer], or water [employer] threatened to shut off services in your home in past 12Mo No [employer] (I/We) worried ana maria er (my/our) food would run out before (I/we) got money to buy more. Never true [employer] In the past 12 month s, has lack of transportation kept you from medical appointments or from getting medications? No [employer] Start: 01-27-2024 Alcohol Comment occasional beer [employer] History of tobacco use Cigar Smoker [facility] How often to you hav e a drink containing alcohol? 2-4 times a month [facility] How many standard dr inks containing alcohol do you have on a typical day? 1 or 2 [facility] How often do you hav e 6 or more drinks on 1 occasion? Less than monthly [facility] Medical Equipment Procedure Code Equipment Code Equipment Origin al Text Equipment Identifier Dates Impl Knee Psn Fe m Cr Cmt Ccr Std Sz8 L - [id number] Start: 01-27-2024 Cement Bne 40gm Hi Visc Radpq For Rev Surg - [id number] Start: 01-27-2024 Component Pat Di a35mm Thk9mm Knee Poly Ángel Conventional - [id number] Start: 01-27-2024 Psn Tib Stm 5 De g Sz F L - [id number] Start: 01-27-2024 Psn Mc Ve Asf L 14mm 8-11 Ef - [id number] Start: 01-27-2024 Goals Date Patient Goal Desired Activity /State Personal health goal Comment on above: Formatting of this n ote might be different from the original. Evaluation of progress towards goal: patient anticipates discharge home with self care Functional Status Date Assessment Result Facility 07-20-2024 Functional Status N/A [facility] 03-30-2024 Functional Status N/A [facility] 11-25-2023 Functional Status N/A [facility] 11-19-2022 Functional Status N/A [facility] Clinical Notes 11-19-2022 to 08-19-2024 TRAVIS Jack - 08/19/2024 2:15 PM Conchis Figueroa RN - 01/28/2024 2:19 PM Jadyn Lozano RN - 01/28/2024 1:59 PM Conchis Figueroa RN - 01/28/2024 1:54 PM EDTAttachments Note Date & Type Note Facility 08-19-2024 History of Present illness Narrative Subjective: Sean Grewal is a 74 y.o. male presented to the office for postop follow-up. Patient status post robotic cholecystectomy done on 08/07/2024 for gallstone pancreatitis, with concern for ascending cholangitis. Patient also underwent ERCP 08/05/2024. With sludge in the common bile duct. Sphincterotomy was done with balloon sweep performed. Patient was discharged to home 08/09/2024. With antibiotic. Patient presented today stating that he is doing fairly well. He had finish the course of antibiotic as prescribed. Denies abdominal pain. He is able to take p.o. well without nausea or emesis. No change of bowel habits. No melena or hematochezia. Patient denies fever no chills no indication for infection. No jaundice or itching of the skin. No dark urine reported. Objective: Final Pathologic Diagnosis Gallbladder; cholecystectomy: Acute and chronic cholecystitis with cholelithiasis. Physical Exam Alert and oriented no acute distress Abdomen soft without distention. No tenderness noted with palpation. Port sites healed well. No erythema no discharge no bleeding. No indication for infection. Lower extremities no calf tenderness Assessment: Sean Grewal is a 74 y.o.male status post robotic cholecystectomy. No complication. Plan: 1) patient was encouraged to increase level of activity is as tolerated 2) patient was advised to continue with weight restrictions as instructed 3) pathology report was reviewed with the patient. All questions and concerns were addressed with the patient during the time of his appointment 4) patient was encouraged to call office for any further questions or concerns 5) follow up with General surgery as needed call office for appointment Israel Contreras PA-C [facility] [address] [id number] TRAVIS Jack 08/19/24 1421 documented in this encounter [facility] 07-20-2024 Hospital Discharge instructions Patient Education 07/20/2024 08:28:20 Benign Prostatic Hyperplasia Benign Prostatic Hyperplasia Benign prostatic hyperplasia (BPH) is an enlarged prostate gland that is caused by the normal aging process. The prostate may get bigger as a man gets older. The condition is not caused by cancer. The prostate is a walnut-sized gland that is involved in the production of semen. It is located in front of the rectum and below the bladder. The bladder stores urine. The urethra carries stored urine out of the body. An enlarged prostate can press on the urethra. This can make it harder to pass urine. The buildup of urine in the bladder can cause infection. Back pressure and infection may progress to bladder damage and kidney (renal) failure. What are the causes? This condition is part of the normal aging process. However, not all men develop problems from this condition. If the prostate enlarges away from the urethra, urine flow will not be blocked. If it enlarges toward the urethra and compresses it, there will be problems passing urine. What increases the risk? This condition is more likely to develop in men older than 50 years. What are the signs or [...] urethra. Follow these instructions at home: Take bjej-zyf-hqidosi and prescription medicines only as told by your health care provider. Monitor your symptoms for any changes. Contact your health care provider with any changes. Avoid drinking large amounts of liquid before going to bed or out in public. Avoid or reduce how much caffeine or alcohol you drink. Give yourself time when you urinate. Keep all follow-up visits. This is important. Contact a health care provider if: You have unexplained back pain. Your symptoms do not get better with treatment. You develop side effects from the medicine you are taking. Your urine becomes very dark or has a bad smell. Your lower abdomen becomes distended and you have trouble passing urine. Get help right away if: You have a fever or chills. You suddenly cannot urinate. You feel light-headed or very dizzy, or you faint. There are large amounts of blood or clots in your urine. Your urinary problems become hard to manage. You develop moderate to severe low back or flank pain. The flank is the side of your body between the ribs and the hip. These symptoms may be an emergency. Get help right away. Call 911. Do not wait to see if the symptoms will go away. Do not drive yourself to the hospital. Summary Benign prostatic hyperplasia (BPH) is an enlarged prostate that is caused by the normal aging process. It is not caused by cancer. An enlarged prostate can press on the urethra. This can make it hard to pass urine. This condition is more likely to develop in men older than 50 years. Get help right away if you suddenly cannot urinate. This information is not intended to replace advice given to you by your health care provider. Make sure you discuss any questions you have with your health care provider. Document Revised: 05/16/2022 Document Reviewed: 05/16/2022 [employer] Patient Education 2023 Seeo. Follow Up Care 03/30/2024 10:38:49 With:KITTY GLASS, Tete Singleton, URL Address: [facility] [address] [place] [address]- When: Unknown [facility] 07-20-2024 Note Patient Education Urology Benign Prostatic Hyperplasia Benign prostatic hyperplasia (BPH) is an enlarged prostate gland that is caused by the normal aging process. The prostate may get bigger as a man gets older. The condition is not caused by cancer. The prostate is a walnut-sized gland that is involved in the production of semen. It is located in front of the rectum and below the bladder. The bladder stores urine. The urethra carries stored urine out of the body. An enlarged prostate can press on the urethra. This can make it harder to pass urine. The buildup of urine in the bladder can cause infection. Back pressure and infection may progress to bladder damage and kidney (renal) failure. What are the causes? This condition is part of the normal aging process. However, not all men develop problems from this condition. If the prostate enlarges away from the urethra, urine flow will not be blocked. If it enlarges toward the urethra and compresses it, there will be problems passing urine. What increases the risk? This condition is more likely to develop in men older than 50 years. What are the signs or [...] Follow these instructions at home: ? Take lhpl-xdu-ermuujy and prescription medicines only as told by your health care provider. ? Monitor your symptoms for any changes. Contact your health care provider with any changes. ? Avoid drinking large amounts of liquid before going to bed or out in public. ? Avoid or reduce how much caffeine or alcohol you drink. ? Give yourself time when you urinate. ? Keep all follow-up visits. This is important. Contact a health care provider if: ? You have unexplained back pain. ? Your symptoms do not get better with treatment. ? You develop side effec (more content not included)... [facility] 03-30-2024 Hospital Discharge instructions Patient Education 03/30/2024 [...] Follow these instructions at home: Medicines Take pyub-ala-plxqoxt and prescription medicines only as told by [...] provider. Document Revised: 06/06/2022 Document Reviewed: 06/06/2022 [employer] Patient Education 2022 Seeo. Follow Up Care 11/25/2023 10:54:02 With:KITTY GLASS, Tete Singleton, URL Address: [facility] [address] [place] [address]- [phone] When: Unknown [facility] [place] 01-28-2024 History of Present illness Narrative Pt taken down to personal vehicle at this time. Reviewed discharge instructions with patient and spouse. Both aware of need to fiber picker prescriptions. Reviewed new medications and side effects [...] is a little nervous about showering despite radio script writer reassurance. in room when leaving, she will assist him to get dressed and Park DING will do D/C instructions with them both. [place] script in chart Progress Note Subjective: Post-Operative [...] 4: Continue Pain Control Physical Therapy Facility/Department: [facility] Physical Therapy Initial Assessment Name: Sean Grewal : 1950 Date of Service: 01/28/2024 [...] Family / Caregiver Present: No Referring Practitioner: Kalin Dowd MD Referral Date : 01/27/24 Diagnosis: [...] Ambulation Assistance: Independent Transfer Assistance: Independent Active Cotton Factor: Yes Mode of Transportation: Car Vision/Hearing Vision [...] will perform transfers and bed mobility with AR. Short Term Goal 3: Patient will tolerate [...] in reach, will continue to monitor. Director Of Market Intelligence assisted pt into the bathroom and then into the bed. The patient was not able to void at this time. Pt will try again later, will continue to monitor. Pt sitting up in the chair when radio script writer entered the room. Pt is A&O x4. Vitals and assessment as charted. Pt denies pain. LLE MARCO A wrap noted. 2+ pedal pulses. Pt denies tingling but is still having numbness. Pt denies any further needs at this time. Call light within reach. Occupational Therapy Facility/Department: [facility] Occupational Therapy Initial Assessment Name: Sean Grewal : 1950 Date of Service: 01/27/2024 [...] Learning: None Education Outcome: Verbalized understanding;Demonstrated understanding [facility] - ADL [facility] Daily Activity - Inpatient How much help [...] How much help for eating meals?: None AM-PAC Inpatient Daily Activity Raw Score: 19 [facility] Inpatient ADL T-Scale Score : 40.22 ADL Inpatient CMS 0-100% Score: 42.8 ADL Inpatient CMS G-Code Modifier : CK Goals Short [...] 1720 Time Out 1733 Minutes 13 Palmira Bender, OTR/L Iliana JESUS made aware of pt's admission for Dr. Bond. Pt arrived from surgery to [facility] room 330 at this time. Report received from FARM TRUCK DRIVER at bedside. Pt is A&Ox4. Pt denies [...] Dowd that he is in route from [place] currently, planning to be here for a 1300 start time, updated pt and . Na level resulted at 135, notified ELVIN Tabares. documented in this encounter [facility] 01-28-2024 Hospital Discharge instructions Jadyn Saleh RN - 01/28/2024 12:53 PM EDT Report the following signs or any questions regarding your physical condition to your surgeon immediately: Dr. Dowd: [phone] Excessive swelling of, or around the wound [...] Therapy No driving till cleared by Dr. Aranda'yaa Jadyn Saleh RN - 01/28/2024 12:53 PM [...] at most local grocery stores, pharmacies, and [employer]stores. If you have any questions about your diet or nutrition, call the hospital and ask for the dietitian. Regular The following attachments cannot be sent through Care Everywhere.Surgical Site Infections: Prevention: General Info (American)TKR (Total Knee Replacement): Post-op (American)documented in this encounter [facility] 01-06-2024 History of Present illness Narrative Patient instructed on the pre-operative, intra-operative, and post-operative process. Patient instructed on NPO status. Medication instructions and pre operative instruction sheet reviewed with the patient. CHG skin prep instructions reviewed with patient. [facility] Preadmission Testing Name: Sean Grewal : 1950 Patient (home) Procedure LEFT TKA Date of Procedure: 01/27/24 Surgeon: Kalin Dowd MD Ht: 157.5 cm (5' 2 [...] [x] Chlorhexidene PAT Call/Visit Questions Person Interviewed: Sean Relationship to Patient: Patient Surgery Time Verified: [...] and medical clearance. documented in this encounter [facility] 11-25-2023 Hospital Discharge instructions Patient Education [...] Follow these instructions at home: Medicines Take lqem-otv-gdpiyhb and prescription medicines only as told by [...] provider. Document Revised: 06/06/2022 Document Reviewed: 06/06/2022 [employer] Patient Education 2022 Seeo. Follow Up Care 11/19/2022 11:41:10 With:KITTY GLASS, Tete Singleton, URL Address: [facility] [address] [place] [address]- [phone] When: Unknown Comments:4 mos (new med) [facility] 11-19-2022 Hospital Discharge instructions Patient Education 11/19/2022 [...] urethra. Follow these instructions at home: Take lahd-saf-tgmtclb and prescription medicines only as told by [...] 10/28/2006 Document Revised: 09/22/2019 Document Reviewed: 12/02/2017 [employer] Patient Education 2020 Seeo. Follow Up Care 02/12/2022 10:03:54 With:Tete MARCUM MD, URL Address: [facility] [address], [place] [address]- [phone] When:Within 1 Year(s) [facility] Evaluation + Plan note Future Appointments Appointment Date:11/25/2023 09:45:00 AM Scheduled Provider:Tete MARCUM MD Location:[facility] Appointment Type:URO Office Visit [facility] Evaluation + Plan note Future Appointments Appointment Date:03/30/2024 09:45:00 AM Scheduled Provider:Tete MARCUM MD [facility] Appointment Type:URO Office Visit [facility] Evaluation + Plan note Future Appointments Appointment Date:07/20/2024 09:45:00 AM Scheduled Provider:Tete MARCUM MD Location:[facility] [place] Appointment Type:URO Office Visit Diagnostic Tests PendingPSA Total 03/30/24 [facility] Evaluation + Plan note Future Appointments Appointment Date:07/23/2025 09:45:00 AM Scheduled Provider:[facility]UM [facility]O Office Visit Diagnostic Tests PendingPSA Total 07/20/24 [facility] Evaluation note No assessment inform ation available [facility] Work Phone: Evaluation note Diagnosis S/P TKR (total knee replacement) using cement, left- Primary S/P TKR (total knee replacement) using cement, left Hypertension Unspecified essential hypertension documented in this encounter [facility] note* Diagnosis Gallstone pancreatitis- Primary Acute pancreatitis [facility] N[facility] No data available for this section [facility] InstructionsNot on filedocumented [facility] this [facility] No data available for this section [facility] Summary Purpose Family History No Family History Records FoundNo Family History Records Found No data available for this section No Family History Records Found No data available for this section No Family History Records Found No data available for this section No Family History Records Found Advance Directives No Advanced Directives Records FoundLatest Code Status on File Code Status Date Activated Date Inactivated Comments Full Code 01/27/2024 5:10 PM Healthcare Agents on File Name Relationship Healthcare Agent Relationshi p Communication Hansa Grewal Spouse Primary Decision Maker Documents on File Type Date Recorded Patient Supervisor Payroll Expl anation DNR Physician Order 08/18/2024 7:10 AM Date Activated Date Inactivated Comments 08/05/2024 1:27 AM 08/09/2024 6:30 PM Additional Source Comments Patient Care team informatio n (unrecognized section and content) Team Status: Active Member Role Status Dates Barak Richard MD Primary Care Provider Active Team Status: Inactive Member Role Status Dates Barak Richard MD Primary Care Provider Active Eliezer Venegas MD Attending Provider Active Chainstitch Felled Seam Operator Relationship Specialty Start Date End Date Barak Richard MD [address] [place] [address] PCP - General Family Medicine 01/28/24 Chainstitch Felled Seam Operator Relationship Specialty Start Date End Date Barak Richard MD [address] [facility] [place] [address] PCP - General Family Medicine 08/05/24 (unrecognized sect ion and content) No Status Records FoundNo Status Records FoundNo Status Records FoundNo Status Records FoundNo Status Records Found INFORMATION SOURCE (unrecogn ized section and content) DATE CREATED AUTHOR 03/02/2023 [facility] DATE CREATED AUTHOR AUTHOR'S ORGANIZ ATION 11/22/2023 [facility] DATE CREATED AUTHOR AUTHOR'S ORGANIZ ATION 02/11/2024 [facility] DATE CREATED AUTHOR AUTHOR'S ORGANIZ ATION 05/01/2024 [facility] EPIC DATE CREATED AUTHOR AUTHOR'S ORGANIZ ATION 07/02/2025 [facility] Goals (unrecognized section and content) Goals may be documented in a n alternate section Reason for Visit (unrecogniz ed section and content) Specialty Diagnoses / Procedures Referred By Contnelly t Referred To Contact Diagnoses Primary osteoarthritis of left knee Primary osteoarthritis of left knee [M17.12] Procedures ME ARTHRP KNE CONDYLE&PLATU MEDIAL&LAT COMPARTMENTS KNEE TOTAL ARTHROPLASTY Kalin Dowd MD [address] [place] [address] [facility] [address] [place] [address] Referral ID Status Reason Start Date Expiration Date Visits Re quested Visits Authorized [id number] 1 1 Reason Comments Post-op Post op siena Ordered Prescriptions (unrec ognized section and content) [...] Kenia Zaman RN)2316 (Given - Provider: Malorie Arroyo, TOÑA) 0504 (Given - Provider: Malorie Arroyo RN)1121 (Given - Provider: Conchis Bailon RN)1730 (Due)2330 (Due) amLODIPine (NORVASC) tablet 5 mg 5 mg, Oral, DAILY, First dose on Sat01/27/24 at 1800, Until Discontinued 1745 (Not Given - Provider: Kenia Zaman RN - Reason: Patient took at home) 0755 (Given - Provider: Conchis Bailon RN) ceFAZolin (ANCEF) 1,000 mg in sodium chloride 0.9 % 50 mL IVPB (Yxel5Lar) (COMPLETED) 1,000 mg, IntraVENous, ONCE, 1 dose, On Sat01/27/24 at 0645, Antimicrobial Indications: Surgical Prophylaxis, Send to OR, Pre-op (day of surgery) 1522 (New Bag - Provider: Ranjan Santos APRN - TERRESTRIAL ECOLOGIST) 1259 (Stopped - Provider: Conchis Bailon RN) ceFAZolin [...] at 0500, Antimicrobial Indications: Surgical Prophylaxis, Post-op 2103 (New Bag - Provider: Malorie Arroyo RN)2133 (Stopped - Provider: Malorie Arroyo RN) 0506 [...] 0755 (Given - Provid er: Conchis Bailon RN)2100 (Due) finasteride (PROSCAR) tablet 5 mg 5 mg, Oral, DAILY, First dose on Sat01/27/24 at 1800, Until Discontinued, Substituted for Dutasteride (AVODART). 1750 (Given - Provider: Kenia Zaman RN) 0755 (Given - Provider: Conchis Bailon RN) lisinopril (PRINIVIL;ZESTRIL) tablet 40 mg 40 mg, Oral, DAILY, First dose on Sat01/27/24 at 1800, Until Discontinued 174 (Not Given - Provider: Kenia Zaman RN - Reason: Patient took at home) 0755 (Given - Provider: Conchis Bailon RN) pantoprazole (PROTONIX) tablet 40 mg 40 mg, Oral, DAILY, First dose on Sat01/27/24 at 1800, Until Discontinued, Do not crush or break. 1750 (Given - Provider: Kenia Zaman RN) 0755 (Given - Provider: Conchis Bailon RN) sodium [...] Arroyo RN - Reason: IV Fluid Infusing) 0756 (Given - Provider: Conchis Bailon RN)2100 (Due) tamsulosin (FLOMAX) capsule 0.4 mg 0.4 mg, Oral, DAILY, First dose on Sat01/27/24 at 1800, Until Discontinued, Do not crush or chew. Substituted for Alfuzosin ER (UROXATRAL). 1750 (Given - Provider: Kenia Zaman RN) 0755 (Given - Provider: Conchis Bailon RN) tranexamic acid (LYSTEDA) tablet 1,300 mg [...] Pedroza CRNA) 0753 (Stopped - Provider: Conchis Bailno, TOÑA) lactated ringers IV soln infusion (CANCELED) IntraVENous, at 80 mL/hr, CONTINUOUS, Starting on Sat01/27/24 at 1730, Heplock when taking fluids well, Post-op 1742 (New Bag - Provider: Kenia Zaman RN) 0753 (Stopped - Provider: Conchis Bailon, TOÑA) PRN Medication Order 01/26/2024 01/27/2024 01/28/2024 0.9 [...] of each other unless specifically ordered., Post-op rvjcgqvzo-TTZuwqjbysi-bgoffxcg 60-150-60 MG/50ML injection (CANCELED) PRN, Starting on Sat01/27/24 at 1333, Until Sat01/27/24 at 1554, Intra-op 1333 (Given - Provider: Matthew Dowd MD - Comment: mixed with normal saline 50 ml) sod chloride IRR soln 0.9 % 1,000 mL with gentamicin (GARAMYCIN) 80 mg (CANCELED) PRN, Starting on Sat01/27/24 at 1518, Intra-op 1518 (Given - Provider: Matthew Dowd MD) sod chloride IRR soln 0.9 % 3,000 mL with gentamicin (GARAMYCIN) 80 mg (CANCELED) PRN, Starting on 01/27/24 at 1333, Intra-op 1333 (Given - Provider: Matthew Dowd MD) sodium chloride flush 0.9 % injection 5-40 mL 5-40 mL, IntraVENous, PRN, Starting on 01/27/24 at 1710, Until Discontinued, Line Care, After [...] at 1554, Intra-op 1334 (Given - Provider: Matthew Dowd MD) FOR RECORDS PERTAINING TO PATIENTS [...] BE BASED ON THE PRIMARY CLINICAL RECORDS. [employer] provides no warranty or guarantee of the accuracy or completeness of information in this document.
[2025-07-08 11:12] LABS: Prostate Specific Antigen Dx 0.18 ng/mL (<=4.00)
== END 2025-07-08 09:31 | disposition home or self-care (01) ==
LOC: LAB 09:30
PROVIDERS: PCP Family Medicine; Visit Provider Urology
DX: N40.1 Benign prostatic hyperplasia with lower urinary tract symptoms (principal)
CPT/HCPCS: 36415; 84153

== ENCOUNTER 2025-08-16 09:41 | Outpatient (OUT) | payer MEDICARE, SELFPAY ==
--- OUTSIDE RECORDS SUMMARY | 2025-01-26 07:00 | XMS_ITS ---
Author Organization [facility] Address [address] [place] [address] Care Team Providers Care Cotton Grader Name Role Phone Hilary Nilson Primary Care Provider UnavailKalin Vora Unavailable [phone] Allergies No Known Allergies Results Component Value Reference Range Notes PEH Knee Left [id number] Reviewed date:01/27/2025 11:45:34 AM Interpretation: Performing Lab: Notes/Report: REASON FOR VISIT LT TKA 01/27/2024-1 YEAR CHECK Medications Medication SIG (Take, Route, Frequency, Duration) Notes Start Date End Date Status pantoprazole Active lisinopril Active amLODIPine Active Osteo Bi-Flex Joint Health Active alfuzosin Active meloxicam Active Social History Tobacco Use: Social History Observation Description Date Details (start date - stop date) Never Smoker NA - NA AUDIT-C (Standard) Question Answer Notes Did you have a drink contain ing alcohol in the past year? Yes How often did you have six o r more drinks on one occasion in the past year? Never (0 point) How many drinks did you have on a typical day when you were drinking in the past year? 1 or 2 drinks (0 point) How often did you have a dri nk containing alcohol in the past year? Monthly or less (1 point) Points 1 Interpretation Negative Tobacco Control (Standard) Question Answer Notes Tobacco use: Nonsmoker Vital Signs Height 5'2 in 01/26/2025 Weight 168 lbs 01/26/2025 BMI 30.72 01/26/2025 Encounters Encounter Location Date Provider Diagnosis [facility] [address] [place] [address] [place] [address] 01/26/2025 Kalin Dowd Presence of left artificial knee joint Z96.652 and Aftercare following joint replacement surgery Z47.1 Assessments Encounter Date Diagnosis (ICD Code) Assessment Notes Treatment Notes Treatment Clinical Notes Section Notes 01/26/2025 Presence of left artificial knee joint (ICD-10 - Z96.652) Left total knee replacement 01/26/2025 Aftercare following joint replacement surgery (ICD-10 - Z47.1) Left total knee replacement 01/26/2025 Other Patient can continue to do activities as tolerated. Return the office as needed. Left total knee replacement Plan Of Treatment Treatment Notes Assessment Notes Other Patient can continue to do activities as tolerated. Return the office as needed. Next Appt Details Follow Up: prn, Reason: Progress Notes * ROXY GREWALOB:1950 (75 yo M)Acc No.[id number]:01/26/2025 Patient: SEAN PEREZ Provider: Hector Dowd MD :1950 A ge:74 Y S ex:Male Date:01/26/2025 Address:[address] [place], [place] [id number] Pcp:Nilson Richard Subjective: * Chief Complaints: * 1 . LT TKA 01/27/2024-1 YEAR CHECK. * HPI: H PI: Patient comes in today for follow-up left knee. 1 year status post left total knee. States he is doing well. * Medical History: H igh Blood Pressure. * Surgical History: L eft total knee arthroplasty 01/27/2024. * Family History: N o Family History documented.. * Social History: E xercise regularly D o you exercise? Y es. W hat is your place of residence? W here do you live? P rivate home. A UMER-C (Standard) D id you have a drink containing alcohol in the past year? Y es, H ow often did you have six or more drinks on one occasion in the past year? N ever (0 point), H ow many drinks did you have on a typical day when you were drinking in the past year? 1 or 2 drinks (0 point), H ow often did you have a drink containing alcohol in the past year? M ontnay or less (1 point), P oints 1 , I nterpretation N egative. T obacco Control (Standard) T obacco use: N onsmoker. * Medications: T aking meloxicam , Taking Osteo Bi-Flex Joint Health , Taking alfuzosin , Taking pantoprazole , Taking lisinopril , Taking amLODIPine , Medication List reviewed and reconciled with the patient * Allergies: N .K.D.A. Objective: * Vitals: H t: 5'2 , Wt: 168 lbs, BMI:30.72. * Examination: G eneral examination: Hector mann is an age-appropriate 74-year-old male. Patient is in no acute distress and is alert and oriented x 3. Patient is appropriately dressed and appears to be well nourished. Patient has full extension of the left knee. Flexion 110 degrees. Ligaments are well-balanced. Surgical wounds intact. X -ray Imaging Studies: A P and lateral x-rays left knee were obtained in the office. Left total knee replacements in excellent position well-fixed to the bone. Assessment: * Assessment: 1. A ftercare following joint replacement surgery - Z47.1 (Primary) 2 . P resence of left artificial knee joint - Z96.652 Left total knee replacement Plan: * Treatment: * Procedure Codes: 7 3560 X-ray Knee, 2 view, Modifiers: LT * Preventive Medicine: MIPS Measures: C MS139 Fall Risk S creening: N o falls in the past year.? Screenings: F all Risk Screening F all Risk Assessment: N o falls in the past year. * Follow Up: p rn Forms: * Images: * Electronic signature of Cyril Dowd MD on 08/16/2025 at 09:43 AM EDT Sign off status: Pending * Provider: Hector Dowd MD Date: 0 01/26/2025 Generated for Gregoria conn/Zoey/Daveitting on: 1 09:43 AM EDT History and Physical Notes * HPI (History of Present Illness) Category Sub-Category Detail Notes Category Not es HPI Patient comes i n today for follow-up left knee. 1 year status post left total knee. States he is doing well. Examination Category Sub-Category Detail Notes Category Not es General examination Patient is an age-appropriate 74-year-old male. Patient is in no acute distress and is alert and oriented x 3. Patient is appropriately dressed and appears to be well nourished. Patient has full extension of the left knee. Flexion 110 degrees. Ligaments are well-balanced. Surgical wounds intact. X-ray Imaging Studies AP and lateral x-rays left knee were obtained in the office. Left total knee replacements in excellent position well-fixed to the bone.
--- NOTE | 2025-08-16 09:42 | ECG_ITS ---
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 Measurements Intervals Eleva Rate: 72 P: 34 AR: 170 QRS: -3 QRSD: 92 T: 44 QT: 367 QTc: 403 Interpretive Statements SINUS RHYTHM Normal ECG Compared to ECG 08/04/2024 13:01:10 Sinus tachycardia no longer present Electronically Signed On 08-16-2025 18:26:15 EDT by REYMUNDO SARMIENTO M.D.
--- OUTSIDE RECORDS SUMMARY | 2025-08-16 09:43 | XMS_ITS | Clinical Summary ---
Author Organization [employer] tem Address [id number] [address] [place] [address] Care Team Providers Care Legal Process Specialist Name Role Phone Nilson Richard MD Primary Care Provider [phone] Allergies No known active allergies Medications amLODIPine [...] drink = 0.6 oz pur e alcohol) [email or web address] Answer Date Recorded In the past 12 months has [employer], [employer], oil, or water [employer] threatened to shut off services in your [...] 1968 Fall Risk Screening 2014 COVID-19 Vaccine (2024-2 6 season) 2025 08/31/2022, 04/21/2022, 09/04/2021, Additional history exists Influenza [...] Documents on File Type Date Recorded Patient Delicatessen Manager Expl anation DNR Physician Order 08/18/2024 7:10 AM * DNR Comfort Care Arrest (DNR-CCA) [place] (Latest Code Status on File) Date Activated Date Inactivated Comments 08/05/2024 1:27 AM 08/09/2024 6:30 PM Care Teams Legal Process Specialist Relationship Specialty Start Date End Date Nilson Richard MD [address] [place] [address] PCP - General Family Medicine 08/05/24
--- OUTSIDE RECORDS SUMMARY | 2025-08-16 09:43 | XMS_ITS | Encounter Summary ---
Author Organization [employer] Address [id number] [address] [place] [address] Care Team Providers Care Event Marketing Specialist Name Role Phone Nilson Richard MD Primary Care Provider [phone] Encounter Details Date Type Department Care Team (Late st Contact Info) Description 08/05/2024 Orders Only [facility] External Film Storage [facility] [place] [address] Transcribe, Orders Support User Pain (Primary Dx) Social History Tobacco Use Types Packs/Day Years Used Date Smoking Tobacco: Former Cigars Smokeless Tobacco: Never Alcohol Use Standard Drinks/Week Comments Yes 0 (1 standard drink = 0.6 oz pur e alcohol) [facility] Utilities Answer Date Recorded In the [...] documented as of this encounter Care Teams Event Marketing Specialist Relationship Specialty Start Date End Date Nilson Richard MD [address] [place] [address] PCP - General Family Medicine 08/05/24 documented as of this encounter
--- OUTSIDE RECORDS SUMMARY | 2025-08-16 09:43 | XMS_ITS | Clinical Summary ---
Author Organization [facility] Address [address] [place] [address] Care Team Providers Care Product Management Specialist Name Role Phone Nilson Richard MD Primary Care Provider [phone] Social History Tobacco Use Types Packs/Day Years [...] Vaccine: 65+ Years Completed 7, 08/30/2015 Insurance [facility] MEDICARE ADVANTAGE Care Teams Product Management Specialist Relationship Specialty Start Date End Date Nilson Richard MD PCP - General Family Medicine 04/30/24
--- OUTSIDE RECORDS SUMMARY | 2025-08-16 09:43 | XMS_ITS | Patient Health Record ---
Author Organization [facility] Address [address] [place] [address] Care Team Providers Care Emergency Generator Mechanic Name Role Phone Nilson Richard Primary Care Provider UnavailKalin Vora Unavailable [phone] Allergies No Known Allergies Results Component Value Reference Range Notes PEH Knee Left [id number] Reviewed date:01/27/2025 11:45:34 AM Interpretation: Performing Lab: Notes/Report: Reason For Referral No Information Medications Medication SIG (Take, Route, Frequency, Duration) Notes Start Date End Date Status pantoprazole Active lisinopril Active Cleocin 150 mg 4 TABLETS ONE HOUR P RIOR TO PROCEDURE, THEN 2 TABLETS SIX HOURS LATER. 07/26/2025 Active amLODIPine Active meloxicam Active Osteo Bi-Flex Joint Health Active alfuzosin Active Social History Tobacco Use: Social History [...] (Standard) Question Answer Notes Tobacco use: Nonsmoker Problems Problem Type SNOMED Code ICD Code Onset Dates Problem Status W/U Status Risk Notes Problem History of musculoskeletal operation (832251819) Aftercare following joint replacement surgery (Z47.1) Active confirmed Problem [id number] Primary osteoarthritis of left knee (M17.12) Active confirmed Problem 934502703291 Presence of left artificial knee joint (Z96.652) Active confirmed Vital Signs Height 5'2 in 07/26/2025 Weight 168 lbs 01/26/2025 BMI 30.72 01/26/2025 Encounters Encounter Location Date Provider Diagnosis [facility] [address] [place] [address] 01/26/2025 Kalin Dowd Presence of left artificial knee joint Z96.652 and Aftercare following joint replacement surgery Z47.1 [facility] [address] [place] [address] 01/12/2025 Kalin Dowd [facility] [address] [place] [address] 02/04/2025 Kalin Dowd [facility] [address] [place] [address] 07/26/2025 Kalin Dowd Presence of left artificial knee joint Z96.652 Assessments Encounter Date Diagnosis (ICD Code) Assessment Notes Treatment Notes Treatment Clinical Notes Section Notes 01/26/2025 Aftercare following joint replacement surgery (ICD-10 - Z47.1) Left total knee replacement 01/26/2025 Presence of left artificial knee joint (ICD-10 - Z96.652) Left total knee replacement 07/26/2025 Presence of left artificial knee joint (ICD-10 - Z96.652) 01/26/2025 Other Patient can continue to do activities as tolerated. Return the office as needed. Left total knee replacement Plan Of Treatment Pending Test Test Name Order Date FERNANDO Knee, Left 4v -[id number] 11/19/2023 Insurance Providers Payer Name Payer Address Payer Phone Subscriber Number Group Number Insured Name Patient Relationship to Insured Coverage Start Date Coverage End Date Medicare [employer] [address] [address] [place] [address] [phone] [id number] SEAN GREWAL Self - patient is the insured Medical (General) History Medical History History ICD Code High Blood Pressure Surgical History Surgery Date(Month/Year) Left total knee arthroplasty 01/27/2024
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
--- OUTSIDE RECORDS SUMMARY | 2025-08-16 09:48 | XMS_ITS | CCD ---
Author Organization [facility] Care Team Providers Care School Office Assistant Name Role Phone Barak Richard Primary Care [...] Unavailable MD Barak Richard Primary Care Provider [phone] MD Eliezer Venegas Attending Provider Eliezer Venegas Attending Unavailable Eliezer Venegas Admitting Unavailable Barak Richard Primary Care Unavailable Unavailable Primary Care Provider Barak Hernandez MD Primary Care Provider [phone] KALIN DOWD E Admitting Unavailable RAGHU KALIN E Attending Unavailable KALIN DODW Admitting Unavailable RAGHU, KALIN E Attending Unavailable MARISELA BOND Consulting Unavailable BARAK RICHARD Primary Care Unavailable TOMÁS BOWDEN Attending Unavailable Barak Richard MD Primary Care Provider [phone] William CAST Attending Unavailable William CAST Attending Unavailable Tete MARCUM Attending Unavailable Tete MARCUM Attending Unavailable Tete MARCUM Attending Unavailable Allergies Allergy Classification Reported Allergen(s) Allergy Type Date of Onset Reaction(s) Facility (1 source) No Known Medication Allergies; Translations: [No Known Medication Allergies] Propensity to adverse reactions (disorder) [facility] Repository Medications Current Medications Medication [...] hydrochloride 10 mg extended release oral tablet (8 sources) alpha-Adrenergic Pedrito Start: 07-09-2025 take 1 tablet by mouth once daily alfuzosin 10 mg ER Tab 10 mg = 1 tab(s), Oral, Daily, # 90 tab(s), Refills(s) 3, Pharmacy: [facility], 159, cm, 07/20/24 9:50:00 EDT, Height/Length Dosing, 76.2, kg, 07/20/24 9:50:00 EDT, Weight Dosing Start Date: 07/09/25 Status: Ordered Quantity: 90.0 Unit: tab(s) Repeat number: 4 Start: 06-01-2024 take 1 tablet by carolann th once daily alfuzosin 10 mg ER Tab 10 mg = 1 tab(s), Oral, Daily, # 90 tab(s), Refills(s) 3, Pharmacy: [facility], 159, cm, 03/30/24 10:03:00 EDT, Height/Length Dosing, 76.2, kg, 03/30/24 10:03:00 EDT, Weight Dosing Start Date: 06/01/24 Status: Ordered Start: 02-12-2022 take 1 tablet by carolann th once daily alfuzosin 10 mg ER Tab 10 mg = 1 tab(s), Oral, Daily, # 90 tab(s), Refills(s) 3, Pharmacy: [facility], 159, cm, 11/19/22 10:59:00 EST, Height/Length Dosing, 78, kg, 11/19/22 10:59:00 EST, Weight Dosing Start Date: 04/15/23 Status: Ordered take 1 tablet by carolann th every twenty-four hours in the morning alfuzosin (UROXATRAL) 10 mg 24 hr tablet Take 1 tablet (10 mg total) by mouth in the morning. Active amLODIPine 5 mg oral tablet (9 sources) Dihydropyridine Calcium Channel Pedrito Start: 12-18-2019 take 5 mg by mouth once daily amlodipine 5 mg, Oral, Daily, Refills(s) 0 Start Date: 12/18/19 Status: Ordered Repeat number: 1 Start: 12-18-2019 amlodipine Ora l, Daily, Refills(s) 0 Start Date: 12/18/19 Status: Ordered Ivrhyeddu-Eqxknwrfxeu-Dtf D (OSTEO BI-FLEX ONE PER DAY) TABS (1 source) Boswellia-Glucos amine-Vit D (OSTEO BI-FLEX ONE PER DAY) TABS Take by mouth daily 0 Active cefdinir 300 mg oral capsule (1 source) Cephalosporin Antibacterial Sta rt: 4 cefdinir 300 mg Cap Refills(s) 0 Start Date: 11/25/23 Status: Ordered docusate sodium 50 mg / sennosides, retirement 8.6 mg oral tablet (1 source) Sta [...] # 42 cap(s), Refills(s) 0, Pharmacy: [facility]/pharmacy #[id number], 159, cm, 11/25/23 10:07:00 EST, Height/Length Dosing, 78, kg, 11/25/23 10:07:00 EST, Weight Dosing Start Date: 11/25/23 Stop Date: 12/16/23 Status: Ordered dutasteride 0.5 mg oral capsule (7 sources) 5-alpha Reductase Inhibitor Sta rt: 5 End : 6 take 1 capsule by mouth once daily dutasteride 0.5 mg Cap 0.5 mg = 1 cap(s), Oral, Daily, X 90 day(s), # 90 cap(s), Refills(s) 3, Pharmacy: [facility], 159, cm, 07/20/24 9:50:00 EDT, Height/Length Dosing, 76.2, kg, 07/20/24 9:50:00 EDT, Weight Dosing Start Date: 02/01/25 Stop Date: 01/27/26 Status: Ordered Quantity: 90.0 Unit: cap(s) Repeat number: 4 Start: 11-25-2023 End: 01-23-2025 take 1 capsule by mouth once daily dutasteride 0.5 mg Cap 0.5 mg = 1 cap(s), Oral, Daily, X 90 day(s), # 90 cap(s), Refills(s) 3, Pharmacy: [facility], 159, cm, 11/25/23 10:07:00 EST, Height/Length Dosing, 78, kg, 11/25/23 10:07:00 EST, Weight Dosing Start Date: 01/29/24 Stop Date: 01/23/25 Status: Ordered ferrous sulfate 325 mg oral tablet (1 source) Start: 08-10-2024 End: 09-09-2024 take 1 tablet by mouth once daily at breakfast ferrous sulfate 325 (65 FE) mg tablet Take 1 tablet (325 mg total) by mouth daily with breakfast for 30 days. Take with orange juice for best absorption 30 tablet 08/10/2024 09/09/2024 Active folic acid 1 mg oral tablet (1 source) Start: 08-10-2024 End: 09-09-2024 take 1 tablet by mouth in the morning folic acid (FOLVITE) 1 mg tablet Indications: folate deficiency Take 1 tablet (1 mg total) by mouth in the morning for 30 days. Indications: inadequate folic acid. 30 tablet 08/10/2024 09/09/2024 Active glucosamine/chondr oneal A sod (OSTEO BI-FLEX ORAL) (1 source) take 1 tablet by mouth in the morning glucosamine/chond r oneal A sod (OSTEO BI-FLEX ORAL) Take [...] hours as needed for Pain 0 Active lisinopril 40 mg oral tablet (9 sources) Angiotensin Converting Enzyme Inhibitor Start: 07-07-2025 take 1 tablet by mouth once daily lisinopril 40 mg Tab 40 mg = 1 tab(s), Oral, Daily, Refills(s) 0 Start Date: 07/07/25 Status: Ordered Repeat number: 1 Start: 01-27-2024 take 40 mg by mouth [...] by mouth in the morning. Active pantoprazole 40 mg delayed release oral tablet (9 sources) Proton Pump Inhibitor Start: 04-16-2019 take 1 tablet by mouth once daily Protonix 40 mg Tab-DR 40 mg = 1 tab(s), Oral, Daily Start Date: 04/16/19 Status: Ordered Repeat number: 1 rivaroxaban 10 mg oral tablet (1 source) Factor Xa Inhibitor Start: 01-28-2024 take 1 tablet by mouth once daily at breakfast rivaroxaban (XARELTO) 10 MG TABS tablet Take 1 tablet by mouth daily (with breakfast) 12 tablet 0 01/28/2024 Active Completed/Discontinued Medications Medication Drug Class(es) Dates Sig (Normalized) Sig (Original) calcium chloride 0.0014 meq/ml / potassium chloride 0.004 meq/ml / sodium [...] 1800, Until Discontinued Substituted for Dutasteride (AVODART). 5 ml sodium chloride 9 mg/ml injection [...] mL/lumen Post-op tadalafil 20 mg oral tablet (6 sources) Phosphodiesterase 5 Inhibitor Start: 03-30-2024 Cialis 20 mg Tab 20 mg = 1 tab(s), Oral, As Directed, Take 1 tab po 60 mins prior to sexual activity. Do not exceed 20mg/24 hrs., # 30 tab(s), Refills(s) 3, Pharmacy: [facility] [id number], 159, cm, 03/30/24 10:03:00 EDT, Height/Length Dosing, 76.2, kg, 03/30/24 10:03:00 EDT, Weight Dosing Start Date: 03/30/24 Status: Ordered Quantity: 30.0 Unit: tab(s) Repeat number: 4 Start: 04-15-2023 Cialis 20 mg T ab 20 mg = 1 tab(s), Oral, As Directed, Take 1 tab po 60 mins prior to sexual activity. Do not exceed 20mg/24 hrs., # 30 tab(s), Refills(s) 1, Pharmacy: [facility] [id number], 159, cm, 11/19/22 10:59:00 EST, Height/Length Dosing, 78, kg, 11/19/22 10:59:00 EST, Weight Dosing Start Date: 04/15/23 Status: Ordered Start: 05-17-2021 take 1 tablet by th once daily Cialis 20 mg Tab 20 mg = 1 tab(s), Oral, Daily, # 30 tab(s), Refills(s) 1, Pharmacy: [id number], 159, cm, 12/23/20 12:42:00 [...] duct with cholangitis, unspecified, with obstruction] Onset: 08-08-20 24 08-08-2024 Chronic Disorders of lipid metabolism (6 sources) Hypertriglyceridemia 04-16-2019 Chronic Esophageal disorders (6 sources) Gastroesophageal reflux disease 04-16-2019 Chronic Essential hypertension (4 sources) Hypertensive disorder; Translations: [Essential (primary) hypertension] Onset: 01-27-2001-27-2024 Chronic Hyperplasia of prostate (15 sources) Benign prostatic hypertrophy with outflow obstruction; Translations: [Benign prostatic hyperplasia with lower urinary tract symptoms] Onset: 11-17-19 Chronic Inflammatory conditions of male genital organs (15 sources) Epididymitis; Translations: [Epididymitis] Onset: 11-19-19 Episodic Osteoarthritis (6 sources) Osteoarthritis 04-16-2019 Chronic Other connective tissue [...] Episodic Other diseases of kidney and ureters (10 sources) Cyst of kidney 10-02-2019 Episodic Other diseases of kidney and ureters (1 source) Acquired renal cyst without neoplastic change; Translations: [Cyst of kidney, acquired] Onset: 03-30-20 Episodic Other gastrointestinal disorders (6 sources) Scrotal mass 12-23-2020 Episodic Other liver diseases (4 sources) Liver disease, unspecified; Translations: [LIVER DISEASE UNSPECIFIED] Onset: 04-03-20 Chronic Other male genital disorders (5 sources) Male erectile dysfunction, unspecified; Translations: [Erectile dysfunction] Onset: 11-19-19 Chronic Other male genital disorders (6 sources) Impotence 12-23-2020 Chronic Other male genital disorders (6 sources) Cyst of epididymis 12-23-2020 Episodic Other male genital disorders (6 sources) Pain of left testicle 02-12-2022 Episodic Other male genital disorders (2 sources) H/O: male genital disorder; Translations: [Personal history of other diseases of male genital organs] Onset: 07-20-20 24 Episodic Other male genital disorders (3 sources) Pain in testicle; Translations: [Testicular pain, unspecified] Onset: 07-23-20 Episodic Other non-traumatic joint disorders (1 source) Pain in unspecified joint; Translations: [Pain in unspecified joint] Onset: 10-24-20 Episodic Other non-traumatic joint disorders (2 sources) Hip pain; Translations: [Pain in unspecified hip] Onset: 07-20-20 24 Episodic Other nutritional; endocrine; and metabolic disorders (2 sources) Obesity caused by energy imbalance 07-07-2025 Chronic Other screening for suspected conditions (not mental disorders or infectious disease) (4 sources) Radiology result abnormal 04-17-2019 Chroni c Other upper respiratory disease (2 sources) Seasonal allergic rhinitis 07-07-2025 Chronic Residual codes; unclassified (6 sources) Family history of cancer of colon 04-16-2019 Episodic Screening and history of mental health and substance abuse codes (6 sources) Ex-smoker 03-18-2020 Episodic Spondylosis; intervertebral disc disorders; other back problems (7 sources) Other cervical disc degeneration, unspecified cervical [...] Reference Range Facility Ambulatory Visit Summaryon 0 07-23-2025 Ambulatory Visit Summary Ambulatory Visi t Summary SEAN GREWAL :1950 Visit Date:07/23/2025 Ambulatory Visit Instructions Your Diagnosis BPH with urinary obstruction Testicular pain Erectile dysfunction Your Care Team Attending Physician - Tete MARCUM MD Primary Care Physician - Barak Richard MD This Is Your Medications List alfuzosin (alfuzosin 10 mg ER Tab) dutasteride (dutasteride 0.5 mg Cap) tadalafil (Cialis 20 mg Tab) Contact prescribing physician if questions or concerns amlodipine lisinopril (lisinopril 40 mg Tab) pantoprazole (Protonix 40 mg Tab-DR) Procedures Performed Arthroplasty of knee (2023), Colonoscopy (2011), Colonoscopy, flexible; diagnostic, including collection of specimen(s) by brushing or washing, when performed (separate procedure) (2008), Cataract surgery, Cholecystectomy, Graft of skin, Hernia repair. Discharge Vitals Temperature (Temporal Artery) 37 ???C Heart Rate (Peripheral) 82 Respiratory Rate 16 Blood Pressure 135/74 Height 159 cm Height 63 in Weight 76.4 kg Weight 168.433 lb BMI 30.22 What to do next Scheduled Follow-Up Appointments Saturday 1:20 PM EDT With: William CAST MD Where: [facility] [place] [address], [address], [place] [address]- You Need to Schedule the Following Appointments Follow Up with KITTY GLASS, ROSLYN Kasper When: Where: [address] [place] [id number]- Medications What How Much When Instructions Unchanged [...] not exceed 20mg/ 24 hrs. Unchanged amlodipine 5 Milligram By Mouth Every day Contact prescribing physician if questions or concerns Unchanged lisinopril (lisinopril 40 mg Tab) 1 Tablets By Mouth Every day Contact prescribing physician if questions or concerns Unchanged pantoprazole (Protonix 40 mg Tab-DR) 1 Tablets By Mouth Every day Contact prescribing physician if questions or concerns Allergies No Known Allergies No Known Medication Allergies Problems Ongoing - Any problem that you are currently receiving treatment for. BPH with urinary obstruction Cyst of kidney, acquired DDD (degenerative disc disease), cervical Epididymal cyst Erectile dysfunction Family history of colon cancer Former smoker GERD (gastroesophageal reflux disease) Hyperglyceridemia Hypertension Left epididymitis Left testicular pain Obesity due to excess calories Osteoarthritis Renal cyst Scrotal mass Seasonal allergic rhinitis Testicular pain Historical - Any problem that you are no longer receiving treatment for. Epididymitis Patient Survey You may receive a survey via text or e-mail asking about your office visit. Please share your experience with us by completing your survey. We appreciate your feedback and thank you for choosing us for your care. Education Materials Orchiectomy, Care After The following information offers guidance on how to care for yourself after your procedure. Your health care provider may also give you more specific instructions. If you have problems or questions, contact your health care provider. What can I expect after the procedure? After the procedure, it is common to have: ??? Pain and bruising in your genital or groin area. ??? Some swelling and redness in your genital or groin area. ??? Fluid pooling in the area where your testicles were removed (seroma). ??? Depression or mood changes. ??? Fatigue. ??? Hot flashes, if both testicles were removed. Follow these instructions at home: Managing pain and swelling ??? If directed, put ice on the affected area. To do this: ? Put ice in a plastic bag. ? Place a towel between your skin and the bag. ? Leave the ice on for 20 minutes, 2???3 times a day. ? Remove the ice if your skin turns bright red. This is very important. If you cannot feel pain, heat, or cold, you have a greater risk of damage to the area. ??? Wear scrotal support as told by your health care provider. ??? To relieve pressure and pain when sitting, you may use a donut cushion if directed by your health care provider. Incision care ??? Follow instructions from your health care provider about how to take care of your incision. Make sure you: ? Wash your hands with soap and water for at least 20 seconds before and after you change your bandage (dressing). If soap and water are not available, use hand regulatory specialist. ? Change your dressing once a day, or as often as told by your health care provider. If the dressing sticks to your incision area: ? Use warm, soapy water to dampen the dressin (more content not included)... Normal [facility] Urology Office/Clinic Noteon 07-23-2025 Urology Office/Clinic Note Urology Office/Clinic Note Chief Complaint 1 year with PSA HPI Staff Pt is a 75 year old male here for a 1 year follow up with PSA PSA: 07/07/24 - 0.8 07/08/25 - 0.18 Previous Dx: epididymitis, BPH with urinary obstruction, ED, renal cyst. *Alfuzosin ER 10 mg qd, Cialis 20 mg prn, Dutasteride 0.5mg qd Nocturia x 1-2. Denies all other urinary concerns at this time. Pt just last week finished a 10 day course of Cefdinir 300mg BID for scrotal pain from Dr. Richard History of Present Illness Tests reviewed: reviewed UA, PSA, scrotal US. I have reviewed the previous health record information and history for this patient from Dr. Marcum I have reviewed and verified the staff [...] Physical Exam Vitals & Measurements T: 37 ???C(Temporal Artery) HR: 82(Peripheral) RR: 16 BP: 135/74 HT: 159 cm HT: 63 in WT: 168.433 lb WT: 76.4 kg BMI: 30.22 General Appearance: alert, no distress, well nourished, well developed male. Assessment/Plan 1. BPH with urinary obstruction (N40.1: Benign prostatic hyperplasia with lower urinary tract symptoms) PSA 07/05/21 - 0.72 11/17/22 - 0.50 11/25/23 - started Dutasteride 07/07/24 - 0.80 (1.6 Dutasteride) 07/08/25 - 0.18 (0.36 Dutasteride, recent ATB course) PSA decrease is favorable. Will d/c PSA checks. UA today shows trace-intact blood. Taking Alfuzosin ER 10 mg qd and Dutasteride 0.5 mg qd. Does get up during the night to void along with urgency. Feels he is emptying. Stream is stronger during the day. Weak stream at night. Does not feel urination is bothersome. -Cont meds wo changes, cont symptomatic monitoring 2. Testicular pain (N50.819: Testicular pain, unspecified) Ongoing L testicular pain for the last four years. States it comes and goes. Scrotal US 06/30/25 [facility] - scattered microlithiasis of both testicles. Multiple tubular regions of L testicles redemonstrated. Reports he just completed a 10 day course of Cefdinir [address] Richard prescribed for scrotal pain. Pt states pain initially resolved with ATB course but shortly returned. Is now experiencing a pulling sensation. Discussed L orchiectomy as an option due to chronic pain. Inherent risks of surgery discussed. Pt elects to proceed with surgery. -Will schedule L simple orchiectomy. Risks of surgery discussed to include bleeding, infection, hematoma, nerve damage, among others. Will order general anesthesia. 3. Erectile dysfunction (N52.9: Male erectile dysfunction, unspecified) Taking Cialis 20 mg prn. No sexual complaints voiced. Follow-up With When Contact Information KITTY GLASS, Tete Singleton, URL [address] [place] [address]- Additional Instructions: Schedule L simple orchiectomy Patient Education Orchiectomy, Care After I, Cherelle Garsia, personally scribed for Dr. Marcum on 07/23/2025 10:32:28. . Documentation recorded by the scribe, Cherelle Garsia, accurately reflects the services(s) I performed and decisions made by me. Authenticated by Dr. Marcum on 07/23/2025 10:35:30. Problem List/Past Medical History Ongoing BPH with urinary obstruction Cyst of kidney, acquired DDD (degenerative disc disease), cervical Epididymal cyst Erectile dysfunction Family history of colon cancer Former smoker GERD (gastroesophageal reflux disease) Hyperglyceridemia Hypertension Left epididymitis Left testicular pain Obesity due to excess calories Osteoarthritis Renal cyst Scrotal mass Seasonal allergic rhinitis Testicular pain Historical Epididymitis Procedure/Surgical History Arthroplasty of knee (2023), Colonoscopy (2011), Colonoscopy, flexible; diagnostic, including collection of specimen(s) by brushing or washing, when performed (separate procedure) (2008), Cataract surgery, Cholecystectomy, Graft of skin, Hernia repair. Medications alfuzosin 10 mg ER Tab, 10 mg= 1 tab(s), Oral, Daily, 3 refills amlodipine, 5 mg, Oral, Daily Cialis 20 mg Tab, 20 mg= 1 tab(s), Oral, As Directed, 3 refills dutasteride 0.5 mg Cap, 0.5 mg= 1 cap(s), Oral, Daily, 3 refills lisinopril 40 mg Tab, 40 mg= 1 tab(s), Oral, Daily Protonix 40 mg Tab-DR, 40 mg= 1 tab(s), Oral, Daily Allergies No Known Allergies No Known Medication Allergies Social History Alcohol - Denies Alcohol Use, 04/16/2019 Current. Beer. 3-5 t (more content not included)... Normal [facility] Comment on above: Result Comment: Elec tronically Signed By: Tete MARCUM MD\.br\Date and Time Signed: 07/23/25 10:35 EDT\.br\Electronically Co-Signed By: Cherelle Garsia\.br\Date and Time Co-Signed: 07/23/25 10:32 EDT Hemoglobin and hematocrit, b loodon 01-28-2024 Hematocrit (Bld) [Volume fraction] 26.3 % Low 40.7 - 50.3 % [facility] Hemoglobin (Bld) [Mass/Vol] 9.4 g/dL Low 13.0 - 17.0 g/dL [facility] Interpretation and review of laboratory results Abnormal [facility] Hgb/Hcton 01-28-2024 Hematocrit (Bld) [Volume fraction] 26.3 % Low 40.7-50.3 [facility] Comment on above: Performed By: #### H H #### [facility] [address] [place] [address] Childbirth Educator: Eric Clancy MD Hemoglobin (Bld) [Mass/Vol] 9.4 g/dL Low 13.0-17.0 [facility] Comment on above: Performed By: #### H H #### [facility] [address] [place] [address] Childbirth Educator: Eric Clancy MD Comp Metabolic Profon 2023 Albumin [Mass/Vol] 4.2 g/dL Normal 3.5-5.2 [facility] Comment on above: Performed By: #### C P #### [facility] [address] [place], [place] [id number] Childbirth Educator: Eric Clancy MD Albumin/Glob Ratio 1.6 Normal 1.0-2.5 [facility] Comment on above: Performed By: #### C P #### [facility] [address] [place], [place] [id number] Childbirth Educator: Eric Clancy MD Alkaline Phos 77 U/L Normal 40-129 [facility] Comment on above: Performed By: #### C P #### [facility] [address] [place], [place] [id number] Childbirth Educator: Eric Clancy MD ALT [Catalytic activity/Vol] 17 U/L Normal 5-41 [facility] Comment on above: Performed By: #### C P #### [facility] [address] [place], [place] [id number] Childbirth Educator: Eric Clancy MD Anion gap [Moles/Vol] 12 mmol/L Normal 9-17 [facility] Comment on above: Performed By: #### C P #### [facility] [address] [place], [place] [id number] Childbirth Educator: Eric Clancy MD AST [Catalytic activity/Vol] 17 U/L Normal <40 [facility] Comment on above: Performed By: #### C P #### [facility] [address] [place], [place] [id number] Childbirth Educator: Eric Clancy MD Bilirubin [Mass/Vol] 0.4 mg/dL Normal 0.3-1.2 [facility] Comment on above: Performed By: #### C P #### [facility] [address] [place], [place] [id number] Childbirth Educator: Eric Clancy MD BUN/CRE Ratio 21 High 9-20 [facility] Comment on above: Performed By: #### C P #### [facility] [address] [place] [address] Childbirth Educator: Eric Clancy MD Calcium [Mass/Vol] 9.0 mg/dL Normal 8.6-10.4 [facility] Comment on above: Performed By: #### C P #### [facility] [address] [place] [id number] Childbirth Educator: Eric Clancy MD Chloride [Moles/Vol] 101 mmol/L Normal 98-107 [facility] Comment on above: Performed By: #### C P #### [facility] [address] [place] [address] Childbirth Educator: Eric Clancy MD CO2 [Moles/Vol] 22 mmol/L Normal 20-31 [facility] Comment on above: Performed By: #### C P #### [facility] [address] [place] [address] Childbirth Educator: Eric Clancy MD Creatinine [Mass/Vol] 0.7 mg/dL Normal 0.7-1.2 [facility] Comment on above: Performed By: #### C P #### [facility] [address] [place] [address] Childbirth Educator: Eric Clancy MD GFR/1.73 sq M.predicted among non-blacks MDRD (S/P/Bld) [Vol rate/Area] mL/min/{1.73_m2} Normal >60 [facility] Comment on above: Result Comment: These [...] secretion. Performed By: #### C P #### [facility] [address] [place] [address] Childbirth Educator: Eric Clancy MD Glucose [Mass/Vol] 119 mg/dL High 70-99 [facility] Comment on above: Performed By: #### C P #### [facility] [address] [place], [place] [address] Childbirth Educator: Eric Clancy MD Potassium [Moles/Vol] 4.2 mmol/L Normal 3.7-5.3 [facility] Comment on above: Performed By: #### C P #### [facility] [address] [place], [place] [id number] Childbirth Educator: Eric Clancy MD Protein [Mass/Vol] 6.9 g/dL Normal 6.4-8.3 [facility] Comment on above: Performed By: #### C P #### [facility] [address] [place], [place] [id number] Childbirth Educator: Eric Clanyc MD Sodium [Moles/Vol] 135 mmol/L Normal 135-144 [facility] Comment on above: Performed By: #### C P #### [facility] [address] [place], [place] [id number] Childbirth Educator: Eric Clancy MD Urea nitrogen [Mass/Vol] 15 mg/dL Normal 8-23 [facility] Comment on above: Performed By: #### C P #### [facility] [address] [place], [place] [id number] Childbirth Educator: Eric Clancy MD Comprehensive Metabolic Pane [facility] 01-27-2024 Albumin [Mass/Vol] 4.2 g/dL 3.5 - 5.2 g/dL [facility] Albumin/Globulin [Mass ratio] 1.6 {ratio} 1.0 - 2.5 [facility] ALP [Catalytic activity/Vol] 77 U/L 40 - 129 U/L [facility] ALT [Catalytic activity/Vol] 17 U/L 5 - 41 U/L [facility] Anion gap [Moles/Vol] 12 mmol/L 9 - 17 mmol/L [facility] AST [Catalytic activity/Vol] 17 U/L NINF - 40 U/L [facility] Bilirubin [Mass/Vol] 0.4 mg/dL 0.3 - 1 .2 mg/dL [facility] Calcium [Mass/Vol] 9.0 mg/dL 8.6 - 10. 4 mg/dL [facility] Chloride [Moles/Vol] 101 mmol/L 98 - 10 7 mmol/L [facility] CO2 [Moles/Vol] 22 mmol/L 20 - 31 mmol/L [facility] Creatinine [Mass/Vol] 0.7 mg/dL 0.7 - 1.2 mg/dL [facility] GFR/1.73 sq M.predicted MDRD (S/P/Bld) [Vol rate/Area] - PINF [facility] Comment on above: These results are [...] 119 mg/dL High 70 - 99 mg/dL [facility] Interpretation and review of laboratory results Abnormal [facility] Potassium [Moles/Vol] 4.2 mmol/L 3.7 - 5.3 mmol/L [facility] Protein [Mass/Vol] 6.9 g/dL 6.4 - 8.3 g/dL [facility] Sodium [Moles/Vol] 135 mmol/L 135 - 144 mmol/L [facility] Urea nitrogen [Mass/Vol] 15 mg/dL 8 - 23 mg/d L [facility] Urea nitrogen/Creatinine [Mass ratio] 21 mg/mg High 9 - 20 [facility] EKG 12 LeadOrdered By: Inocente Freed on 01-07-2024 Atrial Rate 86 BPM [facility] Work Phone: P [place] 35 degrees [employer] Work Phone: P-R Interval 158 ms [employer] Work Phone: Q-T Interval 330 ms [employer] Work Phone: QRS Duration 88 ms [employer] Work Phone: QTc Calculation (Bazett) 394 ms [employer] Work Phone: R [place] 14 degrees [employer] Work Phone: T [place] 13 degrees [employer] Work Phone: Ventricular Rate 86 BPM [employer] Work Phone: [employer] Work Phone: EKG 12 Leadon 01-07-2024 Normal sinus rhythm Normal ECG No previous ECGs available Confirmed by ANYA FREED ([id number]) on 01/07/2024 5:29:49 PM [facility] Anya Freed MD - 01/07/2024 Normal sinus rhythm Normal ECG No previous ECGs available Confirmed by ANYA FREED ([id number]) on 01/07/2024 5:29:49 PM [employer] MRSA DNA Probe, Nasalon 12-13 MRSA, DNA, Nasal Negative NEGATIVE [employer] Comment on above: NEGATIVE: MRSA DNA n ot detected by nucleic acid amplification. Results should be used as an adjunct to nosocomial control efforts to identify patients needing enhanced precautions. The test is not intended to identify patients with staphylococcal infections. Results should not be used to guide or monitor treatment for MRSA infections. Specimen Description .NASAL SWAB [employer] MRSA, DNA, Nasalon MRSA, DNA, Nasal Negative Normal [facility] Comment on above: Result Comment: NEGA TIVE: MRSA DNA not detected by nucleic acid amplification. Results should be used as an adjunct to nosocomial control efforts to identify patients needing enhanced precautions. The test is not intended to identify patients with staphylococcal infections. Results should not be used to guide or monitor treatment for MRSA infections. Performed By: #### M RSANO #### [facility] [address] [place] [address] Childbirth Educator: Jose Willett MD [facility] [address] [place] [address] Childbirth Educator: Eric Clancy MD Basic Metabolic Panelon 12-13 Anion gap [Moles/Vol] 11 mmol/L 9 - 17 mmol/L [facility] [employer] Calcium [Mass/Vol] 8.7 mg/dL 8.6 - 10. 4 mg/dL [facility] Chloride [Moles/Vol] 89 mmol/L Low 98 - 10 7 mmol/L [facility] [employer] CO2 [Moles/Vol] 20 mmol/L 20 - 31 mmol/L [facility] [employer] Creatinine [Mass/Vol] 0.7 mg/dL 0.7 - 1.2 mg/dL [facility] GFR/1.73 sq M.predicted MDRD (S/P/Bld) [Vol rate/Area] - PINF [facility] Comment on above: These results are [...] [Mass/Vol] 89 mg/dL 70 - 99 mg/dL [facility] Interpretation and review of laboratory results Abnormal [facility]d2c Potassium [Moles/Vol] 4.8 mmol/L 3.7 - 5.3 mmol/L [facility] Sodium [Moles/Vol] 120 mmol/L Low 135 - 144 mmol/L [facility] Urea nitrogen [Mass/Vol] 14 mg/dL 8 - 23 mg/d L [facility] [employer] Urea nitrogen/Creatinine [Mass ratio] 20 mg/mg 9 - 20 [facility] Basic Metabolic Profon 01-06 Anion gap [Moles/Vol] 11 mmol/L Normal 9-17 [facility] Comment on above: Performed By: #### C DP, BMP #### [facility] [address] [place] [address] Childbirth Educator: Eric Clancy MD BUN/CRE Ratio 20 Normal 9-20 [facility] Comment on above: Performed By: #### C DP, BMP #### [facility] [address] [place], [place] [id number] Childbirth Educator: Eric Clancy MD Calcium [Mass/Vol] 8.7 mg/dL Normal 8.6-10.4 [facility] Comment on above: Performed By: #### C DP, BMP #### [facility] [address] [place], [place] [id number] Childbirth Educator: Eric Clancy MD Chloride [Moles/Vol] 89 mmol/L Low 98-107 [facility] Comment on above: Performed By: #### C DP, BMP #### [facility] [address] [place], [place] 8[address] Childbirth Educator: Eric Clancy MD CO2 [Moles/Vol] 20 mmol/L Normal 20-31 [facility] Comment on above: Performed By: #### C DP, BMP #### [facility] [address] [place], [place] [id number] Childbirth Educator: Eric Clancy MD Creatinine [Mass/Vol] 0.7 mg/dL Normal 0.7-1.2 [facility] Comment on above: Performed By: #### C DP, BMP #### [facility] [address] [place] [address] Childbirth Educator: Eric Clancy MD GFR/1.73 sq M.predicted among non-blacks MDRD (S/P/Bld) [Vol rate/Area] mL/min/{1.73_m2} Normal >60 [facility] Comment on above: Result Comment: These [...] Performed By: #### C DP, BMP #### [facility] [address] [place] [address] [address] [place], [place] [address]83 Childbirth Educator: Eric Clancy MD Glucose [Mass/Vol] 89 mg/dL Normal 70-99 [facility] Comment on above: Performed By: #### C DP, BMP #### [address] [place], [place] [phone] Childbirth Educator: Eric Clancy MD Potassium [Moles/Vol] 4.8 mmol/L Normal 3.7-5.3 [facility] Comment on above: Performed By: #### C DP, BMP #### [address] [place], [place] [address]783 Childbirth Educator: Eric Clancy MD Sodium [Moles/Vol] 120 mmol/L Low 135-144 [facility] Comment on above: Performed By: #### C DP, BMP #### [facility] [address] [place] [address] [place] [address] Childbirth Educator: Eric Clancy MD Urea nitrogen [Mass/Vol] 14 mg/dL Normal 8-23 [facility] Comment on above: Performed By: #### C DP, BMP #### [facility] [address] [place], [place] [id number] Childbirth Educator: Eric Clancy MD CBC with Auto Differentialon 01-06-2024 Basophils (Bld) [#/Vol] 0.03 10*3/uL [facility] Basophils/100 WBC (Bld) 1 % 0 - 2 % B ON [facility] Eosinophils (Bld) [#/Vol] [facility] Eosinophils/100 WBC (Bld) 0 % Low 1 - 4 % [facility] Erythrocyte distribution width (RBC) [Ratio] 11.4 % Low 11.8 - 14.4 % [facility] Hematocrit (Bld) [Volume fraction] 32.1 % Low 40.7 - 50.3 % [facility] Hemoglobin (Bld) [Mass/Vol] 12.0 g/dL Low 13.0 - 17.0 g/dL [facility] Immature granulocytes (Bld) [#/Vol] 0.03 10*3/uL [facility] Immature granulocytes/100 WBC (Bld) 1 % High 0 [facility] Interpretation and review of laboratory results Abnormal [facility] Lymphocytes/100 WBC (Bld) 23 % Low 24 - 43 % [facility] Lymphocytes/100 WBC (Bld) 1.29 % [facility] MCH (RBC) [Entitic mass] 35.9 pg High 25. 2 - 33.5 pg [facility] MCHC (RBC) [Mass/Vol] 37.4 g/dL High 28.4 - 34.8 g/dL [facility] MCV (RBC) [Entitic vol] 96.1 fL 82.6 - 102.9 fL [facility] Monocytes/100 WBC (Bld) 11 % 3 - 12 % B ON [facility] Monocytes/100 WBC (Bld) 0.60 % B ON [facility] Neutrophils/100 WBC (Bld) 64 % 36 - 65 % [facility] Nucleated RBC/100 WBC (Bld) [Ratio] 0.0 % 0.0 per 100 WBC [facility] Platelet mean volume (Bld) [Entitic vol] 8.6 fL 8.1 - 13.5 fL [facility] Platelets (Bld) [#/Vol] 222 10*3/uL [facility] RBC (Bld) [#/Vol] 3.34 10*6/uL Low 4.21 - 5.7 7 m/uL [facility] Segmented neutrophils/100 WBC (Bld) 3.65 % [facility] WBC other (Bld) [#/Vol] 5.6 B ON [facility] BON [facility] CBC with Diffon 01-06-2024 Abs. Basophil 0.03 k/uL Normal 0.00-0.20 [facility] Comment on above: Performed By: #### C DP, BMP #### [facility] [address] [place] [address] Dr[address] [place], [place] [phone] Childbirth Educator: Eric Clancy MD Abs. Eosinophil <0.03 Normal 0.00-0.44 [facility] Comment on above: Performed By: #### C DP, BMP #### [address] [place], [place] [address] Childbirth Educator: Eric Clancy MD Abs.Imm.Granulocyte 0.03 k/uL Normal 0.00-0.30 [facility] Comment on above: Performed By: #### C DP, BMP #### [address] [place], [place] [address] Childbirth Educator: Eric Clancy MD Abs.Neutrophil (Seg) 3.65 k/uL Normal 1.50-8.10 [facility] Comment on above: Performed By: #### C DP, BMP #### [address] [place], [place] [address] Childbirth Educator: Eric Clancy MD Basophils/100 WBC (Bld) 1 % Normal 0-2 [facility] Comment on above: Performed By: #### C DP, BMP #### [facility] [address] [place] [address] Dr. [place], [place] [phone] Childbirth Educator: Eric Clancy MD Eosinophils/100 WBC (Bld) 0 % Low 1-4 [facility] Comment on above: Performed By: #### C DP, BMP #### [facility] [address] [place] [address] Dr[address] [place], [place] [address] Childbirth Educator: Eric Clancy MD Erythrocyte distribution width (RBC) [Ratio] 11.4 % Low 11.8-14.4 [facility] Comment on above: Performed By: #### C DP, BMP #### [facility] [address] [place], [place] [phone] Childbirth Educator: Eric Clancy MD Hematocrit (Bld) [Volume fraction] 32.1 % Low 40.7-50.3 [facility] Comment on above: Performed By: #### C DP, BMP #### [facility] [address] [place], [place] [phone] Childbirth Educator: Eric Clancy MD Hemoglobin (Bld) [Mass/Vol] 12.0 g/dL Low 13.0-17.0 [facility] Comment on above: Performed By: #### C DP, BMP #### [address] [place], [facility]83 Childbirth Educator: Eric Clancy MD Immature granulocytes/100 WBC (Bld) 1 % High 0 [facility] Comment on above: Performed By: #### C DP, BMP #### [address] [place], [place] [address] Childbirth Educator: Eric Clancy MD Lymphocytes (Bld) [#/Vol] 1.29 10*3/uL Normal 1.10-3.7 0 [facility] Comment on above: Performed By: #### C DP, BMP #### [facility] [address] [place], [facility]83 Childbirth Educator: Eric Clancy MD Lymphocytes/100 WBC (Bld) 23 % Low 24-43 [facility] Comment on above: Performed By: #### C DP, BMP #### [facility] [address] [place], [place] [phone] Childbirth Educator: Eric Clancy MD MCH (RBC) [Entitic mass] 35.9 pg High 25.2-33.5 [facility] Comment on above: Performed By: #### C DP, BMP #### [facility] [address] [place], [place] [address] Childbirth Educator: Eric Clancy MD MCHC (RBC) [Mass/Vol] 37.4 g/dL High 28.4-34.8 [facility] Comment on above: Performed By: #### C DP, BMP #### [facility] [address] [place], [facility]83 Childbirth Educator: Eric Clancy MD MCV (RBC) [Entitic vol] 96.1 fL Normal 82.6-102.9 [facility] Comment on above: Performed By: #### C DP, BMP #### [address] [place] [id number] Childbirth Educator: Eric Clancy MD Monocytes (Bld) [#/Vol] 0.60 10*3/uL Normal 0.10-1.20 [facility] Comment on above: Performed By: #### C DP, BMP #### [address] [place], [facility]83 Childbirth Educator: Eric Clancy MD Monocytes/100 WBC (Bld) 11 % Normal 3-12 [facility] Comment on above: Performed By: #### C DP, BMP #### [facility] [address] [place], [place] [address] Childbirth Educator: Eric Clancy MD Neutrophil (Seg) 64 % Normal 36-65 [facility] Comment on above: Performed By: #### C DP, BMP #### [facility] [address] [place] [address] Childbirth Educator: Eric Clancy MD NRBC Automated 0.0 per 100 WBC Normal 0.0 [facility] Comment on above: Performed By: #### C DP, BMP #### [facility] [address] [place], [facility]83 Childbirth Educator: Eric Clancy MD Platelet mean volume (Bld) [Entitic vol] 8.6 fL Normal 8.1-13.5 [facility] Comment on above: Performed By: #### C DP, BMP #### [facility] [address] [address] Childbirth Educator: Eric Clancy MD Platelets (Bld) [#/Vol] 222 10*3/uL Normal 138-453 [facility] Comment on above: Performed By: #### C DP, BMP #### [address] [place] [id number] Childbirth Educator: Eric Clancy MD RBC (Bld) [#/Vol] 3.34 10*6/uL Low 4.21-5.77 [facility] Comment on above: Performed By: #### C DP, BMP #### [address] [place], [facility]83 Childbirth Educator: Eric Clancy MD WBC (Bld) [#/Vol] 5.6 10*3/uL Normal 3.5-11.3 [facility] Comment on above: Performed By: #### C DP, BMP #### [address] [place] [id number] Childbirth Educator: Eric Clancy MD MRSA, DNA, Nasalon 4 Specimen Description .NASAL SWAB Normal [facility] Comment on above: Performed By: #### M RSANO #### [facility] [address] [place], [place] [address] Childbirth Educator: Jose Willett MD [address] [place], [place] [address] Childbirth Educator: Eric Clancy MD TYPE AND SCREENon 01-06-2024 ABO and Rh group Nom (Bld) Blood group O Rh(D) positive [facility] Arm Band Number [id number] [facility] Blood Bank Sample Expiration 01/30/2024,2359 [facility] Blood group antibodies identified Nom Negative [facility] Type + Screenon 01-06-2024 Type + Screen Sample Expiration 01/30/2024,2359 Arm Band Number [id number] ABO/Rh(D) O POSITIVE Antibody Screen NEGATIVE Normal [facility] Comment on above: Performed By: #### T YS #### [facility] [address] [place], [facility]83 Childbirth Educator: Eric Clancy MD KEV Antinuclear Antibodieson 10-24-2023 Antinuclear Abs, IFA Negative Normal . [facility] Comment on above: Result Comment: Nega tive <1:80 Borderline 1:80 Positive >1:80 ICAP nomenclature: AC-0 For more information about Hep-2 cell patterns use ANApatterns.org, the official website for the International Consensus on Antinuclear Antibody (KEV) Patterns (ICAP). Performed at: - [facility] [place] [id number] Childbirth Educator: Arcenio Ballard PhD, Phone: [phone] PERFORMED BY: [place] [address] PATHOLOGIST HANDICAPPER [employer] DANYELLE HERNANDEZ M.D. Performed By: #### U AARON, CBC, ESR, CMP, CRP #### [facility] [address] [place] [address] [place] #### KEV #### [facility] , Alanine aminotransferase [En zymatic activity/volume] in Serum or PlasmaOrdered By: Eliezer Venegas on 10-24-2023 ALT [Catalytic activity/Vol] 19 U/L 7-52 [facility] Albumin [Mass/volume] in Ser um or Plasma by Bromocresol green (BCG) dye binding methoOrdered By: Eliezer Venegas on 10-24-2023 Albumin BCG dye [Mass/Vol] 4.5 g/dL 3.5-5.7 [facility] Alkaline phosphatase [Enzyma tic activity/volume] in Serum or PlasmaOrdered By: Eliezer Venegas on 10-24-2023 ALP [Catalytic activity/Vol] 69 U/L 34-104 [facility] Aspartate aminotransferase [ Enzymatic activity/volume] in Serum or PlasmaOrdered By: Eliezer Venegas on 10-24-2023 AST [Catalytic activity/Vol] 18 U/L 13-39 [facility] Basophils Auto (Bld) [#/Vol] Ordered By: Eliezer Venegas on 10-24-2023 Basophils (Bld) [#/Vol] 0.0 10*3/uL 0.0-0.2 [facility] Basophils/100 WBC Auto (Bld) Ordered By: Eliezer Venegas on 10-24-2023 Basophils/100 WBC (Bld) 0.6 % . F [facility] Bilirubin.total [Mass/volume ] in Serum or PlasmaOrdered By: Eliezer Venegas on 10-24-2023 Bilirubin [Mass/Vol] 0.6 mg/dL 0.3-1.0 [facility] C reactive protein [Mass/vol ume] in Serum or PlasmaOrdered By: Eliezer Venegas on 10-24-2023 CRP [Mass/Vol] < 0.5 mg/dL 0.0-0.5 [facility] C-Reactive Proteinon 023 CRP [Mass/Vol] mg/L Normal 0.0-0.5 [facility] Comment on above: Result Comment: PERF ORMED BY: [place] [address] PATHOLOGIST HANDICAPPER [employer] DANYELLE HERNANDEZ M.D. Performed By: #### U AARON, CBC, ESR, CMP, CRP #### [place] [address] [place] #### KEV #### [facility] , Calcium [Mass/volume] in Ser um or PlasmaOrdered By: Eliezer Venegas on 10-24-2023 Calcium [Mass/Vol] 9.4 mg/dL 8.6-10.3 [facility] Carbon dioxide, total [Moles /volume] in Serum or PlasmaOrdered By: Eliezer Venegas on 10-24-2023 CO2 [Moles/Vol] 27.8 mmol/L 21.0-31.0 [facility] Chloride [Moles/volume] in S precious or PlasmaOrdered By: Eliezer Venegas on 10-24-2023 Chloride [Moles/Vol] 101 mmol/L 98-107 [facility] Complete Blood Count Auto Di ffon 10-24-2023 Basophils (Bld) [#/Vol] 0.0 10*3/uL Normal 0.0-0.2 [facility] Comment on above: Performed By: #### U AARON, CBC, ESR, CMP, CRP #### [facility] [address] [place] [address] [place] #### KEV #### [facility] , Basophils/100 WBC (Bld) 0.6 % Normal . [facility] Comment on above: Performed By: #### U AARON, CBC, ESR, CMP, CRP #### [facility] [address] [place] [address] [place] #### KEV #### [facility] , Eosinophils (Bld) [#/Vol] 0.0 10*3/uL Normal 0.0-0.45 [facility] Comment on above: Performed By: #### U AARON, CBC, ESR, CMP, CRP #### [facility] [address] [place] [address] [place] #### KEV #### [facility] , Eosinophils/100 WBC (Bld) 0.7 % Normal . [facility] Comment on above: Performed By: #### U AARON, CBC, ESR, CMP, CRP #### [facility] [address] [place] [address] [place] #### KEV #### [facility] , Erythrocyte distribution width (RBC) [Ratio] 12.4 % Normal 12.0-14.8 [facility] Comment on above: Performed By: #### U AARON, CBC, ESR, CMP, CRP #### [facility] [address] [place] [address] [place] #### KEV #### [facility] , Hematocrit (Bld) [Volume fraction] 38.4 % Low 38.8-50.0 [facility] Comment on above: Performed By: #### U AARON, CBC, ESR, CMP, CRP #### [address] #### KEV #### [facility] , Hemoglobin (Bld) [Mass/Vol] 13.9 g/dL Normal 13.0-17.0 [facility] Comment on above: Performed By: #### U AARON, CBC, ESR, CMP, CRP #### [facility] [address] [place] [address] #### KEV #### [facility] , Lymphocytes (Bld) [#/Vol] 1.5 10*3/uL Normal 1.00-4.8 [facility] Comment on above: Performed By: #### U AARON, CBC, ESR, CMP, CRP #### [address] #### KEV #### [facility] , Lymphocytes/100 WBC (Bld) 34.3 % Normal . [facility] Comment on above: Performed By: #### U AAORN, CBC, ESR, CMP, CRP #### [address] #### KEV #### [facility] , MCH (RBC) [Entitic mass] 36.0 pg High 27.5-35.2 [facility] Comment on above: Performed By: #### U AARON, CBC, ESR, CMP, CRP #### [facility] [address] [place] [address] [place] #### KEV #### [facility] , MCV (RBC) [Entitic vol] 99.7 fL Normal 83.5-101 F [facility] Comment on above: Performed By: #### U AARON, CBC, ESR, CMP, CRP #### [facility] [address] [place] [address] [place] #### KEV #### [facility] , Mean Corpuscular HGB Conc 36.1 g/dL High 32.5-35.6 [facility] Comment on above: Performed By: #### U AARON, CBC, ESR, CMP, CRP #### [facility] [address] [place] [address] [place] #### KEV #### [facility] , Monocytes (Bld) [#/Vol] 0.4 10*3/uL Normal 0.0-0.8 [facility] Comment on above: Performed By: #### U AARON, CBC, ESR, CMP, CRP #### [address] #### KEV #### [facility] , Monocytes/100 WBC (Bld) 10.0 % Normal . [facility] Comment on above: Performed By: #### U AARON, CBC, ESR, CMP, CRP #### [place] [address] [place] #### KEV #### [facility] , Neutrophils (Bld) [#/Vol] 2.4 10*3/uL Normal 1.8-7.7 [facility] Comment on above: Performed By: #### U AARON, CBC, ESR, CMP, CRP #### [facility] [address] [place] [address] [place] #### KEV #### [facility] , Neutrophils/100 WBC (Bld) 54.4 % Normal . [facility] Comment on above: Performed By: #### U AARON, CBC, ESR, CMP, CRP #### [facility] [address] [place] [address] [place] #### KEV #### [facility] , NRBC% 0.1 /100{WBC} Normal 0-0.5 [facility] Comment on above: Performed By: #### U AARON, CBC, ESR, CMP, CRP #### [facility] [address] [place] [address] #### KEV #### [facility] , Platelet mean volume (Bld) [Entitic vol] 8.0 fL Normal 6.6-10.1 [facility] Comment on above: Performed By: #### U AARON, CBC, ESR, CMP, CRP #### [facility] [address] [place] [address] [place] #### KEV #### [facility] , Platelets (Bld) [#/Vol] 206 10*3/uL Normal 150-450 [facility] Comment on above: Performed By: #### U AARON, CBC, ESR, CMP, CRP #### [address] #### KEV #### [facility] , RBC (Bld) [#/Vol] 3.85 10*6/uL Low 3.90-5.60 [facility] Comment on above: Performed By: #### U AARON, CBC, ESR, CMP, CRP #### [address] #### KEV #### [facility] , WBC (Bld) [#/Vol] 4.4 10*3/uL Normal 4.1-10.5 [facility] Comment on above: Performed By: #### U AARON, CBC, ESR, CMP, CRP #### [place] [address] [place] #### KEV #### [facility] , Comprehensive Metabolic Pane bebo 10-24-2023 Albumin [Mass/Vol] 4.5 g/dL Normal 3.5-5.7 [facility] Comment on above: Performed By: #### U AARON, CBC, ESR, CMP, CRP #### [place] [address] [place] #### KEV #### [facility] , Albumin/Globulin [Mass ratio] 1.9 {ratio} Normal [facility] Comment on above: Performed By: #### U AARON, CBC, ESR, CMP, CRP #### [facility] [address] [place] [address] #### KEV #### [facility] , ALP [Catalytic activity/Vol] 69 U/L Normal 34-104 [facility] Comment on above: Performed By: #### U AARON, CBC, ESR, CMP, CRP #### [facility] [address] [place] [address] #### KEV #### [facility] , ALT [Catalytic activity/Vol] 19 U/L Normal 7-52 [facility] Comment on above: Performed By: #### U AARON, CBC, ESR, CMP, CRP #### [facility] [address] [place] [address] #### KEV #### [facility] , Anion gap [Moles/Vol] 11.8 mmol/L Normal 6.0-15.0 [facility] Comment on above: Performed By: #### U AARON, CBC, ESR, CMP, CRP #### [facility] [address] [place] [address] #### KEV #### [facility] , AST [Catalytic activity/Vol] 18 U/L Normal 13-39 [facility] Comment on above: Performed By: #### U AARON, CBC, ESR, CMP, CRP #### [facility] [address] [place] [address] [place] #### KEV #### [facility] , Bilirubin [Mass/Vol] 0.6 mg/dL Normal 0.3-1.0 [facility] Comment on above: Performed By: #### U AARON, CBC, ESR, CMP, CRP #### [facility] [address] [place] [address] [place] #### KEV #### [facility] , Calcium [Mass/Vol] 9.4 mg/dL Normal 8.6-10.3 [facility] Comment on above: Performed By: #### U AARON, CBC, ESR, CMP, CRP #### [facility] [address] [place] [address] #### KEV #### [facility] , Chloride [Moles/Vol] 101 mmol/L Normal 98-107 [facility] Comment on above: Performed By: #### U AARON, CBC, ESR, CMP, CRP #### [facility] [address] [place] [address] #### KEV #### [facility] , CO2 [Moles/Vol] 27.8 mmol/L Normal 21.0-31.0 [facility] Comment on above: Performed By: #### U AARON, CBC, ESR, CMP, CRP #### [facility] [address] [place] [address] #### KEV #### [facility] , Creatinine [Mass/Vol] 0.74 mg/dL Normal 0.70-1.30 [facility] Comment on above: Performed By: #### U AARON, CBC, ESR, CMP, CRP #### [facility] [address] [place] [address] #### KEV #### [facility] , GFR/1.73 sq M.predicted MDRD (S/P/Bld) [Vol rate/Area] mL/min/{1.73_m2} [facility] Comment on above: Performed By: #### U AARON, CBC, ESR, CMP, CRP #### [facility] [address] [place] [address] [place] #### KEV #### [facility] , Globulin (S) [Mass/Vol] 2.4 g/dL Normal [facility] Comment on above: Performed By: #### U AARON, CBC, ESR, CMP, CRP #### [facility] [address] [place] [address] [place] #### KEV #### [facility] , Glucose [Mass/Vol] 95 mg/dL Normal 70-100 [facility] Comment on above: Result Comment: [facility] Glucose Reference Range is dependent on time and content of last meal. Glucose of more than 200 mg/dL in a nonstressed, ambulatory subject supports the diagnosis of Diabetes Mellitus. ADA recommended reference range Performed By: #### U AARON, CBC, ESR, CMP, CRP #### [address] #### KEV #### [facility] , Potassium [Moles/Vol] 4.6 mmol/L Normal 3.5-5.1 [facility] Comment on above: Performed By: #### U AARON, CBC, ESR, CMP, CRP #### [place] [address] [place] #### KEV #### [facility] , Protein [Mass/Vol] 6.9 g/dL Normal 6.4-8.9 [facility] Comment on above: Performed By: #### U AARON, CBC, ESR, CMP, CRP #### [place] [address] [place] #### KEV #### [facility] , Sodium [Moles/Vol] 136 mmol/L Normal 136-145 [facility] Comment on above: Performed By: #### U AARON, CBC, ESR, CMP, CRP #### [place] [address] [place] #### KEV #### [facility] , Urea nitrogen [Mass/Vol] 21 mg/dL Normal 7-25 [facility] Comment on above: Performed By: #### U AARON, CBC, ESR, CMP, CRP #### [place] [address] [place] #### KEV #### [facility] , Creatinine [Mass/volume] in Serum or PlasmaOrdered By: Eliezer Venegas on 10-24-2023 Creatinine [Mass/Vol] 0.74 mg/dL 0.70-1.30 [facility] Eosinophils Auto (Bld) [#/Vo l]Ordered By: Eliezer Venegas on 10-24-2023 Eosinophils (Bld) [#/Vol] 0.0 10*3/uL 0.0-0.45 [facility] Eosinophils/100 WBC Auto (Bl d)Ordered By: Eliezer Venegas on 10-24-2023 Eosinophils/100 WBC (Bld) 0.7 % . [facility] Erythrocyte Sedimentation Ra marie 10-24-2023 ESR (Bld) [Velocity] 11 mm/h Normal 0-19 [facility] Comment on above: Result Comment: PERF ORMED BY: [place] [address] PATHOLOGIST HANDICAPPER [employer] DANYELLE HERNANDEZ M.D. Performed By: #### U AARON, CBC, ESR, CMP, CRP #### [facility] [address] #### KEV #### [facility] , Erythrocyte distribution wid th Auto (RBC) [Ratio]Ordered By: Eliezer Venegas on 10-24-2023 Erythrocyte distribution width (RBC) [Ratio] 12.4 % 12.0-14.8 [facility] Erythrocyte sedimentation ra te by Photometric methodOrdered By: Eliezer Venegas on 10-24-2023 ESR Photometric method (Bld) [Velocity] 11 mm/hr 0-19 [facility] Globulin Calc (S) [Mass/Vol] Ordered By: Eliezer Venegas on 10-24-2023 Globulin (S) [Mass/Vol] 2.4 g/dL [facility] Glucose [Mass/volume] in Ser um or PlasmaOrdered By: Eliezer Venegas on 10-24-2023 Glucose [Mass/Vol] 95 mg/dL 70-100 [facility] Comment on above: ADA recommended refe rence rangeRandom Glucose Reference Range is dependent on time and content of last meal. Glucose of more than 200 mg/dL in a nonstressed, ambulatory subject supports the diagnosis of Diabetes Mellitus. Hematocrit Auto (Bld) [Volum e fraction]Ordered By: Eliezer Venegas on 10-24-2023 Hematocrit (Bld) [Volume fraction] 38.4 % 38.8-50.0 [facility] Hemoglobin [Mass/volume] in BloodOrdered By: Eliezer Venegas on 10-24-2023 Hemoglobin (Bld) [Mass/Vol] 13.9 g/dL 13.0-17.0 [facility] Leukocytes [#/volume] correc víctor for nucleated erythrocytes in Blood by Automated counOrdered By: Eliezer Venegas on 10-24-2023 WBC corrected for nucl RBC Auto (Bld) [#/Vol] 4.4 10*3/uL 4.1-10.5 [facility] Lymphocytes Auto (Bld) [#/Vo l]Ordered By: Eliezer Venegas on 10-24-2023 Lymphocytes (Bld) [#/Vol] 1.5 10*3/uL 1.00-4.8 [facility] Lymphocytes/100 WBC Auto (Bl d)Ordered By: Eliezer Venegas on 10-24-2023 Lymphocytes/100 WBC (Bld) 34.3 % . [facility] MCH Auto (RBC) [Entitic mass ]Ordered By: Eliezer Venegas on 10-24-2023 MCH (RBC) [Entitic mass] 36.0 pg 27.5-35.2 [facility] MCHC Auto (RBC) [Mass/Vol]Or dered By: Eliezer Venegas on 10-24-2023 MCHC (RBC) [Mass/Vol] 36.1 g/dL 32.5-35.6 [facility] MCV Auto (RBC) [Entitic vol] Ordered By: Eliezer Venegas on 10-24-2023 MCV (RBC) [Entitic vol] 99.7 fL 83.5-101 [facility] Monocytes Auto (Bld) [#/Vol] Ordered By: Eliezer Venegas on 10-24-2023 Monocytes (Bld) [#/Vol] 0.4 10*3/uL 0.0-0.8 [facility] Monocytes/100 WBC Auto (Bld) Ordered By: Eliezer Venegas on 10-24-2023 Monocytes/100 WBC (Bld) 10.0 % . [facility] Neutrophils Auto (Bld) [#/Vo l]Ordered By: Eliezer Venegas on 10-24-2023 Neutrophils (Bld) [#/Vol] 2.4 10*3/uL 1.8-7.7 [facility] Neutrophils/100 WBC Auto (Bl d)Ordered By: Eliezer Venegas on 10-24-2023 Neutrophils/100 WBC (Bld) 54.4 % . [facility] No Panel InformationOrdered By: Eliezer Venegas on 10-24-2023 Estimated GFR (CKD-EPI) > 60.0 mL/Min [facility] Creatinine Clearance (Chem N/A [facility] Nucleated erythrocytes [Pres ence] in Blood by Automated countOrdered By: Eliezer Venegas on 10-24-2023 Nucleated RBC Auto Ql (Bld) 0.1 /100{WBC} 0-0.5 [facility] Platelet mean volume Auto (B ld) [Entitic vol]Ordered By: Eliezer Venegas on 10-24-2023 Platelet mean volume (Bld) [Entitic vol] 8.0 fL 6.6-10.1 [facility] Platelets Auto (Bld) [#/Vol] Ordered By: Eliezer Venegas on 10-24-2023 Platelets (Bld) [#/Vol] 206 10*3/uL 150-450 [facility] Potassium [Moles/volume] in Serum or PlasmaOrdered By: Eliezer Venegas on 10-24-2023 Potassium [Moles/Vol] 4.6 mmol/L 3.5-5.1 [facility] Protein [Mass/volume] in Ser um or PlasmaOrdered By: Eliezer Venegas on 10-24-2023 Protein [Mass/Vol] 6.9 g/dL 6.4-8.9 [facility] RBC Auto (Bld) [#/Vol]Ordere d By: Eliezer Venegas on 10-24-2023 RBC (Bld) [#/Vol] 3.85 10*6/uL 3.90-5.60 [facility] Serum or plasma albumin/glob ulin mass ratioOrdered By: Eliezer Venegas on 10-24-2023 Albumin/Globulin [Mass ratio] 1.9 {ratio} [facility] Serum or plasma anion gap de terminationOrdered By: Eliezer Venegas on 10-24-2023 Anion gap [Moles/Vol] 11.8 mmol/L 6.0-15.0 [facility] Sodium [Moles/volume] in Ser um or PlasmaOrdered By: Eliezer Venegas on 10-24-2023 Sodium [Moles/Vol] 136 mmol/L 136-145 [facility] Urate [Mass/volume] in Serum or PlasmaOrdered By: Eliezer Venegas on 10-24-2023 Urate [Mass/Vol] 4.3 mg/dL 4.4-7.6 [facility] Urea nitrogen [Mass/volume] in Serum or PlasmaOrdered By: Eliezer Venegas on 10-24-2023 Urea nitrogen [Mass/Vol] 21 mg/dL 7-25 [facility] Uric Acidon 10-24-2023 Urate [Mass/Vol] 4.3 mg/dL Low 4.4-7.6 [facility] Comment on above: Performed By: #### U AARON, CBC, ESR, CMP, CRP #### [facility] [address] [place] [address] #### KEV #### [facility] , WBC Auto (Bld) [#/Vol]Ordere d By: Eliezer Venegas on 10-24-2023 WBC (Bld) [#/Vol] 4.4 10*3/uL 4.1-10.5 [facility] XR CSPINE MIN 4 VIEWSon 06-11 XR CSPINE MIN 4 VIEWS EXAMINATION: XR CSPINE MIN 4 VIEWS HISTORY: Degeneration of cervical intervertebral disc COMPARISON: No relevant comparison available. FINDINGS: BONES: Reversal of normal cervical lordosis. 1 mm anterolisthesis of C3 on C4. 2 mm retrolisthesis of C4 on C5 and C5 on C6. Mild to moderate degenerative spondylosis. [id number] facet osteoarthropathy. DISC SPACES: Mild to severe disc space narrowing most significant at C4-C7 PARASPINOUS: Negative. No paraspinous abnormality is seen. OTHER: Negative. IMPRESSION: Moderate degenerative changes with reversal cervical lordosis Electronically authenticated by: ERIC PEPPER Date: 2022-06-20 15:07 Normal [facility] CREATININEon 04-03-2022 Creatinine [Mass/Vol] 0.85 mg/dL Normal 0.70-1.30 [facility] Comment on above: Performed By: #### C IRENE #### [facility] [address] [address] [address] Charo Fuentes EGFR-AF [place] >60 Normal >=60 [facility] Comment on above: Performed By: #### C IRENE #### [facility] [address] [address] [address] Charo Fuentes EGFR-NON AF [place] >60 Normal >=60 [facility] Comment on above: Performed By: #### C IRENE #### [facility] [address] [place] [address] ABDOMEN WO/W CONon [...] by: ANYA NUÑEZ Date: 2022-04-03 11:34 Normal [facility] CT ABD/PELVIS WO CONon 03-27 CT [...] by: ANYA NUÑEZ Date: 2022-03-27 10:06 Normal [facility] US SCROTUMon 03-07-2022 US SCROTUM EXAMINATION: [...] by: ERIC PEPPER Date: 2022-03-07 11:34 Normal [facility] Vital Signs Date Time Vital Sign Value Performing Clinician Facility 08-19-2024 14:08-0400 Body height 154.9 cm [facility] Phone[facility] 08-19-2024 14:08-0400 Body mass index (BMI) [Ratio] 35.33 kg/m2 [employer] Work Phone: [facility] [employer] [facility] 08-19-2024 14:08-0400 Body weight 84.82 kg [employer] Work Phone: [facility] [employer] [facility] 07-20-2024 09:44-0400 Blood Pressure Location Tete MARCUM [facility] 07-20-2024 09:44-0400 Diastolic blood pressure 76 mm[Hg] Tete MARCUM [facility] 07-20-2024 09:44-0400 Heart rate 88 /min Tete MARCUM [facility] 07-20-2024 09:44-0400 Systolic blood pressure 132 mm[Hg] Tete MARCUM [facility] 03-30-2024 09:45-0400 Blood Pressure Location Teteshefali MARCUM [facility] 03-30-2024 09:45-0400 Body temperature 98.6 [degF] Tete MARCUM [facility] 03-30-2024 09:45-0400 Diastolic blood pressure 74 mm[Hg] Tete MARCUM [facility] 03-30-2024 09:45-0400 Heart rate 96 /min Teteshefali MARCUM [facility] 03-30-2024 09:45-0400 Respiratory rate 16 /min Tete MARCUM [facility] 03-30-2024 09:45-0400 Systolic blood pressure 123 mm[Hg] Tete MARCUM [facility] 01-28-2024 07:30-0400 Body temperature 97.81 [degF] Kalin Dowd MD [facility] 01-28-2024 07:30-0400 Diastolic blood pressure 61 mm[Hg] Kalin Dowd MD Work Phone: [facility] 01-28-2024 07:30-0400 Heart rate 72 /min Kalin Dowd MD Work [facility] 01-28-2024 07:30-0400 Respiratory rate 18 /min Kalin Dowd MD Work Phone: [employer] 01-28-2024 07:30-0400 SaO2% (BldA) [Mass fraction] 97 % Kalin Dowd MD Work Phone: [employer] 01-28-2024 07:30-0400 Systolic blood pressure 123 mm[Hg] Kalin Dowd MD Work Phone: [employer] 01-28-2024 05:00-0400 Body mass index (BMI) [Ratio] 29.89 kg/m2 Kalin Dowd MD Work Phone: [employer] 01-28-2024 05:00-0400 Body weight 74.12 kg Kalin Dowd MD Work Phone: [employer] Comment on above: bed was re-zeroed 01-27-2024 06:38-0400 Body height 157.5 cm Kalin Dowd MD Work Phone: [employer] 01-06-2024 10:19-0500 Body height 157.5 cm Kalin Dowd MD Work Phone: [employer] 01-06-2024 10:19-0500 Body mass index (BMI) [Ratio] 30.18 kg/m2 Kalin Dowd MD Work Phone: [employer] 01-06-2024 10:19-0500 Body temperature 97.5 [degF] Kalin Dowd MD Work Phone: [employer] 01-06-2024 10:19-0500 Body weight 74.84 kg Kalin Dowd MD Work Phone: [employer] 01-06-2024 10:19-0500 Diastolic blood pressure 67 mm[Hg] Kalin Dowd MD Work Phone: [employer] 01-06-2024 10:19-0500 Heart rate 103 /min Kalin Dowd MD Work Phone: [facility] 01-06-2024 10:19-0500 Respiratory rate 20 /min Kalin Dowd MD Work Phone: [facility] 01-06-2024 10:19-0500 SaO2% (BldA) [Mass fraction] 96 % Kalin Dowd MD Work Phone: [facility] 01-06-2024 10:19-0500 Systolic blood pressure 113 mm[Hg] Kalin Dowd MD Work Phone: [facility] 11-25-2023 10:05-0500 Blood Pressure Location Tete MARCUM [facility] 11-25-2023 10:05-0500 Diastolic blood pressure 82 mm[Hg] Tete MARCUM [facility] 11-25-2023 10:05-0500 Systolic blood pressure 138 mm[Hg] Tete MARCUM [facility] 11-19-2022 10:58-0500 Blood Pressure Location Tete MARCUM [facility] 11-19-2022 10:58-0500 Diastolic blood pressure 70 mm[Hg] Tete MARCUM [facility] 11-19-2022 10:58-0500 Heart rate 68 /min Tete MARCUM [facility] 11-19-2022 10:58-0500 Respiratory rate 16 /min Tete MARCUM [facility] 11-19-2022 10:58-0500 Systolic blood pressure 132 mm[Hg] Tete MARCUM [facility] Encounters Encounter Date Encounter Type Care Provider Facility Start: 09-24-2025 ambulatory Tete Villafana ty:[facility] [place] Start: 09-07-2025 [facility]ulatory [facility] Start: 08-26-2025 ambulatory Tete Villafana ty:[id number] Start: 07-28-2025 End: 07-28-2025 ambulatory William R LORENAL Facility: [place] Start: 07-28-2025 End: 07-28-2025 Patient encounter procedure William CARRILLOL 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) Start: 07-20-2024 End: 07-20-2024 [facility] Start: 04-30-2024 End: 04-30-2024 ambulatory TOMÁS BOWDEN Not Available Start: 03-30-2024 End: 03-30-2024 Patient encounter procedure [facility] R KITTY [facility] Start: 01-27-2024 End: 01-28-2024 ambulatory KALIN [facility] Start: 01-27-2024 End: 01-28-2024 Subsequent hospital visit by physician Kalin Dowd MD Work Phone: [facility] Comment on above: S/P TKR (total knee replacement) using cement, left (Primary Dx) Start: 01-06-2024 End: 01-11-2024 ambulatory KALIN DOWD [facility] Start: 01-06-2024 End: 01-10-2024 Subsequent hospital visit by physician Kalin Dowd MD Work Phone: [facility] Start: 11-25-2023 End: 11-25-2023 Patient encounter procedure Tete MARCUM [facility] Start: 10-24-2023 End: 10-24-2023 ambulatory Eliezer Vneegas Facility:[facility] Start: 10-24-2023 End: 10-24-2023 ambulatory MD Barak Richard Work Phone: [facility] Work Phone: Start: 10-24-2023 End: 10-24-2023 Patient encounter procedure MD Barak Richard Work Phone: [facility] [address] Work Phone: Start: 02-28-[address] BARAK RICHARD . Facili ty:[facility] Start: 11-19-2022 End: 11-19-2022 Patient encounter procedure Tete MARCUM [facility] Start: 11-17-2022 End: 11-18-[address] TETE MARCUM . Facility:[facility] Start: 06-20-2022 End: 06-21-[address] BARAK RICHARD . Facility:[facility] Start: 04-03-2022 End: 04-04-[address] BARAK RICHARD . Facility:[facility] Start: 03-27-2022 End: 03-28-[address] TETE MARCUM . Facility:[facility] Start: 03-07-2022 End: 03-08-[address] TETE MARCUM . 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 Comment on above: Performed By: #### P SAD #### [facility] [address] [place] [address] Dr. Charo Fuentes Start: 11-11-2011 Colonoscopy Tete BEANS Cataract surgery Tete COOK Cholecystectomy Tete MESSINA Hernia repair Tete MARCUM Skin graft material (substance) Tete MARCUM Plan of Treatment Date Care Activity Detail Author Start: 08-19-2025 Adult BMI Screening Adult BMI Screen [facility] [employer] [facility] Start: 08-19-2025 Tobacco Screening Tobacco Screening [facility] Start: 08-05-2025 Depression Screening Depression Scre ening [facility] Start: 07-12-2024 COVID-19 Vaccine ( season) COVID-19 Vaccine ( season) [facility] Start: 07-12-2024 Influenza vaccination Influenza Vacc ine [facility] Start: 01-27-2024 End: 01-27-2024 Admission to same day surgery center 01/27/2024 1:00 PM EDT - 01/27/2024 4:00 PM EDT Surgery [facility] OR [address] [place] [address] [id number] Kalin Dowd MD [address] [place] [address] KNEE TOTAL ARTHROPLASTY [facility] OR Comment on above: KNEE TOTAL ARTHROPLA [facility] Start: 01-27-2024 End: 01-27-2024 Arthrp kne condyle&platu medial&lat compartments KNEE TOTAL ARTHROPLASTY Primary osteoarthritis of left knee 01/27/2024 1:00 PM EDT [facility] Start: 01-27-2024 Subsequent hospital visit by physician 01/27/2024 1:00 PM EDT Hospital Encounter [facility] [address] [place] [address] [phone] Kalin Dowd MD [address] [place] [address] [facility] OR Start: 10-24-2023 [facility] Start: 07-12-2023 COVID-19 Vaccine ( season) COVID-19 Vaccine ( season) [facility] Start: 2014 Abdominal aortic aneurysm screening AAA screen [facility] Start: 2014 Fall Risk Screening Fall Risk Screen [facility] Start: 2009 Respiratory Syncytia l Virus (RSV) or age 60 yrs+ (1 - 1-dose 60+ series) Respiratory Syncytial Virus (RSV) or age 60 yrs+ (1 - 1-dose 60+ series) [facility] Start: 1994 Screening for malign ant neoplasm of colon [facility] Start: 1989 Lipid panel Lipids [facility] Start: 1968 DTaP,Tdap and Td Vaccines (1 - Tdap) DTaP,Tdap and Td Vaccines (1 - Tdap) [facility] [employer] [facility] Start: 1968 DTaP/Tdap/Td vaccine (1 - Tdap) DTaP/Tdap/Td vaccine (1 - Tdap) [facility] Start: 1967 Hepatitis C screening Hepatitis C sc reen [facility] Start: 1961 Depression Screen Depression Screen [facility] Start: 1949 Medicare Annual Wellness Visit Medicare Annual Wellness Visit [facility] Homogenous nuclear A b pattern [Titer] in Serum [facility] Nuclear Ab [Titer] i n Serum [facility] Oxygen therapy [[facility] Data [facility]] Initiate Oxygen Therapy Protocol Respiratory Care Routine As Needed until discontinued starting 01/27/2024 [facility] Comment on above: As Needed until disc ontinued starting 01/27/2024 Immunizations Immunization Date Immunization Notes Care Provider [facility] cristina 09-11-2023 influenza virus vacc ine, unspecified formulation Tete MARCUM [facility] 09-11-2023 Influenza, High-dose , Quadrivalent Basel Diane PA Work Phone: [facility] 08-31-2022 SARS-CoV-2 (COVID-19 ) [id number] Tete MARCUM [facility] 08-27-2022 influenza virus vacc ine, unspecified formulation Tete MARCUM [facility] 08-27-2022 Influenza, High-dose , Quadrivalent Basel Diane PA Work Phone: [facility] 04-21-2022 Covid-19, Mrna, Lnp- s, Pf, 30 Mcg/0.3 Ml Dose, Vic-sucrose [place] Hospital Work Phone: [employer] [facility] 04-21-2022 SARS-CoV-2 mRNA (mmmzvebswkf-xuzc-gmbwgn e) vaccine Tete MARCUM [facility] 09-11-2021 influenza virus vacc ine, unspecified formulation Tete MARCUM [facility] 09-04-2021 SARS-CoV-2 (COVID-19 ) mRNA BNT-162b2 vax Tete MARCUM [facility] 08-29-2021 unknown vaccine or immune globulin [facility] Work Phone: [facility] [employer] [facility] 08-11-2021 SARS-CoV-2 (COVID-19 ) Ad26 vaccine, recombinant Tete MARCUM [facility] 02-20-2021 SARS-CoV-2 (COVID-19 ) mRNA BNT-162b2 vax Tete MARCUM [facility] 02-09-2021 SARS-CoV-2 (COVID-19 ) Ad26 vaccine, recombinant Tete MARCUM [facility] 12-23-2020 SARS-CoV-2 (COVID-19 ) mRNA BNT-162b2 vax Tete MARCUM [facility] Comment on above: Result Comment: 2022: [id number] 12-12-2020 SARS-CoV-2 (COVID-19 ) Ad26 vaccine, recombinant Tete MARCUM [facility] 12-01-2020 zoster vaccine recombinant Tete MARCUM [facility] 09-29-2020 zoster vaccine recombinant Tete MARCUM [facility] 08-18-2020 influenza virus vacc ine, unspecified formulation Tete MARCUM [facility] 08-18-2020 Seasonal trivalent influenza vaccine, adjuvanted, preservative free Basel Diane TRAVIS Work Phone: [employer] [facility] 07-12-2019 influenza virus vacc ine, live, attenuated, for intranasal use Tete MARCUM [facility] 08-28-2017 influenza virus vacc ine, unspecified formulation Tete MARCUM [facility] 08-28-2017 influenza, injectabl e, quadrivalent, preservative free Basel Diane PA Work Phone: [employer] 08-21-2017 pneumococcal conjuga te vaccine, 13 valent Tete MARCUM [facility] 08-30-2015 pneumococcal polysaccharide vaccine, 23 valent Tete MARCUM [facility] Payers Date Payer Category Payer Self-pay 2019 Medicare [id number] 1960 Medicare [id number] 1950 Unknown [id number] 2.16.84 [id number] 1950 Unknown [id number] 2.16.84 0.1.744930.3.579.2.593 1950 Unknown [id number] 2.16.84 0.1.561965.3.579.2.593 1950 Unknown [id number] 2.16.84 0.1.213768.3.579.2.593 1949 Unknown [id number] 2.16.84 0.1.238911.3.579.2.593 1949 Unknown [id number] 2.16.84 0.1.973208.3.579.2.593 1949 Unknown [id number] 2.16.8 40.1.073296.3.579.2.173 1949 Unknown [id number] 2.16.8 40.1.369787.3.579.2.173 1949 Unknown [id number] 2.16.84 0.1.035349.3.579.2.1259 1949 Unknown [id number] 2.16.8 40.1.711416.3.579.2.727 1949 Unknown [id number] 2.16.8 40.1.014351.3.579.2.727 1949 Unknown [id number] 2.16.8 40.1.418098.3.579.2.727 1949 Unknown [id number] 2.16.8 40.1.144709.3.579.2.727 Unknown [employer] / [id number] Unknown [id number] 2.16.8 [id number] Social History Date Type Detail Facility Start: 11-19-2022 End: 07-23-2025 Tobacco smoking status Ex-smoker (finding) [facility] Start: 01-27-2024 End: 08-05-2024 Sex Assigned At Male [facility] Start: 1950 Sex Assigned At Male [facility] consumption unknown [employer] [facility] Start: 1950 Sex Assigned At Not on file [employer] [facility] History of tobacco use Current smoker [employer] History of tobacco use Cigarette Smoker B ON [employer] Start: 01-27-2024 End: 08-05-2024 Tobacco use and exposure Smokeless tobacco non-user [employer] Start: 01-28-2024 End: 08-19-2024 Alcohol intake Current drinker of alcohol (finding) [facility] Start: 01-28-2024 End: 08-05-2024 Alcohol intake [employer] Has the mohchi, or [employer] threatened to shut off services in your home in past 12Mo No [employer] (I/We) worried [facility] (my/our) food would run out before (I/we) got money to buy more. Never true [employer] In the past 12 month s, has lack of transportation kept you from medical appointments or from getting medications? No [facility] Start: 01-27-2024 Alcohol Comment occasional beer [employer] History of tobacco use Cigar Sm[facility] How often to you hav e a drink containing alcohol? 2-4 times a month [facility] How many standard dr inks containing alcohol do you have on a typical day? 1 or 2 [facility] How often do you hav e 6 or more drinks on 1 occasion? Less than monthly [facility] Sexual Orientation [facility] Start: 04-08-2019 Sex Male (finding) [facility] Medical Equipment Procedure Code Equipment Code Equipment Origin al Text Equipment Identifier Dates Impl Knee Psn Fe m Cr Cmt Ccr Std Sz8 L - [id number] Start: 01-27-2024 Cement Bne 40gm Hi Visc Radpq For Rev Surg - [id number] Start: 01-27-2024 Component Pat Di a35mm Thk9mm Knee Poly Ángel Conventional - [id number] Start: 01-27-2024 Psn Tib Stm 5 De g Sz F L - [id number] Start: 01-27-2024 Psn Mc Ve Asf L 14mm 8-11 Ef - [id number] Start: 01-27-2024 Goals Date Patient Goal Desired Activity /State Personal health goal Comment on above: Formatting of this n ote might be different from the original. Evaluation of progress towards goal: patient anticipates discharge home with self care Functional Status Date Assessment Result Facility 07-20-2024 Functional Status N/A [facility] 03-30-2024 Functional Status N/A [facility] 11-25-2023 Functional Status N/A [facility] 11-19-2022 Functional Status N/A [facility] Clinical Notes 11-19-2022 to 07-23-2025 TRAVIS Jack - 08/19/2024 2:15 PM Conchis Figueroa RN - 01/28/2024 2:19 PM Jadyn Lozano RN - 01/28/2024 1:59 PM Conchis Figueroa RN - 01/28/2024 1:54 PM EDTAttachments Note Date & Type Note Facility 07-23-2025 Hospital Discharge instructions Patient Education 07/23/2025 10:32:06 Orchiectomy, Care After Orchiectomy, Care After The following information offers guidance on how to care for yourself after your procedure. Your health care provider may also give you more specific instructions. If you have problems or questions, contact your health care provider. What can I expect after the procedure? After the procedure, it is common to have: Pain and bruising in your genital or groin area. Some swelling and redness in your genital or groin area. Fluid pooling in the area where your testicles were removed (seroma). Depression or mood changes. Fatigue. Hot flashes, if both testicles were removed. Follow these instructions at home: Managing pain and swelling If directed, put ice on the affected area. To do this: ?Put ice in a plastic bag. ?Place a towel between your skin and the bag. ?Leave the ice on for 20 minutes, 2 3 times a day. ?Remove the ice if your skin turns bright red. This is very important. If you cannot feel pain, heat, or cold, you have a greater risk of damage to the area. Wear scrotal support as told by your health care provider. To relieve pressure and pain when sitting, you may use a donut cushion if directed by your health care provider. Incision care Follow instructions from your health care provider about how to take care of your incision. Make sure you: ?Wash your hands with soap and water for at least 20 seconds before and after you change your bandage (dressing). If soap and water are not available, use hand regulatory specialist. ?Change your dressing once a day, or as often as told by your health care provider. If the dressing sticks to your incision area: ?Use warm, soapy water to dampen the dressing. ?When the dressing becomes loose, lift it from the incision area. Make sure that the incision stays closed. ?Leave stitches (sutures), skin glue, or adhesive strips in place. These skin closures may need to stay in place for 2 weeks or longer. If adhesive strip edges start to loosen and curl up, you may trim the loose edges. Do not remove adhesive strips completely unless your health care provider tells you to do that. Keep your dressing dry until it is removed. Check your incision area every day for signs of infection. Check for: ?More redness, swelling, or pain. ?More fluid or blood. ?Warmth. ?Pus or a bad smell. Bathing Do not take baths, swim, or use a hot tub until your health care provider approves. You may start taking showers two days after your procedure. Do not rub your incision to dry it. Pat the area gently with a clean cloth or let it air-dry. Medicines Take ryoi-wdy-lcnyhst and prescription medicines only as told by your health care provider. If you had both testicles removed, talk with your health care provider about taking a medicine to replace testosterone. Testosterone is one of the male hormones that your body will no longer make. Ask your health care provider if the medicine prescribed to you: ?Requires you to avoid driving or using machinery. ?Can cause constipation. You may need to take these actions to prevent or treat constipation: ?Drink enough fluid to keep your urine pale yellow. ?Take rlla-pad-pnuwapa or prescription medicines. ?Eat foods that are high in fiber, such as beans, whole grains, and fresh fruits and vegetables. ?Limit foods that are high in fat and processed sugars, such as fried or sweet foods. Activity If you were given a sedative during the procedure, it can affect you for several hours. Do not drive or operate machinery until your health care provider says that it is safe. Rest as told by your health care provider. Avoid activities that may cause your incision to open, such as jogging, playing sports, and straining during a bowel movement. Ask your health care provider what activities are safe for you. Do not lift anything that is heavier than 10 lb (4.5 kg) until your health care provider says that it is safe. Do not engage in sexual activity until the area is healed and your health care provider approves. This could take up to 4 weeks. General instructions Do not use any products that contain nicotine or tobacco. These products include cigarettes, chewing tobacco, and vaping devices, such as e-cigarettes. These can delay incision healing after surgery. If you need help quitting, ask your health care provider. Keep all follow-up visits. This is important. Contact a health care provider if: You have more bruising. You have any of these signs of infection: ?More pain, swelling, or redness in your genital or groin area. ?More fluid or blood coming from your incision. ?Warmth coming from your incision. ?Pus or a bad smell coming from your incision. You have constipation that is not helped by changing your diet or drinking more fluid. You develop nausea or vomiting. You cannot eat or drink without vomiting. Get help right away if: You have dizziness or nausea that does not go away. You have trouble breathing. You have a cough. You have a fever or shaking chills. Your incision breaks open after the skin closures are removed. You are not able to urinate. Summary After this procedure, it is common to have pain and bruising in your genital or groin area, or fluid pooling in the area where your testicles were removed. You should check your incision area every day for signs of infection, such as more redness, swelling, or pain, more fluid or blood, warmth, pus, or a bad smell. Avoid activities that may cause your incision to open, such as jogging, playing sports, and straining with bowel movements. Ask your health care provider what activities are safe for you. You should not engage in sexual activity until the area is healed and your health care provider approves. This could take up to 4 weeks. If you had both testicles removed, talk with your health care provider about taking a medicine to replace testosterone, one of the male hormones that your body will no longer make. This information is not intended to replace advice given to you by your health care provider. Make sure you discuss any questions you have with your health care provider. Document Revised: 04/27/2022 Document Reviewed: 04/27/2022 [employer] Patient Education 2023 [employer]. Follow Up Care 07/20/2024 10:26:46 With:KITTY GLASS, Tete Singleton, URL Address: [address] [place], [place] [id number]- When: Unknown [facility] 07-23-2025 Note Patient Education Oncology Orchiectomy, Care After The following information offers guidance on how to care for yourself after your procedure. Your health care provider may also give you more specific instructions. If you have problems or questions, contact your health care provider. What can I expect after the procedure? After the procedure, it is common to have: ??? Pain and bruising in your genital or groin area. ??? Some swelling and redness in your genital or groin area. ??? Fluid pooling in the area where your testicles were removed (seroma). ??? Depression or mood changes. ??? Fatigue. ??? Hot flashes, if both testicles were removed. Follow these instructions at home: Managing pain and swelling ??? If directed, put ice on the affected area. To do this: ? Put ice in a plastic bag. ? Place a towel between your skin and the bag. ? Leave the ice on for 20 minutes, 2?3 times a day. ? Remove the ice if your skin turns bright red. This is very important. If you cannot feel pain, heat, or cold, you have a greater risk of damage to the area. ??? Wear scrotal support as told by your health care provider. ??? To relieve pressure and pain when sitting, you may use a donut cushion if directed by your health care provider. Incision care ??? Follow instructions from your health care provider about how to take care of your incision. Make sure you: ? Wash your hands with soap and water for at least 20 seconds before and after you change your bandage (dressing). If soap and water are not available, use hand regulatory specialist. ? Change your dressing once a day, or as often as told by your health care provider. If the dressing sticks to your incision area: ? Use warm, soapy water to dampen the dressing. ? When the dressing becomes loose, lift it from the incision area. Make sure that the incision stays closed. ? Leave stitches (sutures), skin glue, or adhesive strips in place. These skin closures may need to stay in place for 2 weeks or longer. If adhesive strip edges start to loosen and curl up, you may trim the loose edges. Do not remove adhesive strips completely unless your health care provider tells you to do that. ??? Keep your dressing dry until it is removed. ??? Check your incision area every day for signs of infection. Check for: ? More redness, swelling, or pain. ? More fluid or blood. ? Warmth. ? Pus or a bad smell. Bathing ??? Do not take baths, swim, or use a hot tub until your health care provider approves. You may start taking showers two days after your procedure. ??? Do not rub your incision to dry it. Pat the area gently with a clean cloth or let it air-dry. Medicines ??? Take feys-unt-pcfcait and prescription medicines only as told by your health care provider. ??? If you had both testicles removed, talk with your health care provider about taking a medicine to replace testosterone. Testosterone is one of the male hormones that your body will no longer make. ??? Ask your health care provider if the medicine prescribed to you: ? Requires you to avoid driving or using machinery. ? Can cause constipation. You may need to take these actions to prevent or treat constipation: ? Drink enough fluid to keep your urine pale yellow. ? Take hpwo-xon-jjgjhdt or prescription medicines. ? Eat foods that are high in fiber, such as beans, whole grains, and fresh fruits and vegetables. ? Limit foods that are high in fat and processed sugars, such as fried or sweet foods. Activity ??? If you were given a sedative during the procedure, it can affect you for several hours. Do not drive or operate machinery until your health care provider says that it is safe. ??? Rest as told by your health care provider. ??? Avoid activities that may cause your incision to open, such as jogging, playing sports, and straining during a bowel movement. Ask your health care provider what activities are safe for you. ??? Do not lift anything that is heavier than 10 lb (4.5 kg) until your health care provider says that it is safe. ??? Do not engage in sexual activity until the area is healed and your health care provider approves. This could take up to 4 weeks. General instructions ??? Do not use any products that contain nicotine or tobacco. These products include cigarettes, chewing tobacco, and vaping devices, such as e-cigarettes. These can delay incision healing after surgery. If you need help quitting, ask your health care provider. ??? Keep all follow-up visits. This is important. Contact a health care provider if: ??? You have more bruising. ??? You have any of these signs of infection: ? More pain, swelling, or redness in your genital or groin area. ? More fluid or blood coming from your incision. ? Warmth coming from your incision. ? Pus or a bad smell coming from your incision. ??? You have constipation that is not helped by changing your diet or drinking more fluid. ??? You d (more content not included)... [facility] 08-19-2024 History of Present illness Narrative Subjective: [...] call office for appointment Israel Contreras PA-C [facility] [address] [place] [address] TRAVIS Jack 08/19/24 1421 documented in this encounter [facility] 07-20-2024 Hospital Discharge instructions Patient Education [...] urethra. Follow these instructions at home: Take givs-rgt-wsmekff and prescription medicines only as told by [...] provider. Document Revised: 05/16/2022 Document Reviewed: 05/16/2022 [employer] Patient Education 2023 [employer]jack. Follow Up Care 03/30/2024 10:38:49 With:KITTY GLASS, Tete Singleton, URL Address: [facility] [address] [place] [address]- When: Unknown [facility] 03-30-2024 Hospital Discharge instructions Patient Education 03/30/2024 [...] Follow these instructions at home: Medicines Take esuo-xlu-cukectm and prescription medicines only as told by [...] provider. Document Revised: 06/06/2022 Document Reviewed: 06/06/2022 [employer] Patient Education 2022 [employer]. Follow Up Care 11/25/2023 10:54:02 With:KITTY GLASS, Tete Singleton, URL Address: [facility] [address] [place] [phone] When: Unknown [facility] 01-28-2024 History of Present illness Narrative Pt taken down to personal vehicle at this time. Reviewed discharge instructions with patient and spouse. 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 Reviewed new medications and side effects [...] is a little nervous about showering despite contract writer reassurance. in room when leaving, she will assist him to get dressed and Park DING will do D/C instructions with them both. [place] script in chart Progress Note Subjective: Post-Operative [...] 4: Continue Pain Control Physical Therapy Facility/Department: [facility] Physical Therapy Initial Assessment [...] Ambulation Assistance: Independent Transfer Assistance: Independent Active Integration Analyst: Yes Mode of Transportation: Car Vision/Hearing Vision [...] will perform transfers and bed mobility with FL. Short Term Goal 3: Patient will tolerate 20-30 minutes of therex/act to improve endurance for ADLs. Patient Goals Patient Goals : Be able to return home Education Patient Education Education Given To: Patient Education Provided: Role of Therapy Education Method: Verbal Barriers to Learning: None Education Outcome: Verbalized understanding Therapy Time Individual Concurrent Group Co-treatment Time In 704 Time Out 0730 Minutes 25 Timed Code Treatment Minutes: 25 [...] light in reach, will continue to monitor. Wool Spotter assisted pt into the bathroom and then into the bed. The patient was not able to void at this time. Pt will try again later, will continue to monitor. Pt sitting up in the chair when contract writer entered the room. Pt is A&O x4. Vitals and assessment as charted. Pt denies pain. LLE MARCO A wrap noted. 2+ pedal pulses. Pt denies tingling but is still having numbness. Pt denies any further needs at this time. Call light within reach. Occupational Therapy Facility/Department: [facility] Occupational Therapy Initial Assessment [...] Learning: None Education Outcome: Verbalized understanding;Demonstrated understanding AM-PAC - ADL AM-PAC Daily Activity - Inpatient How much help [...] AM-PAC Inpatient Daily Activity Raw Score: 19 AM-PAC Inpatient ADL T-Scale Score : 40.22 ADL [...] 330 at this time. Report received from [place] GUIDE at bedside. Pt is A&Ox4. Pt denies [...] Dowd that he is in route from [place] currently, planning to be here for a 1300 start time, updated pt and . Na level resulted at 135, notified ELVIN Tabares. documented in this encounter [facility] 01-28-2024 Hospital Discharge instructions Jadyn Saleh RN - 01/28/2024 12:53 PM EDT Report the following signs or any questions regarding your physical condition to your surgeon immediately: Dr. Dowd: [phone] Excessive swelling of, or around the wound [...] at most local grocery stores, pharmacies, and [employer]st[employer]. If you have any questions about your diet or nutrition, call the hospital and ask for the dietitian. Regular The following attachments cannot be sent through Care Everywhere.Surgical Site Infections: Prevention: General Info (Djiboutian)TKR (Total Knee Replacement): Post-op (Djiboutian)documented in this encounter [facility] 01-06-2024 History of Present illness Narrative Patient instructed on the pre-operative, intra-operative, and post-operative process. Patient instructed on NPO status. Medication instructions and pre operative instruction sheet reviewed with the patient. CHG skin prep instructions reviewed with patient. [facility] Preadmission Testing Name: Sean Grewal : 1950 [...] and Caregiver Arranged: Yes Ride Caregiver Provider: maria dolores-Hansa YASSINELang Bottle/Wipes provided with instructions for use: Yes Patient instructed on the pre-operative, intra-operative, and post-operative process? Yes Medication instructions reviewed with patient? Yes Pre operative instruction sheet reviewed and given to patient in PAT? Yes Labs and EKG faxed to Dr. Richard for review and medical clearance. documented in this encounter [facility] 11-25-2023 Hospital Discharge instructions Patient Education [...] Follow these instructions at home: Medicines Take bjbw-dwq-ctuxnlt and prescription medicines only as told by [...] provider. Document Revised: 06/06/2022 Document Reviewed: 06/06/2022 Elsevier Patient Education 2022 [employer]jack. Follow Up Care 11/19/2022 11:41:10 With:KITTY GLASS, Tete Singleton, ROSLYN Address: [facility] [address] [place] [address] [phone] When: Unknown Comments:4 mos (new med) [facility] [place] 11-19-2022 Hospital Discharge instructions Patient Education [...] urethra. Follow these instructions at home: Take jwcr-gxk-aqvfddx and prescription medicines only as told by [...] 10/28/2006 Document Revised: 09/22/2019 Document Reviewed: 12/02/2017 [employer] Patient Education 2020 [employer]jack. Follow Up Care 02/12/2022 10:03:54 With:KITTY GLASS, ROSLYN [place] Address: [facility] [address] [place] [address] [phone] When:Within 1 Year(s) [facility] Evaluation + Plan note Future Appointments Appointment Date:11/25/2023 09:45:00 AM Scheduled Provider:Tete MARCUM MD Location:[facility] Appointment Type:URO Office Visit [facility] Evaluation + Plan note Future Appointments Appointment Date:03/30/2024 09:45:00 AM Scheduled Provider:Tete MARCUM MD Location:[facility] Appointment Type:URO Office Visit [facility] Evaluation + Plan note Future Appointments Appointment Date:07/20/2024 09:45:00 AM Scheduled Provider:Tete MARCUM MD Location:[facility] Appointment Type:URO Office Visit Diagnostic Tests PendingPSA Total 03/30/24 [facility] Evaluation + Plan note Future Appointments Appointment Date:07/23/2025 09:45:00 AM Scheduled Provider:Tete MARCUM MD Location:[facility] Appointment Type:URO Office Visit Diagnostic Tests PendingPSA Total 07/20/24 [facility] Evaluation + Plan note Future Appointments Appointment Date:07/28/2025 01:20:00 PM Scheduled Provider:William CAST MD Location:[facility] [place] Appointment Type: Established 15 Appointment Date:09/24/2025 10:30:00 AM Scheduled Provider:Tete MARCUM MD Location:[facility] Appointment Type:URO Office Visit [facility] Evaluation + Plan note Future Appointments Appointment Date:09/24/2025 10:30:00 AM Scheduled Provider:Tete MARCUM MD Location:[facility] Appointment Type:URO Office Visit [facility] [place] Evaluation note No assessment inform ation available [facility] Work Phone: Evaluation note Diagnosis S/P TKR (total knee replacement) using cement, left- Primary S/P TKR (total knee replacement) using cement, left Hypertension Unspecified essential hypertension documented in this encounter [facility] note* Diagnosis Gallstone pancreatitis- Primary Acute [facility] N[facility] No data available for this section [facility] Hospital Discharge instructions No data available for this section [facility] [place] InstructionsNot on filedocumented in this encounter [facility] No data available for this section [facility] Summary Purpose Family History No Family History Records FoundNo Family History Records Found No data available for this section No Family History Records Found No data available for this section No Family History Records Found No data available for this section No data available for this section No data available for this section No Family History Records Found Advance Directives No Advanced Directives Records FoundLatest Code Status on File Code Status Date Activated Date Inactivated Comments Full Code 01/27/2024 5:10 PM Healthcare Agents on File Name Relationship Healthcare Agent Relationshi p Communication Hansa Grewal Spouse Primary Decision Maker Documents on File Type Date Recorded Patient Doctor Of Nursing Practice Expl anation DNR Physician Order 08/18/2024 7:10 [...] Active Eliezer Venegas MD Attending Provider Active School Office Assistant Relationship Specialty Start Date End Date Barak Richard MD [address] [place] [address] PCP - General Family Medicine 01/28/24 School Office Assistant Relationship Specialty Start Date End Date Barak Richard MD [address] [place] [address] PCP - General Family Medicine 08/05/24 (unrecognized sect ion and content) No Status Records FoundNo Status Records FoundNo Status Records FoundNo Status Records FoundNo Status Records Found INFORMATION SOURCE (unrecogn ized section and content) DATE CREATED AUTHOR 03/02/2023 [facility] DATE CREATED AUTHOR AUTHOR'S ORGANIZ ATION 11/22/2023 [facility] DATE CREATED AUTHOR AUTHOR'S ORGANIZ ATION 02/11/2024 [facility] DATE CREATED AUTHOR AUTHOR'S ORGANIZ ATION 05/01/2024 [facility] EPIC DATE CREATED AUTHOR AUTHOR'S ORGANIZ ATION 08/14/2025 [facility] Goals (unrecognized section and content) Goals may be documented in a n alternate section Reason for Visit (unrecogniz ed section and content) Specialty Diagnoses / Procedures Referred By Contac t Referred To Contact Diagnoses Primary osteoarthritis of left knee Primary osteoarthritis of left knee [M17.12] Procedures MA ARTHRP KNE CONDYLE&PLATU MEDIAL&LAT COMPARTMENTS KNEE TOTAL ARTHROPLASTY Kalin Dowd MD [address] [place] [address] [facility] [address] [place] [address] Referral ID Status Reason Start Date Expiration Date Visits Re quested Visits Authorized [id number] 1 1 Reason Comments Post-op Post op [...] Arroyo RN) 0504 (Given - Provider: Malorie Arroyo RN)1121 [...] sodium chloride 0.9 % 50 mL IVPB ([id number]) (COMPLETED) 1,000 mg, IntraVENous, ONCE, 1 dose, On Sat01/27/24 at 0645, Antimicrobial Indications: Surgical Prophylaxis, Send to OR, Pre-op (day of surgery) 1522 (New Bag - Provider: Ranjan Santos APRN - SHIPYARD PAINTING SUPERVISOR) 1259 (Stopped - Provider: Conchis Bailon RN) [...] 2103 (New Bag - Provider: Malorie Arroyo RN)213 (Stopped - Provider: Malorie Arroyo RN) 0506 [...] Pedroza CRNA) 0753 (Stopped - Provider: Conchis Bailon, TOÑA) lactated ringers IV soln infusion (CANCELED) [...] of each other unless specifically ordered., Post-op [id number] 60-150-60 MG/50ML injection (CANCELED) PRN, Starting on [...] BE BASED ON THE PRIMARY CLINICAL RECORDS. [email or web address] provides no warranty or guarantee of the accuracy or completeness of information in this document.
--- NOTE | 2025-08-16 10:23 | PM.PRESUREVA ---
History of Present Illness History of Present Illness Chief complaint: Left Testicular Pain, Recurrent Infection Narrative: Patient presents for presurgical testing. Patient reports a long history of left testicular pain. The patient states he has been on antibiotics multiple times with only minimal short-term relief. At present, the patient denies any hematuria or dysuria. He admits to nocturia and urgency with urination with a weak urine stream at night. He denies any other complaints. Review of Systems ROS Narrative REVIEW OF SYSTEMS: Negative except as stated in HPI, ten or more systems reviewed. Constitutional: No fever, chills, weakness ENT: No sore throat or epistaxis Cardiovascular: No edema, chest pain, palpitations, or activity intolerance Respiratory: No shortness of breath, cough, or wheezing Musculoskeletal: No joint pain or swelling Gastrointestinal: No abdominal pain, constipation, diarrhea, or vomiting Genitourinary: No dysuria or hematuria Neurological: No numbness, tingling, weakness, or headache Psychiatric: No mood changes PFSH PFS Medical History (Updated 08/16/25 @ 10:03 by Palmira Presley NP) Arthritis ?M19.90 - Unspecified osteoarthritis, unspecified site (ICD-10) Low iron ?E61.1 - Iron deficiency (ICD-10) Headache ?R51.9 - Headache, unspecified (ICD-10) Testicular pain ?N50.819 - Testicular pain, unspecified (ICD-10) Prediabetes ?R73.03 - Prediabetes (ICD-10) Seasonal allergies ?J30.2 - Other seasonal allergic rhinitis (ICD-10) Scrotal mass ?N50.89 - Other specified disorders of the male genital organs (ICD-10) Renal cyst ?N28.1 - Cyst of kidney, acquired (ICD-10) Osteoarthritis ?M19.90 - Unspecified osteoarthritis, unspecified site (ICD-10) Obesity ?E66.9 - Obesity, unspecified (ICD-10) Hypertension ?I10 - Essential (primary) hypertension (ICD-10) Hyperglyceridemia ?E78.1 - Pure hyperglyceridemia (ICD-10) Gastroesophageal reflux disease ?K21.9 - Gastro-esophageal reflux disease without esophagitis (ICD-10) Former smoker ?Z87.891 - Personal history of nicotine dependence (ICD-10) Epididymal cyst ?N50.3 - Cyst of epididymis (ICD-10) Erectile dysfunction ?N52.9 - Male erectile dysfunction, unspecified (ICD-10) Kidney cysts ?N28.1 - Cyst of kidney, acquired (ICD-10) DDD (degenerative disc disease) BPH (benign prostatic hyperplasia) ?N40.0 - Benign prostatic hyperplasia without lower urinary tract symptoms (ICD-10) Left testicular pain ?N50.812 - Left testicular pain (ICD-10) Surgical History (Updated 08/16/25 @ 10:03 by Palmira Presley NP) S/P cataract extraction and insertion of intraocular lens ?Z98.49 - Cataract extraction status, unspecified eye (ICD-10) ?Z96.1 - Presence of intraocular lens (ICD-10) H/O hernia repair ?Z98.890 - Other specified postprocedural states (ICD-10) ?Z87.19 - Personal history of other diseases of the digestive system (ICD-10) H/O skin graft ?Z94.5 - Skin transplant status (ICD-10) History of cholecystectomy ?Z90.49 - Acquired absence of other specified parts of digestive tract (ICD-10) History of cataract surgery ?Z98.49 - Cataract extraction status, unspecified eye (ICD-10) H/O colonoscopy ?Z98.890 - Other specified postprocedural states (ICD-10) History of arthroplasty of knee ?Z96.659 - Presence of unspecified artificial knee joint (ICD-10) Family History (Updated 08/13/25 @ 07:40 by Marcy Arango RN) Other Alzheimer's dementia Brain tumor Colon cancer Family history of diabetes mellitus Family history of hypertension Social History (Updated 08/16/25 @ 10:16 by Palmira Presley NP) Within the past year, how often did you have a drink containing alcohol: 2-3 times a week Smoking status: Never smoker Non-prescribed substance use: denies use Previous occupational history: Part-Time [employer] Highest level of school completed/degree received: high school graduate Little interest or pleasure in doing things: not at all Feeling down, depressed, or hopeless: not at all Meds Home Medications and Allergies Home Medications ?Medication ?Instructions ?Recorded ?Confirmed ?Type alfuzosin 10 mg tablet,extended 10 mg PO DAILY 08/04/24 08/16/25 History release 24 hr amlodipine 5 mg tablet 5 mg PO DAILY 08/04/24 08/16/25 History dutasteride 0.5 mg capsule 0.5 mg PO DAILY 08/04/24 08/16/25 History lisinopril 40 mg tablet 40 mg PO DAILY 08/04/24 08/16/25 History pantoprazole 40 mg tablet,delayed 40 mg PO DAILY 08/04/24 08/16/25 History release tadalafil 20 mg tablet 20 mg PO DAILY PRN sexual activity 08/16/25 08/16/25 History Allergies Allergy/AdvReac Type Severity Reaction Status Date / Time No Known Drug Allergies Allergy Verified 08/16/25 09:55 Exam Narrative Exam Narrative: Constitutional: Awake, alert, comfortable, well-appearing, nontoxic, interactive, vital signs as charted Head: Normocephalic, atraumatic Neck: Supple, normal appearance, normal range of motion, no meningeal signs, no lymphadenopathy Respiratory: No respiratory distress, breath sounds clear Cardiovascular: Regular rate and rhythm, strong and regular heart tones Abdomen: Nontender, normal bowel sounds, soft, no CVA tenderness Musculoskeletal: Normal gait, no swelling or edema Skin: No rashes or induration, no lesions, only visible skin inspected Neuro: No neurological deficits, normal sensation Psychiatric: Oriented ?3, normal affect Assessment and Plan Assessment and Plan (1) Left testicular pain: Plan Left simple orchiectomy scheduled with Dr. Marcum August 26, 2025.
[2025-08-16 10:37] LABS: Anion Gap 13.3; Blood Urea Nitrogen 15.0 mg/dL (7.0-18.0); Calcium 8.3 mg/dL (8.5-10.1); Carbon Dioxide 23.2 mmol/L (21.0-32.0); Chloride 103 mmol/L (98-107); Estimated GFR (African America >60 (>=60 mL/min/1.73m^2); Estimated GFR (Non-African Ame >60 (>=60 mL/min/1.73m^2); Glucose 168 mg/dL (74-106); Potassium 4.5 mmol/L (3.5-5.1); Sodium 135 mmol/L (136-145)
[2025-08-16 10:40] LABS: Hematocrit 35.0 % (42.0-54.0); Hemoglobin 12.1 g/dL (14.0-18.0); Immature Granulocytes Abs Auto 0.01 10^3/uL (0.00-0.03); Immature Granulocytes Pct Auto 0.2 % (0.0-0.5); Lymphocytes Absolute Auto 1.5 10^3/uL (1.2-3.8); Mean Corpuscular HGB Conc 34.6 g/dL (29.9-35.2); Mean Corpuscular Hemoglobin 31.8 pg (25.9-34.0); Mean Corpuscular Volume 92.1 fL (80.0-94.0); Platelet Count 263 10^3/uL (150-450); Red Blood Count 3.80 10^6/uL (4.70-6.10); White Blood Count 4.5 10^3/uL (4.0-11.0)
[2025-08-16 10:47] LABS: INR 1.06; Partial Thromboplastin Time 29.8 sec (22.3-36.2); Prothrombin Time 11.2 sec (9.0-11.6)
== END 2025-08-16 09:42 | disposition home or self-care (01) ==
LOC: PST 09:41
PROVIDERS: PCP Family Medicine; Visit Provider Urology
DX: Z01.810 Encounter for preprocedural cardiovascular examination (principal); Z01.812 Encounter for preprocedural laboratory examination; Z01.818 Encounter for other preprocedural examination; N50.812 Left testicular pain
CPT/HCPCS: 36415; 80048; 85025; 85610; 85730; 93005; G0463

== ENCOUNTER 2025-08-26 11:48 | Day surgery (SDC) | payer MEDICARE, SELFPAY ==
[2025-08-16 10:11] VITALS: BP 147/72; PULSE 51; TEMP 36.3; O2SAT 98; BMI 30.4
[2025-08-26] VITALS (10 sets, daily range): BP systolic 115–152; BP diastolic 58–75; PULSE 62–73; TEMP 36.3–36.5; O2SAT 93–98; BMI 29.7
--- OUTSIDE RECORDS SUMMARY | 2025-08-26 11:51 | XMS_ITS | CCD ---
Author Organization [facility] Care Team Providers Care Display Decorator Name Role Phone Barak Richard Primary Care Physician RAJ ., DR CACNINO Admitting Unavailable HOY ., DR CANCINO Attending [...] Unavailable MD Barak Richard Primary Care Provider [phone] MD Eliezer Venegas Attending Provider Eliezer Venegas Attending Unavailable Eliezer Venegas Admitting Unavailable Barak Richard Primary Care Unavailable Unavailable Primary Care Provider Barak Hernandez MD Primary Care Provider [phone] KALIN DOWD E Admitting Unavailable RAGHU KALIN E Attending Unavailable KALIN DOWD Admitting Unavailable RAGHU, KALIN E Attending Unavailable MARISELA BOND Consulting Unavailable BARAK RICHARD Primary Care Unavailable TOMÁS BOWDEN Attending Unavailable Barak Richard MD Primary Care Provider [phone] William CAST Attending Unavailable William CAST Attending Unavailable Tete MARCUM Attending Unavailable Tete MARCUM Attending Unavailable Tete MARCUM Attending Unavailable Allergies Allergy Classification Reported Allergen(s) Allergy Type Date of Onset Reaction(s) Facility (1 source) No Known Medication Allergies; Translations: [No Known Medication Allergies] Propensity to adverse reactions (disorder) [facility] Repository Medications Current Medications Medication Drug [...] Daily, # 90 tab(s), Refills(s) 3, Pharmacy: [facility], 159, cm, 07/20/24 9:50:00 EDT, Height/Length Dosing, 76.2, kg, 07/20/24 9:50:00 EDT, Weight Dosing Start Date: 07/09/25 Status: Ordered Quantity: 90.0 Unit: tab(s) Repeat number: 4 Start: 06-01-2024 take 1 tablet by carolann th once daily alfuzosin 10 mg ER Tab 10 mg = 1 tab(s), Oral, Daily, # 90 tab(s), Refills(s) 3, Pharmacy: [facility] Mail Delivery, 159, cm, 03/30/24 10:03:00 EDT, Height/Length Dosing, 76.2, kg, 03/30/24 10:03:00 EDT, Weight Dosing Start Date: 06/01/24 Status: Ordered Start: 02-12-2022 take 1 tablet by carolann th once daily alfuzosin 10 mg ER Tab 10 mg = 1 tab(s), Oral, Daily, # 90 tab(s), Refills(s) 3, Pharmacy: [facility] Mail Delivery, 159, cm, 11/19/22 [...] Refills(s) 0 Start Date: 12/18/19 Status: Ordered Cscycqirk-Fiadjgatpfo-Sqm D (OSTEO BI-FLEX ONE PER DAY) TABS (1 source) Boswellia-Glucos amine-Vit D (OSTEO BI-FLEX ONE PER DAY) TABS Take by mouth daily 0 Active cefdinir 300 mg oral capsule (1 source) Cephalosporin Antibacterial Sta rt: 4 cefdinir 300 mg Cap Refills(s) 0 Start Date: 11/25/23 Status: Ordered docusate sodium 50 mg / sennosides, nursing home 8.6 mg oral tablet (1 source) Sta [...] week(s), # 42 cap(s), Refills(s) 0, Pharmacy: [facility]/pharmacy #[id number], 159, cm, 11/25/23 10:07:00 EST, [...] day(s), # 90 cap(s), Refills(s) 3, Pharmacy: [facility] Mail Delivery, 159, cm, 07/20/24 9:50:00 EDT, Height/Length Dosing, 76.2, kg, 07/20/24 9:50:00 EDT, Weight Dosing Start Date: 02/01/25 Stop Date: 01/27/26 Status: Ordered Quantity: 90.0 Unit: cap(s) Repeat number: 4 Start: 11-25-2023 End: 01-23-2025 take 1 capsule by mouth once daily dutasteride 0.5 mg Cap 0.5 mg = 1 cap(s), Oral, Daily, X 90 day(s), # 90 cap(s), Refills(s) 3, Pharmacy: [facility] Mail Delivery, 159, cm, 11/25/23 [...] hrs., # 30 tab(s), Refills(s) 3, Pharmacy: [facility] [id number], 159, cm, 03/30/24 10:03:00 EDT, Height/Length Dosing, 76.2, kg, 03/30/24 10:03:00 EDT, Weight Dosing Start Date: 03/30/24 Status: Ordered Quantity: 30.0 Unit: tab(s) Repeat number: 4 Start: 04-15-2023 Cialis 20 mg T ab 20 mg = 1 tab(s), Oral, As Directed, Take 1 tab po 60 mins prior to sexual activity. Do not exceed 20mg/24 hrs., # 30 tab(s), Refills(s) 1, Pharmacy: [facility] [id number], 159, cm, 11/19/22 10:59:00 EST, Height/Length Dosing, [...] PM EDT With: William CAST MD Where: [facility] [address], [address], [place] [address]- You Need to Schedule the Following Appointments Follow Up with KITTY GLASS, ROSLYN Kasper When: Where: [address] [place] [id number]- Medications What How Much When Instructions Unchanged [...] and water are not available, use hand cleaning manager. ? Change your dressing once a day, or as often as told by your health care provider. If the dressing sticks to your incision area: ? Use warm, soapy water to dampen the dressin (more content not included)... Normal [facility] Urology Office/Clinic Noteon 07-23-2025 Urology Office/Clinic [...] Information KITTY GLASS, Tete Singleton, URL [address] [place] [address]- Additional Instructions: Schedule L simple orchiectomy Patient [...] 3-5 t (more content not included)... Normal [facility] Comment on above: Result Comment: Elec tronically Signed By: Tete MARCUM MD\.br\Date and Time Signed: 07/23/25 10:35 EDT\.br\Electronically Co-Signed By: Cherelle Garsia\.br\Date and Time Co-Signed: 07/23/25 10:32 EDT Hemoglobin and hematocrit, b loodon 01-28-2024 Hematocrit (Bld) [Volume fraction] 26.3 % Low 40.7 - 50.3 % [facility] Hemoglobin (Bld) [Mass/Vol] 9.4 g/dL Low 13.0 - 17.0 g/dL [facility] Interpretation and review of laboratory results Abnormal [facility] Hgb/Hcton 01-28-2024 Hematocrit (Bld) [Volume fraction] 26.3 % Low 40.7-50.3 [facility] Comment on above: Performed By: #### H H #### [facility] [address] [place] [address] Snap Attacher: Eric Clancy MD Hemoglobin (Bld) [Mass/Vol] 9.4 g/dL Low 13.0-17.0 [facility] Comment on above: Performed By: #### H H #### [facility] [address] [place] [address] Snap Attacher: Eric Clancy MD Comp Metabolic Profon 2023 Albumin [Mass/Vol] 4.2 g/dL Normal 3.5-5.2 [facility] Comment on above: Performed By: #### C P #### [facility] [address] [place], [place] [address]64[address] Snap Attacher: Eric Clancy MD Albumin/Glob Ratio 1.6 Normal 1.0-2.5 [facility] Comment on above: Performed By: #### C P #### [facility] [address] [place], [place] [id number] Snap Attacher: Eric Clancy MD Alkaline Phos 77 U/L Normal 40-129 [facility] Comment on above: Performed By: #### C P #### [facility] [address] [place], [place] [id number] Snap Attacher: Eric Clancy MD ALT [Catalytic activity/Vol] 17 U/L Normal 5-41 [facility] Comment on above: Performed By: #### C P #### [facility] [address] [place], [place] [id number] Snap Attacher: Eric Clancy MD Anion gap [Moles/Vol] 12 mmol/L Normal 9-17 [facility] Comment on above: Performed By: #### C P #### [facility] [address] [place], [place] 8[address]83 Snap Attacher: Eric Clancy MD AST [Catalytic activity/Vol] 17 U/L Normal <40 [facility] Comment on above: Performed By: #### C P #### [facility] [address] [place], [place] [address] Snap Attacher: Eric Clancy MD Bilirubin [Mass/Vol] 0.4 mg/dL Normal 0.3-1.2 [facility] Comment on above: Performed By: #### C P #### [facility] [address] [place], [place] [id number] Snap Attacher: Eric Clancy MD BUN/CRE Ratio 21 High 9-20 [facility] Comment on above: Performed By: #### C P #### [facility] [address] [place] [address] Snap Attacher: Eric Clancy MD Calcium [Mass/Vol] 9.0 mg/dL Normal 8.6-10.4 [facility] Comment on above: Performed By: #### C P #### [facility] [address] [place] [id number] Snap Attacher: Eric Clancy MD Chloride [Moles/Vol] 101 mmol/L Normal 98-107 [facility] Comment on above: Performed By: #### C P #### [facility] [address] [place] [address] Snap Attacher: Eric Clancy MD CO2 [Moles/Vol] 22 mmol/L Normal 20-31 [facility] Comment on above: Performed By: #### C P #### [facility] [address] [place] [address] Snap Attacher: Eric Clancy MD Creatinine [Mass/Vol] 0.7 mg/dL Normal 0.7-1.2 [facility] Comment on above: Performed By: #### C P #### [facility] [address] [place] [address] Snap Attacher: Eric Clancy MD GFR/1.73 sq M.predicted among non-blacks MDRD (S/P/Bld) [Vol rate/Area] mL/min/{1.73_m2} Normal >60 [facility] Comment on above: Result Comment: These results [...] secretion. Performed By: #### C P #### [facility] [address] [place] [address] Snap Attacher: Eric Clancy MD Glucose [Mass/Vol] 119 mg/dL High 70-99 [facility] Comment on above: Performed By: #### C P #### [facility] [address] [place], [place] 287[address]83 Snap Attacher: Eric Clancy MD Potassium [Moles/Vol] 4.2 mmol/L Normal 3.7-5.3 [facility] Comment on above: Performed By: #### C P #### [facility] [address] [place], [place] [phone] Snap Attacher: Eric Clancy MD Protein [Mass/Vol] 6.9 g/dL Normal 6.4-8.3 [facility] Comment on above: Performed By: #### C P #### [facility] [address] [place], [place] 35[address]483 Snap Attacher: Eric Clancy MD Sodium [Moles/Vol] 135 mmol/L Normal 135-144 [facility] Comment on above: Performed By: #### C P #### [facility] [address] [place], [place] [id number] Snap Attacher: Eric Clancy MD Urea nitrogen [Mass/Vol] 15 mg/dL Normal 8-23 [facility] Comment on above: Performed By: #### C P #### [facility] [address] [place], [place] [id number] Snap Attacher: Eric Clancy MD Comprehensive Metabolic Pane [facility] 01-27-2024 Albumin [Mass/Vol] 4.2 g/dL 3.5 - 5.2 g/dL [facility] Albumin/Globulin [Mass ratio] 1.6 {ratio} 1.0 - 2.5 [facility] ALP [Catalytic activity/Vol] 77 U/L 40 - 129 U/L [facility] ALT [Catalytic activity/Vol] 17 U/L 5 - 41 U/L [facility] Anion gap [Moles/Vol] 12 mmol/L 9 - 17 mmol/L [facility] AST [Catalytic activity/Vol] 17 U/L NINF - 40 U/L [facility] Bilirubin [Mass/Vol] 0.4 mg/dL 0.3 - 1 .2 mg/dL [facility] Calcium [Mass/Vol] 9.0 mg/dL 8.6 - 10. 4 mg/dL [facility] Chloride [Moles/Vol] 101 mmol/L 98 - 10 7 mmol/L [facility] CO2 [Moles/Vol] 22 mmol/L 20 - 31 mmol/L [facility] Creatinine [Mass/Vol] 0.7 mg/dL 0.7 - 1.2 mg/dL [facility] GFR/1.73 sq M.predicted MDRD (S/P/Bld) [Vol rate/Area] - PINF [facility] Comment on above: These results are [...] 119 mg/dL High 70 - 99 mg/dL [facility] Interpretation and review of laboratory results Abnormal [facility] Potassium [Moles/Vol] 4.2 mmol/L 3.7 - 5.3 mmol/L [facility] Protein [Mass/Vol] 6.9 g/dL 6.4 - 8.3 g/dL [facility] Sodium [Moles/Vol] 135 mmol/L 135 - 144 mmol/L [facility] Urea nitrogen [Mass/Vol] 15 mg/dL 8 - 23 mg/d L [facility] Urea nitrogen/Creatinine [Mass ratio] 21 mg/mg High 9 - 20 [facility] EKG 12 LeadOrdered By: Inocente Freed on 01-07-2024 Atrial Rate 86 BPM [facility] Work Phone: P [place] 35 degrees [employer] Work Phone: P-R Interval 158 ms [employer] Work Phone: Q-T Interval 330 ms [employer] Work Phone: QRS Duration 88 ms [employer] Work Phone: QTc Calculation (Bazett) 394 ms [employer] Work Phone: R [place] 14 degrees [employer] Work Phone: T [place] 13 degrees [employer] Work Phone: Ventricular Rate 86 BPM [employer] Work Phone: [employer] Work Phone: EKG 12 Leadon 01-07-2024 Normal sinus rhythm Normal ECG No previous ECGs available Confirmed by ANYA FREED ([id number]) on 01/07/2024 5:29:49 PM [facility] Anya Freed MD - 01/07/2024 Normal sinus rhythm Normal ECG No previous ECGs available Confirmed by ANYA FREED ([id number]) on 01/07/2024 5:29:49 PM [employer] MRSA DNA Probe, Nasalon 12-13 MRSA, DNA, Nasal Negative NEGATIVE [employer] Comment on above: NEGATIVE: MRSA DNA n ot detected by nucleic acid amplification. Results should be used as an adjunct to nosocomial control efforts to identify patients needing enhanced precautions. The test is not intended to identify patients with staphylococcal infections. Results should not be used to guide or monitor treatment for MRSA infections. Specimen Description .NASAL SWAB NJVC MRSA, DNA, Nasalon MRSA, DNA, Nasal Negative Normal [facility] Comment on above: Result Comment: NEGA TIVE: MRSA DNA not detected by nucleic acid amplification. Results should be used as an adjunct to nosocomial control efforts to identify patients needing enhanced precautions. The test is not intended to identify patients with staphylococcal infections. Results should not be used to guide or monitor treatment for MRSA infections. Performed By: #### M RSANO #### [facility] [address] [place] [address] Snap Attacher: Jose Willett MD [facility] [address] [place] [address] Snap Attacher: Eric Clancy MD Basic Metabolic Panelon 12-13 Anion gap [Moles/Vol] 11 mmol/L 9 - 17 mmol/L [facility] [employer] Calcium [Mass/Vol] 8.7 mg/dL 8.6 - 10. 4 mg/dL [facility] Chloride [Moles/Vol] 89 mmol/L Low 98 - 10 7 mmol/L [facility] [employer] CO2 [Moles/Vol] 20 mmol/L 20 - 31 mmol/L [facility] [employer] Creatinine [Mass/Vol] 0.7 mg/dL 0.7 - 1.2 mg/dL [facility] GFR/1.73 sq M.predicted MDRD (S/P/Bld) [Vol rate/Area] - PINF [facility] Comment on above: These results are [...] [Mass/Vol] 89 mg/dL 70 - 99 mg/dL [facility] Interpretation and review of laboratory results Abnormal [facility] Potassium [Moles/Vol] 4.8 mmol/L 3.7 - 5.3 mmol/L [facility] Sodium [Moles/Vol] 120 mmol/L Low 135 - 144 mmol/L [facility] Urea nitrogen [Mass/Vol] 14 mg/dL 8 - 23 mg/d L [facility] [employer] Urea nitrogen/Creatinine [Mass ratio] 20 mg/mg 9 - 20 [facility] Basic Metabolic Profon 01-06 Anion gap [Moles/Vol] 11 mmol/L Normal 9-17 [facility] Comment on above: Performed By: #### C DP, BMP #### [facility] [address] [place] [address] Snap Attacher: Eric Clancy MD BUN/CRE Ratio 20 Normal 9-20 [facility] Comment on above: Performed By: #### C DP, BMP #### [facility] [address] [place], [place] [id number] Snap Attacher: Eric Clancy MD Calcium [Mass/Vol] 8.7 mg/dL Normal 8.6-10.4 [facility] Comment on above: Performed By: #### C DP, BMP #### [facility] [address] [place], [place] [id number] Snap Attacher: Eric Clancy MD Chloride [Moles/Vol] 89 mmol/L Low 98-107 [facility] Comment on above: Performed By: #### C DP, BMP #### [facility] [address] [place], [place] 333[address]83 Snap Attacher: Eric Clancy MD CO2 [Moles/Vol] 20 mmol/L Normal 20-31 [facility] Comment on above: Performed By: #### C DP, BMP #### [facility] [address] [place], [place] 9272483 Snap Attacher: Eric Clancy MD Creatinine [Mass/Vol] 0.7 mg/dL Normal 0.7-1.2 [facility] Comment on above: Performed By: #### C DP, BMP #### [facility] [address] [place] [address] Snap Attacher: Eric Clancy MD GFR/1.73 sq M.predicted among non-blacks MDRD (S/P/Bld) [Vol rate/Area] mL/min/{1.73_m2} Normal >60 [facility] Comment on above: Result Comment: These results [...] Performed By: #### C DP, BMP #### [facility] [address] [place] [address] [place]. [place], [place] [phone] Snap Attacher: Eric Clancy MD Glucose [Mass/Vol] 89 mg/dL Normal 70-99 [facility] Comment on above: Performed By: #### C DP, BMP #### [address] [place], [place] [address]83 Snap Attacher: Eric Clancy MD Potassium [Moles/Vol] 4.8 mmol/L Normal 3.7-5.3 [facility] Comment on above: Performed By: #### C DP, BMP #### [address] [place], [place] [address]83 Snap Attacher: Eric Clancy MD Sodium [Moles/Vol] 120 mmol/L Low 135-144 [facility] Comment on above: Performed By: #### C DP, BMP #### [facility] [address] [place] [address] [place] [address] Snap Attacher: Eric Clancy MD Urea nitrogen [Mass/Vol] 14 mg/dL Normal 8-23 [facility] Comment on above: Performed By: #### C DP, BMP #### [facility] [address] [place], [place] [phone] Snap Attacher: Eric Clancy MD CBC with Auto Differentialon 01-06-2024 Basophils (Bld) [#/Vol] 0.03 10*3/uL [facility] Basophils/100 WBC (Bld) 1 % 0 - 2 % [facility] Eosinophils (Bld) [#/Vol] [facility] Eosinophils/100 WBC (Bld) 0 % Low 1 - 4 % [facility] Erythrocyte distribution width (RBC) [Ratio] 11.4 % Low 11.8 - 14.4 % [facility] Hematocrit (Bld) [Volume fraction] 32.1 % Low 40.7 - 50.3 % [facility] Hemoglobin (Bld) [Mass/Vol] 12.0 g/dL Low 13.0 - 17.0 g/dL [facility] Immature granulocytes (Bld) [#/Vol] 0.03 10*3/uL [facility] Immature granulocytes/100 WBC (Bld) 1 % High 0 [facility] Interpretation and review of laboratory results Abnormal [facility] Lymphocytes/100 WBC (Bld) 23 % Low 24 - 43 % [facility] Lymphocytes/100 WBC (Bld) 1.29 % [facility] MCH (RBC) [Entitic mass] 35.9 pg High 25. 2 - 33.5 pg [facility] MCHC (RBC) [Mass/Vol] 37.4 g/dL High 28.4 - 34.8 g/dL [facility] MCV (RBC) [Entitic vol] 96.1 fL 82.6 - 102.9 fL [facility] Monocytes/100 WBC (Bld) 11 % 3 - 12 % [facility] Monocytes/100 WBC (Bld) 0.60 % [facility] Neutrophils/100 WBC (Bld) 64 % 36 - 65 % [facility] Nucleated RBC/100 WBC (Bld) [Ratio] 0.0 % 0.0 per 100 WBC [facility] Platelet mean volume (Bld) [Entitic vol] 8.6 fL 8.1 - 13.5 fL [facility] Platelets (Bld) [#/Vol] 222 10*3/uL [facility] RBC (Bld) [#/Vol] 3.34 10*6/uL Low 4.21 - 5.7 7 m/uL [facility] Segmented neutrophils/100 WBC (Bld) 3.65 % [facility] WBC other (Bld) [#/Vol] 5.6 [facility] CBC with Diffon 01-06-2024 Abs. Basophil 0.03 k/uL Normal 0.00-0.20 [facility] Comment on above: Performed By: #### C DP, BMP #### [facility] [address] [place] [address] Dr. [place], [place] [id number] Snap Attacher: Eric Clancy MD Abs. Eosinophil <0.03 Normal 0.00-0.44 [facility] Comment on above: Performed By: #### C DP, BMP #### [address] [place], [place] [id number] Snap Attacher: Eric Clancy MD Abs.Imm.Granulocyte 0.03 k/uL Normal 0.00-0.30 [facility] Comment on above: Performed By: #### C DP, BMP #### [address] [place], [place] 1067183 Snap Attacher: Eric Clancy MD Abs.Neutrophil (Seg) 3.65 k/uL Normal 1.50-8.10 [facility] Comment on above: Performed By: #### C DP, BMP #### [address] [place], [place] 4654383 Snap Attacher: Eric Clancy MD Basophils/100 WBC (Bld) 1 % Normal 0-2 [facility] Comment on above: Performed By: #### C DP, BMP #### [facility] [address] [place] [address] Dr[address] [place], [place] [id number] Snap Attacher: Eric Clancy MD Eosinophils/100 WBC (Bld) 0 % Low 1-4 [facility] Comment on above: Performed By: #### C DP, BMP #### [facility] [address] [place] [address] Dr[place], [place] [id number] Snap Attacher: Eric Clancy MD Erythrocyte distribution width (RBC) [Ratio] 11.4 % Low 11.8-14.4 [facility] Comment on above: Performed By: #### C DP, BMP #### [facility] [address] [place], [place] [phone] Snap Attacher: Eric Clancy MD Hematocrit (Bld) [Volume fraction] 32.1 % Low 40.7-50.3 [facility] Comment on above: Performed By: #### C DP, BMP #### [facility] [address] [place], [place] [phone] Snap Attacher: Eric Clancy MD Hemoglobin (Bld) [Mass/Vol] 12.0 g/dL Low 13.0-17.0 [facility] Comment on above: Performed By: #### C DP, BMP #### [address] [place], [facility] Snap Attacher: Eric Clancy MD Immature granulocytes/100 WBC (Bld) 1 % High 0 [facility] Comment on above: Performed By: #### C DP, BMP #### [address] [place], [place] [address] Snap Attacher: Eric Clancy MD Lymphocytes (Bld) [#/Vol] 1.29 10*3/uL Normal 1.10-3.7 0 [facility] Comment on above: Performed By: #### C DP, BMP #### [facility] [address] [place], [facility] Snap Attacher: Eric Clancy MD Lymphocytes/100 WBC (Bld) 23 % Low 24-43 [facility] Comment on above: Performed By: #### C DP, BMP #### [facility] [address] [place], [place] [id number] Snap Attacher: Eric Clancy MD MCH (RBC) [Entitic mass] 35.9 pg High 25.2-33.5 [facility] Comment on above: Performed By: #### C DP, BMP #### [facility] [address] [place], [place] 535[address]83 Snap Attacher: Eric Clancy MD MCHC (RBC) [Mass/Vol] 37.4 g/dL High 28.4-34.8 [facility] Comment on above: Performed By: #### C DP, BMP #### [facility] [address] [place], [facility] Snap Attacher: Eric Clancy MD MCV (RBC) [Entitic vol] 96.1 fL Normal 82.6-102.9 [facility] Comment on above: Performed By: #### C DP, BMP #### [address] [place] [id number] Snap Attacher: Eric Clancy MD Monocytes (Bld) [#/Vol] 0.60 10*3/uL Normal 0.10-1.20 [facility] Comment on above: Performed By: #### C DP, BMP #### [address] [place], [facility] Snap Attacher: Eric Clancy MD Monocytes/100 WBC (Bld) 11 % Normal 3-12 [facility] Comment on above: Performed By: #### C DP, BMP #### [facility] [address] [place], [place] [address] Snap Attacher: Eric Clancy MD Neutrophil (Seg) 64 % Normal 36-65 [facility] Comment on above: Performed By: #### C DP, BMP #### [facility] [address] [place] [id number] Snap Attacher: Eric Clancy MD NRBC Automated 0.0 per 100 WBC Normal 0.0 [facility] Comment on above: Performed By: #### C DP, BMP #### [facility] [address] [place], [facility] Snap Attacher: Eric Clancy MD Platelet mean volume (Bld) [Entitic vol] 8.6 fL Normal 8.1-13.5 [facility] Comment on above: Performed By: #### C DP, BMP #### [facility] [address] [place] [address] Snap Attacher: Eric Clancy MD Platelets (Bld) [#/Vol] 222 10*3/uL Normal 138-453 [facility] Comment on above: Performed By: #### C DP, BMP #### [address] [place] [id number] Snap Attacher: Eric Clancy MD RBC (Bld) [#/Vol] 3.34 10*6/uL Low 4.21-5.77 [facility] Comment on above: Performed By: #### C DP, BMP #### [address] [place], [facility] Snap Attacher: Eric Clancy MD WBC (Bld) [#/Vol] 5.6 10*3/uL Normal 3.5-11.3 [facility] Comment on above: Performed By: #### C DP, BMP #### [address] [place] [id number] Snap Attacher: Eric Clancy MD MRSA, DNA, Nasalon 4 Specimen Description .NASAL SWAB Normal [facility] Comment on above: Performed By: #### M RSANO #### [facility] [address] [place], [place] [id number] Snap Attacher: Jose Willett MD [address] [place], [place] [id number] Snap Attacher: Eric Clancy MD TYPE AND SCREENon 01-06-2024 ABO and Rh group Nom (Bld) Blood group O Rh(D) positive [facility] Arm Band Number [id number] [facility] Blood Bank Sample Expiration 01/30/2024,2359 [facility] Blood group antibodies identified Nom Negative [facility] Type + Screenon 01-06-2024 Type + Screen Sample Expiration 01/30/2024,2359 Arm Band Number [id number] ABO/Rh(D) O POSITIVE Antibody Screen NEGATIVE Normal [facility] Comment on above: Performed By: #### T YS #### [facility] [address] [place], [facility]83 Snap Attacher: Eric Clancy MD KEV Antinuclear Antibodieson 10-24-2023 Antinuclear Abs, IFA Negative Normal . [facility] Comment on above: Result Comment: Nega tive <1:80 Borderline 1:80 Positive >1:80 ICAP nomenclature: AC-0 For more information about Hep-2 cell patterns use ANApatterns.org, the official website for the International Consensus on Antinuclear Antibody (KEV) Patterns (ICAP). Performed at: - [place] [place] [id number] Snap Attacher: Arcenio Ballard PhD, Phone: [phone] PERFORMED BY: [place] [address] PATHOLOGIST [employer] DANYELLE HERNANDEZ M.D. Performed By: #### U AARON, CBC, ESR, CMP, CRP #### [facility] [address] [place] [address] [place] #### KEV #### [facility] , Alanine aminotransferase [En zymatic activity/volume] in Serum or PlasmaOrdered By: Eliezer Venegas on 10-24-2023 ALT [Catalytic activity/Vol] 19 U/L 7-52 [facility] Albumin [Mass/volume] in Ser um or Plasma by Bromocresol green (BCG) dye binding methoOrdered By: Eliezer Venegas on 10-24-2023 Albumin BCG dye [Mass/Vol] 4.5 g/dL 3.5-5.7 [facility] Alkaline phosphatase [Enzyma tic activity/volume] in Serum or PlasmaOrdered By: Eliezer Venegas on 10-24-2023 ALP [Catalytic activity/Vol] 69 U/L 34-104 [facility] Aspartate aminotransferase [ Enzymatic activity/volume] in Serum or PlasmaOrdered By: Eliezer Venegas on 10-24-2023 AST [Catalytic activity/Vol] 18 U/L 13-39 [facility] Basophils Auto (Bld) [#/Vol] Ordered By: Eliezer Venegas on 10-24-2023 Basophils (Bld) [#/Vol] 0.0 10*3/uL 0.0-0.2 [facility] Basophils/100 WBC Auto (Bld) Ordered By: Eliezer Venegas on 10-24-2023 Basophils/100 WBC (Bld) 0.6 % . [facility] Bilirubin.total [Mass/volume ] in Serum or PlasmaOrdered By: Eliezer Venegas on 10-24-2023 Bilirubin [Mass/Vol] 0.6 mg/dL 0.3-1.0 [facility] C reactive protein [Mass/vol ume] in Serum or PlasmaOrdered By: Eliezer Venegas on 10-24-2023 CRP [Mass/Vol] < 0.5 mg/dL 0.0-0.5 [facility] C-Reactive Proteinon 023 CRP [Mass/Vol] mg/L Normal 0.0-0.5 [facility] Comment on above: Result Comment: PERF ORMED BY: [place] [address] PATHOLOGIST [employer] DANYELLE HERNANDEZ M.D. Performed By: #### U AARON, CBC, ESR, CMP, CRP #### [place] [address] [place] #### KEV #### [facility] , Calcium [Mass/volume] in Ser um or PlasmaOrdered By: Eliezre Venegas on 10-24-2023 Calcium [Mass/Vol] 9.4 mg/dL 8.6-10.3 [facility] Carbon dioxide, total [Moles /volume] in Serum or PlasmaOrdered By: Eliezer Venegas on 10-24-2023 CO2 [Moles/Vol] 27.8 mmol/L 21.0-31.0 [facility] Chloride [Moles/volume] in S precious or PlasmaOrdered By: Eliezer Venegas on 10-24-2023 Chloride [Moles/Vol] 101 mmol/L 98-107 [facility] Complete Blood Count Auto Di ffon 10-24-2023 Basophils (Bld) [#/Vol] 0.0 10*3/uL Normal 0.0-0.2 [facility] Comment on above: Performed By: #### U AARON, CBC, ESR, CMP, CRP #### [facility] [address] [place] [address] [place] #### KEV #### [facility] , Basophils/100 WBC (Bld) 0.6 % Normal . [facility] Comment on above: Performed By: #### U AARON, CBC, ESR, CMP, CRP #### [facility] [address] [place] [address] [place] #### KEV #### [facility] , Eosinophils (Bld) [#/Vol] 0.0 10*3/uL Normal 0.0-0.45 [facility] Comment on above: Performed By: #### U AARON, CBC, ESR, CMP, CRP #### [facility] [address] [place] [address] [place] #### KEV #### [facility] , Eosinophils/100 WBC (Bld) 0.7 % Normal . [facility] Comment on above: Performed By: #### U AARON, CBC, ESR, CMP, CRP #### [facility] [address] [place] [address] [place] #### KEV #### [facility] , Erythrocyte distribution width (RBC) [Ratio] 12.4 % Normal 12.0-14.8 [facility] Comment on above: Performed By: #### U AARON, CBC, ESR, CMP, CRP #### [facility] [address] [place] [address] [place] #### KEV #### [facility] , Hematocrit (Bld) [Volume fraction] 38.4 % Low 38.8-50.0 [facility] Comment on above: Performed By: #### U AARON, CBC, ESR, CMP, CRP #### [address] #### KEV #### [facility] , Hemoglobin (Bld) [Mass/Vol] 13.9 g/dL Normal 13.0-17.0 [facility] Comment on above: Performed By: #### U AARON, CBC, ESR, CMP, CRP #### [facility] [address] [place] [address] #### KEV #### [facility] , Lymphocytes (Bld) [#/Vol] 1.5 10*3/uL Normal 1.00-4.8 [facility] Comment on above: Performed By: #### U AARON, CBC, ESR, CMP, CRP #### [address] #### KEV #### [facility] , Lymphocytes/100 WBC (Bld) 34.3 % Normal . [facility] Comment on above: Performed By: #### U AARON, CBC, ESR, CMP, CRP #### [address] #### KEV #### [facility] , MCH (RBC) [Entitic mass] 36.0 pg High 27.5-35.2 [facility] Comment on above: Performed By: #### U AARON, CBC, ESR, CMP, CRP #### [facility] [address] [place] [address] [place] #### KEV #### [facility] , MCV (RBC) [Entitic vol] 99.7 fL Normal 83.5-101 [facility] Comment on above: Performed By: #### U AARON, CBC, ESR, CMP, CRP #### [facility] [address] [place] [address] [place] #### KEV #### [facility] , Mean Corpuscular HGB Conc 36.1 g/dL High 32.5-35.6 [facility] Comment on above: Performed By: #### U AARON, CBC, ESR, CMP, CRP #### [facility] [address] [place] [address] [place] #### KEV #### [facility] , Monocytes (Bld) [#/Vol] 0.4 10*3/uL Normal 0.0-0.8 [facility] Comment on above: Performed By: #### U AARON, CBC, ESR, CMP, CRP #### [address] #### KEV #### [facility] , Monocytes/100 WBC (Bld) 10.0 % Normal . [facility] Comment on above: Performed By: #### U AARON, CBC, ESR, CMP, CRP #### [place] [address] [place] #### KEV #### [facility] , Neutrophils (Bld) [#/Vol] 2.4 10*3/uL Normal 1.8-7.7 [facility] Comment on above: Performed By: #### U AARON, CBC, ESR, CMP, CRP #### [facility] [address] [place] [address] [place] #### KEV #### [facility] , Neutrophils/100 WBC (Bld) 54.4 % Normal . [facility] Comment on above: Performed By: #### U AARON, CBC, ESR, CMP, CRP #### [facility] [address] [place] [address] [place] #### KEV #### [facility] , NRBC% 0.1 /100{WBC} Normal 0-0.5 [facility] Comment on above: Performed By: #### U AARON, CBC, ESR, CMP, CRP #### [facility] [address] [place] [address] #### KEV #### [facility] , Platelet mean volume (Bld) [Entitic vol] 8.0 fL Normal 6.6-10.1 [facility] Comment on above: Performed By: #### U AARON, CBC, ESR, CMP, CRP #### [facility] [address] [place] [address] [place] #### KEV #### [facility] , Platelets (Bld) [#/Vol] 206 10*3/uL Normal 150-450 [facility] Comment on above: Performed By: #### U AARON, CBC, ESR, CMP, CRP #### [address] #### KEV #### [facility] , RBC (Bld) [#/Vol] 3.85 10*6/uL Low 3.90-5.60 [facility] Comment on above: Performed By: #### U AARON, CBC, ESR, CMP, CRP #### [address] #### KEV #### [facility] , WBC (Bld) [#/Vol] 4.4 10*3/uL Normal 4.1-10.5 [facility] Comment on above: Performed By: #### U AARON, CBC, ESR, CMP, CRP #### [place] [address] [place] #### KEV #### [facility] , Comprehensive Metabolic Pane bebo 10-24-2023 Albumin [Mass/Vol] 4.5 g/dL Normal 3.5-5.7 [facility] Comment on above: Performed By: #### U AARON, CBC, ESR, CMP, CRP #### [place] [address] [place] #### KEV #### [facility] , Albumin/Globulin [Mass ratio] 1.9 {ratio} Normal [facility] Comment on above: Performed By: #### U AARON, CBC, ESR, CMP, CRP #### [facility] [address] [place] [address] #### KEV #### [facility] , ALP [Catalytic activity/Vol] 69 U/L Normal 34-104 [facility] Comment on above: Performed By: #### U AARON, CBC, ESR, CMP, CRP #### [facility] [address] [place] [address] #### KEV #### [facility] , ALT [Catalytic activity/Vol] 19 U/L Normal 7-52 [facility] Comment on above: Performed By: #### U AARON, CBC, ESR, CMP, CRP #### [facility] [address] [place] [address] #### KEV #### [facility] , Anion gap [Moles/Vol] 11.8 mmol/L Normal 6.0-15.0 [facility] Comment on above: Performed By: #### U AARON, CBC, ESR, CMP, CRP #### [facility] [address] [place] [address] #### KEV #### [facility] , AST [Catalytic activity/Vol] 18 U/L Normal 13-39 [facility] Comment on above: Performed By: #### U AARON, CBC, ESR, CMP, CRP #### [facility] [address] [place] [address] [place] #### KEV #### [facility] , Bilirubin [Mass/Vol] 0.6 mg/dL Normal 0.3-1.0 [facility] Comment on above: Performed By: #### U AARON, CBC, ESR, CMP, CRP #### [facility] [address] [place] [address] [place] #### KEV #### [facility] , Calcium [Mass/Vol] 9.4 mg/dL Normal 8.6-10.3 [facility] Comment on above: Performed By: #### U AARON, CBC, ESR, CMP, CRP #### [facility] [address] [place] [address] #### KEV #### [facility] , Chloride [Moles/Vol] 101 mmol/L Normal 98-107 [facility] Comment on above: Performed By: #### U AARON, CBC, ESR, CMP, CRP #### [facility] [address] [place] [address] #### KEV #### [facility] , CO2 [Moles/Vol] 27.8 mmol/L Normal 21.0-31.0 [facility] Comment on above: Performed By: #### U AARON, CBC, ESR, CMP, CRP #### [facility] [address] [place] [address] #### KEV #### [facility] , Creatinine [Mass/Vol] 0.74 mg/dL Normal 0.70-1.30 [facility] Comment on above: Performed By: #### U AARON, CBC, ESR, CMP, CRP #### [facility] [address] [place] [address] #### KEV #### [facility] , GFR/1.73 sq M.predicted MDRD (S/P/Bld) [Vol rate/Area] mL/min/{1.73_m2} [facility] Comment on above: Performed By: #### U AARON, CBC, ESR, CMP, CRP #### [facility] [address] [place] [address] [place] #### KEV #### [facility] , Globulin (S) [Mass/Vol] 2.4 g/dL Normal [facility] Comment on above: Performed By: #### U AARON, CBC, ESR, CMP, CRP #### [facility] [address] [place] [address] [place] #### KEV #### [facility] , Glucose [Mass/Vol] 95 mg/dL Normal 70-100 [facility] Comment on above: Result Comment: [place] Glucose Reference Range is dependent on time and content of last meal. Glucose of more than 200 mg/dL in a nonstressed, ambulatory subject supports the diagnosis of Diabetes Mellitus. ADA recommended reference range Performed By: #### U AARON, CBC, ESR, CMP, CRP #### [address] #### KEV #### [facility] , Potassium [Moles/Vol] 4.6 mmol/L Normal 3.5-5.1 [facility] Comment on above: Performed By: #### U AARON, CBC, ESR, CMP, CRP #### [place] [address] [place] #### KEV #### [facility] , Protein [Mass/Vol] 6.9 g/dL Normal 6.4-8.9 [facility] Comment on above: Performed By: #### U AARON, CBC, ESR, CMP, CRP #### [place] [address] [place] #### KEV #### [facility] , Sodium [Moles/Vol] 136 mmol/L Normal 136-145 [facility] Comment on above: Performed By: #### U AARON, CBC, ESR, CMP, CRP #### [place] [address] [place] #### KEV #### [facility] , Urea nitrogen [Mass/Vol] 21 mg/dL Normal 7-25 [facility] Comment on above: Performed By: #### U AARON, CBC, ESR, CMP, CRP #### [place] [address] [place] #### KEV #### [facility] , Creatinine [Mass/volume] in Serum or PlasmaOrdered By: Eliezer Venegas on 10-24-2023 Creatinine [Mass/Vol] 0.74 mg/dL 0.70-1.30 [facility] Eosinophils Auto (Bld) [#/Vo l]Ordered By: Eliezer Venegas on 10-24-2023 Eosinophils (Bld) [#/Vol] 0.0 10*3/uL 0.0-0.45 [facility] Eosinophils/100 WBC Auto (Bl d)Ordered By: Eliezer Venegas on 10-24-2023 Eosinophils/100 WBC (Bld) 0.7 % . [facility] Erythrocyte Sedimentation Ra marie 10-24-2023 ESR (Bld) [Velocity] 11 mm/h Normal 0-19 [facility] Comment on above: Result Comment: PERF ORMED BY: [place] [address] PATHOLOGIST [employer] DANYELLE HERNANDEZ M.D. Performed By: #### U AARON, CBC, ESR, CMP, CRP #### [facility] [address] #### KEV #### [facility] , Erythrocyte distribution wid th Auto (RBC) [Ratio]Ordered By: Eliezer Venegas on 10-24-2023 Erythrocyte distribution width (RBC) [Ratio] 12.4 % 12.0-14.8 [facility] Erythrocyte sedimentation ra te by Photometric methodOrdered By: Eliezer Venegas on 10-24-2023 ESR Photometric method (Bld) [Velocity] 11 mm/hr 0-19 [facility] Globulin Calc (S) [Mass/Vol] Ordered By: Eliezer Venegas on 10-24-2023 Globulin (S) [Mass/Vol] 2.4 g/dL [facility] Glucose [Mass/volume] in Ser um or PlasmaOrdered By: Eliezer Venegas on 10-24-2023 Glucose [Mass/Vol] 95 mg/dL 70-100 [facility] Comment on above: ADA recommended refe rence rangeRandom Glucose Reference Range is dependent on time and content of last meal. Glucose of more than 200 mg/dL in a nonstressed, ambulatory subject supports the diagnosis of Diabetes Mellitus. Hematocrit Auto (Bld) [Volum e fraction]Ordered By: Eliezer Venegas on 10-24-2023 Hematocrit (Bld) [Volume fraction] 38.4 % 38.8-50.0 [facility] Hemoglobin [Mass/volume] in BloodOrdered By: Eliezer Venegas on 10-24-2023 Hemoglobin (Bld) [Mass/Vol] 13.9 g/dL 13.0-17.0 [facility] Leukocytes [#/volume] correc víctor for nucleated erythrocytes in Blood by Automated counOrdered By: Eliezer Venegas on 10-24-2023 WBC corrected for nucl RBC Auto (Bld) [#/Vol] 4.4 10*3/uL 4.1-10.5 [facility] Lymphocytes Auto (Bld) [#/Vo l]Ordered By: Eliezer Venegas on 10-24-2023 Lymphocytes (Bld) [#/Vol] 1.5 10*3/uL 1.00-4.8 [facility] Lymphocytes/100 WBC Auto (Bl d)Ordered By: Eliezer Venegas on 10-24-2023 Lymphocytes/100 WBC (Bld) 34.3 % . [facility] MCH Auto (RBC) [Entitic mass ]Ordered By: Eliezer Venegas on 10-24-2023 MCH (RBC) [Entitic mass] 36.0 pg 27.5-35.2 [facility] MCHC Auto (RBC) [Mass/Vol]Or dered By: Eliezer Venegas on 10-24-2023 MCHC (RBC) [Mass/Vol] 36.1 g/dL 32.5-35.6 [facility] MCV Auto (RBC) [Entitic vol] Ordered By: Eliezer Venegas on 10-24-2023 MCV (RBC) [Entitic vol] 99.7 fL 83.5-101 [facility] Monocytes Auto (Bld) [#/Vol] Ordered By: Eliezer Venegas on 10-24-2023 Monocytes (Bld) [#/Vol] 0.4 10*3/uL 0.0-0.8 [facility] Monocytes/100 WBC Auto (Bld) Ordered By: Eliezer Venegas on 10-24-2023 Monocytes/100 WBC (Bld) 10.0 % . [facility] Neutrophils Auto (Bld) [#/Vo l]Ordered By: Eliezer Venegas on 10-24-2023 Neutrophils (Bld) [#/Vol] 2.4 10*3/uL 1.8-7.7 [facility] Neutrophils/100 WBC Auto (Bl d)Ordered By: Eliezer Venegas on 10-24-2023 Neutrophils/100 WBC (Bld) 54.4 % . [facility] No Panel InformationOrdered By: Eliezer Venegas on 10-24-2023 Estimated GFR (CKD-EPI) > 60.0 mL/Min [facility] Creatinine Clearance (Chem N/A [facility] Nucleated erythrocytes [Pres ence] in Blood by Automated countOrdered By: Eliezer Venegas on 10-24-2023 Nucleated RBC Auto Ql (Bld) 0.1 /100{WBC} 0-0.5 [facility] Platelet mean volume Auto (B ld) [Entitic vol]Ordered By: Eliezer Venegas on 10-24-2023 Platelet mean volume (Bld) [Entitic vol] 8.0 fL 6.6-10.1 [facility] Platelets Auto (Bld) [#/Vol] Ordered By: Eliezer Venegas on 10-24-2023 Platelets (Bld) [#/Vol] 206 10*3/uL 150-450 [facility] Potassium [Moles/volume] in Serum or PlasmaOrdered By: Eliezer Venegas on 10-24-2023 Potassium [Moles/Vol] 4.6 mmol/L 3.5-5.1 [facility] Protein [Mass/volume] in Ser um or PlasmaOrdered By: Eliezer Venegas on 10-24-2023 Protein [Mass/Vol] 6.9 g/dL 6.4-8.9 [facility] RBC Auto (Bld) [#/Vol]Ordere d By: Eliezer Venegas on 10-24-2023 RBC (Bld) [#/Vol] 3.85 10*6/uL 3.90-5.60 [facility] Serum or plasma albumin/glob ulin mass ratioOrdered By: Eliezer Venegas on 10-24-2023 Albumin/Globulin [Mass ratio] 1.9 {ratio} [facility] Serum or plasma anion gap de terminationOrdered By: Eliezer Venegas on 10-24-2023 Anion gap [Moles/Vol] 11.8 mmol/L 6.0-15.0 [facility] Sodium [Moles/volume] in Ser um or PlasmaOrdered By: Eliezer Venegas on 10-24-2023 Sodium [Moles/Vol] 136 mmol/L 136-145 [facility] Urate [Mass/volume] in Serum or PlasmaOrdered By: Eliezer Venegas on 10-24-2023 Urate [Mass/Vol] 4.3 mg/dL 4.4-7.6 [facility] Urea nitrogen [Mass/volume] in Serum or PlasmaOrdered By: Eliezer Venegas on 10-24-2023 Urea nitrogen [Mass/Vol] 21 mg/dL 7-25 [facility] Uric Acidon 10-24-2023 Urate [Mass/Vol] 4.3 mg/dL Low 4.4-7.6 [facility] Comment on above: Performed By: #### U AARON, CBC, ESR, CMP, CRP #### [facility] [address] [place] [address] #### KEV #### [facility] , WBC Auto (Bld) [#/Vol]Ordere d By: Eliezer Venegas on 10-24-2023 WBC (Bld) [#/Vol] 4.4 10*3/uL 4.1-10.5 [facility] XR CSPINE MIN 4 VIEWSon 06-11 XR CSPINE MIN 4 VIEWS EXAMINATION: XR CSPINE MIN 4 VIEWS HISTORY: Degeneration of cervical intervertebral disc COMPARISON: No relevant comparison available. FINDINGS: BONES: Reversal of normal cervical lordosis. 1 mm anterolisthesis of C3 on C4. 2 mm retrolisthesis of C4 on C5 and C5 on C6. Mild to moderate degenerative spondylosis. [id number]-hl-[id number] facet osteoarthropathy. DISC SPACES: Mild to severe disc space narrowing most significant at C4-C7 PARASPINOUS: Negative. No paraspinous abnormality is seen. OTHER: Negative. IMPRESSION: Moderate degenerative changes with reversal cervical lordosis Electronically authenticated by: ERIC PEPPER Date: 2022-06-20 15:07 Normal [facility] CREATININEon 04-03-2022 Creatinine [Mass/Vol] 0.85 mg/dL Normal 0.70-1.30 [facility] Comment on above: Performed By: #### C IRENE #### [facility] [address] [address] [address] Charo Fuentes EGFR-AF ZAMBIAN >60 Normal >=60 [facility] Comment on above: Performed By: #### C IRENE #### [facility] [address] [address] [address] Charo Fuentes EGFR-NON AF ZAMBIAN >60 Normal >=60 [facility] Comment on above: Performed By: #### C IRENE #### [facility] [address] [place] [address] ABDOMEN WO/W CONon [...] by: ANYA NUÑEZ Date: 2022-04-03 11:34 Normal [facility] CT ABD/PELVIS WO CONon 03-27 CT [...] ANYA NUÑEZ Date: 2022-03-27 10:06 Normal [facility] US SCROTUMon 03-07-2022 US SCROTUM EXAMINATION: US [...] ERIC PEPPER Date: 2022-03-07 11:34 Normal [facility] Vital Signs Date Time Vital Sign Value Performing Clinician Facility 08-19-2024 14:08-0400 Body height 154.9 cm [facility] [facility] 08-19-2024 14:08-0400 Body mass index (BMI) [Ratio] 35.33 kg/m2 [place] Work Phone: [facility] [employer] [facility] 08-19-2024 14:08-0400 Body weight 84.82 kg [place] Work Phone: [facility] [employer] [facility] 07-20-2024 09:44-0400 Blood Pressure Location Tete MARCUM [facility] 07-20-2024 09:44-0400 Diastolic blood pressure 76 mm[Hg] Tete MARCUM [facility] 07-20-2024 09:44-0400 Heart rate 88 /min Tete MARCUM [facility] 07-20-2024 09:44-0400 Systolic blood pressure 132 mm[Hg] Tete MARCUM [facility] 03-30-2024 09:45-0400 Blood Pressure Location Teteshefali MARCUM [facility] 03-30-2024 09:45-0400 Body temperature 98.6 [degF] Tete MARCUM [facility] 03-30-2024 09:45-0400 Diastolic blood pressure 74 mm[Hg] Tete MARCUM [facility] 03-30-2024 09:45-0400 Heart rate 96 /min Teteshefali MARCUM [facility] 03-30-2024 09:45-0400 Respiratory rate 16 /min Tete MARCUM [facility] 03-30-2024 09:45-0400 Systolic blood pressure 123 mm[Hg] Tete MARCUM [facility] 01-28-2024 07:30-0400 Body temperature 97.81 [degF] Kalin Dowd MD [facility] 01-28-2024 07:30-0400 Diastolic blood pressure 61 mm[Hg] Kalin Dowd MD [facility] 01-28-2024 07:30-0400 Heart rate 72 /min Kalin Dowd MD [facility] 01-28-2024 07:30-0400 Respiratory rate 18 /min Kalin Dowd MD Work Phone: [employer] 01-28-2024 07:30-0400 SaO2% (BldA) [Mass fraction] 97 % Kalin Dowd MD Work Phone: [employer] 01-28-2024 07:30-0400 Systolic blood pressure 123 mm[Hg] Kalin Dowd MD Work Phone: [employer] 01-28-2024 05:00-0400 Body mass index (BMI) [Ratio] 29.89 kg/m2 Kalin Dowd MD Work Phone: [employer] 01-28-2024 05:00-0400 Body weight 74.12 kg Kalin Dowd MD Work Phone: [employer] Comment on above: bed was re-zeroed 01-27-2024 06:38-0400 Body height 157.5 cm Kalin Dowd MD Work Phone: [employer] 01-06-2024 10:19-0500 Body height 157.5 cm Kalin Dowd MD Work Phone: [employer] 01-06-2024 10:19-0500 Body mass index (BMI) [Ratio] 30.18 kg/m2 Kalin Dowd MD Work Phone: [employer] 01-06-2024 10:19-0500 Body temperature 97.5 [degF] Kalin Dowd MD Work Phone: [employer] 01-06-2024 10:19-0500 Body weight 74.84 kg Kalin Dowd MD Work Phone: [employer] 01-06-2024 10:19-0500 Diastolic blood pressure 67 mm[Hg] Kalin Dowd MD Work Phone: [employer] 01-06-2024 10:19-0500 Heart rate 103 /min Kalin Dowd MD Work Phone: [facility] 01-06-2024 10:19-0500 Respiratory rate 20 /min Kalin Dowd MD Work Phone: [facility] 01-06-2024 10:19-0500 SaO2% (BldA) [Mass fraction] 96 % Kalin Dowd MD Work Phone: [facility] 01-06-2024 10:19-0500 Systolic blood pressure 113 mm[Hg] Kalin Dowd MD Work Phone: [facility] 11-25-2023 10:05-0500 Blood Pressure Location Tete MARCUM [facility] 11-25-2023 10:05-0500 Diastolic blood pressure 82 mm[Hg] Tete MARCUM [facility] 11-25-2023 10:05-0500 Systolic blood pressure 138 mm[Hg] Tete MARCUM [facility] 11-19-2022 10:58-0500 Blood Pressure Location Tete MARCUM [facility] 11-19-2022 10:58-0500 Diastolic blood pressure 70 mm[Hg] Tete MARCUM [facility] 11-19-2022 10:58-0500 Heart rate 68 /min Tete MARCUM [facility] 11-19-2022 10:58-0500 Respiratory rate 16 /min Tete MARCUM [facility] 11-19-2022 10:58-0500 Systolic blood pressure 132 mm[Hg] Tete MARCUM [facility] Encounters Encounter Date Encounter Type Care Provider Facility Start: 09-24-2025 ambulatory Tete Villafana ty:[facility] Start: 09-07-2025 ambulatory [facility] Start: 08-26-2025 ambulatory Tete Villafana ty:[id number] Start: 07-28-2025 End: 07-28-2025 ambulatory William R LORENAL Facility: [place] Start: 07-28-2025 End: 07-28-2025 Patient encounter procedure William CARRILLOL [facility] Start: 07-23-2025 End: 07-23-2025 ambulatory Tete MARCUM Facility: [facility] Start: 07-23-2025 End: 07-23-2025 Patient encounter procedure Tete Singleton MARCUM [facility] Start: 06-28-2025 ambulatory William CARRILLOL Facility:[facility] [place] Start: 08-19-2024 End: 08-19-2024 Postop follow up visit related to original px Basel Diane PA Work Phone: [facility] Comment on above: 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) Start: 07-20-2024 End: 07-20-2024 Patient encounter procedure [facility] Start: 04-30-2024 End: 04-30-2024 ambulatory TOMÁS BOWDEN Not Available Start: 03-30-2024 End: 03-30-2024 Patient encounter procedure Tete R KITTY [facility] Start: 01-27-2024 End: 01-28-2024 ambulatory KALIN Nichols [facility] Start: 01-27-2024 End: 01-28-2024 Subsequent hospital visit by physician Kalin Dowd MD Work Phone: [facility] Comment on above: S/P TKR (total knee replacement) using cement, left (Primary Dx) Start: 01-06-2024 End: 01-11-2024 ambulatory KALIN DOWD [facility] Start: 01-06-2024 End: 01-10-2024 Subsequent hospital visit by physician Kalin Dowd MD Work Phone: [facility] Start: 11-25-2023 End: 11-25-2023 Patient encounter procedure Tete MARCUM [facility] Start: 10-24-2023 End: 10-24-2023 ambulatory Eliezer Venegas Facility:[facility] Start: 10-24-2023 End: 10-24-2023 ambulatory MD Barak Richard Work Phone: [facility] Work Phone: Start: 10-24-2023 End: 10-24-2023 Patient encounter procedure MD Barak Richard Work Phone: [facility] [address] Work Phone: Start: 02-28-[address] BARAK RICHARD . 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 Charo Fuentes Start: 11-11-2011 Colonoscopy Tete BEANS Cataract surgery Tete COOK Cholecystectomy Tete MESSINA Hernia repair Tete MARCUM Skin graft material (substance) Tete AMRCUM Plan of Treatment Date Care Activity Detail Author Start: 08-19-2025 Adult BMI Screening Adult BMI Screen [facility] Start: 08-19-2025 Tobacco Screening Tobacco Screening [facility] Start: 08-05-2025 Depression Screening Depression Scre ening [facility] Start: 07-12-2024 COVID-19 Vaccine ( season) COVID-19 Vaccine ( season) [facility] Start: 07-12-2024 Influenza vaccination Influenza Vacc ine [facility] Start: 01-27-2024 End: 01-27-2024 Admission to same day surgery center 01/27/2024 1:00 PM EDT - 01/27/2024 4:00 PM EDT Surgery [facility] OR [address] [place] [address] [phone] Kalin Dowd MD [address] [place] [address] KNEE TOTAL ARTHROPLASTY [facility] OR Comment on above: KNEE TOTAL ARTHROPLA [facility] Start: 01-27-2024 End: 01-27-2024 Arthrp kne condyle&platu medial&lat compartments KNEE TOTAL ARTHROPLASTY Primary osteoarthritis of left knee 01/27/2024 1:00 PM EDT [facility] Start: 01-27-2024 Subsequent hospital visit by physician 01/27/2024 1:00 PM EDT Hospital Encounter [facility] OR [address] [place] [address] [phone] Kalin Dowd MD [address] [place] [address] [facility] Start: 10-24-2023 [facility] Start: 07-12-2023 COVID-19 Vaccine ( season) COVID-19 Vaccine ( season) [facility] Start: 2014 Abdominal aortic aneurysm screening AAA screen [facility] Start: 2014 Fall Risk Screening Fall Risk Screen [facility] Start: 2009 Respiratory Syncytia l Virus (RSV) or age 60 yrs+ (1 - 1-dose 60+ series) Respiratory Syncytial Virus (RSV) or age 60 yrs+ (1 - 1-dose 60+ series) [facility] Start: 1994 Screening for malign ant neoplasm of colon [facility] Start: 1989 Lipid panel Lipids [facility] Start: 1968 DTaP,Tdap and Td Vaccines (1 - Tdap) DTaP,Tdap and Td Vaccines (1 - Tdap) [facility] Start: 1968 DTaP/Tdap/Td vaccine (1 - Tdap) DTaP/Tdap/Td vaccine (1 - Tdap) [facility] Start: 1967 Hepatitis C screening Hepatitis C sc reen [facility] Start: 1961 Depression Screen Depression Screen [facility] Start: 1949 Medicare Annual Wellness Visit Medicare Annual Wellness Visit [facility] Homogenous nuclear A b pattern [Titer] in Serum [facility] Nuclear Ab [Titer] i n Serum [facility] Oxygen therapy [[facility] Data Set] Initiate Oxygen Therapy Protocol Respiratory Care Routine As Needed until discontinued starting 01/27/2024 [facility] Comment on above: As Needed until disc ontinued starting 01/27/2024 Immunizations Immunization Date Immunization Notes Care Provider [facility] cristina 09-11-2023 influenza virus vacc ine, unspecified formulation Tete MARCUM [facility] 09-11-2023 Influenza, High-dose , Quadrivalent Basel Diane PA Work Phone: [facility] 08-31-2022 SARS-CoV-2 (COVID-19 ) [id number] Tete MARCUM [facility] 08-27-2022 influenza virus vacc ine, unspecified formulation Tete MARCUM [facility] 08-27-2022 Influenza, High-dose , Quadrivalent Basel Diane PA Work Phone: [facility] 04-21-2022 Covid-19, Mrna, Lnp- s, Pf, 30 Mcg/0.3 Ml Dose, Vic-sucrose [facility] Work Phone: [employer] [facility] 04-21-2022 SARS-CoV-2 mRNA (cbimxaeucxk-mpjc-jsvsjl e) vaccine Tete MARCUM [facility] 09-11-2021 influenza virus vacc ine, unspecified formulation Tete MARCUM [facility] 09-04-2021 SARS-CoV-2 (COVID-19 ) mRNA BNT-162b2 vax Tete MARCUM [facility] 08-29-2021 unknown vaccine or immune globulin [facility] Work Phone: [facility] 08-11-2021 SARS-CoV-2 (COVID-19 ) Ad26 vaccine, recombinant Tete MARCUM [facility] 02-20-2021 SARS-CoV-2 (COVID-19 ) mRNA BNT-162b2 vax Tete MARCUM [facility] 02-09-2021 SARS-CoV-2 (COVID-19 ) Ad26 vaccine, recombinant Tete MARCUM [facility] 12-23-2020 SARS-CoV-2 (COVID-19 ) mRNA BNT-162b2 vax Tete MARCUM [facility] Comment on above: Result Comment: 2022: [id number] 12-12-2020 SARS-CoV-2 (COVID-19 ) Ad26 vaccine, recombinant Tete MARCUM [facility] 12-01-2020 zoster vaccine recombinant Tete MARCUM [facility] 09-29-2020 zoster vaccine recombinant Tete MARCUM [facility] 08-18-2020 influenza virus vacc ine, unspecified formulation Tete MARCUM [facility] 08-18-2020 Seasonal trivalent influenza vaccine, adjuvanted, preservative free Basel Diane TRAVIS Work Phone: [facility] 07-12-2019 influenza virus vacc ine, live, attenuated, for intranasal use Tete MARCUM [facility] 08-28-2017 influenza virus vacc ine, unspecified formulation Tete MARCUM [facility] 08-28-2017 influenza, injectabl e, quadrivalent, preservative free Basel Diane PA Work Phone: [employer] 08-21-2017 pneumococcal conjuga te vaccine, 13 valent Tete MARCUM [facility] 08-30-2015 pneumococcal polysaccharide vaccine, 23 valent Tete MARCUM [facility] Payers Date Payer Category Payer Self-pay 2019 Medicare [id number] 1959 Medicare [id number] 1950 Unknown [id number] 2.16.84 [id number] 1950 Unknown [id number] 2.16.84 [id number] 1949 Unknown [id number] 2.16.84 0.1.393900.3.579.2.593 1949 Unknown [id number] 2.16.84 0.1.433236.3.579.2.593 1949 Unknown [id number] 2.16.84 0.1.867298.3.579.2.593 1949 Unknown [id number] 2.16.84 0.1.101196.3.579.2.593 1949 Unknown [id number] 2.16.8 40.1.791507.3.579.2.173 1949 Unknown [id number] 2.16.8 40.1.625904.3.579.2.173 1949 Unknown [id number] 2.16.84 0.1.214192.3.579.2.1259 1949 Unknown [id number] 2.16.8 40.1.596559.3.579.2.727 1949 Unknown [id number] 2.16.8 40.1.496244.3.579.2.727 1949 Unknown [id number] 2.16.8 40.1.818919.3.579.2.727 1949 Unknown [id number] 2.16.8 40.1.510632.3.579.2.727 Unknown [employer] / [id number] Unknown [id number] 2.16.8 [id number] Social History Date Type Detail Facility Start: 11-19-2022 End: 07-23-2025 Tobacco smoking status Ex-smoker (finding) [facility] Start: 01-27-2024 End: 08-05-2024 Sex Assigned At Male [facility] Start: 1950 Sex Assigned At Male [facility] smoking consumption unknown [employer] [facility] Start: 1950 Sex Assigned At Not on file [employer] [facility] History of tobacco use Current smoker [employer] History of tobacco use Cigarette Smoker B ON Status [employer] Start: 01-27-2024 End: 08-05-2024 Tobacco use and exposure Smokeless tobacco non-user [employer] Start: 01-28-2024 End: 08-19-2024 Alcohol intake Current drinker of alcohol (finding) [employer] Start: 01-28-2024 End: 08-05-2024 Alcohol intake [employer] Has the [employer], or [employer] threatened to shut off services in your home in past 12Mo No [employer] (I/We) worried [facility] (my/our) food would run out before (I/we) got money to buy more. Never true [employer] In the past 12 month s, has lack of transportation kept you from medical appointments or from getting medications? No [employer] Start: 01-27-2024 Alcohol Comment occasional beer [employer] History of tobacco use Cigar Smoker [facility] How often to you [...] Health System Sexual Orientation [facility] Start: 04-08-2019 Sex Male (finding) [facility] Medical Equipment Procedure Code Equipment Code Equipment Origin al Text Equipment Identifier Dates Impl Knee Psn Fe m Cr Cmt Ccr Std Sz8 L - [id number] Start: 01-27-2024 Cement Bne 40gm Hi Visc Radpq For Rev Surg - [id number] Start: 01-27-2024 Component Pat Di a35mm Thk9mm Knee Poly Ángel Conventional - [id number] Start: 01-27-2024 Psn Tib Stm 5 De g Sz F L - [id number] Start: 01-27-2024 Psn Mc Ve Asf L 14mm 8-11 Ef - [id number] Start: 01-27-2024 Goals Date Patient Goal Desired Activity /State Personal health goal Comment on above: Formatting of this n ote might be different from the original. Evaluation of progress towards goal: patient anticipates discharge home with self care Functional Status Date Assessment Result Facility 07-20-2024 Functional Status N/A [facility] 03-30-2024 Functional Status N/A [facility] 11-25-2023 Functional Status N/A [facility] 11-19-2022 Functional Status N/A [facility] Clinical Notes 11-19-2022 to 07-23-2025 TRAVIS [...] and water are not available, use hand cleaning manager. ?Change your dressing once a day, or [...] cloth or let it air-dry. Medicines Take ilks-uit-ixbdoau and prescription medicines only as told by [...] to keep your urine pale yellow. ?Take drfv-pkg-mllizsw or prescription medicines. ?Eat foods that are [...] provider. Document Revised: 04/27/2022 Document Reviewed: 04/27/2022 Pheed Patient Education 2023 [employer]. Follow Up Care 07/20/2024 10:26:46 With:KITTY GLASS, Tete Singleton, URL Address: [address] [place], [place] [id number]- When: Unknown [facility] 07-23-2025 Note Patient Education Oncology Orchiectomy, [...] and water are not available, use hand cleaning manager. ? Change your dressing once a day, [...] or let it air-dry. Medicines ??? Take wftn-vxz-txyohjy and prescription medicines only as told by [...] keep your urine pale yellow. ? Take txqh-htm-nnumion or prescription medicines. ? Eat foods that [...] ??? You d (more content not included)... [facility] 08-19-2024 History of Present illness Narrative [...] call office for appointment Israel Contreras PA-C [facility] General Surgery [address] [place] [address] TRAVIS Jack 08/19/24 1421 documented in this encounter [facility] 07-20-2024 Hospital Discharge instructions Patient Education [...] urethra. Follow these instructions at home: Take njep-ukc-hexobyq and prescription medicines only as told by [...] provider. Document Revised: 05/16/2022 Document Reviewed: 05/16/2022 ElseGlassUp Patient Education 2023 [employer]. Follow Up Care 03/30/2024 10:38:49 With:KITTY GLASS, Tete Singleton, URL Address: [facility] [address] [place] [address]- When: Unknown [facility] [place] 03-30-2024 Hospital Discharge instructions Patient Education 03/30/2024 [...] Follow these instructions at home: Medicines Take phua-fak-aoiptej and prescription medicines only as told by [...] provider. Document Revised: 06/06/2022 Document Reviewed: 06/06/2022 Pheed Patient Education 2022 [employer]. Follow Up Care 11/25/2023 10:54:02 With:KITTY GLASS, Tete Singleton, URL Address: [facility] [address] [place] [address] [phone] When: Unknown [facility] [place] 01-28-2024 History of Present illness Narrative Pt taken down to personal vehicle at this time. Reviewed discharge instructions with patient and spouse. Both aware of need to potato picker prescriptions. Reviewed new medications and side [...] is a little nervous about showering despite mortgage loan underwriter reassurance. in room when leaving, she will assist him to get dressed and Park DING will do D/C instructions with them both. [place] script in chart Progress Note Subjective: Post-Operative [...] 4: Continue Pain Control Physical Therapy Facility/Department: [facility] Physical Therapy Initial Assessment [...] Ambulation Assistance: Independent Transfer Assistance: Independent Active Lease Purchase Driver: Yes Mode of Transportation: Car Vision/Hearing Vision [...] will perform transfers and bed mobility with IA. Short Term Goal 3: Patient will tolerate [...] light in reach, will continue to monitor. Greens Or Grounds Superintendent assisted pt into the bathroom and then into the bed. The patient was not able to void at this time. Pt will try again later, will continue to monitor. Pt sitting up in the chair when mortgage loan underwriter entered the room. Pt is A&O x4. Vitals and assessment as charted. Pt denies pain. LLE MARCO A wrap noted. 2+ pedal pulses. Pt denies tingling but is still having numbness. Pt denies any further needs at this time. Call light within reach. Occupational Therapy Facility/Department: [facility] Occupational Therapy Initial Assessment [...] 330 at this time. Report received from FRESCO ARTIST at bedside. Pt is A&Ox4. Pt denies [...] Dowd that he is in route from [place] currently, planning to be here for a 1300 start time, updated pt and . Na level resulted at 135, notified ELVIN Tabares. documented in this encounter [facility] 01-28-2024 Hospital Discharge instructions Jadyn Saleh RN - 01/28/2024 12:53 PM EDT Report the following signs or any questions regarding your physical condition to your surgeon immediately: Dr. Dowd: [phone] Excessive swelling of, or around the wound [...] at most local grocery stores, pharmacies, and [employer]-stores. If you have any questions about your diet or nutrition, call the hospital and ask for the dietitian. Regular The following attachments cannot be sent through Care Everywhere.Surgical Site Infections: Prevention: General Info (Ghanaian)TKR (Total Knee Replacement): Post-op (Ghanaian)documented in this encounter [facility] 01-06-2024 History of Present illness Narrative Patient instructed on the pre-operative, intra-operative, and post-operative process. Patient instructed on NPO status. Medication instructions and pre operative instruction sheet reviewed with the patient. CHG skin prep instructions reviewed with patient. [facility] Preadmission Testing Name: Sean Grewal : 1950 [...] and medical clearance. documented in this encounter [facility] 11-25-2023 Hospital Discharge instructions Patient Education [...] Follow these instructions at home: Medicines Take mktx-ohb-yzfrbpq and prescription medicines only as told by [...] Document Reviewed: 06/06/2022 Elsevier Patient Education 2022 [employer]. Follow Up Care 11/19/2022 11:41:10 With:KITTY GLASS, Tete Singleton, ROSLYN Address: [facility] [address] [place] [address] [phone] When: Unknown Comments:4 mos (new med) [facility] [place] 11-19-2022 Hospital Discharge [...] urethra. Follow these instructions at home: Take wqsc-aiv-nsajopj and prescription medicines only as told by [...] 10/28/2006 Document Revised: 09/22/2019 Document Reviewed: 12/02/2017 Pheed Patient Education 2020 [employer]. Follow Up Care 02/12/2022 10:03:54 With:KITTY GLASS, ROSLYN [place] Address: [facility] [address] [place] [address] [phone] When:Within 1 Year(s) [facility] Evaluation + Plan note Future Appointments Appointment Date:11/25/2023 09:45:00 AM Scheduled Provider:Tete MARCUM MD Location:[facility] Appointment Type:URO Office Visit [facility] Evaluation + Plan note Future Appointments Appointment Date:03/30/2024 09:45:00 AM Scheduled Provider:Tete MARCUM MD Location:[facility] Appointment Type:URO Office Visit [facility] Evaluation + Plan note Future Appointments Appointment Date:07/20/2024 09:45:00 AM Scheduled Provider:Tete MARCUM MD Location:[facility] Appointment Type:URO Office Visit Diagnostic Tests PendingPSA Total 03/30/24 [facility] Evaluation + Plan note Future Appointments Appointment Date:07/23/2025 09:45:00 AM Scheduled Provider:Tete MARCUM MD Location:[facility] Appointment Type:URO Office Visit Diagnostic Tests PendingPSA Total 07/20/24 [facility] Evaluation + Plan note Future Appointments Appointment Date:07/28/2025 01:20:00 PM Scheduled Provider:William CAST MD Location:[facility] Appointment Type: Established 15 Appointment Date:09/24/2025 10:30:00 AM Scheduled Provider:Tete MARCUM MD Location:[facility] Appointment Type:URO Office Visit [facility] Evaluation + Plan note Future Appointments Appointment Date:09/24/2025 10:30:00 AM Scheduled Provider:Tete MARCUM MD Location:[facility] Appointment Type:URO Office Visit [facility] Evaluation note No assessment inform ation available [facility] Work Phone: Evaluation note Diagnosis S/P TKR (total knee replacement) using cement, left- Primary S/P TKR (total knee replacement) using cement, left Hypertension Unspecified essential hypertension documented in this encounter [facility] note* Diagnosis Gallstone pancreatitis- Primary Acute pancreatitis [facility] Narrative No data available for this section [facility] Hospital Discharge instructions No data available for this section [facility] InstructionsNot on filedocumented in this encounter [facility] No data available for this section [facility] Summary Purpose Family History No Family [...] Documents on File Type Date Recorded 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 DNR Physician Order 08/18/2024 7:10 [...] Active Eliezer Venegas MD Attending Provider Active Display Decorator Relationship Specialty Start Date End Date Barak Richard MD [address] [place] [address] PCP - General Family Medicine 01/28/24 Display Decorator Relationship Specialty Start Date End Date Barak Richard MD [address] [place] [address] PCP - General Family Medicine 08/05/24 (unrecognized sect ion and content) No Status Records FoundNo Status Records FoundNo Status Records FoundNo Status Records FoundNo Status Records Found INFORMATION SOURCE (unrecogn ized section and content) DATE CREATED AUTHOR 03/02/2023 [facility] DATE CREATED AUTHOR AUTHOR'S ORGANIZ ATION 11/22/2023 [facility] DATE CREATED AUTHOR AUTHOR'S ORGANIZ ATION 02/11/2024 [facility] DATE CREATED AUTHOR AUTHOR'S ORGANIZ ATION 05/01/2024 [facility] EPIC DATE CREATED AUTHOR AUTHOR'S ORGANIZ ATION 08/14/2025 [facility] Goals (unrecognized section and content) Goals may be documented in a n alternate section Reason for Visit (unrecogniz ed section and content) Specialty Diagnoses / Procedures Referred By Contac t Referred To Contact Diagnoses Primary osteoarthritis of left knee Primary osteoarthritis of left knee [M17.12] Procedures [place] ARTHRP KNE CONDYLE&PLATU MEDIAL&LAT COMPARTMENTS KNEE TOTAL ARTHROPLASTY Kalin Dowd MD [address] [place] [address] [facility] [address] [place] [address] Referral ID Status Reason Start Date Expiration Date Visits Re quested Visits Authorized [id number] 1 1 Reason Comments Post-op Post op [...] sodium chloride 0.9 % 50 mL IVPB (Bved6Rpo) (COMPLETED) 1,000 mg, IntraVENous, ONCE, 1 dose, On Sat01/27/24 at 0645, Antimicrobial Indications: Surgical Prophylaxis, Send to OR, Pre-op (day of surgery) 1522 (New Bag - Provider: Ranjan Santos APRN - SUPERVISOR BRAIDING) 1259 (Stopped - Provider: Conchis Bailon RN) [...] of each other unless specifically ordered., Post-op bqyjmidae-LLGnjjctngv-wjvueavh 60-150-60 MG/50ML injection (CANCELED) PRN, Starting on [...] BE BASED ON THE PRIMARY CLINICAL RECORDS. [email or web address] provides no warranty or guarantee of the accuracy or completeness of information in this document.
[2025-08-26] MEDS: CEFAZOLIN SODIUM 2 GM/50 ML D5W PREMIX IV (14:45)
[2025-08-26] MEDS: MINERAL OIL LIGHT STERILE 10 ML VIAL TOPICAL (15:38)
[2025-08-26] MEDS: BACITRACIN OINTMENT 28.4 GM TUBE 1 APPLIC TOPICAL (15:53)
--- NOTE | 2025-08-26 15:58 | P.URON_ITS ---
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 Simple left orchiectomy Anesthesia: General-LMA Primary Surgeon: Jose Marcum Complications: None Estimated blood loss (mL): 2 Findings: Indurated left epididymis. Normal-appearing testicle. Specimens: Left testicle, epididymis and spermatic cord Drains: None Indications for Procedures: This gentleman has had chronic left testicular pain intermittently along with recurrent left epididymal and testicular infections. The discomfort is bothering his daily life. He has failed all conservative management. His scrotal echo is unremarkable. He is strongly desirous for left testicular removal to help alleviate his left testicular pain. he has signed an informed consent after risks were explained. Detailed description of Procedure: The patient was brought to the operating room and placed on the operating room table in the supine position. SCDs were placed on his lower extremities and turned on and functioning during the entire case. Timeout was done by all parties in the room. We all agreed upon the patient's identification and the planned procedures for this patient. General anesthesia was then administered via LMA. Genitalia were sterilely prepped and draped in the usual fashion. I started by making a left hemiscrotal transverse incision with a 15 blade scalpel. Sharp dissection was carried down to the hemiscrotal contents using the needle tip Bovie cautery and sharp dissecting scissors. Once the tunica vaginalis was entered, the testicle epididymis and spermatic cord were then delivered out the incision. I then bluntly dissected up the spermatic cord freeing it up to the external ring. Upon inspection, the testicle appeared normal. The epididymis was indurated and a bit enlarged at the head. The spermatic cord was unremarkable. I then placed 2 Kely clamps on the upper spermatic cord and then used a FRAN stapler with a vascular load. This was placed between the Kellys and the cord was clamped and then cut. We had an excellent Tri staple line. The staple line was then coagulated with the Bovie cautery. The proximal Kely was released and there was no bleeding whatsoever. The testicle epididymis and spermatic cord were sent for permanent sections. I then used the Bovie cautery to coagulate any dartos layer bleeding. Once hemostasis was verified I then closed the incision. first the dartos layer was closed with 3-0 Vicryl in a running fashion. The skin was then closed with 4-0 Vicryl in a running fashion. Bacitracin ointment was placed over the incision. Fluffs were applied as well as a scrotal support. [facility] and taken to PACU in stable condition.
--- NOTE | 2025-08-26 17:14 | PC.NURSE ---
1710: pt ambulates to bathroom with SBA,pt voids without difficulty,urine clear,yellow.
== END 2025-08-26 17:18 | disposition home or self-care (01) ==
LOC: SURGOUT 11:48
PROVIDERS: PCP Family Medicine; Visit Provider Urology
PROC: (CPT 54520; principal; 2025-08-26 13:05)
DX: N50.812 Left testicular pain (principal); N45.3 Epididymo-orchitis; K21.9 Gastro-esophageal reflux disease without esophagitis; N40.0 Benign prostatic hyperplasia without lower urinary tract symptoms; N52.9 Male erectile dysfunction, unspecified; I10 Essential (primary) hypertension; R73.9 Hyperglycemia, unspecified; M19.90 Unspecified osteoarthritis, unspecified site; Z90.49 Acquired absence of other specified parts of digestive tract; Z87.891 Personal history of nicotine dependence; Z96.659 Presence of unspecified artificial knee joint
CPT/HCPCS: 54520; 36415; 88307; J0690; J1100; J2250; J2371; J2405; J2704; J3010

== ENCOUNTER 2025-10-25 10:13 | Outpatient (OUT) | payer MEDICARE, SELFPAY ==
--- NOTE | 2025-10-25 10:19 | XR_ITS ---
[facility] [place] [id number] Patient Name: SEAN GREWAL MRN: [id number] date: 1950 Sex: M Assigned Patient Location: [facility] Current Patient Location: [facility] Accession/Order Number: [id number] Exam Date: 10/25/2025 10:22 Report Date: 10/25/2025 11:19 At the request of: BARAK ANTHONY MD Procedure: XR knee RT 3V RIGHT KNEE - 3 views COMPARISON: None CLINICAL DATA: Medial right knee pain. No injury. AP, lateral and oblique views were obtained. There is no acute fracture or dislocation. No disproportionate disc space especially. There is minor marginal spurring. No knee effusion or soft tissue swelling. XR/XR knee RT 3V IMPRESSION: NO ACUTE BONY FINDINGS Impression dictated by: Maylin Tidwell M.D. 10/25/2025 11:19 AM Dictation Location: [place] [id number] Electronically authenticated by: [id number] Y Date: 10/25/2025 11:19
== END 2025-10-25 10:14 | disposition home or self-care (01) ==
LOC: RAD 10:15
PROVIDERS: PCP Family Medicine; Visit Provider Family Medicine
DX: M19.90 Unspecified osteoarthritis, unspecified site (principal)
CPT/HCPCS: 73562